=== PATIENT | female | born 1985 | race Hispanic/Latino ===

== ENCOUNTER 2017-03-08 14:11 | Emergency (ER) | payer SELFPAY ==
[2017-03-08 14:11] VITALS: BMI 29.0
[2017-03-08 14:17] VITALS: BP 132/63; PULSE 93; RESP 17; TEMP 98.4; O2SAT 96
== END 2017-03-08 14:57 | disposition left against medical advice (07) ==
LOC: ED 14:11
DX: Z02.89 Encounter for other administrative examinations (principal); M25.511 Pain in right shoulder

== ENCOUNTER 2017-03-09 22:45 | Emergency (ER) | payer SELFPAY ==
[2017-03-09 22:45] VITALS: BMI 29.0
[2017-03-09 23:15] VITALS: RESP 16; TEMP 97.6
--- NOTE | 2017-03-09 23:18 | ED PDOC ---
Arrival/HPI - General Chief Complaint: Psychiatric Evaluation Time Seen by Provider: 03/09/17 22:53 Historian: Patient - History of Present Illness Narrative History of Present Illness (Text): 03/09/17 23:16 A 31 year old female was brought in by EMS to the emergency department for alcohol intoxication. Patient was found outside sleeping. Patient denies any fever, chills, headache, dizziness, shortness of breath or any other complaints at this time. Symptom Onset: Sudden Symptom Course: Unchanged Activities at Onset: Rest Associated Symptoms (Text): none Past Medical History - Provider Review Nursing Documentation Reviewed: Yes - Infectious Disease Hx of Infectious Diseases: None - Cardiac Hx Cardiac Disorders: Yes - Pulmonary Hx Respiratory Disorders: No - Neurological Hx Neurological Disorder: No - HEENT Hx HEENT Disorder: No - Renal Hx Renal Disorder: No - Endocrine/Metabolic Hx Endocrine Disorders: No - Hematological/Oncological Hx Blood Disorders: No - Integumentary Hx Dermatological Disorder: No - Musculoskeletal/Rheumatological Hx Falls: Yes - Gastrointestinal Hx Gastrointestinal Disorders: No - Genitourinary/Gynecological Hx Genitourinary Disorders: No - Psychiatric Hx Psychophysiologic Disorder: Yes Hx Bipolar Disorder: Yes Hx Depression: No Hx Post Traumatic Stress Disorder: Yes Hx Substance Use: Yes (HEROIN) - Anesthesia Hx Anesthesia: No - Suicidal Assessment Feels Threatened In Home Enviroment: No Family/Social History - Physician Review Nursing Documentation Reviewed: Yes Family/Social History: No Known Family HX Smoking Status: Current Some Days Smoker Hx Alcohol Use: Yes Hx Substance Use: Yes (HEROIN) Hx Substance Use Treatment: Yes Allergies/Home Meds Allergies/Adverse Reactions: Allergies pentazocine Adverse Reaction (Verified 03/08/17 14:13) FEVER Home Medications: Home Meds Medication Instructions Recorded Confirmed Methadone 210 mg PO DAILY 02/16/12 03/09/17 Review of Systems - Physician Review All systems were reviewed & negative as marked: Yes - Review of Systems Constitutional: absent: Fevers, Other (chills) Respiratory: absent: SOB Neurological: absent: Headache, Dizziness Physical Exam Vital Signs Reviewed: Yes Vital Signs Temp Pulse Resp BP Pulse Ox 03/10/17 02:05 88 16 101/67 100 03/09/17 23:00 97.6 F 78 16 110/76 99 Temperature: Afebrile Blood Pressure: Normal Pulse: Regular Respiratory Rate: Normal Appearance: Positive for: Well-Appearing, Comfortable Pain Distress: None Mental Status: Positive for: Alert and Oriented X 3 - Systems Exam Head: Present: Atraumatic, Normocephalic Pupils: Present: PERRL Extroacular Muscles: Present: EOMI Conjunctiva: Present: Normal Mouth: Present: Moist Mucous Membranes Neck: Present: Normal Range of Motion Respiratory/Chest: Present: Clear to Auscultation, Good Air Exchange. No: Respiratory Distress, Accessory Muscle Use Cardiovascular: Present: Regular Rate and Rhythm, Normal S1, S2. No: Murmurs Abdomen: Present: Normal Bowel Sounds. No: Tenderness, Distention, Peritoneal Signs Back: Present: Normal Inspection Upper Extremity: Present: Normal Inspection. No: Cyanosis, Edema Lower Extremity: Present: Normal Inspection. No: Edema Neurological: Present: GCS=15, CN II-XII Intact, Speech Normal Skin: Present: Warm, Dry, Normal Color. No: Rashes Psychiatric: Present: Alert, Oriented x 3, Intoxicated Medical Decision Making ED Course and Treatment: 03/09/17 23:15 Impression: A 31 year old female with alcohol intoxication. Plan: -- Reassess and disposition Prior Visits: Notes and results from previous visits were reviewed. Patient reported to the emergency department on 02/23/17 for evaluation of alcohol intoxication. Progress Notes: Waiting for rehab. Re-evaluation Time: 05:29 Reassessment Condition: Re-examined, Improved - Scribe Statement The provider has reviewed the documentation as recorded by the Joyibcyndee Morrow Provider Scribe Attestation: All medical record entries made by the Scribe were at my direction and personally dictated by me. I have reviewed the chart and agree that the record accurately reflects my personal performance of the history, physical exam, medical decision making, and the department course for this patient. I have also personally directed, reviewed, and agree with the discharge instructions and disposition. Disposition/Present on Arrival - Present on Arrival Any Indicators Present on Arrival: No History of DVT/PE: No History of Uncontrolled Diabetes: No Urinary Catheter: No History of Decub. Ulcer: No History Surgical Site Infection Following: None - Disposition Have Diagnosis and Disposition been Completed?: Yes Diagnosis: Alcohol abuse Disposition: HOME/ ROUTINE Disposition Time: 05:29 Patient Problems: Current Active Problems Problem Status Onset Alcohol abuse Acute Condition: GOOD Discharge Instructions (ExitCare): Abuse of Alcohol (ED) Forms: [employer] [facility] ([place])
[2017-03-10 05:53] VITALS: BP 126/78; PULSE 78; O2SAT 99
== END 2017-03-10 05:53 | disposition home or self-care (01) ==
LOC: ED 22:45
DX: F10.10 Alcohol abuse, uncomplicated (principal); Y90.9 Presence of alcohol in blood, level not specified

== ENCOUNTER 2017-04-18 04:12 | Emergency (ER) | payer MEDICAID ==
[2017-04-18 04:22] VITALS: BMI 28.9
--- NOTE | 2017-04-18 04:42 | ED PDOC ---
Arrival/HPI - General Chief Complaint: Alcohol Ingestion Time Seen by Provider: 04/18/17 04:24 Historian: EMS - History of Present Illness Narrative History of Present Illness (Text): 04/18/17 04:42 Kristen Erickson is a 32 year old female, whose past medical history includes alcohol abuse, substance abuse, and heart murmur, who presents to the Emergency department brought in by EMS for public intoxication. As per EMS, patient was found lying on the ground outside with a bottle of Vodka near her. Patient admits to drinking alcohol tonight. Limited HPI and ROS due to patient's intoxication. Time/Duration: Other (tonight) Symptom Onset: Gradual Symptom Course: Unchanged Activities at Onset: Light Context: Street Past Medical History - Provider Review Nursing Documentation Reviewed: Yes - Infectious Disease Hx of Infectious Diseases: None - Cardiac Hx Cardiac Disorders: Yes Hx Heart Murmur: Yes - Pulmonary Hx Respiratory Disorders: No - Neurological Hx Neurological Disorder: No - HEENT Hx HEENT Disorder: No - Renal Hx Renal Disorder: No - Endocrine/Metabolic Hx Endocrine Disorders: No - Hematological/Oncological Hx Blood Disorders: No - Integumentary Hx Dermatological Disorder: No - Musculoskeletal/Rheumatological Hx Falls: No - Gastrointestinal Hx Gastrointestinal Disorders: No - Genitourinary/Gynecological Hx Genitourinary Disorders: No - Psychiatric Hx Bipolar Disorder: Yes Hx Depression: No Hx Post Traumatic Stress Disorder: Yes Hx Substance Use: Yes - Anesthesia Hx Anesthesia: No - Suicidal Assessment Feels Threatened In Home Enviroment: No Family/Social History - Physician Review Nursing Documentation Reviewed: Yes Family/Social History: Unknown Family HX Smoking Status: Heavy Smoker > 10 Cigarettes Daily Hx Alcohol Use: Yes Hx Substance Use: Yes Hx Substance Use Treatment: Yes Allergies/Home Meds Allergies/Adverse Reactions: Allergies pentazocine Adverse Reaction (Verified 03/08/17 14:13) FEVER Home Medications: Home Meds Medication Instructions Recorded Confirmed Methadone 200 mg PO DAILY 02/16/12 04/06/17 Review of Systems - Review of Systems Systems not reviewed;Unavailable: Intoxicated Physical Exam Vital Signs Temp Pulse Resp BP Pulse Ox 04/18/17 04:25 94.9 F L 54 L 18 122/81 96 Temperature: Hypothermic Blood Pressure: Normal Pulse: Regular Respiratory Rate: Normal Appearance: Positive for: Non-Toxic, Comfortable Pain Distress: None Mental Status: Positive for: other (grossly inebriated) - Systems Exam Head: Present: Atraumatic, Normocephalic Pupils: Present: PERRL Extroacular Muscles: Present: EOMI Conjunctiva: Present: Normal Mouth: Present: Moist Mucous Membranes Neck: Present: Normal Range of Motion Respiratory/Chest: Present: Clear to Auscultation, Good Air Exchange. No: Respiratory Distress, Accessory Muscle Use Cardiovascular: Present: Regular Rate and Rhythm, Normal S1, S2. No: Murmurs Abdomen: Present: Normal Bowel Sounds. No: Tenderness, Distention, Peritoneal Signs Back: Present: Normal Inspection Upper Extremity: Present: Normal Inspection. No: Cyanosis, Edema Lower Extremity: Present: Normal Inspection. No: Edema Neurological: Present: CN II-XII Intact Skin: Present: Warm, Dry, Normal Color. No: Rashes Psychiatric: Present: Intoxicated (grossly inebriated) Medical Decision Making ED Course and Treatment: 04/18/17 04:42 Impression: 32 year old female brought in after she was founding lying outside inebriated Plan: -- Labs, alcohol level -- Reassess and disposition Progress Notes: - Lab Interpretations Lab Results: 04/18/17 05:16 Lab Results 04/18/17 05:16: Alcohol, Quantitative 309 H* 04/18/17 05:16: Sodium 149 H, Potassium 3.4 L, Chloride 107, Carbon Dioxide 23, Anion Gap 23 H, BUN 7, Creatinine 0.6 L, Est GFR ( Amer) > 60, Est GFR ( Non-Af Amer) > 60, Random Glucose 91, Calcium 9.1, Total Bilirubin 0.2, AST 42 H D, ALT 37, Alkaline Phosphatase 92, Total Protein 7.4, Albumin 4.1, Globulin 3.3, Albumin/Globulin Ratio 1.2 04/18/17 04:40: POC Glucose (mg/dL) 97 - Medication Orders Current Medication Orders: Sodium Chloride (Sodium Chloride 0.9%) 1,000 mls @ 999 mls/hr IV .Q1H1M STA Stop: 04/18/17 07:05 - Transfer of Care Patient signed out to Dr:: Madelyn Other: pending sobriety/reassess/final disposition - Scribe Statement The provider has reviewed the documentation as recorded by the Pacheco Crane Provider Scribe Attestation: All medical record entries made by the Scribe were at my direction and personally dictated by me. I have reviewed the chart and agree that the record accurately reflects my personal performance of the history, physical exam, medical decision making, and the department course for this patient. I have also personally directed, reviewed, and agree with the discharge instructions and disposition. Disposition/Present on Arrival - Present on Arrival Any Indicators Present on Arrival: No History of DVT/PE: No History of Uncontrolled Diabetes: No Urinary Catheter: No History of Decub. Ulcer: No History Surgical Site Infection Following: None - Disposition Have Diagnosis and Disposition been Completed?: No Diagnosis: Alcohol intoxication Disposition Time: 07:00 Condition: STABLE Forms: [employer] (Tajik)
[2017-04-18 05:49] LABS: ALB/GLOB RATIO 1.2 (1.1-1.8); ALBUMIN 4.1 g/dL (3.0-4.8); ALT/SGPT 37 U/L (7-56); AST/SGOT 42 U/L (14-36); BLOOD UREA NITROGEN 7 mg/dL (7-21); CALCIUM 9.1 mg/dL (8.4-10.5); GFR AFRICAN-AMERICAN > 60; GFR NON-AFRICAN AMERICAN > 60
[2017-04-18 06:05] LABS: HEMOGLOBIN 13.7 g/dL (12.0-16.0); MEAN CELL VOLUME 98.8 fl (80.0-105.0); MEAN CORPUSCULAR HEMOGLOBIN 32.3 pg (25.0-35.0); MEAN CORPUSCULAR HGB CONC 32.7 g/dl (31.0-37.0); MEAN PLATELET VOLUME 10.5 fl (7.0-11.0); RBC 4.24 10^6/uL (3.5-6.1); RED CELL DISTRIBUTION WIDTH 14.6 % (11.5-14.5); WHITE BLOOD COUNT 9.8 10^3/ul (4.5-11.0)
[2017-04-18] MEDS ORDERED: Sodium Chloride 0.9% 1,000 ML IV STA (06:05)
--- NOTE | 2017-04-18 07:58 | ED PDOC ---
Physical Exam Vital Signs Reviewed: Yes Vital Signs Temp Pulse Resp BP Pulse Ox 04/18/17 07:16 98.5 F 04/18/17 06:56 60 18 78/56 L 96 04/18/17 04:25 94.9 F L 54 L 18 122/81 96 Appearance: Positive for: Non-Toxic, Comfortable Pain Distress: None Mental Status: Positive for: other (intoxicated) Finger Stick Blood Glucose: 97 Medical Decision Making ED Course and Treatment: 04/18/17 07:57 Case signed out to me by Dr. Smith. Pending patient sobriety and final disposition. - Lab Interpretations Lab Results: 04/18/17 05:16 04/18/17 05:16 Lab Results 04/18/17 05:16: WBC 9.8 D, RBC 4.24, Hgb 13.7 D, Hct 41.9, MCV 98.8, MCH 32.3 , MCHC 32.7, RDW 14.6 H, Plt Count 294, MPV 10.5 04/18/17 05:16: Alcohol, Quantitative 309 H* 04/18/17 05:16: Sodium 149 H, Potassium 3.4 L, Chloride 107, Carbon Dioxide 23, Anion Gap 23 H, BUN 7, Creatinine 0.6 L, Est GFR ( Amer) > 60, Est GFR ( Non-Af Amer) > 60, Random Glucose 91, Calcium 9.1, Total Bilirubin 0.2, AST 42 H D, ALT 37, Alkaline Phosphatase 92, Total Protein 7.4, Albumin 4.1, Globulin 3.3, Albumin/Globulin Ratio 1.2 04/18/17 04:40: POC Glucose (mg/dL) 97 I have reviewed the lab results: Yes - Medication Orders Current Medication Orders: Discontinued Medications Sodium Chloride (Sodium Chloride 0.9%) 1,000 mls @ 999 mls/hr IV .Q1H1M STA Stop: 04/18/17 07:05 Last Admin: 04/18/17 06:29 Dose: 999 mls/hr eMAR Start Stop Document 04/18/17 06:29 IT (Rec: 04/18/17 06:29 IT [id number]) Intravenous Solution Start Date 04/18/17 Start Time 06:29 End Date 04/18/17 End time 07:29 Total Infusion Time 60 - Scribe Statement The provider has reviewed the documentation as recorded by the Pacheco Morrow Provider Scribe Attestation: All medical record entries made by the Pacheco were at my direction and personally dictated by me. I have reviewed the chart and agree that the record accurately reflects my personal performance of the history, physical exam, medical decision making, and the department course for this patient. I have also personally directed, reviewed, and agree with the discharge instructions and disposition. Disposition/Present on Arrival - Present on Arrival Any Indicators Present on Arrival: No History of DVT/PE: No History of Uncontrolled Diabetes: No Urinary Catheter: No History of Decub. Ulcer: No History Surgical Site Infection Following: None - Disposition Diagnosis: Alcohol intoxication Patient Problems: Current Active Problems Problem Status Onset Alcohol intoxication Acute Condition: STABLE Forms: [employer] [facility] ([place]otho)
[2017-04-18 09:44] VITALS: RESP 20
[2017-04-18 11:27] VITALS: BP 119/82; PULSE 78; TEMP 98; O2SAT 100
== END 2017-04-18 11:28 | disposition home or self-care (01) ==
LOC: ED 04:12
DX: F10.129 Alcohol abuse with intoxication, unspecified (principal); Y90.8 Blood alcohol level of 240 mg/100 ml or more
CPT/HCPCS: 80053; 80320; 82948; 85027; 96360; 99284; J7040

== ENCOUNTER 2017-06-02 10:12 | Emergency (ER) | payer MEDICAID ==
[2017-06-02 10:13] VITALS: BMI 28.9
[2017-06-02 10:22] VITALS: RESP 16; TEMP 98.5
[2017-06-02] MEDS ORDERED: Magnesium Sulfate 2 GM in Sodium Chloride 0.9% 100 ML IVPB ONE (12:17)
[2017-06-02] MEDS ORDERED: Thiamine 100 mg/ml Inj IM STA (12:18)
--- NOTE | 2017-06-02 12:24 | ED PDOC ---
Arrival/HPI - General Chief Complaint: Alcohol Ingestion Time Seen by Provider: 06/02/17 12:10 Historian: Patient - History of Present Illness Narrative History of Present Illness (Text): 06/02/17 12:32 A 32 year old female, currently on her menstrual period, whose past medical history includes heart murmur, alcohol abuse and substance abuse, presents to the emergency department for alcohol withdrawal. Patient reports she has been drinking alcohol daily for a year, last drink was last night. Reports to having seizures in the past. Patient denies any other complaints at this time. Medications: Methadone Symptom Onset: Sudden Symptom Course: Unchanged Activities at Onset: Rest Context: Home Past Medical History - Provider Review Nursing Documentation Reviewed: Yes - Infectious Disease Hx of Infectious Diseases: None - Cardiac Hx Cardiac Disorders: Yes Hx Heart Murmur: Yes - Pulmonary Hx Respiratory Disorders: No - Neurological Hx Neurological Disorder: No - HEENT Hx HEENT Disorder: No - Renal Hx Renal Disorder: No - Endocrine/Metabolic Hx Endocrine Disorders: No - Hematological/Oncological Hx Blood Disorders: Yes Hx Hepatitis A: Yes - Integumentary Hx Dermatological Disorder: No - Musculoskeletal/Rheumatological Hx Musculoskeletal Disorders: Yes Hx Back Pain: Yes - Gastrointestinal Hx Gastrointestinal Disorders: No - Genitourinary/Gynecological Hx Genitourinary Disorders: No - Psychiatric Hx Psychophysiologic Disorder: Yes Hx Depression: Yes Hx Post Traumatic Stress Disorder: Yes Hx Substance Use: Yes (OPIATES, COCAINE) - Anesthesia Hx Anesthesia: No - Suicidal Assessment Feels Threatened In Home Enviroment: No Family/Social History - Physician Review Nursing Documentation Reviewed: Yes Family/Social History: No Known Family HX Smoking Status: Heavy Smoker > 10 Cigarettes Daily Hx Alcohol Use: Yes Frequency of alcohol use: Daily Hx Substance Use: Yes (OPIATES, COCAINE) Hx Substance Use Treatment: Yes Allergies/Home Meds Allergies/Adverse Reactions: Allergies pentazocine Adverse Reaction (Verified 06/02/17 10:15) FEVER Home Medications: Home Meds Medication Instructions Recorded Confirmed Methadone HCl [Methadose] 200 mg PO DAILY 06/02/17 06/02/17 Review of Systems - Physician Review All systems were reviewed & negative as marked: Yes - Review of Systems Constitutional: absent: Fevers Neurological: absent: Headache Physical Exam Vital Signs Reviewed: Yes Vital Signs Temp Pulse Resp BP Pulse Ox 06/02/17 14:23 71 16 125/59 L 98 06/02/17 13:48 69 16 113/59 L 97 06/02/17 11:59 89 16 129/82 96 06/02/17 10:15 98.5 F 86 16 139/80 97 Temperature: Afebrile Blood Pressure: Normal Pulse: Regular Respiratory Rate: Normal Appearance: Positive for: Well-Appearing, Comfortable Pain Distress: None Mental Status: Positive for: Alert and Oriented X 3 - Systems Exam Head: Present: Atraumatic, Normocephalic Pupils: Present: PERRL Extroacular Muscles: Present: EOMI Conjunctiva: Present: Normal Mouth: Present: Moist Mucous Membranes Neck: Present: Normal Range of Motion Respiratory/Chest: Present: Clear to Auscultation, Good Air Exchange. No: Respiratory Distress, Accessory Muscle Use Cardiovascular: Present: Tachycardic (slightly) Abdomen: Present: Normal Bowel Sounds. No: Tenderness, Distention, Peritoneal Signs Back: Present: Normal Inspection Upper Extremity: Present: Normal Inspection. No: Cyanosis, Edema Lower Extremity: Present: Normal Inspection. No: Edema Neurological: Present: GCS=15, CN II-XII Intact, Speech Normal, Other (non- focal slightly tremulous) Skin: Present: Warm, Dry, Normal Color. No: Rashes Psychiatric: Present: Alert, Oriented x 3, Normal Concentration, Anxious Medical Decision Making ED Course and Treatment: 06/02/17 12:23 Impression: A 32 year old female with alcohol withdrawal. Plan: -- labs -- Ativan, IV fluids, Vitamin B -- Reassess and disposition Prior Visits: Notes and results from previous visits were reviewed. Patient was last seen in the emergency department on 04/18/17 for evaluation of alcohol intoxication. Progress Notes: Reassessment Condition: Re-examined, Improved - Lab Interpretations Lab Results: 06/02/17 12:20 06/02/17 12:20 Lab Results 06/02/17 12:20: Alcohol, Quantitative < 10 06/02/17 12:20: Sodium 139, Potassium 3.8, Chloride 101, Carbon Dioxide 27, Anion Gap 15, BUN 14, Creatinine 0.5 L, Est GFR ( Amer) > 60, Est GFR ( Non-Af Amer) > 60, Random Glucose 77, Calcium 8.9, Magnesium 1.4 L, Total Bilirubin 0.2, AST 39 H, ALT 34, Alkaline Phosphatase 84, Total Protein 6.9, Albumin 3.8, Globulin 3.0, Albumin/Globulin Ratio 1.3 06/02/17 12:20: WBC 10.7, RBC 3.90, Hgb 12.3, Hct 37.5, MCV 96.2, MCH 31.5, MCHC 32.8, RDW 15.3 H, Plt Count 343, MPV 9.2, Gran % 71.8 H, Lymph % (Auto) 20.2 L, [place] % (Auto) 6.5 H, Eos % (Auto) 0.8 L, Baso % (Auto) 0.7, Gran # 7.67 H, Lymph # (Auto) 2.2, [place] # (Auto) 0.7 H, Eos # (Auto) 0.1, Baso # (Auto) 0.07 I have reviewed the lab results: Yes - Medication Orders Current Medication Orders: Dextrose/Sodium Chloride (Dextrose 5%/0.9% Ns 1000 Ml) 1,000 mls @ 250 mls/hr IV .Q4H GEORGE Last Admin: 06/02/17 12:29 Dose: 250 mls/hr eMAR Start Stop Document 06/02/17 12:29 SE (Rec: 06/02/17 12:30 [id number]) Intravenous Solution Start Date 06/02/17 Start Time 12:29 Discontinued Medications Magnesium Sulfate 2 gm/ Sodium (Chloride) 104 mls @ 102 mls/hr IVPB ONCE ONE Stop: 06/02/17 13:18 Last Admin: 06/02/17 12:36 Dose: 102 mls/hr eMAR Start Stop Document 06/02/17 12:36 SE (Rec: 06/02/17 12:36 [facility] [id number]) Intravenous Solution Start Date 06/02/17 Start Time 12:36 Lorazepam (Ativan) 2 mg IVP ONCE ONE PRN Reason: Protocol Stop: 06/02/17 12:18 Last Admin: 06/02/17 12:20 Dose: 2 mg IVP Administration Document 06/02/17 12:20 SE (Rec: 06/02/17 12:20 [facility] [id number]) Charges for Administration # of IVP Administrations 1 Thiamine HCl (Vitamin B1 Inj) 100 mg IM STAT STA Stop: 06/02/17 12:19 Last Admin: 06/02/17 12:29 Dose: 100 mg IM Administration Charges Document 06/02/17 12:29 SE (Rec: 06/02/17 12:29 [facility] [id number]) Charges for Administration # of IM Administrations 1 - Scribe Statement The provider has reviewed the documentation as recorded by the Scribe Zheng Morrow Provider Scribe Attestation: All medical record entries made by the Scribe were at my direction and personally dictated by me. I have reviewed the chart and agree that the record accurately reflects my personal performance of the history, physical exam, medical decision making, and the department course for this patient. I have also personally directed, reviewed, and agree with the discharge instructions and disposition. Disposition/Present on Arrival - Present on Arrival Any Indicators Present on Arrival: No History of DVT/PE: No History of Uncontrolled Diabetes: No Urinary Catheter: No History of Decub. Ulcer: No History Surgical Site Infection Following: None - Disposition Have Diagnosis and Disposition been Completed?: Yes Diagnosis: Alcohol withdrawal, Alcoholism Disposition: HOME/ ROUTINE Disposition Time: 16:30 Patient Plan: Discharge Condition: IMPROVED Forms: [employer] (Wallisian)
[2017-06-02] MEDS ORDERED: Dextrose 5%/0.9% NS 1,000 ML IV SCH (12:30)
[2017-06-02 12:32] LABS: BASO # 0.07 K/mm3 (0.0-2.0); BASO % 0.7 % (0.0-3.0); EOS # 0.1 (0.0-0.7); EOS % 0.8 % (1.5-5.0); GRAN # 7.67 (1.4-6.5); GRAN % 71.8 % (50.0-68.0); HEMOGLOBIN 12.3 g/dL (12.0-16.0); LYMPH # 2.2 (1.2-3.4); LYMPH % 20.2 % (22.0-35.0); MEAN CELL VOLUME 96.2 fl (80.0-105.0); MEAN CORPUSCULAR HEMOGLOBIN 31.5 pg (25.0-35.0); MEAN CORPUSCULAR HGB CONC 32.8 g/dl (31.0-37.0); MEAN PLATELET VOLUME 9.2 fl (7.0-11.0); MONO # 0.7 (0.1-0.6); MONO % 6.5 % (1.0-6.0); RBC 3.9 10^6/uL (3.5-6.1); RED CELL DISTRIBUTION WIDTH 15.3 % (11.5-14.5); WHITE BLOOD COUNT 10.7 10^3/ul (4.5-11.0)
[2017-06-02 12:41] LABS: ALB/GLOB RATIO 1.3 (1.1-1.8); ALBUMIN 3.8 g/dL (3.0-4.8); ALT/SGPT 34 U/L (7-56); AST/SGOT 39 U/L (14-36); BLOOD UREA NITROGEN 14 mg/dL (7-21); CALCIUM 8.9 mg/dL (8.4-10.5); GFR AFRICAN-AMERICAN > 60; GFR NON-AFRICAN AMERICAN > 60; MAGNESIUM 1.4 mg/dL (1.7-2.2)
[2017-06-02 14:25] VITALS: O2SAT 98
[2017-06-02 16:07] VITALS: BP 135/82; PULSE 98
== END 2017-06-02 16:06 | disposition home or self-care (01) ==
LOC: ED 10:12
DX: F10.239 Alcohol dependence with withdrawal, unspecified (principal); Y90.0 Blood alcohol level of less than 20 mg/100 ml; R01.1 Cardiac murmur, unspecified
CPT/HCPCS: 80053; 80320; 83735; 85025; 96372; 96374; 99284; J2060; J3411; J3475; J7042

== ENCOUNTER 2017-06-19 22:00 | Emergency (ER) | payer MEDICAID ==
[2017-06-19 22:06] VITALS: BMI 30.2
--- NOTE | 2017-06-19 22:15 | ED PDOC ---
Arrival/HPI - General Historian: Patient, EMS <Niall Krishna - Last Filed: 06/20/17 01:09> <Erik Capone - Last Filed: 06/20/17 02:07> - General Chief Complaint: Alcohol Ingestion Time Seen by Provider: 06/19/17 22:05 - History of Present Illness Narrative History of Present Illness (Text): 06/19/17 22:12 32 y/o female, no significant pmh, FS 85, psychiatric history including alcohol and drug abuse, allergic to pentazocine, biba for etoh and found sleeping on the street. Pt. is here with etoh on breath, admits drinking and on the methadone, stated that she didn't have any fall or trauma, no head or neck pain, no back pain, no extremity pain, no abdominal pain, no nausea or vomiting, no rash, no change in vision, no other medical or psychological complaints. (Niall Krishna) Past Medical History - Provider Review Nursing Documentation Reviewed: Yes - Infectious Disease Hx of Infectious Diseases: None - Cardiac Hx Cardiac Disorders: Yes Hx Heart Murmur: Yes - Pulmonary Hx Respiratory Disorders: No - Neurological Hx Neurological Disorder: No - HEENT Hx HEENT Disorder: No - Renal Hx Renal Disorder: No - Endocrine/Metabolic Hx Endocrine Disorders: No - Hematological/Oncological Hx Blood Disorders: Yes Hx Hepatitis A: Yes - Integumentary Hx Dermatological Disorder: No - Musculoskeletal/Rheumatological Hx Musculoskeletal Disorders: Yes Hx Back Pain: Yes - Gastrointestinal Hx Gastrointestinal Disorders: No - Genitourinary/Gynecological Hx Genitourinary Disorders: No - Psychiatric Hx Psychophysiologic Disorder: Yes Hx Depression: Yes Hx Post Traumatic Stress Disorder: Yes Hx Substance Use: Yes (OPIATES, COCAINE) - Anesthesia Hx Anesthesia: No - Suicidal Assessment Feels Threatened In Home Enviroment: No <Niall Krishna - Last Filed: 06/20/17 01:09> Family/Social History - Physician Review Nursing Documentation Reviewed: Yes Family/Social History: Unknown Family HX Smoking Status: Heavy Smoker > 10 Cigarettes Daily Hx Alcohol Use: Yes Hx Substance Use: Yes (OPIATES, COCAINE) Hx Substance Use Treatment: Yes <Niall Krishna - Last Filed: 06/20/17 01:09> Allergies/Home Meds <Niall Krishna - Last Filed: 06/20/17 01:09> <Erik Capone - Last Filed: 06/20/17 02:07> Allergies/Adverse Reactions: Allergies pentazocine Adverse Reaction (Verified 06/02/17 10:15) FEVER Home Medications: Home Meds Medication Instructions Recorded Confirmed Methadone HCl [Methadose] 200 mg PO DAILY 06/02/17 06/02/17 Review of Systems - Review of Systems Systems not reviewed;Unavailable: Intoxicated Constitutional: absent: Fatigue, Fevers Eyes: absent: Vision Changes ENT: absent: Hearing Changes Respiratory: absent: SOB, Cough Cardiovascular: absent: Chest Pain Gastrointestinal: absent: Abdominal Pain, Diarrhea, Nausea, Vomiting Neurological: absent: Headache, Dizziness Psychiatric: absent: Depression, Suicidal Ideation <Niall Krishna - Last Filed: 06/20/17 01:09> Physical Exam - Systems Exam Head: Present: Atraumatic, Normocephalic, Other (no facial bony tenderness). No : Tenderness, Contusion, Swelling, Ecchymosis, Abrasion, Laceration Pupils: Present: PERRL Extroacular Muscles: Present: EOMI Conjunctiva: Present: Normal Ears: Present: NORMAL TM, Normal Canal. No: Erythema Mouth: Present: Moist Mucous Membranes Pharnyx: No: ERYTHEMA, EXUDATE, TONSILS ENLARGED, Uvular Deviation, Muffled/ Hoarse Voice Nose (External): Present: Atraumatic. No: Abrasion, Contusion, Laceration, Lesions Nose (Internal): Present: Normal Inspection, No Active Bleeding. No: Rhinorrhea , Septal Hematoma, Epistaxis Neck: Present: Normal Range of Motion, Trachea Midline. No: Meningeal Signs, MIDLINE TENDERNESS, Paraspinal Tenderness, Lymphadenopathy Respiratory/Chest: Present: Clear to Auscultation, Good Air Exchange. No: Respiratory Distress, Accessory Muscle Use Cardiovascular: Present: Regular Rate and Rhythm, Normal S1, S2. No: Murmurs Abdomen: Present: Normal Bowel Sounds. No: Tenderness, Distention, Peritoneal Signs, Rebound, Guarding Back: Present: Normal Inspection. No: CVA Tenderness, Midline Tenderness, Paraspinal Tenderness, Decubitus Ulcer Upper Extremity: Present: Normal Inspection, Normal ROM. No: Cyanosis, Edema, Tenderness, Swelling, Deformity Lower Extremity: Present: Normal Inspection, Normal ROM, Neurovascularly Intact. No: Edema, Tenderness, Swelling Neurological: Present: GCS=15, CN II-XII Intact, Motor Func Grossly Intact Skin: Present: Warm, Dry, Normal Color. No: Rashes Psychiatric: Present: Alert, Oriented x 3, Normal Insight, Normal Concentration <Niall Krishna - Last Filed: 06/20/17 01:09> Vital Signs Temp Pulse Resp BP Pulse Ox 06/20/17 02:03 98.3 F 06/20/17 00:25 89 18 97 06/19/17 22:24 82 20 104/76 100 Medical Decision Making <Niall Krishna - Last Filed: 06/20/17 01:09> Reassessment Condition: Improved <Erik Capone - Last Filed: 06/20/17 02:07> ED Course and Treatment: 06/19/17 22:14 -FS -no signs of trauma, no pain -will observe until sober 06/20/17 01:55 -Pt. is resting, vital signs are stable, no medical or psychological complaints , sleeping well -Case sign out and endorsed to Dr. Capone, he will re-evaluate the patient after sober and dispo. (Niall Krishna) 06/20/17 01:54 you were treated in the ED today for admitted alcohol use but otherwise without any nausea/vomiting/headache/dizziness/difficulty breathing/chest pain/abdomen pain/numbness/tingling/loss of limb function/pain with urination/thoughts to harm yourelf or others or hallucinations. You were otherwise breathing easily, smiling with good strength/sensation, walking easily, clear lungs, no abdomen tenderness, no fever temp _98.3__, stable heart rate _82__, stable breathing rate _20___, excellent oxygen level 100_% room air, elevated blood pressure __ 104/76___ which we recommend repeat in 2-3 days primary care office to determine further treatment, allowed observation/sobriety done in the ED with improvement/walking around/alert and oriented. you didn't want to do test and cautioned for missed diagnosis/complications. Patient is awake and ambulating. Counselled to stop__drinking alcohol and thus discharged home and you are walking home. 1. Recommend follow-up primary care 2-3 days to review symptoms, referral to detoxification clinic. 4. If any worsening pain, fever, chills, nausea, vomiting, difficulty breathing, numbness, loss of limb function , pain with urination or any medical condition then return to the ED. 06/20/17 02:04 (Erik Capone) - Lab Interpretations Lab Results: Lab Results 06/19/17 22:16: POC Glucose (mg/dL) 85 - PA / COMBINATION OPERATOR / Resident Statement MD/DO has reviewed & agrees with the documentation as recorded. <Niall Krishna - Last Filed: 06/20/17 01:09> Disposition/Present on Arrival - Present on Arrival Any Indicators Present on Arrival: No History of DVT/PE: No History of Uncontrolled Diabetes: No Urinary Catheter: No History of Decub. Ulcer: No History Surgical Site Infection Following: None - Disposition Have Diagnosis and Disposition been Completed?: Yes Disposition Time: 01:11 <Niall Krishna - Last Filed: 06/20/17 01:09> - Present on Arrival Any Indicators Present on Arrival: No - Disposition Patient Plan: Discharge <Erik Capone - Last Filed: 06/20/17 02:07> - Disposition Diagnosis: Alcohol intoxication Disposition: HOME/ ROUTINE Patient Problems: Current Active Problems Problem Status Onset Alcohol intoxication Acute Condition: IMPROVED Discharge Instructions (ExitCare): Alcohol Abuse and Alcoholism (DC) Additional Instructions: you were treated in the ED today for admitted alcohol use but otherwise without any nausea/vomiting/headache/dizziness/difficulty breathing/chest pain/abdomen pain/numbness/tingling/loss of limb function/pain with urination/thoughts to harm yourelf or others or hallucinations. You were otherwise breathing easily, smiling with good strength/sensation, walking easily, clear lungs, no abdomen tenderness, no fever temp _98.3__, stable heart rate _82__, stable breathing rate _20___, excellent oxygen level 100_% room air, elevated blood pressure __ 104/76___ which we recommend repeat in 2-3 days primary care office to determine further treatment, allowed observation/sobriety done in the ED with improvement/walking around/alert and oriented. you didn't want to do test and cautioned for missed diagnosis/complications. Patient is awake and ambulating. Counselled to stop__drinking alcohol and thus discharged home and you are walking home. 1. Recommend follow-up primary care 2-3 days to review symptoms, referral to detoxification clinic. 4. If any worsening pain, fever, chills, nausea, vomiting, difficulty breathing, numbness, loss of limb function , pain with urination or any medical condition then return to the ED. Forms: [employer] (Icelandic)
[2017-06-20 01:23] VITALS: RESP 18
[2017-06-20 02:03] VITALS: TEMP 98.3
[2017-06-20 02:08] VITALS: BP 110/62; PULSE 88; O2SAT 98
== END 2017-06-20 02:17 | disposition home or self-care (01) ==
LOC: ED 22:00
DX: F10.129 Alcohol abuse with intoxication, unspecified (principal); F17.210 Nicotine dependence, cigarettes, uncomplicated

== ENCOUNTER 2017-06-20 09:46 | Emergency (ER) | payer MEDICAID ==
[2017-06-20 09:46] VITALS: BMI 30.2
[2017-06-20 09:54] VITALS: BP 105/72; PULSE 97; RESP 16; TEMP 98.8; O2SAT 98
[2017-06-20] MEDS ORDERED: Sodium Chloride 0.9% 500 ML IV STA (10:15)
--- NOTE | 2017-06-20 10:24 | ED PDOC ---
Arrival/HPI - General Chief Complaint: Back Pain Time Seen by Provider: 06/20/17 09:59 Historian: Patient - History of Present Illness Narrative History of Present Illness (Text): 06/20/17 10:23 A 32 year old female, whose past medical history includes drug and alcohol abuse , presents to the emergency department complaining of right sided lower back pain and difficulty urinating for the past three weeks. Patient states she feels like she has kidney stones. She states she was told by [facility] that she has kidney stones, infection about 2-3 weeks ago, couldn't take antibiotics due to insurance. Patient reports to taking Methadone 200 mg daily, prescribed by [facility]. Denies any history of falls, hitting head, injuries or trauma. Patient reported to the emergency department yesterday for alcohol intoxication, was found on the street and brought in by EMS. Denies drinking alcohol as much, not drinking daily. Patient notes nausea and vomiting but denies any chills, abdominal pain or any other complaints at this time. Time/Duration: Other (2-3 weeks) Symptom Onset: Sudden Symptom Course: Unchanged Activities at Onset: Rest Context: Home Past Medical History - Provider Review Nursing Documentation Reviewed: Yes - Infectious Disease Hx of Infectious Diseases: None - Cardiac Hx Cardiac Disorders: Yes Hx Heart Murmur: Yes - Pulmonary Hx Respiratory Disorders: No - Neurological Hx Neurological Disorder: No - HEENT Hx HEENT Disorder: No - Renal Hx Renal Disorder: Yes Hx Kidney Stones: Yes - Endocrine/Metabolic Hx Endocrine Disorders: No - Hematological/Oncological Hx Blood Disorders: Yes Hx Hepatitis A: Yes - Integumentary Hx Dermatological Disorder: No - Musculoskeletal/Rheumatological Hx Musculoskeletal Disorders: Yes Hx Back Pain: Yes - Gastrointestinal Hx Gastrointestinal Disorders: No - Genitourinary/Gynecological Hx Genitourinary Disorders: No - Psychiatric Hx Psychophysiologic Disorder: Yes Hx Depression: Yes Hx Post Traumatic Stress Disorder: Yes Hx Substance Use: Yes (OPIATES, COCAINE RECENT USE) - Anesthesia Hx Anesthesia: No - Suicidal Assessment Feels Threatened In Home Enviroment: No Family/Social History - Physician Review Nursing Documentation Reviewed: Yes Family/Social History: No Known Family HX Smoking Status: Heavy Smoker > 10 Cigarettes Daily Hx Alcohol Use: Yes Hx Substance Use: Yes (OPIATES, COCAINE RECENT USE) Hx Substance Use Treatment: Yes Allergies/Home Meds Allergies/Adverse Reactions: Allergies pentazocine Adverse Reaction (Verified 06/20/17 09:48) FEVER Home Medications: Home Meds Medication Instructions Recorded Confirmed Methadone HCl [Methadose] 200 mg PO DAILY 06/02/17 06/20/17 Review of Systems - Review of Systems Constitutional: absent: Fevers, Other (chills) Respiratory: absent: SOB Cardiovascular: absent: Chest Pain, Palpitations, Edema, Calf Pain, WATTS Gastrointestinal: Nausea. absent: Abdominal Pain, Vomiting, Hematochezia, Hematemesis Genitourinary Female: Other (difficulty urinating). absent: Hematuria, Vaginal Bleeding, Vaginal Discharge Musculoskeletal: Back Pain (right sided lower back pain). absent: Neck Pain Skin: absent: Rash Neurological: absent: Headache, Dizziness, Focal Weakness Endocrine: absent: Polyuria Hemo/Lymphatic: absent: Easy Bleeding Psychiatric: absent: Depression Physical Exam - Physical Exam Narrative Physical Exam (Text): 06/20/17 10:22 Head: Atraumatic. Normocephalic. Eyes: PERRL. EOMI. Conjunctivae are not pale. ENT: Mucous membranes are moist and intact. Oropharynx is clear and symmetric. Neck: Supple. Full ROM. No JVD. No lymphadenopathy. Cardiovascular: regular rate and rhythm, Distal pulses are 2+ and symmetric. Pulmonary/Chest: No evidence of respiratory distress. Clear to auscultation bilaterally. No wheezing, rales or rhonchi. Abdominal: Soft and non-distended. There is no tenderness. No rebound, guarding, or rigidity. No organomegaly. Good bowel sounds. Back: mild right sided paraspinal tenderness, no cva tenderness, no ecchymosis or edema Pelvic: refused by patient. Extremities: No edema. No cyanosis. No clubbing. Full range of motion in all extremities. No calf tenderness. No acute trauma. Skin: Skin is warm and dry. No petechiae. No purpura. Neurological: Alert, awake, and oriented to person, place, time, and situation. Normal speech. Steady gait. Not tremulous or hyperrefexive. No focal weakness. Psychiatric: Good eye contact. Normal interaction, affect, and behavior. Denies suicidal or homicidal ideation. Vital Signs Reviewed: Yes Vital Signs Temp Pulse Resp BP Pulse Ox 06/20/17 09:53 98.8 F 97 H 16 105/72 98 Temperature: Afebrile Blood Pressure: Normal Pulse: Regular Respiratory Rate: Normal Appearance: Positive for: Well-Appearing, Non-Toxic, Comfortable Pain Distress: None Mental Status: Positive for: Alert and Oriented X 3 Medical Decision Making ED Course and Treatment: 06/20/17 10:20 Impression: A 32 year old female with right sided lower back pain, with urinary symptoms for "weeks" Differential Diagnosis included but are not limited to: kidney stones vs. pyelonephritis vs. UTI vs. lumbar strain Plan: -- labs -- Urinalysis -- IV fluids -- Reassess and disposition Prior Visits: Notes and results from previous visits were reviewed. Patient was last seen in the emergency department on 06/19/17 for evaluation of alcohol intoxication. Progress Notes: Patient reports pain for several weeks. Pain not colicky. Denies trauma. No abdominal pain. No chest pain or sob. Ordered ua and labs, treatment plan reviewed with patient. She states she was diagnosed with kidney infection several weeks ago but didn't fill prescription for antibiotics. Currently afebrile, cv stable. She is clinically not intoxicated. Not tremulous or tachycardic on re- evlauation. 06/20/17 11:00 Patient stated she has to pick up man her child and couldn't wait for results. Patient left before urinalysis results or review of blood work. Patient was not clinically intoxicated, normal speech, steady gait, was alert and oriented. Patient left against medical advice. Leaving Against Medical Advice (AMA): The patient is choosing to leave against medical advice. I have personally explained to the patient that choosing to do so may result in permanent bodily harm or . I have discussed at great length that without further evaluation and monitoring there may be unforeseen circumstances and/or deterioration causing permanent bodily harm or as a result of their choice. The patient is alert, oriented, and shows the mental capacity to make clear decisions regarding the patients health care at this time. The patient continues to wish to leave against medical advice. The patient has been advised that they should return to the emergency room immediately if they change their mind at any time, or if their condition begins to change or worsen in any way. 06/20/17 11:56 - Lab Interpretations Lab Results: 06/20/17 10:33 06/20/17 10:33 Lab Results 06/20/17 10:33: Urine Opiates Screen Negative, Urine Methadone Screen Positive H , Ur Barbiturates Screen Negative, Ur Phencyclidine Scrn Negative, Ur Amphetamines Screen Negative, U Benzodiazepines Scrn Negative, U Oth Cocaine Metabols Positive H, U Cannabinoids Screen Positive H 06/20/17 10:33: Alcohol, Quantitative 52 H 06/20/17 10:33: Sodium 141, Potassium 4.0, Chloride 104, Carbon Dioxide 23, Anion Gap 18, BUN 12, Creatinine 0.6 L, Est GFR ( Amer) > 60, Est GFR ( Non-Af Amer) > 60, Random Glucose 93, Calcium 9.5, Total Bilirubin 0.2, AST 25, ALT 29, Alkaline Phosphatase 85, Total Protein 7.1, Albumin 4.0, Globulin 3.1, Albumin/Globulin Ratio 1.3 06/20/17 10:33: Urine Color Yellow, Urine Appearance Clear, Urine pH 6.5, Ur Specific [place] 1.020, Urine Protein Negative, Urine Glucose (UA) Negative, Urine Ketones Trace H, Urine Blood Trace-intact H, Urine Nitrate Negative, Urine Bilirubin Negative, Urine Urobilinogen 0.2, Ur Leukocyte Esterase Trace H , Urine RBC 0 - 2, Urine WBC 0 - 2, Ur Epithelial Cells 1 - 3, Urine Bacteria Few, Urine HCG, Qual Negative 06/20/17 10:33: WBC 12.1 H, RBC 4.03, Hgb 12.5, Hct 38.1, MCV 94.5, MCH 31.0, MCHC 32.8, RDW 14.8 H, Plt Count 334, MPV 9.3, Gran % 75.4 H, Lymph % (Auto) 18.8 L, [place] % (Auto) 5.0, Eos % (Auto) 0.4 L, Baso % (Auto) 0.4, Gran # 9.10 H , Lymph # (Auto) 2.3, [place] # (Auto) 0.6, Eos # (Auto) 0.1, Baso # (Auto) 0.05 I have reviewed the lab results: Yes - Medication Orders Current Medication Orders: Discontinued Medications Sodium Chloride (Sodium Chloride 0.9%) 500 mls @ 1,000 mls/hr IV .Q30M STA Stop: 06/20/17 10:44 Last Admin: 06/20/17 10:26 Dose: 1,000 mls/hr eMAR Start Stop Document 06/20/17 10:26 ROSAS (Rec: 06/20/17 10:26 ROSAS [id number]) Intravenous Solution Start Date 06/20/17 Start Time 10:26 End Date 06/20/17 End time 10:56 Total Infusion Time 30 - Scribe Statement The provider has reviewed the documentation as recorded by the Joyibcyndee Morrow Provider Scribe Attestation: All medical record entries made by the Scribe were at my direction and personally dictated by me. I have reviewed the chart and agree that the record accurately reflects my personal performance of the history, physical exam, medical decision making, and the department course for this patient. I have also personally directed, reviewed, and agree with the discharge instructions and disposition. Disposition/Present on Arrival - Present on Arrival Any Indicators Present on Arrival: No History of DVT/PE: No History of Uncontrolled Diabetes: No Urinary Catheter: No History of Decub. Ulcer: No History Surgical Site Infection Following: None - Disposition Have Diagnosis and Disposition been Completed?: Yes Diagnosis: Back pain Disposition: AGAINST MEDICAL ADVICE Disposition Time: 11:00 Patient Plan: Discharge Condition: GOOD Referrals: Alexus Taylor, [Primary Care Provider] - Follow up with primary Forms: [employer] (Bengali)
[2017-06-20 10:36] LABS: PH,URINE 6.5 (4.7-8.0); URINE BILIRUBIN NEGATIVE (NEGATIVE); URINE BLOOD TRACE-INTACT (NEGATIVE); URINE GLUCOSE (UA) NEGATIVE (NEGATIVE); URINE LEUKOCYTE ESTERASE TRACE Leu/uL (NEGATIVE); URINE NITRATE NEGATIVE (NEGATIVE); URINE PROTEIN NEGATIVE mg/dL (<30 mg/dL); URINE UROBILINOGEN 0.2 E.U./dL (<1 E.U./dL)
[2017-06-20 10:37] LABS: BASO # 0.05 K/mm3 (0.0-2.0); BASO % 0.4 % (0.0-3.0); EOS # 0.1 (0.0-0.7); EOS % 0.4 % (1.5-5.0); GRAN # 9.1 (1.4-6.5); GRAN % 75.4 % (50.0-68.0); HEMOGLOBIN 12.5 g/dL (12.0-16.0); LYMPH # 2.3 (1.2-3.4); LYMPH % 18.8 % (22.0-35.0); MEAN CELL VOLUME 94.5 fl (80.0-105.0); MEAN CORPUSCULAR HGB CONC 32.8 g/dl (31.0-37.0); MEAN PLATELET VOLUME 9.3 fl (7.0-11.0); MONO # 0.6 (0.1-0.6); RBC 4.03 10^6/uL (3.5-6.1); RED CELL DISTRIBUTION WIDTH 14.8 % (11.5-14.5); WHITE BLOOD COUNT 12.1 10^3/ul (4.5-11.0)
[2017-06-20 10:38] LABS: URINE APPEARANCE CLEAR (CLEAR); URINE COLOR YELLOW (YELLOW)
[2017-06-20 10:40] LABS: HCG,QUALITATIVE URINE NEGATIVE (NEGATIVE)
[2017-06-20 10:47] LABS: URINE BACTERIA FEW (NEG); URINE RBC 0 - 2 /hpf (0-2); URINE WBC 0 - 2 /hpf (0-6)
[2017-06-20 10:57] LABS: PHENCYCLIDINE, UR NEGATIVE (NEGATIVE)
[2017-06-20 11:05] LABS: ALB/GLOB RATIO 1.3 (1.1-1.8); ALT/SGPT 29 U/L (7-56); AST/SGOT 25 U/L (14-36); BARBITURATES, UR NEGATIVE (NEGATIVE); BENZODIAZEPINES, UR NEGATIVE (NEGATIVE); BLOOD UREA NITROGEN 12 mg/dL (7-21); CALCIUM 9.5 mg/dL (8.4-10.5); GFR AFRICAN-AMERICAN > 60; GFR NON-AFRICAN AMERICAN > 60; OPIATES, UR NEGATIVE (NEGATIVE)
== END 2017-06-20 11:05 | disposition left against medical advice (07) ==
LOC: ED 09:46
DX: M54.5 Low back pain (principal); F17.210 Nicotine dependence, cigarettes, uncomplicated
CPT/HCPCS: 80053; 80320; 80324; 80345; 80346; 80349; 80353; 80358; 80361; 81001; 83992; 84703; 85025; 87086; 99283; J7040

== ENCOUNTER 2017-07-04 11:36 | Inpatient (IN) | payer MEDICAID ==
[2017-07-04 11:37] VITALS: BMI 30.2
--- NOTE | 2017-07-04 12:00 | ED PDOC ---
Arrival/HPI - General Chief Complaint: Psychiatric Evaluation Time Seen by Provider: 07/04/17 11:50 Historian: Patient - History of Present Illness Time/Duration: Other (Several weeks) Symptom Onset: Gradual Symptom Course: Worsening Severity Level: Moderate Activities at Onset: Rest Associated Symptoms (Text): 07/04/17 11:58 Patient reports that she has been off of her Celexa and Wellbutrin for approximately one month because of insurance issues. She complains of depression for several weeks. She denies suicidal or homicidal ideation. Denies visual or auditory hallucinations. He is an alcoholic who drinks vodka and last drank yesterday. She last used heroin in 2011. She is on methadone 200 daily. She reports that she was HIV negative in January 2017. Past Medical History - Infectious Disease Hx of Infectious Diseases: None - Cardiac Hx Cardiac Disorders: Yes Hx Heart Murmur: Yes - Pulmonary Hx Respiratory Disorders: No - Neurological Hx Neurological Disorder: No - HEENT Hx HEENT Disorder: No - Renal Hx Renal Disorder: Yes Hx Kidney Stones: Yes - Endocrine/Metabolic Hx Endocrine Disorders: No - Hematological/Oncological Hx Blood Disorders: Yes Hx Hepatitis A: Yes - Integumentary Hx Dermatological Disorder: No - Musculoskeletal/Rheumatological Hx Musculoskeletal Disorders: Yes Hx Back Pain: Yes - Gastrointestinal Hx Gastrointestinal Disorders: No - Genitourinary/Gynecological Hx Genitourinary Disorders: No - Psychiatric Hx Psychophysiologic Disorder: Yes Hx Depression: Yes Hx Post Traumatic Stress Disorder: Yes Hx Substance Use: Yes (OPIATES, COCAINE RECENT USE) - Anesthesia Hx Anesthesia: No - Suicidal Assessment Feels Threatened In Home Enviroment: No Family/Social History - Physician Review Nursing Documentation Reviewed: Yes Family/Social History: Unknown Family HX Smoking Status: Heavy Smoker > 10 Cigarettes Daily Hx Alcohol Use: Yes Frequency of alcohol use: Daily Hx Substance Use: Yes (OPIATES, COCAINE RECENT USE) Hx Substance Use Treatment: Yes Allergies/Home Meds Allergies/Adverse Reactions: Allergies pentazocine Adverse Reaction (Verified 07/04/17 12:05) FEVER Home Medications: Home Meds Medication Instructions Recorded Confirmed Methadone HCl [Methadose] 200 mg PO DAILY 06/02/17 07/04/17 Review of Systems - Physician Review All systems were reviewed & negative as marked: Yes - Review of Systems Constitutional: Normal Respiratory: Normal Cardiovascular: Normal Gastrointestinal: Normal Genitourinary Female: Normal Neurological: Normal Psychiatric: Anxiety, Depression. absent: Suicidal Ideation Physical Exam Vital Signs Temp Pulse Resp BP Pulse Ox 07/04/17 13:37 70 18 106/49 L 98 07/04/17 11:37 98.6 F 61 18 130/74 97 Temperature: Afebrile Blood Pressure: Normal Pulse: Regular Respiratory Rate: Normal Appearance: Positive for: Well-Appearing, Non-Toxic, Comfortable Pain Distress: None Mental Status: Positive for: Alert and Oriented X 3 - Systems Exam Head: Present: Atraumatic, Normocephalic Pupils: Present: PERRL Extroacular Muscles: Present: EOMI Conjunctiva: Present: Normal Mouth: Present: Moist Mucous Membranes Pharnyx: No: ERYTHEMA, EXUDATE, TONSILS ENLARGED Neck: Present: Normal Range of Motion Respiratory/Chest: Present: Clear to Auscultation, Good Air Exchange. No: Respiratory Distress, Accessory Muscle Use Cardiovascular: Present: Regular Rate and Rhythm, Normal S1, S2. No: Murmurs Abdomen: Present: Normal Bowel Sounds. No: Tenderness, Distention, Peritoneal Signs, Rebound, Guarding Upper Extremity: Present: Normal Inspection. No: Cyanosis, Edema Lower Extremity: Present: Normal Inspection. No: Edema Neurological: Present: GCS=15, CN II-XII Intact, Speech Normal, Motor Func Grossly Intact Skin: Present: Warm, Dry, Normal Color. No: Rashes Psychiatric: Present: Alert, Oriented x 3, Normal Insight, Normal Concentration , Anxious, Depressed Mood. No: Agitated, Suicidal Ideation, Homicidal Ideation , Delusional, Hallucinations, Intoxicated, Lethargic Medical Decision Making ED Course and Treatment: 07/04/17 12:52 EKG shows normal sinus rhythm rate approximately 80 with a sinus arrhythmia and no acute ST or T-wave changes 07/04/17 15:50 Stephanie from crisis is here and evaluated the patient and will admit to psychiatric floor. - Lab Interpretations Lab Results: 07/04/17 12:00 07/04/17 12:00 Lab Results 07/04/17 12:00: Alcohol, Quantitative 138 H 07/04/17 12:00: Salicylates < 1 L, Acetaminophen < 10.0 L 07/04/17 12:00: Urine Opiates Screen Negative, Urine Methadone Screen Positive H , Ur Barbiturates Screen Negative, Ur Phencyclidine Scrn Positive H, Ur Amphetamines Screen Negative, U Benzodiazepines Scrn Negative, U Oth Cocaine Metabols Negative, U Cannabinoids Screen Positive H 07/04/17 12:00: Sodium 144, Potassium 3.3 L, Chloride 104, Carbon Dioxide 22, Anion Gap 21 H, BUN 19, Creatinine 0.6 L, Est GFR ( Amer) > 60, Est GFR ( Non-Af Amer) > 60, Random Glucose 59 L, Calcium 9.1, Total Bilirubin 0.3, AST 58 H D, ALT 29, Alkaline Phosphatase 127 H D, Total Protein 8.0, Albumin 4.5, Globulin 3.6, Albumin/Globulin Ratio 1.3 07/04/17 12:00: Urine Color Yellow, Urine Appearance Sl cloudy, Urine pH 6.0, Ur Specific [place] >= 1.030, Urine Protein Trace H, Urine Glucose (UA) Negative , Urine Ketones >=80, Urine Blood Large H, Urine Nitrate Positive H, Urine Bilirubin Negative, Urine Urobilinogen 0.2, Ur Leukocyte Esterase Trace H, Urine RBC 0 - 2, Urine WBC 1 - 3, Ur Epithelial Cells 3 - 4, Urine Bacteria Mod 07/04/17 12:00: WBC 12.4 H, RBC 4.40, Hgb 14.0, Hct 41.8, MCV 95.0, MCH 31.8, MCHC 33.5, RDW 15.1 H, Plt Count 342, MPV 9.2, Gran % 67.3, Lymph % (Auto) 25.4 , [place] % (Auto) 6.9 H, Eos % (Auto) 0.2 L, Baso % (Auto) 0.2, Gran # 8.34 H, Lymph # (Auto) 3.2, [place] # (Auto) 0.9 H, Eos # (Auto) 0.0, Baso # (Auto) 0.03 - Medication Orders Current Medication Orders: Discontinued Medications Potassium Chloride (K-Dur 20 Meq Er Tab) 20 meq PO STAT STA Stop: 07/04/17 12:52 Last Admin: 07/04/17 13:03 Dose: 20 meq Disposition/Present on Arrival - Present on Arrival Any Indicators Present on Arrival: No History of DVT/PE: No History of Uncontrolled Diabetes: No Urinary Catheter: No History of Decub. Ulcer: No History Surgical Site Infection Following: None - Disposition Have Diagnosis and Disposition been Completed?: Yes Diagnosis: Depression Disposition: HOSPITALIZED Disposition Time: 15:50 Patient Plan: Admission Condition: GOOD Forms: plista (Ivorian)
[2017-07-04 12:36] LABS: URINE BILIRUBIN NEGATIVE (NEGATIVE); URINE BLOOD LARGE (NEGATIVE); URINE GLUCOSE (UA) NEGATIVE (NEGATIVE); URINE LEUKOCYTE ESTERASE TRACE Leu/uL (NEGATIVE); URINE PROTEIN TRACE mg/dL (<30 mg/dL); URINE UROBILINOGEN 0.2 E.U./dL (<1 E.U./dL)
[2017-07-04 12:38] LABS: BASO # 0.03 K/mm3 (0.0-2.0); BASO % 0.2 % (0.0-3.0); EOS % 0.2 % (1.5-5.0); GRAN # 8.34 (1.4-6.5); GRAN % 67.3 % (50.0-68.0); LYMPH # 3.2 (1.2-3.4); LYMPH % 25.4 % (22.0-35.0); MEAN CORPUSCULAR HEMOGLOBIN 31.8 pg (25.0-35.0); MEAN CORPUSCULAR HGB CONC 33.5 g/dl (31.0-37.0); MEAN PLATELET VOLUME 9.2 fl (7.0-11.0); MONO # 0.9 (0.1-0.6); MONO % 6.9 % (1.0-6.0); RBC 4.4 10^6/uL (3.5-6.1); RED CELL DISTRIBUTION WIDTH 15.1 % (11.5-14.5); URINE APPEARANCE SL CLOUDY (CLEAR); URINE COLOR YELLOW (YELLOW); WHITE BLOOD COUNT 12.4 10^3/ul (4.5-11.0)
[2017-07-04 12:46] LABS: ACETAMINOPHEN < 10.0 ug/ml (10.0-20.0); SALICYLATE < 1 mg/dL (2.0-20.0)
[2017-07-04 12:50] LABS: ALB/GLOB RATIO 1.3 (1.1-1.8); ALBUMIN 4.5 g/dL (3.0-4.8); ALT/SGPT 29 U/L (7-56); AST/SGOT 58 U/L (14-36); BLOOD UREA NITROGEN 19 mg/dL (7-21); CALCIUM 9.1 mg/dL (8.4-10.5); GFR AFRICAN-AMERICAN > 60; GFR NON-AFRICAN AMERICAN > 60; URINE BACTERIA MOD (NEG); URINE RBC 0 - 2 /hpf (0-2)
[2017-07-04] MEDS ORDERED: Potassium Chloride 20 mEq ER Tab PO STA (12:51)
[2017-07-04 12:55] LABS: BARBITURATES, UR NEGATIVE (NEGATIVE); BENZODIAZEPINES, UR NEGATIVE (NEGATIVE); OPIATES, UR NEGATIVE (NEGATIVE); PHENCYCLIDINE, UR POSITIVE (NEGATIVE)
[2017-07-04 15:13] VITALS: O2SAT 98
[2017-07-04] MEDS ORDERED: Magnesium Hydroxide Susp 30 ml UD PO PRN (20:34)
[2017-07-04] MEDS ORDERED: Alum-Mag Hydrox-Simethicone Susp (30 mL) PO PRN (20:34)
[2017-07-04 22:31] LABS: HDL CHOLESTEROL 92 mg/dL (29-60)
[2017-07-04 22:41] LABS: LDL CHOLESTEROL 82 mg/dL (0-129)
--- NOTE | 2017-07-05 05:10 | PCM.BM ---
<ColinfloydMigel escobar O - Last Filed: 07/05/17 05:08> Treatment Plan Problems - Problems identified on initial assessmt depression Date Initiated: 07/04/17 Time Initiated: 23:00 Assessment reference: NA Status: Active Priority: 1 Non compliance with medications Date Initiated: 07/04/17 Time Initiated: 23:35 Assessment reference: NA Status: Active Substance abuse Date Initiated: 07/04/17 Time Initiated: 23:36 Assessment reference: NA Status: Active Treatment assets and liabiliti Patient Assests: ADL independent, physically healthy, negotiates basic needs Patient Liabilities: poor support system, relationship conflicts, substance abuse - Milieu Protocol Maintain good personal hygiene: daily Encourage regular showers, daily Remind patient to perform daily oral care, daily Assist patient to perform ADL's Maintain personal safety: daily Educate patient to report safety concerns to staff, daily Monitor environment for contraband/sharps Medication safety: Monitor for expected outcome, potential side effects: daily, Assess barriers to learning: daily, Assess readiness for medication education: daily Family Contact Family involvement: Famkassy/SO not involved Discharge/Continuing Care - Education Needs Education Needs: Patient Medication, Patient Coping Skills, Patient Anger Management skills, Patient Activities of Daily Living - Discharge Discharge Criteria: Tolerates medication w/o severe side effects, Free of Suicidal thoughts <Jeff Tuttle - Last Filed: 07/05/17 11:25> Treatment Plan Problems - Problems identified on initial assessmt hopelessness Date Initiated: 07/05/17 Time Initiated: 11:27 Assessment reference: NA Status: Active Priority: 1 worthlessness Date Initiated: 07/05/17 Time Initiated: 11:27 Assessment reference: NA Status: Active Priority: 2 ineffective coping Date Initiated: 07/05/17 Time Initiated: 11:27 Assessment reference: NA Status: Active Priority: 3 <Coleen Mulligan - Last Filed: 07/05/17 16:02> Family Contact - Outside Agency [facility] Care involvment: Information-sharing Agency contact name: [facility] <Keri Valles - Last Filed: 07/07/17 12:16>
[2017-07-05 08:18] LABS: GLUCOSE,FASTING 67 mg/dL (65-110); HDL CHOLESTEROL 69 mg/dL (29-60)
[2017-07-05 08:29] LABS: LDL CHOLESTEROL 53 mg/dL (0-129)
[2017-07-05] MEDS: Multivitamin Therapeutic Tab PO SCH (08:50)
[2017-07-05] MEDS ORDERED: buPROPion SR 150 MG TABLET PO SCH (10:00)
--- NOTE | 2017-07-05 10:51 | CARD ---
APPROVED REPORT EKG Measurement Heart [id number] <Conclusion> Normal sinus rhythm with sinus arrhythmia RVCD NSSTW changes, new
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
[2017-07-06] MEDS: Multivitamin Therapeutic Tab PO SCH (08:02)
--- NOTE | 2017-07-06 14:28 | CP.PCM.CON ---
<Francisco Javier Frankel - Last Filed: 07/06/17 14:25> History of Present Illness - History of Present Illness History of Present Illness: Medicine consult note for Dr. Huber Frankel DO, PGY - 1 Reason For Consult: Medical management for UTI HPI: 32 year old female with past medical history significant for polysubstance abuse as well as heroin abuse on methadone presents with depression. Medicine was consulted for her UTI as well as management of any other chronic medical problems. Patient states that she has had chronic tooth pain for months, and that she has seen a dentist for it who did not help her. She has a filling in her left lower canine. Other than that, patient denies any complaints including chest pain, shortness of breath, nausea, vomiting, and diarrhea. Past Surgical History: Patient denies Past Medical History: Polysubstance abuse, Heroin abuse on methadone, Chronic tooth pain Allergies: Pentazocine Social History: Admits to social alcohol, tobacco use, and PCP, heroin, and marijuana Hospitalizations: February for depression Family History: Patient denies Medications: No home medications ROS: Review of systems negative except as per HPI Past Patient History - Infectious Disease Hx of Infectious Diseases: None - Past Social History Smoking Status: Heavy Smoker > 10 Cigarettes Daily - CARDIAC Hx Cardiac Disorders: Yes Hx Heart Murmur: Yes - PULMONARY Hx Respiratory Disorders: No - NEUROLOGICAL Hx Neurological Disorder: No - HEENT Hx HEENT Problems: No - RENAL Hx Chronic Kidney Disease: Yes Hx Kidney Stones: Yes - ENDOCRINE/METABOLIC Hx Endocrine Disorders: No - HEMATOLOGICAL/ONCOLOGICAL Hx Blood Disorders: Yes Hx Hepatitis A: Yes - INTEGUMENTARY Hx Dermatological Problems: No - MUSCULOSKELETAL/RHEUMATOLOGICAL Hx Musculoskeletal Disorders: Yes Hx Back Pain: Yes - GASTROINTESTINAL Hx Gastrointestinal Disorders: No - GENITOURINARY/GYNECOLOGICAL Hx Genitourinary Disorders: No - PSYCHIATRIC Hx Substance Use: Yes - SURGICAL HISTORY Hx Surgeries: No - ANESTHESIA Hx Anesthesia: No Meds Allergies/Adverse Reactions: Allergies Allergy/AdvReac Type Severity Reaction Status Date / Time pentazocine AdvReac FEVER Verified 07/06/17 05:42 - Medications Medications: Current Medications Acetaminophen (Tylenol 325mg Tab) 650 mg PO Q6 PRN PRN Reason: Pain, Mild (1-3) Last Admin: 07/06/17 08:02 Dose: 650 mg Al Hydrox/Mg Hydrox/Simethicone (Maalox Plus 30 Ml) 30 ml PO DAILY PRN PRN Reason: Dyspepsia Ciprofloxacin (Cipro) 500 mg PO Q12 [facility] PRN Reason: Protocol Stop: 07/12/17 13:20 Fluoxetine HCl (Prozac) 20 mg PO DAILY [facility] Last Admin: 07/06/17 08:00 Dose: 20 mg Folic Acid (Folic Acid) 1 mg PO DAILY [facility] Last Admin: 07/06/17 08:02 Dose: 1 mg Gabapentin (Neurontin) 600 mg PO TID [facility] PRN Reason: Protocol Last Admin: 07/06/17 12:33 Dose: 600 mg Ibuprofen (Motrin Tab) 400 mg PO Q8H PRN PRN Reason: Pain, severe (8-10) Lorazepam (Ativan) 2 mg PO Q6 [facility] PRN Reason: Protocol Last Admin: 07/06/17 12:33 Dose: 2 mg Magnesium Hydroxide (Milk Of Magnesia) 30 ml PO DAILY PRN PRN Reason: Constipation Methadone HCl (Methadone) 200 mg PO DAILY [facility] Last Admin: 07/06/17 08:43 Dose: 200 mg Mirtazapine (Remeron) 15 mg PO HS [facility] Last Admin: 07/05/17 21:11 Dose: 15 mg Multivitamins (Thera Tab) 1 tab PO 0800 [facility] Last Admin: 07/06/17 08:02 Dose: 1 tab Nicotine (Nicoderm Cq) 1 patch TD DAILY [facility] Last Admin: 07/06/17 08:00 Dose: 1 patch Thiamine HCl (Vitamin B1 Tab) 100 mg PO DAILY [facility] Last Admin: 07/06/17 08:02 Dose: 100 mg Physical Exam - Constitutional Appears: Well - Head Exam Head Exam: ATRAUMATIC, NORMAL INSPECTION, NORMOCEPHALIC - Eye Exam Eye Exam: EOMI, Normal appearance, PERRL Pupil Exam: NORMAL ACCOMODATION, PERRL - ENT Exam ENT Exam: Mucous Membranes Moist, Normal Exam - Neck Exam Neck exam: Positive for: Normal Inspection - Respiratory Exam Respiratory Exam: Clear to Auscultation Bilateral, NORMAL BREATHING PATTERN - Cardiovascular Exam Cardiovascular Exam: REGULAR RHYTHM, Systolic Murmur (pulmonary auscultation post) - GI/Abdominal Exam GI & Abdominal Exam: Normal Bowel Sounds, Soft. absent: Tenderness - Extremities Exam Extremities exam: Positive for: normal inspection - Back Exam Back exam: NORMAL INSPECTION - Neurological Exam Neurological exam: Alert, CN II-XII Intact, Normal Gait, Oriented x3, Reflexes Normal - Psychiatric Exam Psychiatric exam: Normal Affect, Normal Mood - Skin Skin Exam: Dry, Intact, Normal Color, Warm Results - Vital Signs Recent Vital Signs: Last Vital Signs Temp 98.0 F 07/06/17 07:38 Pulse 67 07/06/17 07:38 Resp 20 07/06/17 07:38 BP 119/84 07/06/17 07:38 Pulse Ox 98 07/04/17 17:00 - Labs Result Diagrams: 07/04/17 12:00 07/04/17 12:00 Labs: Laboratory Results - last 24 hr 07/05/17 07:45 RPR Nonreactive Assessment & Plan - Assessment and Plan (Free Text) Assessment: Assessment and Plan 32 year old female with past medical history of polysubstance abuse on methadone admitted for depression, we were consulted for UTI and medical management of chronic medical problems Plan: UTI - Urine culture: Gram Negative Rods - Start Cipro 500 bid, pending culture Toothache - Motrin 400mg po q8 prn Heart Murmur - Patient has had one since , asymptomatic - Should follow up as an outpatient Depression - Admitted to psych Polysubstance abuse - Counseled on risks of polysubstance abuse and advised cessation - Methadone 210 mg daily confirmed - restarted by psych History of alcohol withdrawal - Ativan 2mg po q6 prn seizures Heroin abuse hx on Methadone - Methadone 210 mg PO daily GI/DVT Prophylaxis - No necessity <Danish Ngo - Last Filed: 07/06/17 16:08> Meds - Medications Medications: Current Medications Acetaminophen (Tylenol 325mg Tab) 650 mg PO Q6 PRN PRN Reason: Pain, Mild (1-3) Last Admin: 07/06/17 08:02 Dose: 650 mg Al Hydrox/Mg Hydrox/Simethicone (Maalox Plus 30 Ml) 30 ml PO DAILY PRN PRN Reason: Dyspepsia Ciprofloxacin (Cipro) 500 mg PO Q12 [facility] PRN Reason: Protocol Stop: 07/12/17 13:20 Fluoxetine HCl (Prozac) 20 mg PO DAILY [facility] Last Admin: 07/06/17 08:00 Dose: 20 mg Folic Acid (Folic Acid) 1 mg PO DAILY [facility] Last Admin: 07/06/17 08:02 Dose: 1 mg Gabapentin (Neurontin) 600 mg PO TID [facility] PRN Reason: Protocol Last Admin: 07/06/17 12:33 Dose: 600 mg Ibuprofen (Motrin Tab) 400 mg PO Q8H PRN PRN Reason: Pain, severe (8-10) Last Admin: 07/06/17 14:39 Dose: 400 mg Lorazepam (Ativan) 2 mg PO Q6 [facility] PRN Reason: Protocol Last Admin: 07/06/17 12:33 Dose: 2 mg Magnesium Hydroxide (Milk Of Magnesia) 30 ml PO DAILY PRN PRN Reason: Constipation Methadone HCl (Methadone) 200 mg PO DAILY [facility] Last Admin: 07/06/17 08:43 Dose: 200 mg Mirtazapine (Remeron) 15 mg PO HS [facility] Last Admin: 07/05/17 21:11 Dose: 15 mg Multivitamins (Thera Tab) 1 tab PO 0800 [facility] Last Admin: 07/06/17 08:02 Dose: 1 tab Nicotine (Nicoderm Cq) 1 patch TD DAILY [facility] Last Admin: 07/06/17 08:00 Dose: 1 patch Thiamine HCl (Vitamin B1 Tab) 100 mg PO DAILY [facility] Last Admin: 07/06/17 08:02 Dose: 100 mg Results - Vital Signs Recent Vital Signs: Last Vital Signs Temp 98.0 F 07/06/17 07:38 Pulse 67 07/06/17 07:38 Resp 20 07/06/17 07:38 BP 119/84 07/06/17 07:38 Pulse Ox 98 07/04/17 17:00 - Labs Result Diagrams: 07/04/17 12:00 07/04/17 12:00 Attending/Attestation - Attestation I have personally seen and examined this patient.: Yes I have fully participated in the care of the patient.: Yes I have reviewed all pertinent clinical information: Yes Notes (Text): 07/06/17 16:05 attending note; Patient seen and examined with resident. patient is a 32-year-old female with a past medical history of polysubstance abuse, on methadone program, active smoking, alcohol abuse is admitted to the psychiatric floor. Medical consult was requested for Positive UA. patient is afebrile and nontoxic. mildly elevated wbc count. Urine culture is positive for gram-negative rods. Identification pending. Started on by mouth ciprofloxacin. Active smoking; smoking cessation is strongly advised. Patient is on NicoDerm patch. Alcohol abuse; alcohol cessation is strongly advised. Continue multivitamin, thiamine, folic acid. Methadone dependency; continue methadone. chronic dental pain; need outpatient evaluation with the dentist. Currently no swelling or abscess. Tolerating diet. Continue further management by psychiatrist. Patient is medically stable. Please reconsult as needed.
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
[2017-07-07] MEDS: Multivitamin Therapeutic Tab PO SCH (09:15)
--- NOTE | 2017-07-07 11:00 | CP.PCM.PN ---
<Francisco Javier Frankel Mata - Last Filed: 07/07/17 11:41> Subjective - Date & Time of Evaluation Date of Evaluation: 07/07/17 Time of Evaluation: 08:00 - Subjective Subjective: Medicine progress note for Dr. Ngo Patient seen and examined at bedside. Patient denies any new complaints, I made her aware of her urine culture results, and she expressed understanding. Objective - Vital Signs/Intake and Output Vital Signs (last 24 hours): Temp Pulse Resp BP Pulse Ox 98.2 F 88 20 121/79 98 07/07/17 07:40 07/07/17 07:40 07/07/17 07:40 07/07/17 07:40 07/04/17 17:00 - Medications Medications: Current Medications Acetaminophen (Tylenol 325mg Tab) 650 mg PO Q6 PRN PRN Reason: Pain, Mild (1-3) Last Admin: 07/06/17 20:53 Dose: 650 mg Al Hydrox/Mg Hydrox/Simethicone (Maalox Plus 30 Ml) 30 ml PO DAILY PRN PRN Reason: Dyspepsia Ciprofloxacin (Cipro) 500 mg PO Q12 [facility] PRN Reason: Protocol Stop: 07/12/17 13:20 Last Admin: 07/07/17 06:52 Dose: 500 mg Fluoxetine HCl (Prozac) 20 mg PO DAILY [facility] Last Admin: 07/07/17 09:14 Dose: 20 mg Folic Acid (Folic Acid) 1 mg PO DAILY [facility] Last Admin: 07/07/17 09:15 Dose: 1 mg Gabapentin (Neurontin) 600 mg PO TID [facility] PRN Reason: Protocol Last Admin: 07/07/17 09:14 Dose: 600 mg Ibuprofen (Motrin Tab) 400 mg PO Q8H PRN PRN Reason: Pain, severe (8-10) Last Admin: 07/07/17 03:21 Dose: 400 mg Lorazepam (Ativan) 2 mg PO Q6 [facility] PRN Reason: Protocol Last Admin: 07/07/17 06:52 Dose: 2 mg Lorazepam (Ativan) 2 mg PO Q6 PRN; Protocol PRN Reason: Withdrawn symptoms Last Admin: 07/06/17 19:08 Dose: 2 mg Magnesium Hydroxide (Milk Of Magnesia) 30 ml PO DAILY PRN PRN Reason: Constipation Methadone HCl (Methadone) 200 mg PO DAILY [facility] Last Admin: 07/07/17 09:15 Dose: 200 mg Mirtazapine (Remeron) 15 mg PO HS [facility] Last Admin: 07/06/17 21:42 Dose: 15 mg Multivitamins (Thera Tab) 1 tab PO 0800 [facility] Last Admin: 07/07/17 09:15 Dose: 1 tab Nicotine (Nicoderm Cq) 1 patch TD DAILY [facility] Last Admin: 07/07/17 09:16 Dose: 1 patch Thiamine HCl (Vitamin B1 Tab) 100 mg PO DAILY [facility] Last Admin: 07/07/17 09:14 Dose: 100 mg - Constitutional Appears: Well - Head Exam Head Exam: ATRAUMATIC, NORMAL INSPECTION, NORMOCEPHALIC - Eye Exam Eye Exam: EOMI, Normal appearance, PERRL Pupil Exam: NORMAL ACCOMODATION, PERRL - ENT Exam ENT Exam: Mucous Membranes Moist, Normal Exam - Neck Exam Neck Exam: Full ROM, Normal Inspection. absent: Lymphadenopathy - Respiratory Exam Respiratory Exam: Clear to Ausculation Bilateral, NORMAL BREATHING PATTERN - Cardiovascular Exam Cardiovascular Exam: REGULAR RHYTHM, +S1, +S2. absent: Murmur - GI/Abdominal Exam GI & Abdominal Exam: Soft, Normal Bowel Sounds. absent: Tenderness - Extremities Exam Extremities Exam: Full ROM, Normal Capillary Refill, Normal Inspection. absent : Joint Swelling, Pedal Edema - Back Exam Back Exam: NORMAL INSPECTION - Neurological Exam Neurological Exam: Alert, Awake, CN II-XII Intact, Normal Gait, Oriented x3 - Psychiatric Exam Psychiatric exam: Normal Affect, Normal Mood - Skin Skin Exam: Dry, Intact, Normal Color, Warm Assessment and Plan - Assessment and Plan (Free Text) Assessment: Assessment and Plan 32 year old female with past medical history of polysubstance abuse on methadone admitted for depression, we were consulted for UTI and medical management of chronic medical problems Plan: UTI - Urine culture culture returned E. Coli sensitive to Cipro - Continue Cipro 500 bid Day 2 Toothache - Motrin 400mg po q8 prn - Follow up with dentist outpatient Heart Murmur - Patient has had one since , asymptomatic - Should follow up as an outpatient Depression - Admitted to psych Polysubstance abuse - Counseled on risks of polysubstance abuse and advised cessation - Methadone 210 mg daily confirmed - restarted by psych - Advised cessation of tobacco - Nicotine patch History of alcohol withdrawal - Ativan 2mg po q6 prn seizures - Advised moderate drinking habits Heroin abuse on Methadone - Methadone 210 mg PO daily - Advised cessation GI/DVT Prophylaxis - No necessity Dispo: Patient is medically stable, and continue Cipro as above for 8 more days. At this time, no further medical management is needed. Please reconsult as needed <Danish Ngo - Last Filed: 07/07/17 11:51> Objective - Vital Signs/Intake and Output Vital Signs (last 24 hours): Temp Pulse Resp BP Pulse Ox 98.2 F 88 20 121/79 98 07/07/17 07:40 07/07/17 07:40 07/07/17 07:40 07/07/17 07:40 07/04/17 17:00 - Medications Medications: Current Medications Acetaminophen (Tylenol 325mg Tab) 650 mg PO Q6 PRN PRN Reason: Pain, Mild (1-3) Last Admin: 07/06/17 20:53 Dose: 650 mg Al Hydrox/Mg Hydrox/Simethicone (Maalox Plus 30 Ml) 30 ml PO DAILY PRN PRN Reason: Dyspepsia Ciprofloxacin (Cipro) 500 mg PO Q12 [facility] PRN Reason: Protocol Stop: 07/16/17 06:01 Last Admin: 07/07/17 06:52 Dose: 500 mg Fluoxetine HCl (Prozac) 20 mg PO DAILY [facility] Last Admin: 07/07/17 09:14 Dose: 20 mg Folic Acid (Folic Acid) 1 mg PO DAILY [facility] Last Admin: 07/07/17 09:15 Dose: 1 mg Gabapentin (Neurontin) 600 mg PO TID [facility] PRN Reason: Protocol Last Admin: 07/07/17 09:14 Dose: 600 mg Ibuprofen (Motrin Tab) 400 mg PO Q8H PRN PRN Reason: Pain, severe (8-10) Last Admin: 07/07/17 03:21 Dose: 400 mg Lorazepam (Ativan) 2 mg PO Q6 [facility] PRN Reason: Protocol Last Admin: 07/07/17 06:52 Dose: 2 mg Lorazepam (Ativan) 2 mg PO Q6 PRN; Protocol PRN Reason: Withdrawn symptoms Last Admin: 07/06/17 19:08 Dose: 2 mg Magnesium Hydroxide (Milk Of Magnesia) 30 ml PO DAILY PRN PRN Reason: Constipation Methadone HCl (Methadone) 200 mg PO DAILY [facility] Last Admin: 07/07/17 09:15 Dose: 200 mg Mirtazapine (Remeron) 15 mg PO HS [facility] Last Admin: 07/06/17 21:42 Dose: 15 mg Multivitamins (Thera Tab) 1 tab PO 0800 [facility] Last Admin: 07/07/17 09:15 Dose: 1 tab Nicotine (Nicoderm Cq) 1 patch TD DAILY [facility] Last Admin: 07/07/17 09:16 Dose: 1 patch Thiamine HCl (Vitamin B1 Tab) 100 mg PO DAILY [facility] Last Admin: 07/07/17 09:14 Dose: 100 mg Attending/Attestation - Attestation I have personally seen and examined this patient.: Yes I have fully participated in the care of the patient.: Yes I have reviewed all pertinent clinical information, including history, physical exam and plan: Yes Notes (Text): 07/07/17 11:50 attending note; Patient was seen and examined with resident in the psychiatric floor. Urine culture is positive for Escherichia coli. Patient is afebrile and nontoxic. Encourage increased by mouth liquid intake. Continue by mouth ciprofloxacin. Patient is medically stable. Complete alcohol, drug abuse cessation is strongly advised. Please reconsult as needed. 07/07/17 11:51
[2017-07-07] MEDS ORDERED: Benzocaine 20% Cream(7 gm) MT PRN (14:04)
--- NOTE | 2017-07-07 15:21 | PCM.PYCHPN ---
Psychiatric Progress Note - Psychiatric Progress Note Patient seen today, length of contact: 30 minutes Patient Chief Complaint: "I am not so good" Problems Identified/Issues Discussed: Suicide/ homicide prevention, past psychiatric h/o, current psychiatric symptoms , medical problems, risk/benefits and alternatives of medications, medications compliance, coping strategies, substance abuse h/o, relapse prevention, importance of follow up with psychiatrist and therapist, discharge plan. Medical Problems: patient complain of dysuria, urine analysis showed urinary tract infection with Gram - rods patient reported history of kidney infection, medical team will be called Diagnostic Results: 07/04/17 12:00 07/04/17 12:00 Lab Results 07/05/17 07:45: RPR Nonreactive 07/05/17 07:45: TSH 3rd Generation 0.91 07/05/17 07:45: Fasting Glucose 67, Triglycerides 59, Cholesterol 146, LDL Cholesterol Direct 53, HDL Cholesterol 69 H 07/04/17 21:00: Hemoglobin A1c 5.7 07/04/17 12:00: Triglycerides 95, Cholesterol 192, LDL Cholesterol Direct 82, HDL Cholesterol 92 H 07/04/17 12:00: Alcohol, Quantitative 138 H 07/04/17 12:00: Salicylates < 1 L, Acetaminophen < 10.0 L 07/04/17 12:00: Urine Opiates Screen Negative, Urine Methadone Screen Positive H , Ur Barbiturates Screen Negative, Ur Phencyclidine Scrn Positive H, Ur Amphetamines Screen Negative, U Benzodiazepines Scrn Negative, U Oth Cocaine Metabols Negative, U Cannabinoids Screen Positive H 07/04/17 12:00: Sodium 144, Potassium 3.3 L, Chloride 104, Carbon Dioxide 22, Anion Gap 21 H, BUN 19, Creatinine 0.6 L, Est GFR ( Amer) > 60, Est GFR ( Non-Af Amer) > 60, Random Glucose 59 L, Calcium 9.1, Total Bilirubin 0.3, AST 58 H D, ALT 29, Alkaline Phosphatase 127 H D, Total Protein 8.0, Albumin 4.5, Globulin 3.6, Albumin/Globulin Ratio 1.3 07/04/17 12:00: Urine Color Yellow, Urine Appearance Sl cloudy, Urine pH 6.0, Ur Specific [place] >= 1.030, Urine Protein Trace H, Urine Glucose (UA) Negative , Urine Ketones >=80, Urine Blood Large H, Urine Nitrate Positive H, Urine Bilirubin Negative, Urine Urobilinogen 0.2, Ur Leukocyte Esterase Trace H, Urine RBC 0 - 2, Urine WBC 1 - 3, Ur Epithelial Cells 3 - 4, Urine Bacteria Mod 07/04/17 12:00: WBC 12.4 H, RBC 4.40, Hgb 14.0, Hct 41.8, MCV 95.0, MCH 31.8, MCHC 33.5, RDW 15.1 H, Plt Count 342, MPV 9.2, Gran % 67.3, Lymph % (Auto) 25.4 , [place] % (Auto) 6.9 H, Eos % (Auto) 0.2 L, Baso % (Auto) 0.2, Gran # 8.34 H, Lymph # (Auto) 3.2, [place] # (Auto) 0.9 H, Eos # (Auto) 0.0, Baso # (Auto) 0.03 Vital Signs Temp Pulse Resp BP Pulse Ox 07/06/17 07:38 98.0 F 67 20 119/84 07/05/17 07:00 97.8 F 58 L 18 94/64 L 07/04/17 17:00 72 18 104/65 98 07/04/17 15:00 70 18 115/76 98 07/04/17 13:37 70 18 106/49 L 98 07/04/17 11:37 98.6 F 61 18 130/74 97 Microbiology 07/04/17 18:00 Urine,Clean Catch Urine Culture - Preliminary Gram Negative Sy pentazocine Adverse Reaction (Verified 07/06/17 05:42) FEVER DSM 5 Symptoms Update: Shortly pt is a 32 year old female with history of Bipolar Disorder, Post Traumatic Stress Disorder, patient denied previous psychiatric admissions, reported h/o opioid dependence and alcohol dependence, poor social support, Came to the hospital looking for help for her depressive symptoms, passive wish to be , patient also was drinking alcohol on daily basis, patient also is on methadone maintenance program, patient required further evaluation and stabilization, medication resumption and titration, observation. Patient was seen in her room, patient reported that she feels depressed and hopeless, patient reported that she doesn't feel comfortable, complain of tremor in upper extremities, vitals are stable. pt presented to have Improved personal hygiene, overall some improvement, patient also was emotionally labile , was crying. pt reported that she did not have a good night sleep. Patient still presented to be depressed tearful but more hopeful and optimistic about future. Patient tolerated medications well, no side effects observed or reported, aims 0 , no EPS. DSM 5 Diagnosis: as per history bipolar spectrum disorder As per history PTSD Generalized anxiety disorder Rule out substance induced disorder Opioid addiction 1 methadone History of polysubstance abuse with the plan Alcohol withdrawal symptoms Alcohol use disorder As per history borderline personality disorder Medication Change: Yes ( Remeron increased) Medical Record Reviewed: Yes Mental Status Examination - Cognitive Function Orientation: Person, Place, Situation Memory: Intact Attention: Poor Concentration: Poor Association: Loose Fund of Knowledge: Poor - Mood Mood: Depressed, Anxious - Affect Affect: Constricted, Flat - Formal Thought Process Formal Thought Process: Hallucinations (denied today) - Suicidal Ideation Suicidal Ideation: No - Homicidal Ideation Homicidal Ideation: No Goal/Treatment Plan - Goal/Treatment Plan Need for Continued Stay: Remain at risks for inpatient hospitalization, Severe depression anxiety, Discharge may exacerbated symptoms, Severe functional impairment Progress Toward Problem(s) and Goals/Treatment Plan: Milieu/structure/supportive therapy Medical consult appreciated, see medical team note for more detailed info, abx for UTI started SW consultation for discharge plan and social issues Med management multivitamins, folic acid, thiamine, will monitor vital signs, ativan scheduled and PRN Methadone 200 mg daily, confirmed by staff, patient was attending methadone clinic prozac 20mg po dily for depression and anxiey remeron 30mg po hs for insomnia and depression pt does not want to go to rehab Family involvement Follow up on labs Will monitor closely Pt was educated about risk/benefits and alternatives of medications, coping strategies (safety plan, suicide prevention), relapse prevention, importance of follow up with psychiatrist and therapist, stay away from drugs/alcohol/smoking Estimated Date of D/C: 07/09/17
[2017-07-07] MEDS ORDERED: DiphenhydrAMINE 50 mg/ml Inj IM PRN (18:36)
[2017-07-08] MEDS: Multivitamin Therapeutic Tab PO SCH (08:28)
[2017-07-08] MEDS ORDERED: Lidocaine 2% Viscous 100 ml PO PRN (11:11)
--- NOTE | 2017-07-08 12:03 | CP.PCM.PN ---
Addendum entered and electronically signed by Francisco Javier Frankel DO 13:11: CT Maxillofacial official report and ID COnsult ordered as well Lidocaine swish and swallow given as well Original Note: <Francisco Javier Frankel - Last Filed: 07/08/17 11:59> Subjective - Date & Time of Evaluation Date of Evaluation: 07/08/17 Time of Evaluation: 12:00 - Subjective Subjective: Medicine progress note: Dr. Ngo Patient seen and examined at bedside. We were called regarding patient's oral swelling. Patient states she is having significant pain from the swelling. She states that the tooth pain is causing her to have a headache. Patient denies any neurological symptoms at this point. Patient denies any nausea, vomiting, diarrhea, subjective fevers and chills, and shortness of breath or chest pain. Informed patient that she should talk to her dentist about her murmur and get cardiac clearance before any procedure. Objective - Vital Signs/Intake and Output Vital Signs (last 24 hours): Temp Pulse Resp BP Pulse Ox 99.5 F 124 H 20 118/82 98 07/08/17 07:38 07/08/17 07:38 07/08/17 07:38 07/08/17 07:38 07/04/17 17:00 - Medications Medications: Current Medications Acetaminophen (Tylenol 325mg Tab) 650 mg PO Q6 PRN PRN Reason: Pain, Mild (1-3) Last Admin: 07/06/17 20:53 Dose: 650 mg Al Hydrox/Mg Hydrox/Simethicone (Maalox Plus 30 Ml) 30 ml PO DAILY PRN PRN Reason: Dyspepsia Amoxicillin/Clavulanate Potassium (Augmentin 875 Mg-125 Mg Tab) 1 tab PO Q12 GEORGE PRN Reason: Protocol Benzocaine (Orajel Pm Maximum Strength) 0 gm MT QID PRN PRN Reason: toothache Chlorpromazine (Thorazine) 50 mg PO Q6H PRN; Protocol PRN Reason: Agitation Last Admin: 07/07/17 19:11 Dose: 50 mg Diphenhydramine HCl (Benadryl) 50 mg PO Q6H PRN PRN Reason: Anxiety Last Admin: 07/07/17 19:12 Dose: 50 mg Diphenhydramine HCl (Benadryl) 50 mg IM Q6H PRN PRN Reason: Anxiety Fluoxetine HCl (Prozac) 20 mg PO DAILY [facility] Last Admin: 07/08/17 08:28 Dose: 20 mg Folic Acid (Folic Acid) 1 mg PO DAILY [facility] Last Admin: 07/08/17 08:28 Dose: 1 mg Gabapentin (Neurontin) 600 mg PO TID GEORGE PRN Reason: Protocol Last Admin: 07/08/17 08:28 Dose: 600 mg Ibuprofen (Motrin Tab) 400 mg PO Q8H PRN PRN Reason: Pain, severe (8-10) Last Admin: 07/08/17 06:31 Dose: 400 mg Lidocaine HCl (Lidocaine 2% Viscous) 15 ml MM Q3H PRN PRN Reason: SWISH AND SPIT MOUTH PAIN Lorazepam (Ativan) 2 mg PO Q6 GEORGE PRN Reason: Protocol Last Admin: 07/08/17 06:18 Dose: 2 mg Lorazepam (Ativan) 2 mg PO Q6 PRN; Protocol PRN Reason: Withdrawn symptoms Last Admin: 07/06/17 19:08 Dose: 2 mg Magnesium Hydroxide (Milk Of Magnesia) 30 ml PO DAILY PRN PRN Reason: Constipation Methadone HCl (Methadone) 200 mg PO DAILY [facility] Last Admin: 07/08/17 08:29 Dose: 200 mg Mirtazapine (Remeron) 30 mg PO HS [facility] Last Admin: 07/07/17 21:00 Dose: 30 mg Multivitamins (Thera Tab) 1 tab PO 0800 [facility] Last Admin: 07/08/17 08:28 Dose: 1 tab Nicotine (Nicoderm Cq) 1 patch TD DAILY [facility] Last Admin: 07/08/17 08:29 Dose: 1 patch Quetiapine Fumarate (Seroquel) 100 mg PO AMHS [facility] PRN Reason: Protocol Thiamine HCl (Vitamin B1 Tab) 100 mg PO DAILY [facility] Last Admin: 07/08/17 08:28 Dose: 100 mg - Constitutional Appears: Well - Head Exam Head Exam: ATRAUMATIC, NORMAL INSPECTION, NORMOCEPHALIC Additional comments: Patient's Right lower jaw is swollen with tenderness to palpation. Much changed from previous examination yesterday. - Eye Exam Eye Exam: EOMI, Normal appearance, PERRL Pupil Exam: NORMAL ACCOMODATION, PERRL - ENT Exam ENT Exam: Mucous Membranes Moist, Normal Exam - Neck Exam Neck Exam: Full ROM, Normal Inspection. absent: Lymphadenopathy - Respiratory Exam Respiratory Exam: Clear to Ausculation Bilateral, NORMAL BREATHING PATTERN - Cardiovascular Exam Cardiovascular Exam: REGULAR RHYTHM, +S1, +S2. absent: Murmur - GI/Abdominal Exam GI & Abdominal Exam: Soft, Normal Bowel Sounds. absent: Tenderness - Rectal Exam Rectal Exam: NORMAL INSPECTION - Exam Exam: Circumcision, NORMAL INSPECTION External exam: NORMAL EXTERNAL EXAM Speculum exam: NORMAL SPECULUM EXAM Bimanual exam: NORMAL BIMANUAL EXAM - Extremities Exam Extremities Exam: Full ROM, Normal Capillary Refill, Normal Inspection. absent : Joint Swelling, Pedal Edema - Back Exam Back Exam: NORMAL INSPECTION - Neurological Exam Neurological Exam: Alert, Awake, CN II-XII Intact, Normal Gait, Oriented x3 - Psychiatric Exam Psychiatric exam: Normal Affect, Normal Mood - Skin Skin Exam: Dry, Intact, Normal Color, Warm Assessment and Plan - Assessment and Plan (Free Text) Assessment: Assessment and Plan 32 year old female with past medical history of polysubstance abuse on methadone admitted for depression, we were consulted for right sided jaw pain, UTI and medical management of chronic medical problems. Antibiotics Day 3 of 10 total needed Plan: UTI - Urine culture culture returned E. Coli sensitive to Amoxicillin - Changed Cipro to Augmentin for coverage of oral infection Toothache - Motrin 400mg po q8 prn - Follow up with dentist outpatient - Given tachycardia this am and WBC on admission, ordered blood culture, cbc, cmp, and started augmentin Heart Murmur - Patient has had one since , asymptomatic - not worried about endocarditis because it is not a new murmur and patient does not have other signs such as splinter hemorrhage, etc. Patient informed that she should tell her dentist if she goes for a procedure. 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 <Colt Ngoarsalandarius - Last Filed: 07/09/17 07:43> Objective - Vital Signs/Intake and Output Vital Signs (last 24 hours): Temp Pulse Resp BP Pulse Ox 98.1 F 94 H 20 96/61 L 98 07/09/17 07:13 07/09/17 07:13 07/09/17 07:13 07/09/17 07:13 07/04/17 17:00 - Medications Medications: Current Medications Acetaminophen (Tylenol 325mg Tab) 650 mg PO Q6 PRN PRN Reason: Pain, Mild (1-3) Last Admin: 07/08/17 19:32 Dose: 650 mg Al Hydrox/Mg Hydrox/Simethicone (Maalox Plus 30 Ml) 30 ml PO DAILY PRN PRN Reason: Dyspepsia Amoxicillin/Clavulanate Potassium (Augmentin 875 Mg-125 Mg Tab) 1 tab PO Q12 GEORGE PRN Reason: Protocol Last Admin: 07/09/17 06:15 Dose: 1 tab Benzocaine (Orajel Pm Maximum Strength) 0 gm MT QID PRN PRN Reason: toothache Chlorpromazine (Thorazine) 50 mg PO Q6H PRN; Protocol PRN Reason: Agitation Last Admin: 07/07/17 19:11 Dose: 50 mg Diphenhydramine HCl (Benadryl) 50 mg PO Q6H PRN PRN Reason: Anxiety Last Admin: 07/07/17 19:12 Dose: 50 mg Diphenhydramine HCl (Benadryl) 50 mg IM Q6H PRN PRN Reason: Anxiety Fluoxetine HCl (Prozac) 40 mg PO DAILY [facility] Folic Acid (Folic Acid) 1 mg PO DAILY [facility] Last Admin: 07/08/17 08:28 Dose: 1 mg Gabapentin (Neurontin) 600 mg PO TID GEORGE PRN Reason: Protocol Last Admin: 07/08/17 17:24 Dose: 600 mg Ibuprofen (Motrin Tab) 400 mg PO Q8H PRN PRN Reason: Pain, severe (8-10) Last Admin: 07/08/17 17:25 Dose: 400 mg Lidocaine HCl (Lidocaine 2% Viscous) 15 ml MM Q3H PRN PRN Reason: SWISH AND SPIT MOUTH PAIN Lorazepam (Ativan) 2 mg PO Q6 GEORGE PRN Reason: Protocol Last Admin: 07/09/17 06:15 Dose: 2 mg Lorazepam (Ativan) 2 mg PO Q6 PRN; Protocol PRN Reason: Withdrawn symptoms Last Admin: 07/06/17 19:08 Dose: 2 mg Magnesium Hydroxide (Milk Of Magnesia) 30 ml PO DAILY PRN PRN Reason: Constipation Methadone HCl (Methadone) 200 mg PO DAILY [facility] Last Admin: 07/08/17 08:29 Dose: 200 mg Mirtazapine (Remeron) 30 mg PO HS GEORGE Last Admin: 07/08/17 21:00 Dose: 30 mg Multivitamins (Thera Tab) 1 tab PO 0800 [facility] Last Admin: 07/08/17 08:28 Dose: 1 tab Nicotine (Nicoderm Cq) 1 patch TD DAILY [facility] Last Admin: 07/08/17 08:29 Dose: 1 patch Quetiapine Fumarate (Seroquel) 100 mg PO AMHS GEORGE PRN Reason: Protocol Last Admin: 07/08/17 21:00 Dose: 100 mg Thiamine HCl (Vitamin B1 Tab) 100 mg PO DAILY [facility] Last Admin: 07/08/17 08:28 Dose: 100 mg - Labs Labs: 07/08/17 12:30 07/08/17 20:15 Attending/Attestation - Attestation I have personally seen and examined this patient.: Yes I have fully participated in the care of the patient.: Yes I have reviewed all pertinent clinical information, including history, physical exam and plan: Yes Notes (Text): 07/09/17 07:39 attending note; Patient was seen and examined with resident in the psychiatric floor. Patient complaint of right sided facial swelling. Patient has multiple procedures done on the right lower premolar. CT scan showed swelling but no discrete abscess. Patient is afebrile. Mild tachycardia resolved. Escherichia coli UTI; currently asymptomatic. ID evaluation requested. wbc is normal. The patient elevated potassium .EKG normal .Kayexalate 1 dose given .repeat BMP today . Methadone dependency; patient is on very high dose of methadone. Complete alcohol, drug abuse cessation is strongly advised. Will continue to monitor the patient closely with you.
[2017-07-08 12:35] LABS: BASO # 0.02 K/mm3 (0.0-2.0); BASO % 0.2 % (0.0-3.0); EOS # 0.2 (0.0-0.7); EOS % 2.1 % (1.5-5.0); GRAN # 4.76 (1.4-6.5); GRAN % 57.8 % (50.0-68.0); HEMOGLOBIN 13.1 g/dL (12.0-16.0); LYMPH # 2.4 (1.2-3.4); LYMPH % 28.7 % (22.0-35.0); MEAN CELL VOLUME 96.1 fl (80.0-105.0); MEAN CORPUSCULAR HEMOGLOBIN 31.6 pg (25.0-35.0); MEAN CORPUSCULAR HGB CONC 32.9 g/dl (31.0-37.0); MEAN PLATELET VOLUME 9.4 fl (7.0-11.0); MONO # 0.9 (0.1-0.6); MONO % 11.2 % (1.0-6.0); RBC 4.14 10^6/uL (3.5-6.1); RED CELL DISTRIBUTION WIDTH 15.1 % (11.5-14.5); WHITE BLOOD COUNT 8.2 10^3/ul (4.5-11.0)
--- NOTE | 2017-07-08 12:52 | CT ---
PROCEDURE: CT MAXILLOFACIAL BONES WITHOUT CONTRAST HISTORY: r/o abscess COMPARISON: None TECHNIQUE: Contiguous axial CT images of the maxillofacial bones were obtained. Coronal and sagittal reformats were generated. Radiation dose: Total exam DLP = 816 mGy-cm. This CT exam was performed using one or more of the following dose reduction techniques: Automated exposure control, adjustment of the mA and/or kV according to patient size, and/or use of iterative reconstruction technique. FINDINGS: NASAL BONES: Unremarkable. ORBITS: Unremarkable. PARANASAL SINUSES/ MASTOIDS: Clear. MAXILLA: Unremarkable. MANDIBLE/ TEMPOROMANDIBULAR JOINTS: Unremarkable. SKULL BASE: Unremarkable. TEMPORAL BONES: Middle ears and mastoid grossly unremarkable. OTHER FINDINGS: There is soft tissue swelling and subcutaneous edema anterior to the right side of the mandible consistent with cellulitis. There is no evidence of a discrete abscess. There is no bony destruction to suggest a dental abscess. IMPRESSION: There is soft tissue swelling and subcutaneous edema anterior to the right side of the mandible consistent with cellulitis. There is no evidence of a discrete abscess. There is no bony destruction to suggest a dental abscess.
[2017-07-08 13:13] LABS: ALB/GLOB RATIO 1.2 (1.1-1.8); ALT/SGPT 35 U/L (7-56); AST/SGOT 36 U/L (14-36); BLOOD UREA NITROGEN 17 mg/dL (7-21); CALCIUM 10.5 mg/dL (8.4-10.5); GFR AFRICAN-AMERICAN > 60; GFR NON-AFRICAN AMERICAN > 60
[2017-07-08] MEDS ORDERED: Sod Polystyrene Sulf 15 gm/60 ml Susp PO ONE (13:23)
--- NOTE | 2017-07-08 14:20 | PCM.PYCHPN ---
Psychiatric Progress Note - Psychiatric Progress Note Patient seen today, length of contact: 30 minutes Patient Chief Complaint: "I am not so good" Problems Identified/Issues Discussed: Suicide/ homicide prevention, past psychiatric h/o, current psychiatric symptoms , medical problems, risk/benefits and alternatives of medications, medications compliance, coping strategies, substance abuse h/o, relapse prevention, importance of follow up with psychiatrist and therapist, discharge plan. Medical Problems: patient complain of dysuria, urine analysis showed urinary tract infection with Gram - rods patient reported history of kidney infection, medical team will be called Diagnostic Results: 07/04/17 12:00 07/04/17 12:00 Lab Results 07/05/17 07:45: RPR Nonreactive 07/05/17 07:45: TSH 3rd Generation 0.91 07/05/17 07:45: Fasting Glucose 67, Triglycerides 59, Cholesterol 146, LDL Cholesterol Direct 53, HDL Cholesterol 69 H 07/04/17 21:00: Hemoglobin A1c 5.7 07/04/17 12:00: Triglycerides 95, Cholesterol 192, LDL Cholesterol Direct 82, HDL Cholesterol 92 H 07/04/17 12:00: Alcohol, Quantitative 138 H 07/04/17 12:00: Salicylates < 1 L, Acetaminophen < 10.0 L 07/04/17 12:00: Urine Opiates Screen Negative, Urine Methadone Screen Positive H , Ur Barbiturates Screen Negative, Ur Phencyclidine Scrn Positive H, Ur Amphetamines Screen Negative, U Benzodiazepines Scrn Negative, U Oth Cocaine Metabols Negative, U Cannabinoids Screen Positive H 07/04/17 12:00: Sodium 144, Potassium 3.3 L, Chloride 104, Carbon Dioxide 22, Anion Gap 21 H, BUN 19, Creatinine 0.6 L, Est GFR ( Amer) > 60, Est GFR ( Non-Af Amer) > 60, Random Glucose 59 L, Calcium 9.1, Total Bilirubin 0.3, AST 58 H D, ALT 29, Alkaline Phosphatase 127 H D, Total Protein 8.0, Albumin 4.5, Globulin 3.6, Albumin/Globulin Ratio 1.3 07/04/17 12:00: Urine Color Yellow, Urine Appearance Sl cloudy, Urine pH 6.0, Ur Specific [place] >= 1.030, Urine Protein Trace H, Urine Glucose (UA) Negative , Urine Ketones >=80, Urine Blood Large H, Urine Nitrate Positive H, Urine Bilirubin Negative, Urine Urobilinogen 0.2, Ur Leukocyte Esterase Trace H, Urine RBC 0 - 2, Urine WBC 1 - 3, Ur Epithelial Cells 3 - 4, Urine Bacteria Mod 07/04/17 12:00: WBC 12.4 H, RBC 4.40, Hgb 14.0, Hct 41.8, MCV 95.0, MCH 31.8, MCHC 33.5, RDW 15.1 H, Plt Count 342, MPV 9.2, Gran % 67.3, Lymph % (Auto) 25.4 , [place] % (Auto) 6.9 H, Eos % (Auto) 0.2 L, Baso % (Auto) 0.2, Gran # 8.34 H, Lymph # (Auto) 3.2, [place] # (Auto) 0.9 H, Eos # (Auto) 0.0, Baso # (Auto) 0.03 Vital Signs Temp Pulse Resp BP Pulse Ox 07/06/17 07:38 98.0 F 67 20 119/84 07/05/17 07:00 97.8 F 58 L 18 94/64 L 07/04/17 17:00 72 18 104/65 98 07/04/17 15:00 70 18 115/76 98 07/04/17 13:37 70 18 106/49 L 98 07/04/17 11:37 98.6 F 61 18 130/74 97 Microbiology 07/04/17 18:00 Urine,Clean Catch Urine Culture - Preliminary Gram Negative Sy pentazocine Adverse Reaction (Verified 07/06/17 05:42) FEVER DSM 5 Symptoms Update: Shortly pt is a 32 year old female with history of Bipolar Disorder, Post Traumatic Stress Disorder, patient denied previous psychiatric admissions, reported h/o opioid dependence and alcohol dependence, poor social support, Came to the hospital looking for help for her depressive symptoms, passive wish to be , patient also was drinking alcohol on daily basis, patient also is on methadone maintenance program, patient required further evaluation and stabilization, medication resumption and titration, observation. Patient was seen i The nursing station, patient presented with swollen right cheek, patient reported that she has a toothache, medical team was called, antibiotic started, CT scan was ordered. Patient reported the mood swings are "unbearable", patient reported that she feels hopeless and helpless, depressed, guilty. Patient denied thoughts of harming herself or others. No psychotic symptoms observed. pt is emotionally labile. Patient tolerated medications well, no side effects observed or reported, aims 0 , no EPS. DSM 5 Diagnosis: as per history bipolar spectrum disorder As per history PTSD Generalized anxiety disorder Rule out substance induced disorder Opioid addiction 1 methadone History of polysubstance abuse with the plan Alcohol withdrawal symptoms Alcohol use disorder As per history borderline personality disorder Medication Change: Yes (seroquel started) Medical Record Reviewed: Yes Consults ordered or reviewed: Discussed with Dr. Howe, consultation appreciated for urinary tract infection Mental Status Examination - Cognitive Function Orientation: Person, Place, Situation Memory: Intact Attention: Poor Concentration: Poor Association: Loose Fund of Knowledge: Poor - Mood Mood: Depressed, Anxious - Affect Affect: Constricted, Flat - Formal Thought Process Formal Thought Process: Hallucinations (denied today) - Suicidal Ideation Suicidal Ideation: No - Homicidal Ideation Homicidal Ideation: No Goal/Treatment Plan - Goal/Treatment Plan Need for Continued Stay: Remain at risks for inpatient hospitalization, Severe depression anxiety, Discharge may exacerbated symptoms, Severe functional impairment Progress Toward Problem(s) and Goals/Treatment Plan: Milieu/structure/supportive therapy Medical consult appreciated, see medical team note for more detailed info, abx for UTI started SW consultation for discharge plan and social issues Med management multivitamins, folic acid, thiamine, will monitor vital signs, ativan scheduled and PRN Methadone 200 mg daily, confirmed by staff, patient was attending methadone clinic prozac 40mg po dily for depression and anxiey remeron 30mg po hs for insomnia and depression seroquel 100mg po amhs for mood stabilization pt does not want to go to rehab Family involvement Follow up on labs Will monitor closely Pt was educated about risk/benefits and alternatives of medications, coping strategies (safety plan, suicide prevention), relapse prevention, importance of follow up with psychiatrist and therapist, stay away from drugs/alcohol/smoking Estimated Date of D/C: 07/14/17
[2017-07-08] MEDS: Amoxicillin-Clav 875-125 mg Tab PO SCH (17:25)
--- NOTE | 2017-07-08 18:08 | CARD ---
APPROVED REPORT EKG Measurement Heart [id number] <Conclusion> Sinus tachycardia Nonspecific T wave abnormality Abnormal ECG
[2017-07-09] MEDS: Amoxicillin-Clav 875-125 mg Tab PO SCH ×2 (06:15→17:56)
[2017-07-09] MEDS: Multivitamin Therapeutic Tab PO SCH (08:25)
--- NOTE | 2017-07-09 13:35 | PCM.PYCHPN ---
Psychiatric Progress Note - Psychiatric Progress Note Patient seen today, length of contact: 30 minutes Patient Chief Complaint: "I am not so good" Problems Identified/Issues Discussed: Suicide/ homicide prevention, past psychiatric h/o, current psychiatric symptoms , medical problems, risk/benefits and alternatives of medications, medications compliance, coping strategies, substance abuse h/o, relapse prevention, importance of follow up with psychiatrist and therapist, discharge plan. Medical Problems: patient complain of dysuria, urine analysis showed urinary tract infection with Gram - rods patient reported history of kidney infection, medical team will be called cruz stinson, abx Diagnostic Results: 07/04/17 12:00 07/04/17 12:00 Lab Results 07/05/17 07:45: RPR Nonreactive 07/05/17 07:45: TSH 3rd Generation 0.91 07/05/17 07:45: Fasting Glucose 67, Triglycerides 59, Cholesterol 146, LDL Cholesterol Direct 53, HDL Cholesterol 69 H 07/04/17 21:00: Hemoglobin A1c 5.7 07/04/17 12:00: Triglycerides 95, Cholesterol 192, LDL Cholesterol Direct 82, HDL Cholesterol 92 H 07/04/17 12:00: Alcohol, Quantitative 138 H 07/04/17 12:00: Salicylates < 1 L, Acetaminophen < 10.0 L 07/04/17 12:00: Urine Opiates Screen Negative, Urine Methadone Screen Positive H , Ur Barbiturates Screen Negative, Ur Phencyclidine Scrn Positive H, Ur Amphetamines Screen Negative, U Benzodiazepines Scrn Negative, U Oth Cocaine Metabols Negative, U Cannabinoids Screen Positive H 07/04/17 12:00: Sodium 144, Potassium 3.3 L, Chloride 104, Carbon Dioxide 22, Anion Gap 21 H, BUN 19, Creatinine 0.6 L, Est GFR ( Amer) > 60, Est GFR ( Non-Af Amer) > 60, Random Glucose 59 L, Calcium 9.1, Total Bilirubin 0.3, AST 58 H D, ALT 29, Alkaline Phosphatase 127 H D, Total Protein 8.0, Albumin 4.5, Globulin 3.6, Albumin/Globulin Ratio 1.3 07/04/17 12:00: Urine Color Yellow, Urine Appearance Sl cloudy, Urine pH 6.0, Ur Specific [place] >= 1.030, Urine Protein Trace H, Urine Glucose (UA) Negative , Urine Ketones >=80, Urine Blood Large H, Urine Nitrate Positive H, Urine Bilirubin Negative, Urine Urobilinogen 0.2, Ur Leukocyte Esterase Trace H, Urine RBC 0 - 2, Urine WBC 1 - 3, Ur Epithelial Cells 3 - 4, Urine Bacteria Mod 07/04/17 12:00: WBC 12.4 H, RBC 4.40, Hgb 14.0, Hct 41.8, MCV 95.0, MCH 31.8, MCHC 33.5, RDW 15.1 H, Plt Count 342, MPV 9.2, Gran % 67.3, Lymph % (Auto) 25.4 , [place] % (Auto) 6.9 H, Eos % (Auto) 0.2 L, Baso % (Auto) 0.2, Gran # 8.34 H, Lymph # (Auto) 3.2, [place] # (Auto) 0.9 H, Eos # (Auto) 0.0, Baso # (Auto) 0.03 Vital Signs Temp Pulse Resp BP Pulse Ox 07/06/17 07:38 98.0 F 67 20 119/84 07/05/17 07:00 97.8 F 58 L 18 94/64 L 07/04/17 17:00 72 18 104/65 98 07/04/17 15:00 70 18 115/76 98 07/04/17 13:37 70 18 106/49 L 98 07/04/17 11:37 98.6 F 61 18 130/74 97 Microbiology 07/04/17 18:00 Urine,Clean Catch Urine Culture - Preliminary Gram Negative Sy pentazocine Adverse Reaction (Verified 07/06/17 05:42) FEVER DSM 5 Symptoms Update: Shortly pt is a 32 year old female with history of Bipolar Disorder, Post Traumatic Stress Disorder, patient denied previous psychiatric admissions, reported h/o opioid dependence and alcohol dependence, poor social support, Came to the hospital looking for help for her depressive symptoms, passive wish to be , patient also was drinking alcohol on daily basis, patient also is on methadone maintenance program, patient required further evaluation and stabilization, medication resumption and titration, observation. Patient was seen next to the nursing station, patient presented with swollen right cheek but some improvement, patient reported that she has a toothache, medical team was called, antibiotic started, CT scan was ordered no abscess, no osteo. Patient reported the mood swings are "better", patient reported that she feels hopeless and helpless, depressed, but denied thoughts of harming self or others.. pt is emotionally labile. Patient tolerated medications well, no side effects observed or reported, aims 0 , no EPS. DSM 5 Diagnosis: as per history bipolar spectrum disorder As per history PTSD Generalized anxiety disorder Rule out substance induced disorder Opioid addiction 1 methadone History of polysubstance abuse with the plan Alcohol withdrawal symptoms Alcohol use disorder As per history borderline personality disorder Medication Change: Yes (seroquel started) Medical Record Reviewed: Yes Mental Status Examination - Cognitive Function Orientation: Person, Place, Situation Memory: Intact Attention: Poor Concentration: Poor Association: Loose Fund of Knowledge: Poor - Mood Mood: Depressed, Anxious - Affect Affect: Constricted, Flat - Formal Thought Process Formal Thought Process: Hallucinations (denied today) - Suicidal Ideation Suicidal Ideation: No - Homicidal Ideation Homicidal Ideation: No Goal/Treatment Plan - Goal/Treatment Plan Need for Continued Stay: Remain at risks for inpatient hospitalization, Severe depression anxiety, Discharge may exacerbated symptoms, Severe functional impairment Progress Toward Problem(s) and Goals/Treatment Plan: Milieu/structure/supportive therapy SW consultation for discharge plan and social issues Med management multivitamins, folic acid, thiamine, will monitor vital signs, ativan scheduled and PRN Methadone 200 mg daily, confirmed by staff, patient was attending methadone clinic prozac 40mg po dily for depression and anxiey remeron 30mg po hs for insomnia and depression seroquel 200mg po amhs for mood stabilization medical team f/u appreciated pt does not want to go to rehab Family involvement Follow up on labs Will monitor closely Pt was educated about risk/benefits and alternatives of medications, coping strategies (safety plan, suicide prevention), relapse prevention, importance of follow up with psychiatrist and therapist, stay away from drugs/alcohol/smoking Estimated Date of D/C: 07/14/17
--- NOTE | 2017-07-09 13:47 | CP.PCM.CON ---
History of Present Illness - History of Present Illness History of Present Illness: 32 year old female with PMH of polysubstance abuse, depression, obesity with BMI 30 is currently admitted in the [facility] Psych unit because of depression. She is also complaining of burning sensation on urination which started about a month ago, on-and-off and has worsened over the past few days. She also occasionally gets right sided flank pain. She denies fever or chills, no nausea or vomiting, no chest pain, no SOB, no headache or dizziness, no abdominal pain , no cough or colds, no diarrhea, no dysuria. Urine cultures are now showing sánchez -sensitive E. coli. Infectious diseases consult is requested to further evaluate and manage. Review of Systems - Review of Systems All systems: reviewed and no additional remarkable complaints except (as per HPI ) Past Patient History - Infectious Disease Hx of Infectious Diseases: None - Past Social History Smoking Status: Heavy Smoker > 10 Cigarettes Daily - CARDIAC Hx Cardiac Disorders: Yes Hx Heart Murmur: Yes - PULMONARY Hx Respiratory Disorders: No - NEUROLOGICAL Hx Neurological Disorder: No - HEENT Hx HEENT Problems: No - RENAL Hx Chronic Kidney Disease: Yes Hx Kidney Stones: Yes - ENDOCRINE/METABOLIC Hx Endocrine Disorders: No - HEMATOLOGICAL/ONCOLOGICAL Hx Blood Disorders: Yes Hx Hepatitis A: Yes - INTEGUMENTARY Hx Dermatological Problems: No - MUSCULOSKELETAL/RHEUMATOLOGICAL Hx Musculoskeletal Disorders: Yes Hx Back Pain: Yes - GASTROINTESTINAL Hx Gastrointestinal Disorders: No - GENITOURINARY/GYNECOLOGICAL Hx Genitourinary Disorders: No - PSYCHIATRIC Hx Substance Use: Yes - SURGICAL HISTORY Hx Surgeries: No - ANESTHESIA Hx Anesthesia: No Meds Allergies/Adverse Reactions: Allergies Allergy/AdvReac Type Severity Reaction Status Date / Time pentazocine AdvReac FEVER Verified 07/06/17 05:42 - Medications Medications: Current Medications Acetaminophen (Tylenol 325mg Tab) 650 mg PO Q6 PRN PRN Reason: Pain, Mild (1-3) Last Admin: 07/08/17 19:32 Dose: 650 mg Al Hydrox/Mg Hydrox/Simethicone (Maalox Plus 30 Ml) 30 ml PO DAILY PRN PRN Reason: Dyspepsia Amoxicillin/Clavulanate Potassium (Augmentin 875 Mg-125 Mg Tab) 1 tab PO Q12 GEORGE PRN Reason: Protocol Last Admin: 07/09/17 06:15 Dose: 1 tab Benzocaine (Orajel Pm Maximum Strength) 0 gm MT QID PRN PRN Reason: toothache Chlorpromazine (Thorazine) 50 mg PO Q6H PRN; Protocol PRN Reason: Agitation Last Admin: 07/07/17 19:11 Dose: 50 mg Diphenhydramine HCl (Benadryl) 50 mg PO Q6H PRN PRN Reason: Anxiety Last Admin: 07/07/17 19:12 Dose: 50 mg Diphenhydramine HCl (Benadryl) 50 mg IM Q6H PRN PRN Reason: Anxiety Fluoxetine HCl (Prozac) 40 mg PO DAILY [facility] Folic Acid (Folic Acid) 1 mg PO DAILY [facility] Last Admin: 07/08/17 08:28 Dose: 1 mg Gabapentin (Neurontin) 600 mg PO TID GEORGE PRN Reason: Protocol Last Admin: 07/08/17 17:24 Dose: 600 mg Ibuprofen (Motrin Tab) 400 mg PO Q8H PRN PRN Reason: Pain, severe (8-10) Last Admin: 07/08/17 17:25 Dose: 400 mg Lidocaine HCl (Lidocaine 2% Viscous) 15 ml MM Q3H PRN PRN Reason: SWISH AND SPIT MOUTH PAIN Lorazepam (Ativan) 2 mg PO Q6 GEORGE PRN Reason: Protocol Last Admin: 07/09/17 06:15 Dose: 2 mg Lorazepam (Ativan) 2 mg PO Q6 PRN; Protocol PRN Reason: Withdrawn symptoms Last Admin: 07/06/17 19:08 Dose: 2 mg Magnesium Hydroxide (Milk Of Magnesia) 30 ml PO DAILY PRN PRN Reason: Constipation Methadone HCl (Methadone) 200 mg PO DAILY [facility] Last Admin: 07/08/17 08:29 Dose: 200 mg Mirtazapine (Remeron) 30 mg PO HS [facility] Last Admin: 07/08/17 21:00 Dose: 30 mg Multivitamins (Thera Tab) 1 tab PO 0800 [facility] Last Admin: 07/08/17 08:28 Dose: 1 tab Nicotine (Nicoderm Cq) 1 patch TD DAILY [facility] Last Admin: 07/08/17 08:29 Dose: 1 patch Quetiapine Fumarate (Seroquel) 100 mg PO AMHS [facility] PRN Reason: Protocol Last Admin: 07/08/17 21:00 Dose: 100 mg Thiamine HCl (Vitamin B1 Tab) 100 mg PO DAILY [facility] Last Admin: 07/08/17 08:28 Dose: 100 mg Physical Exam - Constitutional Appears: Non-toxic - Head Exam Head Exam: NORMAL INSPECTION - ENT Exam ENT Exam: Mucous Membranes Moist - Neck Exam Neck exam: Negative for: Meningismus - Respiratory Exam Respiratory Exam: Decreased Breath Sounds - Cardiovascular Exam Cardiovascular Exam: +S1, +S2 - GI/Abdominal Exam GI & Abdominal Exam: Soft. absent: Tenderness Results - Vital Signs Recent Vital Signs: Last Vital Signs Temp 99.5 F 07/08/17 07:38 Pulse 102 H 07/08/17 16:36 Resp 20 07/08/17 07:38 BP 111/78 07/08/17 16:36 Pulse Ox 98 07/04/17 17:00 - Labs Result Diagrams: 07/08/17 12:30 07/08/17 20:15 Labs: Laboratory Results - last 24 hr 07/08/17 07/08/17 07/08/17 12:30 12:30 20:15 WBC 8.2 D RBC 4.14 Hgb 13.1 Hct 39.8 MCV 96.1 MCH 31.6 MCHC 32.9 RDW 15.1 H Plt Count 251 MPV 9.4 Gran % 57.8 Lymph % (Auto) 28.7 [place] % (Auto) 11.2 H Eos % (Auto) 2.1 Baso % (Auto) 0.2 Gran # 4.76 Lymph # (Auto) 2.4 [place] # (Auto) 0.9 H Eos # (Auto) 0.2 Baso # (Auto) 0.02 Sodium 141 Potassium 6.0 H* D 4.4 Chloride 103 Carbon Dioxide 28 Anion Gap 16 BUN 17 Creatinine 0.8 Est GFR ( Amer) > 60 Est GFR (Non-Af Amer) > 60 Random Glucose 92 Calcium 10.5 Total Bilirubin 0.2 AST 36 D ALT 35 Alkaline Phosphatase 77 Total Protein 7.2 Albumin 4.0 Globulin 3.3 Albumin/Globulin Ratio 1.2 Assessment & Plan - Assessment and Plan (Free Text) Plan: Assessment UTI with E. coli in a patient with history of nephrolithiasis polysubstance abuse depression obesity with BMI 30 Plan Continue patient on Augmentin; will order renal ultrasound to assess kidney stones will monitor clinically check HIV test
[2017-07-09] MEDS: Benzocaine 20% Cream(7 gm) MT PRN (23:01)
[2017-07-10] MEDS: Amoxicillin-Clav 875-125 mg Tab PO SCH ×2 (05:23→17:45)
[2017-07-10] MEDS: Multivitamin Therapeutic Tab PO SCH (08:19)
--- NOTE | 2017-07-10 10:17 | PCM.PYCHPN ---
Psychiatric Progress Note - Psychiatric Progress Note Patient seen today, length of contact: 25 minutes Patient Chief Complaint: "little better" Problems Identified/Issues Discussed: I reviewed assessment and recent notes. Patient is a 32 year old female with history of Bipolar Disorder, Post Traumatic Stress Disorder, no previous psychiatric admissions, h/o opioid dependence (on Methadone maintenance) and alcohol dependence, poor social support who came to the hospital looking for help for her depressive symptoms and passive wishes. Patient has been depressed and labile on the unit. She tells me that her symptoms are a "little better" but she still feels hopeless with poor energy levels. Anxiety is "so-so". Patient also indicates that she has been hallucinating and "I see things that aren't there, I cant really explain it, I know its not real". She doesn't appear to be overly psychotic or disorganized though affect is constricted. She denies any side effects or any new discomfort or pain. Sleep remains restless. Staff notes indicate that patient has been visible on the unit and interacts well with other patients and staff. She attended group yesterday. She has been a little less labile and more cooperative regarding unit rules recently Diagnostic Results: as per history bipolar spectrum disorder As per history PTSD Generalized anxiety disorder Rule out substance induced disorder Opioid addiction 1 methadone History of polysubstance abuse Alcohol withdrawal symptoms Alcohol use disorder As per history borderline personality disorder Medication Change: Yes (decreased standing ativan) Medical Record Reviewed: Yes Mental Status Examination - Cognitive Function Orientation: Person, Place, Situation Memory: Intact Attention: Poor Concentration: Poor Association: Loose Fund of Knowledge: Poor - Mood Mood: Depressed, Anxious - Affect Affect: Constricted, Flat - Formal Thought Process Formal Thought Process: Hallucinations (I see things that arent there, I can t really explain it, I know its not real) - Suicidal Ideation Suicidal Ideation: No - Homicidal Ideation Homicidal Ideation: No Goal/Treatment Plan - Goal/Treatment Plan Need for Continued Stay: Remain at risks for inpatient hospitalization, Severe depression anxiety, Discharge may exacerbated symptoms, Severe functional impairment Progress Toward Problem(s) and Goals/Treatment Plan: Group, milieu and supportive tx Vitals reviewed and noted below 07/09/17 07:13 Temperature 98.1 F Pulse Rate 94 H Respiratory 20 Rate Blood Pressure 96/61 L No new weekend labs thus far CONTINUE MEDICATIONS Multivitamins, folic acid, thiamine, Ativan scheduled 2 mg q6 decreased to 2 mg po q8. Continue Ativan 2 mg po q6 PRN Methadone 200 mg daily, confirmed by staff, patient was attending methadone clinic prozac 40mg po daily for depression and anxiey Neurontin 600 mg po TID will also help, off label for anxiety and mood control remeron 30mg po hs for insomnia and depression seroquel 200mg po amhs for mood stabilization Estimated Date of D/C: 07/14/17
--- NOTE | 2017-07-10 20:50 | PN ---
DATE: 07/10/2017 SUBJECTIVE: The patient is in bed, in no acute distress. PHYSICAL EXAMINATION: VITAL SIGNS: Temperature is 99, blood pressure is 104/60, respiratory rate of 18. HEENT: Unremarkable. NECK: Supple. LUNGS: Have decreased breath sounds. HEART: Normal S1 and S2. ABDOMEN: Soft, nontender. LABORATORY DATA: Reveals a white count of 8000, hemoglobin of 13, and platelets of 251. Chemistries are noted. BUN of 17, creatinine of 0.8. Urinalysis is noted. Toxicology is reviewed. Serology is noted. Microbiology is reviewed. ASSESSMENT AND PLAN: This is a 32-year-old female who was seen earlier this morning in psychiatric floor with polysubstance abuse, depression, obesity, and with a right molar tooth infection in the right side of her mouth, which is swollen. Dr. Henriquez's note is reviewed. The patient had a CAT scan of the maxillofacial and the right-sided mandible consistent with cellulitis. No evidence of abscess, no bony destruction. Urinalysis shows 1 to 3 white blood cells and there is Escherichia coli in the urine. We will continue the Augmentin per the mouth, advise her to go to a dentist to correct right-sided odontogenic origin. Casey Quezada MD
[2017-07-11 06:52] VITALS: RESP 20
[2017-07-11] MEDS: Amoxicillin-Clav 875-125 mg Tab PO SCH ×2 (07:00→17:35)
[2017-07-11] MEDS: Multivitamin Therapeutic Tab PO SCH (08:09)
--- NOTE | 2017-07-11 10:21 | PCM.PYCHPN ---
Psychiatric Progress Note - Psychiatric Progress Note Patient seen today, length of contact: 25 minutes Patient Chief Complaint: "little better" Problems Identified/Issues Discussed: I reviewed assessment and recent notes. Patient is a 32 year old female with history of Bipolar Disorder, Post Traumatic Stress Disorder, no previous psychiatric admissions, h/o opioid dependence (on Methadone maintenance) and alcohol dependence, poor social support who came to the hospital looking for help for her depressive symptoms and passive wishes. Patient has been depressed and labile on the unit. She considered signing a 48 hrs letter but changed her mind. Patient also refused to go to [facility] scheduled for her on Wednesday. Staff have not observed any psychotic symptoms. Staff notes also indicate that patient has been visible on the unit and interacts well with other patients. She attended group this weekend without incident. I met with patient again this morning and she reports continued depression and hallucinations. Again she states "I see things that aren't there, I can't really explain it, I know its not real". She doesn't appear to be overly psychotic or disorganized. Her affect remains constricted. She denies any side effects or any new discomfort or pain. Patient indicated that sleep was restless though staff observed her to be snoring and sleeping through the night Diagnostic Results: as per history bipolar spectrum disorder As per history PTSD Generalized anxiety disorder Rule out substance induced disorder Opioid addiction 1 methadone History of polysubstance abuse Alcohol withdrawal symptoms Alcohol use disorder As per history borderline personality disorder Medication Change: Yes (decreased standing ativan) Medical Record Reviewed: Yes Mental Status Examination - Cognitive Function Orientation: Person, Place, Situation Memory: Intact Attention: Poor Concentration: Poor Association: Loose Fund of Knowledge: Poor - Mood Mood: Depressed, Anxious - Affect Affect: Constricted, Flat - Formal Thought Process Formal Thought Process: Hallucinations (I see things that arent there, I can t really explain it, I know its not real) - Suicidal Ideation Suicidal Ideation: No - Homicidal Ideation Homicidal Ideation: No Goal/Treatment Plan - Goal/Treatment Plan Need for Continued Stay: Remain at risks for inpatient hospitalization, Severe depression anxiety, Discharge may exacerbated symptoms, Severe functional impairment Progress Toward Problem(s) and Goals/Treatment Plan: Group, milieu and supportive tx Appreciate f/u by Dr. Quezada on 07/10/17~continue Augmentin po and recommended that patient f/u with dentist Vitals reviewed and noted below 07/10/17 07/11/17 06:52 06:00 Temperature 98.1 F 97.3 F L Pulse Rate 86 80 Respiratory 19 20 Rate Blood Pressure 104/62 103/63 No new weekend labs CONTINUE MEDICATIONS Multivitamins, folic acid, thiamine, Ativan scheduled 2 mg q6 decreased to 2 mg po q8. Continue Ativan 2 mg po q6 PRN Methadone 200 mg daily, confirmed by staff, patient was attending methadone clinic prozac 40mg po daily for depression and anxiey Neurontin 600 mg po TID will also help, off label for anxiety and mood control remeron 30mg po hs for insomnia and depression seroquel 200mg po amhs for mood stabilization Estimated Date of D/C: 07/14/17
--- NOTE | 2017-07-11 12:05 | PN ---
DATE: 07/11/2017 SUBJECTIVE: The patient is in bed, was seen in the Psychiatric floor this morning. No fevers and chills. No nausea. She states her tooth pain has improved. PHYSICAL EXAMINATION VITAL SIGNS: Temperature is 98, blood pressure is 103/60, respiratory rate of 20. HEENT: Unremarkable. The oral area is less swollen. NECK: Supple. LUNGS: Have decreased breath sounds. HEART: Normal S1, S2. ABDOMEN: Soft, nontender. LABORATORY DATA: Reveals a white count of 8.2, hemoglobin of 13, platelets of 251. Chemistries are noted. RPR is negative and the patient's review of orders reveals HIV is pending and blood cultures are negative, urine cultures have E. coli and urinalysis has 1-3 wbc's, trace leukocyte esterase and positive nitrites and the patient is on p.o. Augmentin. ASSESSMENT AND PLAN: This is a 32-year-old female seen in the Psychiatric floor this morning, with depression, polysubstance abuse, obesity, right molar tooth infection in the right side of her mouth which is swollen, somewhat improved. CAT scan of the maxillofacial, right-sided mandible consistent with cellulitis, currently on Augmentin, somewhat improving. Will need dental and oral surgical evaluation upon discharge. Casey Quezada MD
--- NOTE | 2017-07-11 16:08 | US ---
PROCEDURE: Ultrasound of the Kidneys HISTORY: rule out nephrolithiasis COMPARISON: Unenhanced abdomen and pelvis CT examination 03/14/2012. TECHNIQUE: Sonogram of the kidneys. FINDINGS: RIGHT KIDNEY: Measures: 11.6 x 4.6 x 4.3 cm. Normal in size, contour and echogenicity. No stone, solid mass lesion or hydronephrosis visualized. LEFT KIDNEY: Measures: 11.5 x 4.8 x 4.6 cm. Normal in size, contour and echogenicity. No stone, solid mass lesion or hydronephrosis visualized. OTHER FINDINGS: None. IMPRESSION: Unremarkable bilateral renal sonogram. Prior punctate nephrolithiasis not appreciable on the current exam. CT without contrast may be useful if clinically warranted.
[2017-07-11] MEDS: Benzocaine 20% Cream(7 gm) MT PRN (21:07)
[2017-07-12] MEDS: Amoxicillin-Clav 875-125 mg Tab PO SCH ×2 (06:54→17:43)
[2017-07-12] MEDS: Multivitamin Therapeutic Tab PO SCH (08:45)
--- NOTE | 2017-07-12 16:46 | PCM.PYCHPN ---
Psychiatric Progress Note - Psychiatric Progress Note Patient seen today, length of contact: 25 minutes Patient Chief Complaint: "my mood is up and down" Problems Identified/Issues Discussed: Suicide/ homicide prevention, past psychiatric h/o, current psychiatric symptoms , medical problems, risk/benefits and alternatives of medications, medications compliance, coping strategies, substance abuse h/o, relapse prevention, importance of follow up with psychiatrist and therapist, discharge plan. Medical Problems: patient complain of dysuria, urine analysis showed urinary tract infection with Gram - rods patient reported history of kidney infection, medical team will be called cruz stinson, abx Diagnostic Results: 07/04/17 12:00 07/04/17 12:00 Lab Results 07/05/17 07:45: RPR Nonreactive 07/05/17 07:45: TSH 3rd Generation 0.91 07/05/17 07:45: Fasting Glucose 67, Triglycerides 59, Cholesterol 146, LDL Cholesterol Direct 53, HDL Cholesterol 69 H 07/04/17 21:00: Hemoglobin A1c 5.7 07/04/17 12:00: Triglycerides 95, Cholesterol 192, LDL Cholesterol Direct 82, HDL Cholesterol 92 H 07/04/17 12:00: Alcohol, Quantitative 138 H 07/04/17 12:00: Salicylates < 1 L, Acetaminophen < 10.0 L 07/04/17 12:00: Urine Opiates Screen Negative, Urine Methadone Screen Positive H , Ur Barbiturates Screen Negative, Ur Phencyclidine Scrn Positive H, Ur Amphetamines Screen Negative, U Benzodiazepines Scrn Negative, U Oth Cocaine Metabols Negative, U Cannabinoids Screen Positive H 07/04/17 12:00: Sodium 144, Potassium 3.3 L, Chloride 104, Carbon Dioxide 22, Anion Gap 21 H, BUN 19, Creatinine 0.6 L, Est GFR ( Amer) > 60, Est GFR ( Non-Af Amer) > 60, Random Glucose 59 L, Calcium 9.1, Total Bilirubin 0.3, AST 58 H D, ALT 29, Alkaline Phosphatase 127 H D, Total Protein 8.0, Albumin 4.5, Globulin 3.6, Albumin/Globulin Ratio 1.3 07/04/17 12:00: Urine Color Yellow, Urine Appearance Sl cloudy, Urine pH 6.0, Ur Specific [place] >= 1.030, Urine Protein Trace H, Urine Glucose (UA) Negative , Urine Ketones >=80, Urine Blood Large H, Urine Nitrate Positive H, Urine Bilirubin Negative, Urine Urobilinogen 0.2, Ur Leukocyte Esterase Trace H, Urine RBC 0 - 2, Urine WBC 1 - 3, Ur Epithelial Cells 3 - 4, Urine Bacteria Mod 07/04/17 12:00: WBC 12.4 H, RBC 4.40, Hgb 14.0, Hct 41.8, MCV 95.0, MCH 31.8, MCHC 33.5, RDW 15.1 H, Plt Count 342, MPV 9.2, Gran % 67.3, Lymph % (Auto) 25.4 , [place] % (Auto) 6.9 H, Eos % (Auto) 0.2 L, Baso % (Auto) 0.2, Gran # 8.34 H, Lymph # (Auto) 3.2, [place] # (Auto) 0.9 H, Eos # (Auto) 0.0, Baso # (Auto) 0.03 Vital Signs Temp Pulse Resp BP Pulse Ox 07/06/17 07:38 98.0 F 67 20 119/84 07/05/17 07:00 97.8 F 58 L 18 94/64 L 07/04/17 17:00 72 18 104/65 98 07/04/17 15:00 70 18 115/76 98 07/04/17 13:37 70 18 106/49 L 98 07/04/17 11:37 98.6 F 61 18 130/74 97 Microbiology 07/04/17 18:00 Urine,Clean Catch Urine Culture - Preliminary Gram Negative Sy pentazocine Adverse Reaction (Verified 07/06/17 05:42) FEVER DSM 5 Symptoms Update: Shortly pt is a 32 year old female with history of Bipolar Disorder, Post Traumatic Stress Disorder, patient denied previous psychiatric admissions, reported h/o opioid dependence and alcohol dependence, poor social support, Came to the hospital looking for help for her depressive symptoms, passive wish to be , patient also was drinking alcohol on daily basis, patient also is on methadone maintenance program, patient required further evaluation and stabilization, medication resumption and titration, observation. Patient was seen at the dinning area, pt was crying hysterically because of "my pain, I have pain in my tooth", as per RN pt refused meds for her pain at am, Toradol was given to the pt stat, pt was advised it was her last dose because pt was on abx and medical team did not recommend any other meds as of now. pt reported "my mood is up and down", when was asked when was the last time pt was feeling okay, pt said "decades back", pt also c/o some insomnia "I woke up tonight and was not able to fall asleep", when was asked when was the last [place] sleep, pt said "very/very long time ago", pt said that she improved significantly to compare to the time of admission. Patient tolerated medications well, no side effects observed or reported, aims 0 , no EPS. DSM 5 Diagnosis: as per history bipolar spectrum disorder As per history PTSD Generalized anxiety disorder Rule out substance induced disorder Opioid addiction 1 methadone History of polysubstance abuse with the plan Alcohol withdrawal symptoms Alcohol use disorder As per history borderline personality disorder Medication Change: Yes (seroquel increased) Medical Record Reviewed: Yes Consults ordered or reviewed: Discussed with Dr. Howe, consultation appreciated for urinary tract infection Mental Status Examination - Cognitive Function Orientation: Person, Place, Situation Memory: Intact Attention: Poor (some improvement) Concentration: Poor (some improvement) Association: Loose Fund of Knowledge: Poor - Mood Mood: Depressed ("I am little better"), Anxious - Affect Affect: Constricted, Flat - Formal Thought Process Formal Thought Process: Hallucinations (denied) - Suicidal Ideation Suicidal Ideation: No - Homicidal Ideation Homicidal Ideation: No Goal/Treatment Plan - Goal/Treatment Plan Need for Continued Stay: Remain at risks for inpatient hospitalization, Severe depression anxiety, Discharge may exacerbated symptoms, Severe functional impairment Progress Toward Problem(s) and Goals/Treatment Plan: Milieu/structure/supportive therapy SW consultation for discharge plan and social issues Med management multivitamins, folic acid, thiamine, will monitor vital signs, ativan scheduled and PRN Methadone 200 mg daily, confirmed by staff, patient was attending methadone clinic prozac 40mg po dily for depression and anxiey remeron 30mg po hs for insomnia and depression seroquel 300mg po amhs for mood stabilization medical team f/u appreciated pt does not want to go to rehab Family involvement Follow up on labs Will monitor closely Pt was educated about risk/benefits and alternatives of medications, coping strategies (safety plan, suicide prevention), relapse prevention, importance of follow up with psychiatrist and therapist, stay away from drugs/alcohol/smoking Estimated Date of D/C: 07/14/17
--- NOTE | 2017-07-12 17:40 | CP.PCM.PN ---
Subjective - Date & Time of Evaluation Date of Evaluation: 07/12/17 Time of Evaluation: 11:25 - Subjective Subjective: Improved pain on the right side of the face, no fevers. No dysuria. Objective - Vital Signs/Intake and Output Vital Signs (last 24 hours): Temp Pulse Resp BP Pulse Ox 98.0 F 81 20 90/62 L 98 07/12/17 07:42 07/12/17 07:42 07/11/17 06:00 07/12/17 07:42 07/11/17 06:00 - Medications Medications: Current Medications Acetaminophen (Tylenol 325mg Tab) 650 mg PO Q6 PRN PRN Reason: Pain, Mild (1-3) Last Admin: 07/08/17 19:32 Dose: 650 mg Al Hydrox/Mg Hydrox/Simethicone (Maalox Plus 30 Ml) 30 ml PO DAILY PRN PRN Reason: Dyspepsia Amoxicillin/Clavulanate Potassium (Augmentin 875 Mg-125 Mg Tab) 1 tab PO Q12 GEORGE PRN Reason: Protocol Last Admin: 07/12/17 06:54 Dose: 1 tab Benzocaine (Orajel Pm Maximum Strength) 0 gm MT QID PRN PRN Reason: pain Last Admin: 07/11/17 21:07 Dose: 1 applic Chlorpromazine (Thorazine) 50 mg PO Q6H PRN; Protocol PRN Reason: Agitation Last Admin: 07/12/17 00:30 Dose: 50 mg Diphenhydramine HCl (Benadryl) 50 mg PO Q6H PRN PRN Reason: Anxiety Last Admin: 07/12/17 00:29 Dose: 50 mg Diphenhydramine HCl (Benadryl) 50 mg IM Q6H PRN PRN Reason: Anxiety Fluoxetine HCl (Prozac) 40 mg PO DAILY [facility] Last Admin: 07/12/17 08:45 Dose: 40 mg Folic Acid (Folic Acid) 1 mg PO DAILY [facility] Last Admin: 07/12/17 08:45 Dose: 1 mg Gabapentin (Neurontin) 600 mg PO TID GEORGE PRN Reason: Protocol Last Admin: 07/12/17 08:45 Dose: 600 mg Ibuprofen (Motrin Tab) 400 mg PO Q8H PRN PRN Reason: Pain, moderate (4-7) Last Admin: 07/12/17 07:39 Dose: 400 mg Lidocaine HCl (Lidocaine 2% Viscous) 15 ml MM Q3H PRN PRN Reason: SWISH AND SPIT MOUTH PAIN Last Admin: 07/09/17 18:00 Dose: 15 ml Lorazepam (Ativan) 2 mg PO Q6 PRN; Protocol PRN Reason: Withdrawn symptoms Last Admin: 07/06/17 19:08 Dose: 2 mg Lorazepam (Ativan) 2 mg PO Q8 GEORGE PRN Reason: Protocol Last Admin: 07/12/17 06:54 Dose: 2 mg Magnesium Hydroxide (Milk Of Magnesia) 30 ml PO DAILY PRN PRN Reason: Constipation Methadone HCl (Methadone) 200 mg PO DAILY [facility] Last Admin: 07/12/17 08:43 Dose: 200 mg Mirtazapine (Remeron) 30 mg PO HS [facility] Last Admin: 07/11/17 21:06 Dose: 30 mg Multivitamins (Thera Tab) 1 tab PO 0800 [facility] Last Admin: 07/12/17 08:45 Dose: 1 tab Mupirocin (Bactroban Ointment) 0 gm TOP BID [facility] Last Admin: 07/12/17 08:00 Dose: Not Given Nicotine (Nicoderm Cq) 1 patch TD DAILY [facility] Last Admin: 07/12/17 08:46 Dose: 1 patch Quetiapine Fumarate (Seroquel) 200 mg PO AMHS [facility] PRN Reason: Protocol Last Admin: 07/11/17 21:06 Dose: 200 mg Thiamine HCl (Vitamin B1 Tab) 100 mg PO DAILY [facility] Last Admin: 07/12/17 08:45 Dose: 100 mg - Labs Labs: 07/08/17 12:30 07/08/17 20:15 - Constitutional Appears: Non-toxic - Head Exam Head Exam: NORMAL INSPECTION - Respiratory Exam Respiratory Exam: absent: Rales - Cardiovascular Exam Cardiovascular Exam: +S1, +S2 - GI/Abdominal Exam GI & Abdominal Exam: Soft. absent: Tenderness Assessment and Plan - Assessment and Plan (Free Text) Plan: Assessment UTI with E. coli in a patient with history of nephrolithiasis right sided odontogenic infection, clinically improving polysubstance abuse depression obesity with BMI 30 Plan Continue patient on Augmentin day 4 to complete 7-10 days; patient will need to see a dentist on discharge
[2017-07-13] MEDS: Amoxicillin-Clav 875-125 mg Tab PO SCH ×2 (06:49→16:59)
[2017-07-13] MEDS: Multivitamin Therapeutic Tab PO SCH (08:04)
[2017-07-13] MEDS: Benzocaine 20% Cream(7 gm) MT PRN (10:58)
--- NOTE | 2017-07-13 15:54 | PCM.PYCHPN ---
Psychiatric Progress Note - Psychiatric Progress Note Patient seen today, length of contact: 25 minutes Patient Chief Complaint: "my mood is up and down" Problems Identified/Issues Discussed: Suicide/ homicide prevention, past psychiatric h/o, current psychiatric symptoms , medical problems, risk/benefits and alternatives of medications, medications compliance, coping strategies, substance abuse h/o, relapse prevention, importance of follow up with psychiatrist and therapist, discharge plan. Medical Problems: patient complain of dysuria, urine analysis showed urinary tract infection with Gram - rods patient reported history of kidney infection, medical team will be called cruz stinson, abx Diagnostic Results: 07/04/17 12:00 07/04/17 12:00 Lab Results 07/05/17 07:45: RPR Nonreactive 07/05/17 07:45: TSH 3rd Generation 0.91 07/05/17 07:45: Fasting Glucose 67, Triglycerides 59, Cholesterol 146, LDL Cholesterol Direct 53, HDL Cholesterol 69 H 07/04/17 21:00: Hemoglobin A1c 5.7 07/04/17 12:00: Triglycerides 95, Cholesterol 192, LDL Cholesterol Direct 82, HDL Cholesterol 92 H 07/04/17 12:00: Alcohol, Quantitative 138 H 07/04/17 12:00: Salicylates < 1 L, Acetaminophen < 10.0 L 07/04/17 12:00: Urine Opiates Screen Negative, Urine Methadone Screen Positive H , Ur Barbiturates Screen Negative, Ur Phencyclidine Scrn Positive H, Ur Amphetamines Screen Negative, U Benzodiazepines Scrn Negative, U Oth Cocaine Metabols Negative, U Cannabinoids Screen Positive H 07/04/17 12:00: Sodium 144, Potassium 3.3 L, Chloride 104, Carbon Dioxide 22, Anion Gap 21 H, BUN 19, Creatinine 0.6 L, Est GFR ( Amer) > 60, Est GFR ( Non-Af Amer) > 60, Random Glucose 59 L, Calcium 9.1, Total Bilirubin 0.3, AST 58 H D, ALT 29, Alkaline Phosphatase 127 H D, Total Protein 8.0, Albumin 4.5, Globulin 3.6, Albumin/Globulin Ratio 1.3 07/04/17 12:00: Urine Color Yellow, Urine Appearance Sl cloudy, Urine pH 6.0, Ur Specific [place] >= 1.030, Urine Protein Trace H, Urine Glucose (UA) Negative , Urine Ketones >=80, Urine Blood Large H, Urine Nitrate Positive H, Urine Bilirubin Negative, Urine Urobilinogen 0.2, Ur Leukocyte Esterase Trace H, Urine RBC 0 - 2, Urine WBC 1 - 3, Ur Epithelial Cells 3 - 4, Urine Bacteria Mod 07/04/17 12:00: WBC 12.4 H, RBC 4.40, Hgb 14.0, Hct 41.8, MCV 95.0, MCH 31.8, MCHC 33.5, RDW 15.1 H, Plt Count 342, MPV 9.2, Gran % 67.3, Lymph % (Auto) 25.4 , [place] % (Auto) 6.9 H, Eos % (Auto) 0.2 L, Baso % (Auto) 0.2, Gran # 8.34 H, Lymph # (Auto) 3.2, [place] # (Auto) 0.9 H, Eos # (Auto) 0.0, Baso # (Auto) 0.03 Vital Signs Temp Pulse Resp BP Pulse Ox 07/06/17 07:38 98.0 F 67 20 119/84 07/05/17 07:00 97.8 F 58 L 18 94/64 L 07/04/17 17:00 72 18 104/65 98 07/04/17 15:00 70 18 115/76 98 07/04/17 13:37 70 18 106/49 L 98 07/04/17 11:37 98.6 F 61 18 130/74 97 Microbiology 07/04/17 18:00 Urine,Clean Catch Urine Culture - Preliminary Gram Negative Sy pentazocine Adverse Reaction (Verified 07/06/17 05:42) FEVER DSM 5 Symptoms Update: Shortly pt is a 32 year old female with history of Bipolar Disorder, Post Traumatic Stress Disorder, patient denied previous psychiatric admissions, reported h/o opioid dependence and alcohol dependence, poor social support, Came to the hospital looking for help for her depressive symptoms, passive wish to be , patient also was drinking alcohol on daily basis, patient also is on methadone maintenance program, patient required further evaluation and stabilization, medication resumption and titration, observation. Patient was seen at the dinning area, pt presented with some improvement, at the same time as per staff pt is emotionally labile, was crying with no reasons , pt c/o insomnia but overall improved, pt said her tooth pain "not that bad". pt said that she improved significantly to compare to the time of admission. Patient tolerated medications well, no side effects observed or reported, aims 0 , no EPS. DSM 5 Diagnosis: as per history bipolar spectrum disorder As per history PTSD Generalized anxiety disorder Rule out substance induced disorder Opioid addiction 1 methadone History of polysubstance abuse with the plan Alcohol withdrawal symptoms Alcohol use disorder As per history borderline personality disorder Medication Change: Yes (remeron 45mg , ativan bid ) Medical Record Reviewed: Yes Mental Status Examination - Cognitive Function Orientation: Person, Place, Situation Memory: Intact Attention: Poor (some improvement) Concentration: Poor (some improvement) Association: Loose Fund of Knowledge: Poor - Mood Mood: Depressed ("I am little better"), Anxious - Affect Affect: Constricted, Flat - Formal Thought Process Formal Thought Process: Hallucinations (denied) - Suicidal Ideation Suicidal Ideation: No - Homicidal Ideation Homicidal Ideation: No Goal/Treatment Plan - Goal/Treatment Plan Need for Continued Stay: Remain at risks for inpatient hospitalization, Severe depression anxiety, Discharge may exacerbated symptoms, Severe functional impairment Progress Toward Problem(s) and Goals/Treatment Plan: Milieu/structure/supportive therapy SW consultation for discharge plan and social issues Med management multivitamins, folic acid, thiamine, will monitor vital signs, ativan scheduled and PRN Methadone 200 mg daily, confirmed by staff, patient was attending methadone clinic prozac 40mg po dily for depression and anxiey remeron 45mg po hs for insomnia and depression seroquel 300mg po amhs for mood stabilization ativan will be decreased to 2mg bid, then will taper it down medical team f/u appreciated pt does not want to go to rehab Family involvement Follow up on labs Will monitor closely Pt was educated about risk/benefits and alternatives of medications, coping strategies (safety plan, suicide prevention), relapse prevention, importance of follow up with psychiatrist and therapist, stay away from drugs/alcohol/smoking Estimated Date of D/C: 07/16/17
--- NOTE | 2017-07-13 23:30 | PN ---
DATE: 07/13/2017 SUBJECTIVE: The patient is in bed, in no acute distress, nontoxic. No fevers. Was seen early this morning in the psychiatric floor. PHYSICAL EXAMINATION: VITAL SIGNS: Temperature is 97, blood pressure is 102/60, respiratory rate of 16. HEENT: Unremarkable. NECK: Supple. LUNGS: Have decreased breath sounds. HEART: Normal S1, S2. ABDOMEN: Soft and nontender. LABORATORY DATA: Reveals a white count of 8.2, hemoglobin of 13, platelets of 251. Chemistries are noted, BUN of 17 and creatinine of 0.8. Urinalysis is noted and serology for HIV is negative. RPR is negative. Microbiology noted. ASSESSMENT AND PLAN: A 32-year-old female seen early this morning on the psychiatric floor with urinary tract infection and Escherichia coli in a patient with nephrolithiasis, right-sided odontogenic infection, polysubstance abuse. Currently on Augmentin, day #5, will complete 7 to 10 days. Will need a dentist followup. We will follow with you. Casey Quezada MD
[2017-07-14] MEDS: Multivitamin Therapeutic Tab PO SCH (08:55)
[2017-07-14] MEDS: Benzocaine 20% Cream(7 gm) MT PRN (13:41)
--- NOTE | 2017-07-14 14:00 | PCM.PYCHPN ---
Psychiatric Progress Note - Psychiatric Progress Note Patient seen today, length of contact: 25 minutes Patient Chief Complaint: "I am okay" Problems Identified/Issues Discussed: Suicide/ homicide prevention, past psychiatric h/o, current psychiatric symptoms , medical problems, risk/benefits and alternatives of medications, medications compliance, coping strategies, substance abuse h/o, relapse prevention, importance of follow up with psychiatrist and therapist, discharge plan. Medical Problems: patient complain of dysuria, urine analysis showed urinary tract infection with Gram - rods patient reported history of kidney infection, medical team will be called cruz stinson, abx Diagnostic Results: 07/04/17 12:00 07/04/17 12:00 Lab Results 07/05/17 07:45: RPR Nonreactive 07/05/17 07:45: TSH 3rd Generation 0.91 07/05/17 07:45: Fasting Glucose 67, Triglycerides 59, Cholesterol 146, LDL Cholesterol Direct 53, HDL Cholesterol 69 H 07/04/17 21:00: Hemoglobin A1c 5.7 07/04/17 12:00: Triglycerides 95, Cholesterol 192, LDL Cholesterol Direct 82, HDL Cholesterol 92 H 07/04/17 12:00: Alcohol, Quantitative 138 H 07/04/17 12:00: Salicylates < 1 L, Acetaminophen < 10.0 L 07/04/17 12:00: Urine Opiates Screen Negative, Urine Methadone Screen Positive H , Ur Barbiturates Screen Negative, Ur Phencyclidine Scrn Positive H, Ur Amphetamines Screen Negative, U Benzodiazepines Scrn Negative, U Oth Cocaine Metabols Negative, U Cannabinoids Screen Positive H 07/04/17 12:00: Sodium 144, Potassium 3.3 L, Chloride 104, Carbon Dioxide 22, Anion Gap 21 H, BUN 19, Creatinine 0.6 L, Est GFR ( Amer) > 60, Est GFR ( Non-Af Amer) > 60, Random Glucose 59 L, Calcium 9.1, Total Bilirubin 0.3, AST 58 H D, ALT 29, Alkaline Phosphatase 127 H D, Total Protein 8.0, Albumin 4.5, Globulin 3.6, Albumin/Globulin Ratio 1.3 07/04/17 12:00: Urine Color Yellow, Urine Appearance Sl cloudy, Urine pH 6.0, Ur Specific [place] >= 1.030, Urine Protein Trace H, Urine Glucose (UA) Negative , Urine Ketones >=80, Urine Blood Large H, Urine Nitrate Positive H, Urine Bilirubin Negative, Urine Urobilinogen 0.2, Ur Leukocyte Esterase Trace H, Urine RBC 0 - 2, Urine WBC 1 - 3, Ur Epithelial Cells 3 - 4, Urine Bacteria Mod 07/04/17 12:00: WBC 12.4 H, RBC 4.40, Hgb 14.0, Hct 41.8, MCV 95.0, MCH 31.8, MCHC 33.5, RDW 15.1 H, Plt Count 342, MPV 9.2, Gran % 67.3, Lymph % (Auto) 25.4 , [place] % (Auto) 6.9 H, Eos % (Auto) 0.2 L, Baso % (Auto) 0.2, Gran # 8.34 H, Lymph # (Auto) 3.2, [place] # (Auto) 0.9 H, Eos # (Auto) 0.0, Baso # (Auto) 0.03 Vital Signs Temp Pulse Resp BP Pulse Ox 07/06/17 07:38 98.0 F 67 20 119/84 07/05/17 07:00 97.8 F 58 L 18 94/64 L 07/04/17 17:00 72 18 104/65 98 07/04/17 15:00 70 18 115/76 98 07/04/17 13:37 70 18 106/49 L 98 07/04/17 11:37 98.6 F 61 18 130/74 97 Microbiology 07/04/17 18:00 Urine,Clean Catch Urine Culture - Preliminary Gram Negative Sy pentazocine Adverse Reaction (Verified 07/06/17 05:42) FEVER DSM 5 Symptoms Update: Shortly pt is a 32 year old female with history of Bipolar Disorder, Post Traumatic Stress Disorder, patient denied previous psychiatric admissions, reported h/o opioid dependence and alcohol dependence, poor social support, Came to the hospital looking for help for her depressive symptoms, passive wish to be , patient also was drinking alcohol on daily basis, patient also is on methadone maintenance program, patient required further evaluation and stabilization, medication resumption and titration, observation. Patient was seen in her room, pt was seepy. as per report pt is very comfortable in the unit, at times entitled, at times demanding things, but overall pleasant. pt does not have withdrawal symptoms. sleep better. Patient tolerated medications well, no side effects observed or reported, aims 0 , no EPS. DSM 5 Diagnosis: as per history bipolar spectrum disorder As per history PTSD Generalized anxiety disorder Rule out substance induced disorder Opioid addiction on methadone History of polysubstance abuse with the plan Alcohol withdrawal symptoms Alcohol use disorder As per history borderline personality disorder Medication Change: Yes (ativan 1mg tid) Medical Record Reviewed: Yes Consults ordered or reviewed: Discussed with Dr. Howe, consultation appreciated for urinary tract infection Mental Status Examination - Cognitive Function Orientation: Person, Place, Situation Memory: Intact Attention: Poor (some improvement) Concentration: Poor (some improvement) Association: Loose (improvemetn) Fund of Knowledge: Poor (improvement) - Mood Mood: Depressed ("I am little better"), Anxious - Affect Affect: Constricted, Flat - Formal Thought Process Formal Thought Process: No Impairment - Suicidal Ideation Suicidal Ideation: No - Homicidal Ideation Homicidal Ideation: No Goal/Treatment Plan - Goal/Treatment Plan Need for Continued Stay: Remain at risks for inpatient hospitalization, Severe depression anxiety, Discharge may exacerbated symptoms, Severe functional impairment Progress Toward Problem(s) and Goals/Treatment Plan: Milieu/structure/supportive therapy SW consultation for discharge plan and social issues Med management multivitamins, folic acid, thiamine, will monitor vital signs, ativan scheduled and PRN Methadone 200 mg daily, confirmed by staff, patient was attending methadone clinic prozac 40mg po dily for depression and anxiey remeron 45mg po hs for insomnia and depression seroquel 300mg po amhs for mood stabilization ativan will be decreased to 1mg tid, then will taper it down medical team f/u appreciated pt does not want to go to rehab Family involvement Follow up on labs Will monitor closely Pt was educated about risk/benefits and alternatives of medications, coping strategies (safety plan, suicide prevention), relapse prevention, importance of follow up with psychiatrist and therapist, stay away from drugs/alcohol/smoking Estimated Date of D/C: 07/15/17
[2017-07-14] MEDS ORDERED: Benzocaine/Menthol (Cepacol) Lozenge MT PRN (15:32)
[2017-07-14 17:27] LABS: BASO # 0.03 K/mm3 (0.0-2.0); BASO % 0.2 % (0.0-3.0); EOS # 0.1 (0.0-0.7); EOS % 0.8 % (1.5-5.0); GRAN # 8.61 (1.4-6.5); GRAN % 66.4 % (50.0-68.0); HEMOGLOBIN 11.3 g/dL (12.0-16.0); LYMPH # 2.6 (1.2-3.4); MEAN CELL VOLUME 95.6 fl (80.0-105.0); MEAN CORPUSCULAR HEMOGLOBIN 30.8 pg (25.0-35.0); MEAN CORPUSCULAR HGB CONC 32.2 g/dl (31.0-37.0); MEAN PLATELET VOLUME 9.2 fl (7.0-11.0); MONO # 1.6 (0.1-0.6); MONO % 12.6 % (1.0-6.0); RBC 3.67 10^6/uL (3.5-6.1); RED CELL DISTRIBUTION WIDTH 14.7 % (11.5-14.5)
[2017-07-14 17:44] LABS: ALB/GLOB RATIO 1.1 (1.1-1.8); ALBUMIN 3.7 g/dL (3.0-4.8); ALT/SGPT 52 U/L (7-56); AST/SGOT 51 U/L (14-36); BLOOD UREA NITROGEN 14 mg/dL (7-21); CALCIUM 9.9 mg/dL (8.4-10.5); GFR AFRICAN-AMERICAN > 60; GFR NON-AFRICAN AMERICAN > 60
[2017-07-14] MEDS ORDERED: Amoxicillin-Clav 875-125 mg Tab PO SCH (18:00)
[2017-07-14 18:47] LABS: URINE BILIRUBIN NEGATIVE (NEGATIVE); URINE BLOOD TRACE-INTACT (NEGATIVE); URINE GLUCOSE (UA) NEGATIVE (NEGATIVE); URINE LEUKOCYTE ESTERASE MODERATE Leu/uL (NEGATIVE); URINE PROTEIN NEGATIVE mg/dL (<30 mg/dL); URINE UROBILINOGEN 0.2 E.U./dL (<1 E.U./dL)
[2017-07-14 18:48] LABS: URINE APPEARANCE SL CLOUDY (CLEAR); URINE COLOR YELLOW (YELLOW)
[2017-07-14 19:01] LABS: URINE BACTERIA MOD (NEG); URINE EPITHELIAL CELLS MANY /hpf (0-5); URINE RBC 0 - 2 /hpf (0-2)
[2017-07-15] MEDS: Multivitamin Therapeutic Tab PO SCH (08:26)
--- NOTE | 2017-07-15 08:38 | PN ---
DATE: 07/14/2017 SUBJECTIVE: Patient is seen in 518, and she appeared to be in no acute distress. She does have a low-grade fever. PHYSICAL EXAMINATION: VITAL SIGNS: Temperature is 100.2, blood pressure is 115/70, respiratory rate 16. HEENT: Unremarkable. NECK: Supple. LUNGS: Have decreased breath sounds. HEART: Normal S1, S2. ABDOMEN: Soft, nontender. LABORATORY DATA: Reveals the patient's white count is up to 13,000, hemoglobin of 11. Chemistry reveals a BUN of 14, creatinine of 0.7. RPR and HIV is negative. Dr. John's note is reviewed. ASSESSMENT AND PLAN: A 32-year-old female, who was seen earlier this morning in the psychiatric floor with urinary tract infection with Escherichia coli, nephrolithiasis, right sided with low-grade fevers and day number 6 of Augmentin. We will discontinue the Augmentin since patient has a fever, concerned about beta-lactam fever since the patient is now looking toxic, we will follow the white count and fever and consider repeating pancultures if fevers persist. Casey Quezada MD
[2017-07-15 11:24] VITALS: BP 120/80; PULSE 117
[2017-07-15 11:30] VITALS: TEMP 99
--- NOTE | 2017-07-15 12:12 | CT ---
PROCEDURE: CT NECK WITHOUT CONTRAST HISTORY: looking for thrombosis jugula COMPARISON: None. TECHNIQUE: CT of the neck without intravenous contrast. Coronal and sagittal reformats generated. Radiation dose: DLP 371 mGy-cm This CT exam was performed using one or more of the following dose reduction techniques: Automated exposure control, adjustment of the mA and/or kV according to patient size, and/or use of iterative reconstruction technique. FINDINGS: NASOPHARYNX: Unremarkable. SUPRAHYOID NECK: There is mild swelling of the palatine tonsils as well as swelling of the soft palate and uvula. There is no evidence of a tonsillar abscess INFRAHYOID NECK: Unremarkable larynx, hypopharynx, and supraglottic space. Vocal cords intact. MASS: None. GLANDS: Parotid and submandibular glands unremarkable. Normal size thyroid gland, without nodule. LYMPH NODES: There is mild to moderate bilateral cervical adenopathy. CERVICAL SPINE: No fracture or focal lesion. OTHER FINDINGS: Thrombosis of the jugular vein cannot be assessed without IV contrast IMPRESSION: There is mild swelling of the palatine tonsils as well as swelling of the soft palate and uvula. There is no evidence of a tonsillar abscess
--- NOTE | 2017-07-15 20:30 | US ---
HISTORY: Arm pain and swelling. Evaluate for deep venous thrombosis. PHYSICIAN(S): Kushal Reynolds MD. FINDINGS: The visualized internal jugular veins are sonographically normal and compressible. No evidence of obstruction or thrombus this is seen. The visualized segments of the subclavian veins are patent with normal waveforms. No sonographic evidence of obstruction or thrombosis is seen. The visualized deep venous systems of both upper extremities proximally are sonographically normal and compressible. IMPRESSION: 1. No sonographic evidence for deep venous thrombosis in the visualized segments of both upper strategies.
--- NOTE | 2017-07-16 01:49 | PN ---
DATE: 07/15/2017 SUBJECTIVE: Patient is in bed in no acute distress; was seen early this morning in the psychiatric floor with fevers and difficulty swallowing. PHYSICAL EXAMINATION: VITAL SIGNS: Temperature is 100.2, blood pressure is 115/70, respiratory rate of 20, heart rate of 108. HEENT: Reveals pharyngitis. NECK: Supple. LUNGS: Have decreased breath sounds. HEART: Normal S1, S2. ABDOMEN: Soft. LABORATORY EXAMINATION: Reveals a white count of 13,000, hemoglobin of 11, and platelets of 376. Chemistries are noted. Patient's group A Strep antigen is negative. HIV is negative. RPR is negative. Microbiology, blood cultures are negative. Patient had a CAT scan of the neck and soft tissue and no evidence of an abscess. ASSESSMENT AND PLAN: Reveals a 32-year-old female seen in psychiatric floor now with fevers and on p.o. Augmentin, not responding. Case discussed with private medical doctor and recommend transfer to acute care for intravenous antibiotics and further imaging to rule out and ultrasound of the internal jugular vein. Casey Quezada MD
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
[2017-07-19 17:48] LABS: C. PNEUMONIAE IGA <1:16 (<1:16); C. PNEUMONIAE IGM <1:10 (<1:10); C. PSITTACI IGA <1:16 (<1:16); C. PSITTACI IGM <1:10 (<1:10)
== END 2017-07-15 14:45 | disposition short-term general hospital (02) | DRG 430 ==
LOC: ED 11:36 → PSYC 15:51
PROVIDERS: ADMIT Psychiatry & Neurology Psychiatry; ATTEND Psychiatry & Neurology Psychiatry
PROC: GZ3ZZZZ Medication Management (ICD-10-PCS; principal; 2017-07-05)
DX: F31.9 Bipolar disorder, unspecified (principal); F11.20 Opioid dependence, uncomplicated; N39.0 Urinary tract infection, site not specified; L03.211 Cellulitis of face; F10.239 Alcohol dependence with withdrawal, unspecified; F41.1 Generalized anxiety disorder; F43.10 Post-traumatic stress disorder, unspecified; Z91.410 Personal history of adult physical and sexual abuse; R01.1 Cardiac murmur, unspecified; B96.20 Unspecified Escherichia coli [E. coli] as the cause of diseases classified elsewhere; F60.3 Borderline personality disorder; G47.00 Insomnia, unspecified; Z91.14 Patient's other noncompliance with medication regimen; E66.9 Obesity, unspecified; Z68.30 Body mass index [BMI] 30.0-30.9, adult; F17.210 Nicotine dependence, cigarettes, uncomplicated; Z87.442 Personal history of urinary calculi

== ENCOUNTER 2017-07-15 14:33 | Inpatient (IN) | payer MEDICAID ==
[2017-07-15 14:36] VITALS: BMI 31.1
--- NOTE | 2017-07-15 14:51 | ED PDOC ---
Arrival/HPI - General Chief Complaint: Medical Clearance Time Seen by Provider: 07/15/17 14:36 Historian: Patient - History of Present Illness Narrative History of Present Illness (Text): 07/15/17 14:43 A 32 year old female, whose past medical history includes alcohol and drug abuse , sent into the emergency department from [facility] for a sore throat and urinary tract infection. Patient had a urine culture done on 07/04/17 which showed positive for e.coli resistant to Bactrim. Patient was placed on Augmentin with no improvement of symptoms. Patient had a second urine culture done today which showed positive Trihomonas and placed on flagyl. Patient denies any fever, chills, nausea, vomiting, abdominal pain, chest pain, shortness of breath or any other complaints. Past Medical History - Provider Review Nursing Documentation Reviewed: Yes - Infectious Disease Hx of Infectious Diseases: None - Cardiac Hx Cardiac Disorders: Yes Hx Heart Murmur: Yes - Pulmonary Hx Respiratory Disorders: No - Neurological Hx Neurological Disorder: No - HEENT Hx HEENT Disorder: No - Renal Hx Renal Disorder: Yes Hx Kidney Stones: Yes - Endocrine/Metabolic Hx Endocrine Disorders: No - Hematological/Oncological Hx Blood Disorders: Yes Hx Hepatitis A: Yes - Integumentary Hx Dermatological Disorder: No - Musculoskeletal/Rheumatological Hx Musculoskeletal Disorders: Yes Hx Back Pain: Yes - Gastrointestinal Hx Gastrointestinal Disorders: No - Genitourinary/Gynecological Hx Genitourinary Disorders: No - Psychiatric Hx Substance Use: Yes - Anesthesia Hx Anesthesia: No - Suicidal Assessment Feels Threatened In Home Enviroment: No Family/Social History - Physician Review Nursing Documentation Reviewed: Yes Family/Social History: No Known Family HX Smoking Status: Heavy Smoker > 10 Cigarettes Daily Hx Alcohol Use: Yes Hx Substance Use: Yes Hx Substance Use Treatment: Yes Allergies/Home Meds Allergies/Adverse Reactions: Allergies pentazocine Adverse Reaction (Verified 07/15/17 14:53) FEVER Home Medications: Home Meds Medication Instructions Recorded Confirmed Methadone HCl [Methadose] 200 mg PO DAILY 06/02/17 07/15/17 Acetaminophen [Tylenol 325mg tab] 325 mg PO DAILY 07/15/17 07/15/17 Aluminum Hydroxide/Magnesium H 30 ml PO DAILY 07/15/17 07/15/17 [Maalox 30 ml] Amoxicillin/Clavulanate [Augmentin 1 tab PO Q12 07/15/17 07/15/17 875 MG-125 MG] Benzocaine [Anbesol] 0 ml MM DAILY 07/15/17 07/15/17 DiphenhydrAMINE [Benadryl] 50 mg PO PRN PRN 07/15/17 07/15/17 Fluoxetine HCl [Prozac] 40 mg PO DAILY 07/15/17 07/15/17 Folic Acid 1 mg PO DAILY 07/15/17 07/15/17 Gabapentin [Neurontin] 600 mg PO TID 07/15/17 07/15/17 Ibuprofen [Motrin] 400 mg PO DAILY 07/15/17 07/15/17 LORazepam [Ativan] 2 mg PO Q8 07/15/17 07/15/17 Lidocaine 2% Viscous [Lidocaine 0 ml MM DAILY 07/15/17 07/15/17 HCl Viscous 20 Ml] Magnesium Hydroxide [Milk Of 30 ml PO DAILY 07/15/17 07/15/17 Magnesia] Mirtazapine [Remeron] 30 mg PO HS 07/15/17 07/15/17 Multivitamin Therapeutic Tab 1 tab PO 0800 07/15/17 07/15/17 [Thera Tab] Mupirocin [Centany] 2 gm TP DAILY 07/15/17 07/15/17 Nicotine 14 mg/24 hr [Nicoderm CQ] 1 each TD DAILY 07/15/17 07/15/17 Quetiapine Fumarate [Seroquel] 300 mg PO AMHS 07/15/17 07/15/17 Thiamine HCl [Thiamine HCl] 100 mg PO DAILY 07/15/17 07/15/17 chlorproMAZINE [chlorPROMAZINE HCL] 50 mg PO Q6 07/15/17 07/15/17 Review of Systems - Physician Review All systems were reviewed & negative as marked: Yes - Review of Systems Constitutional: absent: Fevers, Night Sweats ENT: Sore Throat Respiratory: absent: SOB Cardiovascular: absent: Chest Pain Gastrointestinal: absent: Abdominal Pain, Nausea, Vomiting Physical Exam Vital Signs Temp Pulse Resp BP Pulse Ox 07/15/17 16:56 19 99 07/15/17 16:00 97.8 F 109 H 20 110/73 97 07/15/17 14:51 98.0 F 87 17 119/72 97 Appearance: Positive for: Well-Appearing, Non-Toxic, Comfortable Pain Distress: None Mental Status: Positive for: Alert and Oriented X 3 - Systems Exam Head: Present: Atraumatic, Normocephalic Pupils: Present: PERRL Extroacular Muscles: Present: EOMI Conjunctiva: Present: Normal Mouth: Present: Moist Mucous Membranes Neck: Present: Normal Range of Motion Respiratory/Chest: Present: Clear to Auscultation, Good Air Exchange. No: Respiratory Distress, Accessory Muscle Use Cardiovascular: Present: Regular Rate and Rhythm, Normal S1, S2. No: Murmurs Abdomen: Present: Normal Bowel Sounds. No: Tenderness, Distention, Peritoneal Signs Back: Present: Normal Inspection Upper Extremity: Present: Normal Inspection. No: Cyanosis, Edema Lower Extremity: Present: Normal Inspection. No: Edema Neurological: Present: GCS=15, CN II-XII Intact, Speech Normal Skin: Present: Warm, Dry, Normal Color. No: Rashes Psychiatric: Present: Alert, Oriented x 3, Normal Insight, Normal Concentration Medical Decision Making ED Course and Treatment: 07/15/17 14:43 Impression: A 32 year old female sent in for a sore throat and urinary tract infection Progress Notes: Case discussed with Dr. Susan Woodard, who requests to start IV line and admit under her service for Pharyngitis, UTI and Trihomonas. - Medication Orders Current Medication Orders: Acetaminophen (Tylenol 325mg Tab) 325 mg PO DAILY GEORGE Al Hydrox/Mg Hydrox/Simethicone (Maalox Plus 30 Ml) 30 ml PO DAILY GEORGE Benzocaine/Menthol (Cepacol Sore Throat) 1 ricky MT Q2H PRN PRN Reason: Sore Throat Chlorpromazine (Thorazine) 50 mg PO Q6 PRN; Protocol PRN Reason: Agitation Diphenhydramine HCl (Benadryl) 50 mg PO Q6H PRN PRN Reason: Itching / Pruritus Fluoxetine HCl (Prozac) 40 mg PO DAILY [facility] Folic Acid (Folic Acid) 1 mg PO DAILY GEORGE Gabapentin (Neurontin) 600 mg PO TID GEORGE PRN Reason: Protocol Sodium Chloride (Sodium Chloride 0.9%) 1,000 mls @ 100 mls/hr IV .Q10H GEORGE Last Admin: 07/15/17 17:44 Dose: 100 mls/hr eMAR Start Stop Document 07/15/17 17:44 SML (Rec: 07/15/17 17:44 SML [id number]) Intravenous Solution Start Date 07/15/17 Start Time 17:44 Meropenem (Merrem Iv 1 Gm Premix) 50 mls @ 100 mls/hr IVPB Q8 GEORGE PRN Reason: Protocol Stop: 07/24/17 22:01 Last Admin: 07/15/17 21:33 Dose: 100 mls/hr eMAR Start Stop Document 07/15/17 21:33 RM (Rec: 07/15/17 21:33 RM [id number]) Intravenous Solution Start Date 07/15/17 Start Time 21:33 End Date 07/15/17 End time 22:03 Total Infusion Time 30 Ibuprofen (Motrin Tab) 400 mg PO Q6H PRN PRN Reason: Pain, moderate (4-7) Lorazepam (Ativan) 2 mg PO Q8 GEORGE PRN Reason: Protocol Last Admin: 07/15/17 21:33 Dose: 2 mg Behavioural Document 07/15/17 21:33 RM (Rec: 07/15/17 21:33 RM [id number]) Maintenance Maintenance Dose Yes Magnesium Hydroxide (Milk Of Magnesia) 30 ml PO DAILY GEORGE Methadone HCl (Methadone) 200 mg PO DAILY GEORGE Mirtazapine (Remeron) 30 mg PO HS GEORGE Last Admin: 07/15/17 21:34 Dose: 30 mg Multivitamins (Thera Tab) 1 tab PO 0800 GEORGE Mupirocin (Bactroban Ointment) 2 gm EXT DAILY GEORGE Nicotine (Nicoderm Cq) 1 patch TD DAILY GEORGE Non-Formulary Medication (Benzocaine [Anbesol]) 2 ml MM DAILY GEORGE Pantoprazole Sodium (Protonix Ec Tab) 40 mg PO 0600 GEORGE Quetiapine Fumarate (Seroquel) 300 mg PO AMHS GEORGE Last Admin: 07/15/17 21:33 Dose: 300 mg Behavioural Document 07/15/17 21:33 RM (Rec: 07/15/17 21:34 RM [id number]) Maintenance Maintenance Dose Yes Thiamine HCl (Vitamin B1 Tab) 100 mg PO DAILY GEORGE Discontinued Medications Meropenem 250 mg/ Sodium (Chloride) 100 mls @ 100 mls/hr IVPB Q24H GEORGE PRN Reason: Protocol Stop: 07/15/17 17:44 Last Admin: 07/15/17 18:05 Dose: 100 mls/hr eMAR Start Stop Document 07/15/17 18:05 SML (Rec: 07/15/17 18:05 SML [id number]) Intravenous Solution Start Date 07/15/17 Start Time 18:05 End Date 07/15/17 End time 19:05 Total Infusion Time 60 Sodium Chloride (Sodium Chloride 0.9%) 1,000 mls @ 999 mls/hr IV .Q1H1M STA Stop: 07/15/17 17:43 Last Admin: 07/15/17 16:55 Dose: 999 mls/hr eMAR Start Stop Document 07/15/17 16:55 [email or web address] (Rec: 07/15/17 16:55 [email or web address] [id number]) Intravenous Solution Start Date 07/15/17 Start Time 16:55 End Date 07/15/17 Ibuprofen (Motrin Tab) 400 mg PO STAT STA Stop: 07/15/17 16:25 Last Admin: 07/15/17 16:53 Dose: 400 mg MAR Pain/Vitals Document 07/15/17 16:53 [email or web address] (Rec: 07/15/17 16:54 [email or web address] [id number]) Pain Reassessment Is This A Pain ReAssessment? No Sleep Is patient sleeping during reassessment? No Presence of Pain Presence of Pain Yes Pain Scale Used Pain Scale Used Numeric Location Pain Location Body Site Generalized Description Constant Intensity 6 Scale Used Numeric Pain Behavior Facial Grimacing Aggravating Factors Changing Position Alleviating Factors Medication Ibuprofen (Motrin Tab) 400 mg PO Q6H GEORGE Last Admin: 07/15/17 21:34 Dose: 400 mg MAR Pain/Vitals Document 07/15/17 21:34 RM (Rec: 07/15/17 21:34 RM [id number]) Pain Reassessment Is This A Pain ReAssessment? No Sleep Is patient sleeping during reassessment? No Metronidazole (Flagyl) 250 mg PO Q8H GEORGE PRN Reason: Protocol Stop: 07/18/17 05:16 Metronidazole (Flagyl) 2,000 mg PO STAT STA PRN Reason: Protocol Stop: 07/15/17 21:37 - PA / INSTRUMENT AND ELECTRICAL TECHNICIAN / Resident Statement MD/DO has reviewed & agrees with the documentation as recorded. - Scribe Statement The provider has reviewed the documentation as recorded by the Pacheco Lloyd Provider Scribe Attestation: All medical record entries made by the Joyibcyndee were at my direction and personally dictated by me. I have reviewed the chart and agree that the record accurately reflects my personal performance of the history, physical exam, medical decision making, and the department course for this patient. I have also personally directed, reviewed, and agree with the discharge instructions and disposition. Disposition/Present on Arrival - Present on Arrival Any Indicators Present on Arrival: No History of DVT/PE: No History of Uncontrolled Diabetes: No Urinary Catheter: No History Surgical Site Infection Following: None - Disposition Have Diagnosis and Disposition been Completed?: Yes Diagnosis: Opiate dependence, Urinary tract infection, Trichomonas infection, Pharyngitis , Cervical adenitis Disposition: HOSPITALIZED Disposition Time: 17:00 Patient Plan: Discharge Condition: GOOD
[2017-07-15] MEDS ORDERED: Sodium Chloride 0.9% 1,000 ML IV STA (16:43)
[2017-07-15] MEDS: Sodium Chloride 0.9% 1,000 ML IV SCH (17:44)
[2017-07-15] MEDS ORDERED: Benzocaine/Menthol (Cepacol) Lozenge MT PRN (18:45)
--- NOTE | 2017-07-15 21:10 | CP.PCM.HP ---
Addendum entered and electronically signed by Francisco Javier Frankel DO 21:28: Assessment and Plan: Trichomonas - Flagyl total dose of 2g Original Note: <Francisco Javier Frankel - Last Filed: 07/15/17 21:02> History of Present Illness - History of Present Illness History of Present Illness: Medicine H and P for Dr. Lou Woodard Chief Complaint: Sore throat and UTI HPI: 32 year old female with past medical history significant for polysubstance abuse as well as heroin abuse on methadone presents withUTI as well as painful lymphadenopathy on the left and sore throat Patient states that she has had chronic tooth pain for months, and that she has seen a dentist for it who did not help her. She has a filling in her left lower canine. Patient was admitted in the psychiatry unit until this morning, when patient was found to be septic. Throughout her course in the psychiatry unit, we were consulted and were made aware of onset of fevers, severe sore throat, and chills. We were also made aware of acute onset of severe left sided oral swelling, for which we ordered a CT Maxillofacial which was negative for abscess. Blood cultures also remained negative. Patient also had a UTI, for which augmentin was initially started, but her symptoms did not subside. When she became septic this morning, patient was discharged from psych unit to be admitted to med/surg. Of note, urine also showed positive for trichomonas, for which patient was put on flagyl. Patient's HIV status was negative, but she admitted to sexual promiscuity in the past few months due to depression, so chlamydia and gonorrhea were also ordered. Other than that, patient denies any complaints including chest pain, shortness of breath, nausea, vomiting, and diarrhea. Past Surgical History: Patient denies Past Medical History: Polysubstance abuse, Heroin abuse on methadone, Chronic tooth pain Allergies: Pentazocine Social History: Admits to social alcohol, tobacco use, and PCP, heroin, and marijuana Hospitalizations: Transferred from Psych today; February for depression Family History: Patient denies Medications: No home medications ROS: Review of systems negative except as per HPI Present on Admission - Present on Admission Any Indicators Present on Admission: No Past Patient History - Infectious Disease Hx of Infectious Diseases: None - Past Social History Smoking Status: Heavy Smoker > 10 Cigarettes Daily - CARDIAC Hx Cardiac Disorders: Yes Hx Heart Murmur: Yes - PULMONARY Hx Respiratory Disorders: No - NEUROLOGICAL Hx Neurological Disorder: No - HEENT Hx HEENT Problems: No - RENAL Hx Chronic Kidney Disease: Yes Hx Kidney Stones: Yes - ENDOCRINE/METABOLIC Hx Endocrine Disorders: No - HEMATOLOGICAL/ONCOLOGICAL Hx Blood Disorders: Yes Hx Hepatitis A: Yes - INTEGUMENTARY Hx Dermatological Problems: No - MUSCULOSKELETAL/RHEUMATOLOGICAL Hx Musculoskeletal Disorders: Yes Hx Back Pain: Yes - GASTROINTESTINAL Hx Gastrointestinal Disorders: No - GENITOURINARY/GYNECOLOGICAL Hx Genitourinary Disorders: No - PSYCHIATRIC Hx Substance Use: Yes - SURGICAL HISTORY Hx Surgeries: No - ANESTHESIA Hx Anesthesia: No Meds Home Medications: Home Medication List Medication Instructions Recorded Confirmed Type Fluoxetine HCl [Prozac] 40 mg PO DAILY #14 capsule 07/18/17 Rx Gabapentin [Neurontin] 600 mg PO TID #45 tab 07/18/17 Rx Lorazepam [Ativan] 1 mg PO TID #6 tablet 07/18/17 Rx Methadone 200 mg PO DAILY tab 07/18/17 Rx Methylprednisolone [Medrol Dose 4 mg PO DAILY #21 mg 07/18/17 Rx Pack (21 tabs)] Mirtazapine [Remeron Soltab] 45 mg PO HS #14 odt 07/18/17 Rx Moxifloxacin [Avelox] 400 mg PO DAILY #14 tab 07/18/17 Rx Nicotine 14 mg/24 hr [Nicoderm CQ] 1 each TD DAILY #14 patch 07/18/17 Rx Quetiapine Fumarate [Seroquel] 300 mg PO AMHS #30 tablet 07/18/17 Rx Allergies/Adverse Reactions: Allergies Allergy/AdvReac Type Severity Reaction Status Date / Time pentazocine AdvReac FEVER Verified 07/15/17 14:53 Physical Exam - Constitutional Appears: Well - Head Exam Head Exam: ATRAUMATIC, NORMAL INSPECTION, NORMOCEPHALIC - Eye Exam Eye Exam: EOMI, Normal appearance, PERRL Pupil Exam: NORMAL ACCOMODATION, PERRL - ENT Exam ENT Exam: Mucous Membranes Moist, Normal Exam Additional comments: Patient has tonsillar exudate; Tender lymphadenopathy on left - Neck Exam Neck exam: Positive for: Lymphadenopathy - Respiratory Exam Respiratory Exam: Clear to Auscultation Bilateral, NORMAL BREATHING PATTERN - Cardiovascular Exam Cardiovascular Exam: REGULAR RHYTHM - GI/Abdominal Exam GI & Abdominal Exam: Normal Bowel Sounds, Soft. absent: Tenderness - Extremities Exam Extremities exam: Positive for: normal inspection - Back Exam Back exam: NORMAL INSPECTION - Neurological Exam Neurological exam: Alert, CN II-XII Intact, Normal Gait, Oriented x3, Reflexes Normal - Psychiatric Exam Psychiatric exam: Normal Affect, Normal Mood - Skin Skin Exam: Dry, Intact, Normal Color, Warm Results - Vital Signs Recent Vital Signs: Last Vital Signs Temp 97.8 F 07/15/17 16:00 Pulse 109 H 07/15/17 16:00 Resp 19 07/15/17 16:56 BP 110/73 07/15/17 16:00 Pulse Ox 99 07/15/17 16:56 Assessment & Plan - Assessment and Plan (Free Text) Assessment: Assessment and Plan: 32 year old female with past medical history of polysubstance abuse on methadone admitted for oropharyngitis and UTI, recently d/c'd from psych unit for acute onset of fevers/chills. Septic. Sepsis Most likely 2/2 UTI VS Oropharyngitis - Blood cultures, urine cultures, throat culture - ID Consult: Dr. Yip - Merrem q8 UTI - Urine Cx on last admission showed E. Coli - Merrem Oropharyngitis - Motrin 400mg po q8 prn - Throat culture - Cepacol lozenges - Because of tender lymphadenopathy, CT Head and Neck and Ultrasound of b/l Internal Jugulars were ordered CT was negative for abscess Ultrasound was negative for any jugular thrombosis - Follow up with dentist outpatient Heart Murmur - Patient has had one since , asymptomatic - not worried about endocarditis because it is not a new murmur and patient does not have other signs such as splinter hemorrhage, etc. Patient informed that she should tell her dentist if she goes for a procedure. Will await blood cultures to see if there is any growth and will reassess - Should follow up as an outpatient Depression - Psych consult: Dr. John - Reconciled home medications Polysubstance abuse - Counseled on risks of polysubstance abuse and advised cessation - Methadone 210 mg daily confirmed - restarted - Advised cessation of tobacco - Nicotine patch History of alcohol withdrawal - Patient was recently in psych le for prolonged period of time, will most likely not need CIWA protocol Heroin abuse on Methadone - Methadone 210 mg PO daily - Advised cessation GI/DVT Prophylaxis - SCD - Protonix <Woodard,Irfana B - Last Filed: 07/18/17 14:11> Results - Vital Signs Recent Vital Signs: Last Vital Signs Temp 100.2 F H 07/16/17 16:00 Pulse 107 H 07/16/17 16:00 Resp 20 07/16/17 16:00 BP 103/71 07/16/17 16:00 Pulse Ox 95 07/16/17 16:00 - Labs Result Diagrams: 07/17/17 07:00 07/17/17 12:30 Attending/Attestation - Attestation I have personally seen and examined this patient.: Yes I have fully participated in the care of the patient.: Yes I have reviewed all pertinent clinical information: Yes Notes (Text): I have seen and examined the patient at bedside. Agree with the above note with the following additions/ exceptions: Briefly this is 32 year old female with history of polysubstance abuse, methadone dependent, tobacco use, alcohol abuse , poor dentition who was admitted to psych unit for depression. Patient initially had right facial swelling and found to have EColi UTI. She was on augmentin. This morning we were called to evaluate the patient in psych. She was found to have fever, diaphoresis, sorethroat, hot potato voice and odynophagia. She was found to have acute tonsillitis. Patient was also found to have leukocytosis while getting augmentin. She was tranferred to [facility] for further evaluation. She also complained of urinary symptoms. Will repeat urine culture. Will give flagyl 2 gm for trichomonas. Patient is sexually active with 1 partner who is HIV positive. Counselling provided. Advised patient to use protection with all sexual encounters. She will be started on meropenem. Will order CT scan of the neck to r/o abscess. Will start IVF and liquid diet. Upon discharge patient will follow up with PMD of choice. Dr Susan Woodard
[2017-07-15] MEDS: Meropenem IV 1 gm in NS 50 ML IVPB SCH (21:33)
[2017-07-15] MEDS ORDERED: Influenza Vaccine 60 mcg/0.5 mL SYR (4YR UP) IM ONE (22:49)
[2017-07-15] MEDS ORDERED: Pneumococcal 23-Valent Vaccine IM ONE (22:49)
[2017-07-16 06:29] LABS: HEMOGLOBIN 11.5 g/dL (12.0-16.0); MEAN CELL VOLUME 95.4 fl (80.0-105.0); MEAN CORPUSCULAR HEMOGLOBIN 30.9 pg (25.0-35.0); MEAN CORPUSCULAR HGB CONC 32.4 g/dl (31.0-37.0); MEAN PLATELET VOLUME 9.2 fl (7.0-11.0); RBC 3.72 10^6/uL (3.5-6.1); RED CELL DISTRIBUTION WIDTH 14.7 % (11.5-14.5); WHITE BLOOD COUNT 9.8 10^3/ul (4.5-11.0)
[2017-07-16] MEDS: Pantoprazole 40 mg EC Tab PO SCH (06:41)
[2017-07-16] MEDS: Meropenem IV 1 gm in NS 50 ML IVPB SCH ×3 (06:41→21:52)
[2017-07-16 07:21] LABS: ALBUMIN 3.5 g/dL (3.0-4.8); ALT/SGPT 70 U/L (7-56); AST/SGOT 66 U/L (14-36); BLOOD UREA NITROGEN 13 mg/dL (7-21); CALCIUM 9.9 mg/dL (8.4-10.5); GFR AFRICAN-AMERICAN > 60; GFR NON-AFRICAN AMERICAN > 60
[2017-07-16] MEDS: Multivitamin Therapeutic Tab PO SCH (08:37)
[2017-07-16] MEDS: Enoxaparin 40 mg Syringe SC SCH (09:18)
[2017-07-16] MEDS: Alum-Mag Hydrox-Simethicone Susp (30 mL) PO SCH (09:19)
[2017-07-16] MEDS ORDERED: Magnesium Hydroxide Susp 30 ml UD PO SCH (10:00)
[2017-07-16] MEDS: BENZOCAINE MM SCH (10:17)
[2017-07-16] MEDS: MethylPREDNISolone 40 mg Vial IVP SCH ×2 (14:57→21:54)
[2017-07-16] MEDS: Sodium Chloride 0.9% 1,000 ML IV SCH ×2 (15:40→18:37)
--- NOTE | 2017-07-16 16:55 | CP.PCM.PN ---
<Francisco Javier Frankel Mata - Last Filed: 07/16/17 16:49> Subjective - Date & Time of Evaluation Date of Evaluation: 07/16/17 Time of Evaluation: 16:55 - Subjective Subjective: Medicine progress note: Dr. Lou Woodard Patient seen and examined at bedside. Patient states that she feels much better today, and states that she was able to sleep overnight. THe motrin is helping, but the cepacol lozenges are not. Other than that, patient is doing okay, no new complaints. Objective - Vital Signs/Intake and Output Vital Signs (last 24 hours): Temp Pulse Resp BP Pulse Ox 97.9 F 77 19 99/63 L 97 07/16/17 07:27 07/16/17 07:27 07/16/17 07:27 07/16/17 07:27 07/16/17 07:27 Intake and Output: 07/16/17 07/16/17 06:59 18:59 Intake Total 1020 Balance 1020 - Medications Medications: Current Medications Acetaminophen (Tylenol 325mg Tab) 325 mg PO DAILY [facility] Al Hydrox/Mg Hydrox/Simethicone (Maalox Plus 30 Ml) 30 ml PO DAILY [facility] Last Admin: 07/16/17 09:19 Dose: Not Given Benzocaine/Menthol (Cepacol Sore Throat) 1 ricky MT Q2H PRN PRN Reason: Sore Throat Chlorpromazine (Thorazine) 50 mg PO Q6 PRN; Protocol PRN Reason: Agitation Diphenhydramine HCl (Benadryl) 50 mg PO Q6H PRN PRN Reason: Itching / Pruritus Enoxaparin Sodium (Lovenox) 40 mg SC DAILY [facility] PRN Reason: Protocol Last Admin: 07/16/17 09:18 Dose: 40 mg Fluoxetine HCl (Prozac) 40 mg PO DAILY [facility] Last Admin: 07/16/17 09:20 Dose: 40 mg Folic Acid (Folic Acid) 1 mg PO DAILY [facility] Last Admin: 07/16/17 09:18 Dose: 1 mg Gabapentin (Neurontin) 600 mg PO TID [facility] PRN Reason: Protocol Last Admin: 07/16/17 14:56 Dose: 600 mg Sodium Chloride (Sodium Chloride 0.9%) 1,000 mls @ 100 mls/hr IV .Q10H [facility] Last Admin: 07/16/17 15:40 Dose: Not Given Meropenem (Merrem Iv 1 Gm Premix) 50 mls @ 100 mls/hr IVPB Q8 [facility] PRN Reason: Protocol Stop: 07/24/17 22:01 Last Admin: 07/16/17 14:56 Dose: Not Given Ibuprofen (Motrin Tab) 400 mg PO Q6H PRN PRN Reason: Pain, moderate (4-7) Lorazepam (Ativan) 2 mg PO Q8 [facility] PRN Reason: Protocol Last Admin: 07/16/17 14:56 Dose: 2 mg Magnesium Hydroxide (Milk Of Magnesia) 30 ml PO DAILY [facility] Methadone HCl (Methadone) 200 mg PO DAILY [facility] Last Admin: 07/16/17 09:33 Dose: 200 mg Methylprednisolone (Solu-Medrol) 40 mg IVP Q12 [facility] Last Admin: 07/16/17 14:57 Dose: Not Given Mirtazapine (Remeron) 45 mg PO HS [facility] Multivitamins (Thera Tab) 1 tab PO 0800 [facility] Last Admin: 07/16/17 08:37 Dose: 1 tab Mupirocin (Bactroban Ointment) 2 gm EXT DAILY [facility] Last Admin: 07/16/17 09:17 Dose: Not Given Nicotine (Nicoderm Cq) 1 patch TD DAILY [facility] Last Admin: 07/16/17 09:33 Dose: 1 patch Non-Formulary Medication (Benzocaine [Anbesol]) 2 ml MM DAILY [facility] Last Admin: 07/16/17 10:17 Dose: Not Given Pantoprazole Sodium (Protonix Ec Tab) 40 mg PO 0600 [facility] Last Admin: 07/16/17 06:41 Dose: 40 mg Quetiapine Fumarate (Seroquel) 300 mg PO AMHS [facility] Last Admin: 07/16/17 09:20 Dose: 300 mg Thiamine HCl (Vitamin B1 Tab) 100 mg PO DAILY [facility] Last Admin: 07/16/17 09:21 Dose: 100 mg - Labs Labs: 07/16/17 05:30 07/16/17 05:30 - Constitutional Appears: Well - Head Exam Head Exam: ATRAUMATIC, NORMAL INSPECTION, NORMOCEPHALIC - Eye Exam Eye Exam: EOMI, Normal appearance, PERRL Pupil Exam: NORMAL ACCOMODATION, PERRL - ENT Exam ENT Exam: Mucous Membranes Moist, Normal Exam Additional comments: Still has tonsillar exudates and swollen tonsils - Neck Exam Neck Exam: Full ROM, Normal Inspection. absent: Lymphadenopathy - Respiratory Exam Respiratory Exam: Clear to Ausculation Bilateral, NORMAL BREATHING PATTERN - Cardiovascular Exam Cardiovascular Exam: REGULAR RHYTHM, +S1, +S2. absent: Murmur - GI/Abdominal Exam GI & Abdominal Exam: Soft, Normal Bowel Sounds. absent: Tenderness - Extremities Exam Extremities Exam: Full ROM, Normal Capillary Refill, Normal Inspection. absent : Joint Swelling, Pedal Edema - Back Exam Back Exam: NORMAL INSPECTION - Neurological Exam Neurological Exam: Alert, Awake, CN II-XII Intact, Normal Gait, Oriented x3 - Psychiatric Exam Psychiatric exam: Normal Affect, Normal Mood - Skin Skin Exam: Dry, Intact, Normal Color, Warm Assessment and Plan - Assessment and Plan (Free Text) Assessment: Assessment and Plan: 32 year old female with past medical history of polysubstance abuse on methadone admitted for oropharyngitis and UTI, recently d/c'd from psych unit for acute onset of fevers/chills. Septic. Sepsis Most likely 2/2 UTI VS Oropharyngitis - Resolving - Blood cultures, urine cultures: Negative - ID Consult: Dr. Yip - Merrem q8 UTI - Urine Cx on last admission showed E. Coli - Merrem Oropharyngitis - Motrin 400mg po q8 prn - Throat culture: Negative - Cepacol lozenges - Because of tender lymphadenopathy, CT Head and Neck and Ultrasound of b/l Internal Jugulars were ordered CT was negative for abscess Ultrasound was negative for any jugular thrombosis - Follow up with dentist outpatient - Started on solu-medrol Heart Murmur - Patient has had one since , asymptomatic - not worried about endocarditis because it is not a new murmur and patient does not have other signs such as splinter hemorrhage, etc. Patient informed that she should tell her dentist if she goes for a procedure. Will await blood cultures to see if there is any growth and will reassess - Should follow up as an outpatient Depression - Psych consult: Dr. John - Reconciled home medications Polysubstance abuse - Counseled on risks of polysubstance abuse and advised cessation - Methadone 210 mg daily confirmed - restarted - Advised cessation of tobacco - Nicotine patch History of alcohol withdrawal - Patient was recently in psych le for prolonged period of time, will most likely not need CIWA protocol Heroin abuse on Methadone - Methadone 210 mg PO daily - Advised cessation GI/DVT Prophylaxis - SCD - Protonix <Susan Woodard - Last Filed: 07/18/17 14:14> Objective - Vital Signs/Intake and Output Vital Signs (last 24 hours): Temp Pulse Resp BP Pulse Ox 100.2 F H 107 H 20 103/71 95 07/16/17 16:00 07/16/17 16:00 07/16/17 16:00 07/16/17 16:00 07/16/17 16:00 Intake and Output: 07/18/17 07/18/17 06:59 18:59 Intake Total 660 Balance 660 - Labs Labs: 07/17/17 07:00 07/17/17 12:30 Attending/Attestation - Attestation I have personally seen and examined this patient.: Yes I have fully participated in the care of the patient.: Yes I have reviewed all pertinent clinical information, including history, physical exam and plan: Yes Notes (Text): I have seen and examined the patient at bedside. Agree with the above note with the following additions/ exceptions: Briefly this is 32 year old female with history of polysubstance abuse, methadone dependent, tobacco use, alcohol abuse , poor dentition who was transferred from [facility] floor for acute tonsillopharyngitis. She does not have fever however continue to have sorethroat , hot potato voice and odynophagia. Continue meropenem. Start solumedrol. Reviewed US and CT scan wich did not show any abscess. Will follow up on blood and urine culture. Will continue IVF and liquid diet. Upon discharge patient will follow up with PMD of choice. Dr Susan Woodard
[2017-07-16 17:48] VITALS: BP 103/71; PULSE 107; RESP 20; TEMP 100.2; O2SAT 95
--- NOTE | 2017-07-16 19:59 | CON ---
DATE: HISTORY OF PRESENT ILLNESS: Shortly, the patient is a 32-year-old female, history of bipolar disorder, polysubstance abuse and dependence. The patient initially was admitted on the psychiatric inpatient unit for mood symptoms, withdrawal symptoms and possible suicidal ideation. The patient was doing better from the psychiatric standpoint, but unfortunately she had urinary tract infection, dental infection and she started to have pharyngitis and p.o. antibiotics were not effective for the patient. The patient was transferred to the medical floor for evaluation of possible sepsis and for IV antibiotics. The patient was seen and examined today. The patient presented to be alert and oriented, pleasant, cooperative. The patient looks bright. The said that right now she feels better and she feels her psychotropic medications started to work. The patient also reported that she does not have any thoughts of harming herself or others. The patient was very concerned about her medical issues. The patient said that she is concerned that she might have HIV. The patient said that most recent HIV testing was done on June and last sexual contact was in March. Infectious Disease on board and this race and sports book writer advised the patient to talk at least to her primary care team as well as Infectious Disease doctor. Going back to the patient's presentation, vital signs seems to be stable. Temperature 97.9, pulse 77, blood pressure is 99/63, respirations 19, and oxygen saturation is 97. MEDICATIONS: Reviewed. The patient is on Lovenox, Prozac 40 mg daily, folic acid, Neurontin 300 mg three times a day, ibuprofen, Ativan, milk of magnesia and Merrem 50 mg every 8 hours scheduled and she is on maintenance dose of methadone 200 mg which was confirmed by [facility]. The patient is on Remeron 45 mg at the nighttime, multivitamins, thiamine, folic acid, and Bactroban ointment. The patient also is on mupirocin, NicoDerm, benzocaine, Protonix, and Seroquel 300 mg twice a day. LABORATORY DATA: Labs does not show any leukocytosis. WBC cells 9.8 today. No signs of granulocytosis. Chemistry also reviewed. AST and ALT 66 and 70, procalcitonin is 0.6. Urinalysis, leukocyte esterase moderate. Serology was negative for RPR as well as HIV. MENTAL STATUS EXAMINATION: The patient is pleasant, cooperative, socially appropriate, acceptable personal hygiene, fair eye contact. Mood described, I feel medications started to work. Thought process coherent and goal directed. Thought content, the patient denied visual, auditory, or tactile hallucinations. Denied paranoid ideation. The patient denied thoughts of harming herself or others, denied intents or plan. Insight and judgment seems to be fair. Impulses are well controlled. IMPRESSION: Of note, psychiatric social worker supervisor offered the patient referral to inpatient rehab, but the patient declined that offer because she does not want to be weaned off from the methadone. PLAN: Continue current management. Continue current medications. Psychiatric team will be seeing patient every other day. Meanwhile, the patient from the psychiatric standpoint doing much better. The patient is not suicidal, not homicidal and should be continued on Seroquel plus multivitamins, thiamine and folic acid. Methadone should be continued 200 mg. The patient needs to be followed up with [facility] at [place]. Should you have any questions, give me a call back. The patient should not be on 121. Thank you very much for letting me participate in care of your patient. Dora Kenney MD
--- NOTE | 2017-07-16 23:17 | CP.PCM.CON ---
History of Present Illness - History of Present Illness History of Present Illness: 32 year old female with PMH of UTI with E. coli, history of nephrolithiasis, polysubstance abuse, depression, obesity with BMI 31 was initially in the Psych unit for depression and was also being treated for UTI. She developed sore throat and fevers and is no transferred to the acute care portion of the hospital for further evaluation and management. CT neck showed tonsillitis, with jugular veins showing no thrombosis. She still has a lot of pain on swallowing, denies headache , no earache, no nausea or vomiting, no chest pain, no SOB, no abdominal pain, no diarrhea, no dysuria. Infectious Diseases consult is requested to further evaluate and manage. Review of Systems - Review of Systems All systems: reviewed and no additional remarkable complaints except (as per HPI ) Past Patient History - Infectious Disease Hx of Infectious Diseases: None - Past Social History Smoking Status: Heavy Smoker > 10 Cigarettes Daily - CARDIAC Hx Cardiac Disorders: Yes Hx Heart Murmur: Yes - PULMONARY Hx Respiratory Disorders: No - NEUROLOGICAL Hx Neurological Disorder: No - HEENT Hx HEENT Problems: No - RENAL Hx Chronic Kidney Disease: Yes Hx Kidney Stones: Yes - ENDOCRINE/METABOLIC Hx Endocrine Disorders: No - HEMATOLOGICAL/ONCOLOGICAL Hx Blood Disorders: Yes Hx Hepatitis A: Yes - INTEGUMENTARY Hx Dermatological Problems: Yes (tatoos) - MUSCULOSKELETAL/RHEUMATOLOGICAL Hx Falls: No - GASTROINTESTINAL Hx Gastrointestinal Disorders: No - GENITOURINARY/GYNECOLOGICAL Hx Genitourinary Disorders: No - PSYCHIATRIC Hx Substance Use: (admits to pot only, but on methadone) - SURGICAL HISTORY Hx Surgeries: No - ANESTHESIA Hx Anesthesia: No Meds Allergies/Adverse Reactions: Allergies Allergy/AdvReac Type Severity Reaction Status Date / Time pentazocine AdvReac FEVER Verified 07/15/17 14:53 - Medications Medications: Current Medications Acetaminophen (Tylenol 325mg Tab) 325 mg PO DAILY [facility] Al Hydrox/Mg Hydrox/Simethicone (Maalox Plus 30 Ml) 30 ml PO DAILY [facility] Benzocaine/Menthol (Cepacol Sore Throat) 1 ricky MT Q2H PRN PRN Reason: Sore Throat Chlorpromazine (Thorazine) 50 mg PO Q6 PRN; Protocol PRN Reason: Agitation Diphenhydramine HCl (Benadryl) 50 mg PO Q6H PRN PRN Reason: Itching / Pruritus Fluoxetine HCl (Prozac) 40 mg PO DAILY [facility] Folic Acid (Folic Acid) 1 mg PO DAILY [facility] Gabapentin (Neurontin) 600 mg PO TID [facility] PRN Reason: Protocol Sodium Chloride (Sodium Chloride 0.9%) 1,000 mls @ 100 mls/hr IV .Q10H [facility] Last Admin: 07/15/17 17:44 Dose: 100 mls/hr Meropenem (Merrem Iv 1 Gm Premix) 50 mls @ 100 mls/hr IVPB Q8 [facility] PRN Reason: Protocol Stop: 07/24/17 22:01 Last Admin: 07/15/17 21:33 Dose: 100 mls/hr Ibuprofen (Motrin Tab) 400 mg PO Q6H PRN PRN Reason: Pain, moderate (4-7) Lorazepam (Ativan) 2 mg PO Q8 [facility] PRN Reason: Protocol Last Admin: 07/15/17 21:33 Dose: 2 mg Magnesium Hydroxide (Milk Of Magnesia) 30 ml PO DAILY [facility] Methadone HCl (Methadone) 200 mg PO DAILY [facility] Mirtazapine (Remeron) 30 mg PO HS [facility] Last Admin: 07/15/17 21:34 Dose: 30 mg Multivitamins (Thera Tab) 1 tab PO 0800 [facility] Mupirocin (Bactroban Ointment) 2 gm EXT DAILY [facility] Nicotine (Nicoderm Cq) 1 patch TD DAILY [facility] Non-Formulary Medication (Benzocaine [Anbesol]) 2 ml MM DAILY [facility] Pantoprazole Sodium (Protonix Ec Tab) 40 mg PO 0600 [facility] Quetiapine Fumarate (Seroquel) 300 mg PO AMHS [facility] Last Admin: 07/15/17 21:33 Dose: 300 mg Thiamine HCl (Vitamin B1 Tab) 100 mg PO DAILY [facility] Physical Exam - Constitutional Appears: Chronically Ill - Head Exam Head Exam: NORMAL INSPECTION - ENT Exam Additional comments: swollen tonsils - Neck Exam Neck exam: Negative for: Meningismus - Respiratory Exam Respiratory Exam: Decreased Breath Sounds - Cardiovascular Exam Cardiovascular Exam: +S1, +S2 - GI/Abdominal Exam GI & Abdominal Exam: Soft. absent: Tenderness Results - Vital Signs Recent Vital Signs: Last Vital Signs Temp 97.8 F 07/15/17 22:35 Pulse 109 H 07/15/17 22:35 Resp 20 07/15/17 22:35 BP 110/73 07/15/17 22:35 Pulse Ox 99 07/15/17 16:56 - Labs Result Diagrams: 07/16/17 05:30 07/16/17 05:30 Labs: Laboratory Results - last 24 hr 07/16/17 05:30 WBC 9.8 D RBC 3.72 Hgb 11.5 L Hct 35.5 L MCV 95.4 MCH 30.9 MCHC 32.4 RDW 14.7 H Plt Count 434 MPV 9.2 Assessment & Plan - Assessment and Plan (Free Text) Plan: Assessment Acute tonsillopharyngitis with no evidence of jugular venous thrombosis UTI with E. coli in a patient with history of nephrolithiasis right sided odontogenic infection, clinically improving polysubstance abuse depression obesity with BMI 30 Plan started patient on Merrem; reviewed CT neck and doppler U/S - swollen tonsils, no thrombus in jugular veins will monitor clinical response
[2017-07-17] MEDS: Meropenem IV 1 gm in NS 50 ML IVPB SCH ×3 (05:08→22:20)
[2017-07-17] MEDS: Pantoprazole 40 mg EC Tab PO SCH (05:09)
[2017-07-17 07:37] LABS: HEMOGLOBIN 12.3 g/dL (12.0-16.0); MEAN CELL VOLUME 94.4 fl (80.0-105.0); MEAN CORPUSCULAR HEMOGLOBIN 31.5 pg (25.0-35.0); MEAN CORPUSCULAR HGB CONC 33.4 g/dl (31.0-37.0); MEAN PLATELET VOLUME 9.3 fl (7.0-11.0); RBC 3.9 10^6/uL (3.5-6.1); RED CELL DISTRIBUTION WIDTH 14.2 % (11.5-14.5); WHITE BLOOD COUNT 10.2 10^3/ul (4.5-11.0)
[2017-07-17 07:54] LABS: ALBUMIN 3.7 g/dL (3.0-4.8); ALT/SGPT 64 U/L (7-56); AST/SGOT 51 U/L (14-36); BLOOD UREA NITROGEN 15 mg/dL (7-21); CALCIUM 9.8 mg/dL (8.4-10.5); GFR AFRICAN-AMERICAN > 60; GFR NON-AFRICAN AMERICAN > 60
[2017-07-17] MEDS ORDERED: Sod Polystyrene Sulf 15 gm/60 ml Susp PO ONE (08:19)
[2017-07-17] MEDS: Multivitamin Therapeutic Tab PO SCH (08:39)
[2017-07-17] MEDS: Enoxaparin 40 mg Syringe SC SCH ×2 (09:16→09:26)
[2017-07-17] MEDS: Alum-Mag Hydrox-Simethicone Susp (30 mL) PO SCH ×2 (09:16→09:26)
[2017-07-17] MEDS: BENZOCAINE MM SCH (09:17)
[2017-07-17] MEDS: MethylPREDNISolone 40 mg Vial IVP SCH (09:18)
--- NOTE | 2017-07-17 10:55 | CP.PCM.PCO ---
Physician Communication Note - Physician Communication Note Physician Communication Note: attempted to speak to the pt, deeply sleeping, had fever, f/u tomorrow
--- NOTE | 2017-07-17 15:51 | CP.PCM.PN ---
Addendum entered and electronically signed by Francisco Javier Frankel DO 16:13: Transaminitis - downtrending - was likely 2/2 tylenol, which was held Hyperkalemia - resolved - kayexalate given, will monitor Original Note: <Francisco Javier Frankel - Last Filed: 07/17/17 15:42> Subjective - Date & Time of Evaluation Date of Evaluation: 07/17/17 Time of Evaluation: 15:51 - Subjective Subjective: Medicine progress note: Dr. Lou Woodard Patient seen and examined at bedside. Patient states she feels much better today. Patient states that her sore throat is much better and that her voice is better. She feels less fatigued Got report that patient keeps pulling out her IV. She was advised that she cannot continue to do so, we might have to put restraints. Patient verbalized understanding Objective - Vital Signs/Intake and Output Vital Signs (last 24 hours): Temp Pulse Resp BP Pulse Ox 100.2 F H 107 H 20 103/71 95 07/16/17 16:00 07/16/17 16:00 07/16/17 16:00 07/16/17 16:00 07/16/17 16:00 Intake and Output: 07/17/17 07/17/17 06:59 18:59 Intake Total 480 Balance 480 - Medications Medications: Current Medications Acetaminophen (Tylenol 325mg Tab) 325 mg PO DAILY [facility] Al Hydrox/Mg Hydrox/Simethicone (Maalox Plus 30 Ml) 30 ml PO DAILY [facility] Last Admin: 07/17/17 09:26 Dose: Not Given Benzocaine/Menthol (Cepacol Sore Throat) 1 ricky MT Q2H PRN PRN Reason: Sore Throat Chlorpromazine (Thorazine) 50 mg PO Q6 PRN; Protocol PRN Reason: Agitation Diphenhydramine HCl (Benadryl) 50 mg PO Q6H PRN PRN Reason: Itching / Pruritus Enoxaparin Sodium (Lovenox) 40 mg SC DAILY [facility] PRN Reason: Protocol Last Admin: 07/17/17 09:26 Dose: Not Given Fluoxetine HCl (Prozac) 40 mg PO DAILY [facility] Last Admin: 07/17/17 09:17 Dose: 40 mg Folic Acid (Folic Acid) 1 mg PO DAILY [facility] Last Admin: 07/17/17 09:17 Dose: 1 mg Gabapentin (Neurontin) 600 mg PO TID [facility] PRN Reason: Protocol Last Admin: 07/17/17 13:58 Dose: 600 mg Sodium Chloride (Sodium Chloride 0.9%) 1,000 mls @ 100 mls/hr IV .Q10H [facility] Last Admin: 07/16/17 18:37 Dose: 100 mls/hr Meropenem (Merrem Iv 1 Gm Premix) 50 mls @ 100 mls/hr IVPB Q8 [facility] PRN Reason: Protocol Stop: 07/24/17 22:01 Last Admin: 07/17/17 13:58 Dose: 100 mls/hr Ibuprofen (Motrin Tab) 400 mg PO Q6H PRN PRN Reason: Pain, moderate (4-7) Last Admin: 07/16/17 17:12 Dose: 400 mg Lorazepam (Ativan) 2 mg PO Q8 [facility] PRN Reason: Protocol Last Admin: 07/17/17 13:58 Dose: 2 mg Magnesium Hydroxide (Milk Of Magnesia) 30 ml PO DAILY [facility] Methadone HCl (Methadone) 200 mg PO DAILY [facility] Last Admin: 07/17/17 09:15 Dose: 200 mg Methylprednisolone (Solu-Medrol) 40 mg IVP DAILY [facility] Mirtazapine (Remeron) 45 mg PO HS [facility] Last Admin: 07/16/17 21:57 Dose: 45 mg Multivitamins (Thera Tab) 1 tab PO 0800 [facility] Last Admin: 07/17/17 08:39 Dose: 1 tab Mupirocin (Bactroban Ointment) 2 gm EXT DAILY [facility] Last Admin: 07/17/17 09:15 Dose: 1 applic Nicotine (Nicoderm Cq) 1 patch TD DAILY [facility] Last Admin: 07/17/17 09:16 Dose: 1 patch Nicotine (Nicoderm Cq) 1 patch TD DAILY [facility] Last Admin: 07/17/17 11:07 Dose: Not Given Non-Formulary Medication (Benzocaine [Anbesol]) 2 ml MM DAILY [facility] Last Admin: 07/17/17 09:17 Dose: Not Given Pantoprazole Sodium (Protonix Ec Tab) 40 mg PO 0600 [facility] Last Admin: 07/17/17 05:09 Dose: 40 mg Quetiapine Fumarate (Seroquel) 300 mg PO AMHS [facility] Last Admin: 07/17/17 09:16 Dose: 300 mg Thiamine HCl (Vitamin B1 Tab) 100 mg PO DAILY [facility] Last Admin: 07/17/17 09:17 Dose: 100 mg - Labs Labs: 07/17/17 07:00 07/17/17 12:30 - Constitutional Appears: Well - Head Exam Head Exam: ATRAUMATIC, NORMAL INSPECTION, NORMOCEPHALIC - Eye Exam Eye Exam: EOMI, Normal appearance, PERRL Pupil Exam: NORMAL ACCOMODATION, PERRL - ENT Exam ENT Exam: Mucous Membranes Moist, Normal Exam Additional comments: Oropharyngeal exudates have resolved - Neck Exam Neck Exam: Full ROM, Normal Inspection. absent: Lymphadenopathy - Respiratory Exam Respiratory Exam: Clear to Ausculation Bilateral, NORMAL BREATHING PATTERN - Cardiovascular Exam Cardiovascular Exam: REGULAR RHYTHM, +S1, +S2. absent: Murmur - GI/Abdominal Exam GI & Abdominal Exam: Soft, Normal Bowel Sounds. absent: Tenderness - Extremities Exam Extremities Exam: Full ROM, Normal Capillary Refill, Normal Inspection. absent : Joint Swelling, Pedal Edema - Back Exam Back Exam: NORMAL INSPECTION - Neurological Exam Neurological Exam: Alert, Awake, CN II-XII Intact, Normal Gait, Oriented x3 - Psychiatric Exam Psychiatric exam: Normal Affect, Normal Mood - Skin Skin Exam: Dry, Intact, Normal Color, Warm Assessment and Plan - Assessment and Plan (Free Text) Assessment: Assessment and Plan: 32 year old female with past medical history of polysubstance abuse on methadone admitted for oropharyngitis and UTI, recently d/c'd from psych unit for acute onset of fevers/chills. Septic. Sepsis Most likely 2/2 UTI VS Oropharyngitis - Resolved - Blood cultures, urine cultures: Negative - Patient fevers have resolved, but was 100.2 yestereday afternoon. No other SIRS criteria - ID Consult: Dr. Yip - Merrem q8 - HIV, RPR negative Trichomonas - One time dose of flagyl - Gonorrhea Chlamydia pending UTI - Urine Cx on last admission showed E. Coli - Merrem Oropharyngitis - Motrin 400mg po q8 prn - Throat culture: Negative - Cepacol lozenges - Because of tender lymphadenopathy, CT Head and Neck and Ultrasound of b/l Internal Jugulars were ordered CT was negative for abscess Ultrasound was negative for any jugular thrombosis - Follow up with dentist outpatient - Started on solu-medrol Heart Murmur - Patient has had one since , asymptomatic - not worried about endocarditis because it is not a new murmur and patient does not have other signs such as splinter hemorrhage, etc. Patient informed that she should tell her dentist if she goes for a procedure. - No growth on blood culture, not worried about endocarditis - Should follow up as an outpatient Depression - Psych consult: Dr. John Last note from Dr. John states that patient looks much better from a psychiatry stand point - Reconciled home medications Polysubstance abuse - Counseled on risks of polysubstance abuse and advised cessation - Methadone 210 mg daily confirmed - restarted - Advised cessation of tobacco - Nicotine patch History of alcohol withdrawal - Patient was recently in psych le for prolonged period of time, will most likely not need CIWA protocol Heroin abuse on Methadone - Methadone 200 mg PO daily - Advised cessation GI/DVT Prophylaxis - SCD - Protonix Dispo: will observe patient today. If no fevers for 24 hours, may consider discharge tomorrow. However, patient's methadone clinic is closed on Wednesday <Susan Woodard - Last Filed: 07/18/17 14:22> Objective - Vital Signs/Intake and Output Vital Signs (last 24 hours): Temp Pulse Resp BP Pulse Ox 100.2 F H 107 H 20 103/71 95 07/16/17 16:00 07/16/17 16:00 07/16/17 16:00 07/16/17 16:00 07/16/17 16:00 Intake and Output: 07/18/17 07/18/17 06:59 18:59 Intake Total 660 Balance 660 - Labs Labs: 07/17/17 07:00 07/17/17 12:30 Attending/Attestation - Attestation I have personally seen and examined this patient.: Yes I have fully participated in the care of the patient.: Yes I have reviewed all pertinent clinical information, including history, physical exam and plan: Yes Notes (Text): I have seen and examined the patient at bedside. Agree with the above note with the following additions/ exceptions: Briefly this is 32 year old female with history of polysubstance abuse, methadone dependent, tobacco use, alcohol abuse , poor dentition who was transferred from psych floor for acute tonsillopharyngitis. She continues to have low grade fever. Sorethroat and odynophagia has improved. She is requesting for the diet to be advanced. Continue meropenem. Continue to taper solumedrol. Reviewed US and CT scan wich did not show any abscess. Blood and urine culture are negative. Will advance the diet. Upon discharge patient will follow up with PMD of choice. Dr Susan Woodard
--- NOTE | 2017-07-18 00:27 | PN ---
DATE: 07/17/2017 SUBJECTIVE: The patient is in bed, in no acute distress, nontoxic. PHYSICAL EXAMINATION: VITAL SIGNS: Temperature is 100.2, blood pressure is 103/70, respiratory rate of 16. HEENT: Unremarkable. NECK: Supple. LUNGS: Have decreased breath sounds. HEART: Normal S1, S2. ABDOMEN: Soft, nontender. LABORATORY EXAMINATION: Reveals a white count of 10,000, hemoglobin of 12, platelets of 535. BUN of 15, creatinine of 0.7. Microbiology is noted. Blood cultures are negative. ASSESSMENT AND PLAN: This is a 32-year-old female, transferred from psychiatric floor with history of urinary tract infection, history of nephrolithiasis, polysubstance abuse, depression, obesity and body mass index of 31, admitted to the acute care because of fevers and difficulty swallowing, acute tonsillopharyngitis, no evidence of jugular venous thrombosis and currently on meropenem, still with difficulty swallowing, normal white count, cultures negative with a low-grade temperature of 100.2. We will continue the present course. Review of orders confirms the meropenem to be active. The patient is also on Solu-Medrol. Casey Quezada MD
[2017-07-18] MEDS: Pantoprazole 40 mg EC Tab PO SCH (06:42)
[2017-07-18] MEDS: Meropenem IV 1 gm in NS 50 ML IVPB SCH (06:50)
[2017-07-18] MEDS: Alum-Mag Hydrox-Simethicone Susp (30 mL) PO SCH (09:06)
[2017-07-18] MEDS: Enoxaparin 40 mg Syringe SC SCH (09:06)
[2017-07-18] MEDS: BENZOCAINE MM SCH (09:12)
[2017-07-18] MEDS: Multivitamin Therapeutic Tab PO SCH (09:12)
[2017-07-18] MEDS ORDERED: MethylPREDNISolone 40 mg Vial IVP SCH (10:00)
--- NOTE | 2017-07-18 14:10 | CP.PCM.DIS ---
Provider - Provider Date of Admission: 07/15/17 15:56 Attending physician: Susan Woodard MD Primary care physician: NO PRIMARY CARE PROVIDER Hospital Course - Lab Results Lab Results: Micro Results 07/16/17 09:00 Blood-Venous Blood Culture - Preliminary NO GROWTH AFTER 48 HOURS 07/16/17 08:40 Blood-Venous Blood Culture - Preliminary NO GROWTH AFTER 48 HOURS 07/15/17 16:15 Throat Group A Strep Throat Culture - Final NO BETA STREP GROUP A ISOLATED. Most Recent Lab Values WBC 10.2 10^3/ul (4.5-11.0) 07/17/17 07:00 RBC 3.90 10^6/uL (3.5-6.1) 07/17/17 07:00 Hgb 12.3 g/dL (12.0-16.0) 07/17/17 07:00 Hct 36.8 % (36.0-48.0) 07/17/17 07:00 MCV 94.4 fl (80.0-105.0) 07/17/17 07:00 MCH 31.5 pg (25.0-35.0) 07/17/17 07:00 MCHC 33.4 g/dl (31.0-37.0) 07/17/17 07:00 RDW 14.2 % (11.5-14.5) 07/17/17 07:00 Plt Count 535 10^3/uL (120.0-450.0) H 07/17/17 07:00 MPV 9.3 fl (7.0-11.0) 07/17/17 07:00 Sodium 141 mmol/L (132-148) 07/17/17 07:00 Potassium 4.6 mmol/L (3.6-5.0) 07/17/17 12:30 Chloride 103 mmol/L (98-107) 07/17/17 07:00 Carbon Dioxide 30 mmol/L (21-33) 07/17/17 07:00 Anion Gap 13 (10-20) 07/17/17 07:00 BUN 15 mg/dL (7-21) 07/17/17 07:00 Creatinine 0.7 mg/dl (0.7-1.2) 07/17/17 07:00 Est GFR ( Amer) > 60 07/17/17 07:00 Est GFR (Non-Af Amer) > 60 07/17/17 07:00 Random Glucose 207 mg/dL (70-110) H 07/17/17 07:00 Lactic Acid 1.1 mmol/L (0.7-2.1) 07/16/17 09:00 Calcium 9.8 mg/dL (8.4-10.5) 07/17/17 07:00 Total Bilirubin < 0.1 mg/dL (0.2-1.3) L 07/17/17 07:00 AST 51 U/L (14-36) H D 07/17/17 07:00 ALT 64 U/L (7-56) H 07/17/17 07:00 Alkaline Phosphatase 128 U/L (38-126) H 07/17/17 07:00 Total Protein 7.4 g/dL (5.8-8.3) 07/17/17 07:00 Albumin 3.7 g/dL (3.0-4.8) 07/17/17 07:00 Globulin 3.7 gm/dL 07/17/17 07:00 Albumin/Globulin Ratio 1.0 (1.1-1.8) L 07/17/17 07:00 Discharge Exam - Head Exam Head Exam: ATRAUMATIC, NORMAL INSPECTION, NORMOCEPHALIC Discharge Plan - Discharge Medications Prescriptions: Fluoxetine HCl [Prozac] 40 mg PO DAILY #14 capsule Gabapentin [Neurontin] 600 mg PO TID #45 tab Lorazepam [Ativan] 1 mg PO TID #6 tablet Methylprednisolone [Medrol Dose Pack (21 tabs)] 4 mg PO DAILY #21 mg Mirtazapine [Remeron Soltab] 45 mg PO HS #14 odt Moxifloxacin [Avelox] 400 mg PO DAILY #14 tab Nicotine 14 mg/24 hr [Nicoderm CQ] 1 each TD DAILY #14 patch Quetiapine Fumarate [Seroquel] 300 mg PO AMHS #30 tablet - Follow Up Plan Condition: GOOD Disposition: HOME/ ROUTINE Instructions: Smoking: Not Just Harmful to Your Lungs and Heart, Drug Abuse and Drug Addiction (DC), Strep Throat (DC), Quitting Smoking, Alcohol Abuse and Alcoholism (DC), Methadone, Drug Abuse Treatment, Depression (DC) Additional Instructions: PLEASE TAKE ALL MEDICATIONS PRESCRIBED. If you begin to get feelings of hopelessness or the you want to cause harm to self please call your primary care Physician and and to go the nearest Emergency Room. Referrals: PCP,NO [Primary Care Provider] -
--- NOTE | 2017-07-18 14:23 | CP.PCM.PCO ---
Addendum Addendum: 07/18/17 14:22 pt was provided prescriptions for all psychotropic meds 2weeks and one refill methadone was provided today, pt has f/u at methadone clinic in [place] pt wanted to be d/c pt was cleared by ID and medical pt denied thoughts of harming self or others pt was stabilized on psychotropic meds in psychiatric inpatient unit for 2weeks pt is not in imminent danger to self or others discussed with medical attending
--- NOTE | 2017-07-18 17:50 | PN ---
DATE: 07/18/2017 SUBJECTIVE: The patient seen earlier this morning in no acute distress, doing well. PHYSICAL EXAMINATION: VITAL SIGNS: Temperature is 98, blood pressure is 103/70, respiratory rate 16. HEENT: Unremarkable. NECK: Supple. LUNGS: Have decreased breath sounds. HEART: Normal S1, S2. ABDOMEN: Soft. LABORATORY DATA: Reviewed. ASSESSMENT AND PLAN: A 32-year-old female was seen this morning, doing well, anxious about the discharge with a history of urinary tract infection, nephrolithiasis, polysubstance abuse, depression, obesity with a body mass index of 31 with tonsillopharyngitis and no evidence of jugular venous thrombosis and switch to p.o. antibiotics. Casey Quezada MD
== END 2017-07-18 10:34 | disposition home or self-care (01) | DRG 68 ==
LOC: ED 14:33 → ERH 15:56 → 3RNO 16:59
PROVIDERS: ADMIT Hospitalist; ATTEND Hospitalist
DX: J03.90 Acute tonsillitis, unspecified (principal); N39.0 Urinary tract infection, site not specified; F11.20 Opioid dependence, uncomplicated; A59.9 Trichomoniasis, unspecified; F31.9 Bipolar disorder, unspecified; F10.10 Alcohol abuse, uncomplicated; E66.9 Obesity, unspecified; Z68.31 Body mass index [BMI] 31.0-31.9, adult; Z87.442 Personal history of urinary calculi

== ENCOUNTER 2017-07-19 19:29 | Emergency (ER) | payer MEDICAID ==
[2017-07-19 19:29] VITALS: BMI 31.1
--- NOTE | 2017-07-19 19:43 | ED PDOC ---
Arrival/HPI - General Historian: Patient - History of Present Illness Symptom Onset: Gradual Symptom Course: Unchanged Activities at Onset: Light Context: Other ([employer]) <Thierno Maki - Last Filed: 07/20/17 06:27> <Chuck Carrizales - Last Filed: 07/20/17 09:19> - General Time Seen by Provider: 07/19/17 19:33 - History of Present Illness Narrative History of Present Illness (Text): 07/19/17 19:40 Kristen Erickson is a 32 year old male brought in by EMS and [facility], whose past medical history includes alcohol and drug abuse, who presents emergency department for alcohol intoxication. Patient was found being disruptive while intoxicated in [employer] and attempting to shop lift. [facility] brought patient to the emergency department for evaluation. History taken from EMS and [facility], patient is too intoxicated to provide further history. No other complaints made aware of at this time. (Thierno Maki) Past Medical History - Provider Review Nursing Documentation Reviewed: Yes - Infectious Disease Hx of Infectious Diseases: None - Cardiac Hx Cardiac Disorders: Yes Hx Heart Murmur: Yes - Pulmonary Hx Respiratory Disorders: No - Neurological Hx Neurological Disorder: No - HEENT Hx HEENT Disorder: No - Renal Hx Renal Disorder: Yes Hx Kidney Stones: Yes - Endocrine/Metabolic Hx Endocrine Disorders: No - Hematological/Oncological Hx Blood Disorders: Yes Hx Hepatitis A: Yes - Integumentary Hx Dermatological Disorder: Yes (tatoos) - Musculoskeletal/Rheumatological Hx Falls: No - Gastrointestinal Hx Gastrointestinal Disorders: No - Genitourinary/Gynecological Hx Genitourinary Disorders: No - Psychiatric Hx Substance Use: (admits to pot only, but on methadone) - Anesthesia Hx Anesthesia: No - Suicidal Assessment Feels Threatened In Home Enviroment: No <Thierno Maki - Last Filed: 07/20/17 06:27> Family/Social History - Physician Review Nursing Documentation Reviewed: Yes Family/Social History: No Known Family HX Smoking Status: Heavy Smoker > 10 Cigarettes Daily Hx Alcohol Use: Yes (vodka daily last drink 07/03/17) Hx Substance Use: (admits to pot only, but on methadone) Hx Substance Use Treatment: Yes <Thierno Maki - Last Filed: 07/20/17 06:27> Allergies/Home Meds <Thierno Maki - Last Filed: 07/20/17 06:27> <Chuck Carrizales - Last Filed: 07/20/17 09:19> Allergies/Adverse Reactions: Allergies pentazocine Adverse Reaction (Verified 07/15/17 14:53) FEVER Home Medications: Home Meds Medication Instructions Recorded Confirmed Acetaminophen [Tylenol 325mg tab] 325 mg PO DAILY 07/15/17 07/15/17 Aluminum Hydroxide/Magnesium H 30 ml PO DAILY 07/15/17 07/15/17 [Maalox 30 ml] Amoxicillin/Clavulanate [Augmentin 1 tab PO Q12 07/15/17 07/15/17 875 MG-125 MG Tab] Benzocaine [Anbesol] 0 ml MM DAILY 07/15/17 07/15/17 Folic Acid 1 mg PO DAILY 07/15/17 07/15/17 Ibuprofen [Motrin Tab] 400 mg PO DAILY 07/15/17 07/15/17 Lidocaine 2% Viscous 0 ml MM DAILY 07/15/17 07/15/17 Magnesium Hydroxide [Milk Of 30 ml PO DAILY 07/15/17 07/15/17 Magnesia] Multivitamin Therapeutic Tab 1 tab PO 0800 07/15/17 07/15/17 [Thera Tab] Mupirocin [Centany] 2 gm TP DAILY 07/15/17 07/15/17 Thiamine HCl 100 mg PO DAILY 07/15/17 07/15/17 Review of Systems - Review of Systems Systems not reviewed;Unavailable: Intoxicated <Thierno Maki - Last Filed: 07/20/17 06:27> Vital Signs Temp Pulse Resp BP Pulse Ox 07/20/17 08:55 98.8 F 74 16 99/69 L 97 07/20/17 06:30 66 18 112/80 100 07/20/17 05:30 84 18 108/84 100 07/20/17 03:30 98.2 F 68 18 121/74 99 07/20/17 01:48 82 H 117/85 07/19/17 23:48 75 16 132/88 99 07/19/17 21:48 88 127/88 07/19/17 19:48 98.4 F 93 H 18 113/73 96 Medical Decision Making <Thierno Maki - Last Filed: 07/20/17 06:27> <Chuck Carrizales - Last Filed: 07/20/17 09:19> ED Course and Treatment: 07/19/17 19:41 Impression: 32 year old female brought in by EMS and [facility] for alcohol intoxication today. Plan: -- Labs -- EKG -- Chest X-ray -- IV Fluids -- Urinalysis -- Reassess and disposition Prior Visits: Notes and results from previous visits were reviewed. Patient was last seen in the emergency department on 07/15/17 for sent into the emergency department from [facility] for a sore throat and urinary tract infection. Patient was admitted to hospitalist care for further evaluation. Progress Notes: EKG: Ordered, reviewed, and independently interpreted the EKG. Rate : 93 BPM Rhythm : NSR Interpretation : Prolonged QT. CXR Impression: As read by me, no pneumothorax, no pneumonia, no cardiomegaly, no infiltrates 07/20/17 07:02 Case signed out to Dr. Carrizales pending visit from Dr. Kenney because PES was not able to evaluated due to emergency onsite. (Thierno Maki) 07/20/17 09:17 Case signed out to me by Dr. Maki. Patient was evaluated by Dr. John, patient is medically cleared for discharge. 07/20/17 09:17 Seen and evaluated by , who will discharge home to follow up as an outpatient mental health clinic. (Chuck Carrizales) - Lab Interpretations Lab Results: 07/19/17 20:52 07/19/17 20:52 Lab Results 07/19/17 20:52: Acetaminophen < 10.0 L 07/19/17 20:52: Alcohol, Quantitative 236 H 07/19/17 20:52: Sodium 147, Potassium 3.4 L, Chloride 104, Carbon Dioxide 26, Anion Gap 20, BUN 21, Creatinine 0.9, Est GFR ( Amer) > 60, Est GFR (Non- Af Amer) > 60, Random Glucose 86, Calcium 9.1, Total Bilirubin < 0.1 L, AST 46 H , ALT 51, Alkaline Phosphatase 103, Total Protein 7.5, Albumin 3.9, Globulin 3.6 , Albumin/Globulin Ratio 1.1 07/19/17 20:52: Urine Color Yellow, Urine Appearance Clear, Urine pH 6.0, Ur Specific [place] >= 1.030, Urine Protein Negative, Urine Glucose (UA) Negative, Urine Ketones Negative, Urine Blood Negative, Urine Nitrate Negative, Urine Bilirubin Negative, Urine Urobilinogen 0.2, Ur Leukocyte Esterase Negative 07/19/17 20:52: WBC 13.9 H D, RBC 3.89, Hgb 12.3, Hct 36.3, MCV 93.3, MCH 31.6, MCHC 33.9, RDW 14.6 H, Plt Count 601 H, MPV 8.6, Gran % 60.6, Lymph % (Auto) 32.8, Hunt % (Auto) 5.0, Eos % (Auto) 1.2 L, Baso % (Auto) 0.4, Gran # 8.42 H, Lymph # (Auto) 4.6 H, Hunt # (Auto) 0.7 H, Eos # (Auto) 0.2, Baso # (Auto) 0.06 07/19/17 20:40: Urine Opiates Screen Negative, Urine Methadone Screen Positive H , Ur Barbiturates Screen Negative, Ur Phencyclidine Scrn Negative, Ur Amphetamines Screen Negative, U Benzodiazepines Scrn Negative, U Oth Cocaine Metabols Negative, U Cannabinoids Screen Positive H - RAD Interpretation Radiology Orders: 07/19/17 19:50 CHEST PORTABLE [RAD] Stat - Medication Orders Current Medication Orders: Discontinued Medications Multivitamins/Vitamin C 10 ml/Thiamine HCl 100 mg/ Folic Acid 1 mg/ Sodium Chloride 1,011.2 mls @ 1,000 mls/hr IV .[id number] ONE Stop: 07/19/17 20:50 Last Admin: 07/19/17 20:58 Dose: 1,000 mls/hr eMAR Start Stop Document 07/19/17 20:58 MS (Rec: 07/19/17 23:59 MS [id number]) Intravenous Solution Start Date 07/19/17 Start Time 20:58 End Date 07/19/17 End time 21:58 Total Infusion Time 60 - Scribe Statement The provider has reviewed the documentation as recorded by the Scribe <Thierno Maki - Last Filed: 07/20/17 06:27> <Chuck Carrizales - Last Filed: 07/20/17 09:19> - Scribe Statement Savannah Wong Provider Scribe Attestation: All medical record entries made by the Scribe were at my direction and personally dictated by me. I have reviewed the chart and agree that the record accurately reflects my personal performance of the history, physical exam, medical decision making, and the department course for this patient. I have also personally directed, reviewed, and agree with the discharge instructions and disposition. (Thierno Maki) Disposition/Present on Arrival - Present on Arrival History of DVT/PE: No History of Uncontrolled Diabetes: No Urinary Catheter: No History Surgical Site Infection Following: None <Thierno Maki - Last Filed: 07/20/17 06:27> - Present on Arrival Any Indicators Present on Arrival: No History of DVT/PE: No History of Uncontrolled Diabetes: No Urinary Catheter: No History of Decub. Ulcer: No - Disposition Have Diagnosis and Disposition been Completed?: Yes Disposition Time: 09:18 Patient Plan: Discharge <Chuck Carrizales - Last Filed: 07/20/17 09:19> - Disposition Diagnosis: Depression, Polysubstance abuse Disposition: HOME/ ROUTINE Patient Problems: Current Active Problems Problem Status Onset Depression Acute Condition: GOOD Discharge Instructions (ExitCare): Depression Referrals: [facility], [Non-Staff] - Follow up with primary
[2017-07-19] MEDS ORDERED: Multivitamin (MVI) 10 ML, Thiamine 100 MG, Folic Acid 1 MG in Sodium Chloride 0.9% 1,00... IV ONE (19:50)
[2017-07-19 20:58] LABS: BASO # 0.06 K/mm3 (0.0-2.0); BASO % 0.4 % (0.0-3.0); EOS # 0.2 (0.0-0.7); EOS % 1.2 % (1.5-5.0); GRAN # 8.42 (1.4-6.5); GRAN % 60.6 % (50.0-68.0); HEMOGLOBIN 12.3 g/dL (12.0-16.0); LYMPH # 4.6 (1.2-3.4); LYMPH % 32.8 % (22.0-35.0); MEAN CELL VOLUME 93.3 fl (80.0-105.0); MEAN CORPUSCULAR HEMOGLOBIN 31.6 pg (25.0-35.0); MEAN CORPUSCULAR HGB CONC 33.9 g/dl (31.0-37.0); MEAN PLATELET VOLUME 8.6 fl (7.0-11.0); MONO # 0.7 (0.1-0.6); RBC 3.89 10^6/uL (3.5-6.1); RED CELL DISTRIBUTION WIDTH 14.6 % (11.5-14.5); URINE APPEARANCE CLEAR (CLEAR); URINE BILIRUBIN NEGATIVE (NEGATIVE); URINE BLOOD NEGATIVE (NEGATIVE); URINE COLOR YELLOW (YELLOW); URINE GLUCOSE (UA) NEGATIVE (NEGATIVE); URINE LEUKOCYTE ESTERASE NEGATIVE Leu/uL (NEGATIVE); URINE PROTEIN NEGATIVE mg/dL (<30 mg/dL); URINE UROBILINOGEN 0.2 E.U./dL (<1 E.U./dL); WHITE BLOOD COUNT 13.9 10^3/ul (4.5-11.0)
[2017-07-19 21:39] LABS: ALB/GLOB RATIO 1.1 (1.1-1.8); ALBUMIN 3.9 g/dL (3.0-4.8); ALT/SGPT 51 U/L (7-56); AST/SGOT 46 U/L (14-36); BLOOD UREA NITROGEN 21 mg/dL (7-21); CALCIUM 9.1 mg/dL (8.4-10.5); GFR AFRICAN-AMERICAN > 60; GFR NON-AFRICAN AMERICAN > 60
[2017-07-20 03:18] LABS: PHENCYCLIDINE, UR NEGATIVE (NEGATIVE)
[2017-07-20 03:44] LABS: BARBITURATES, UR NEGATIVE (NEGATIVE); BENZODIAZEPINES, UR NEGATIVE (NEGATIVE); OPIATES, UR NEGATIVE (NEGATIVE)
--- NOTE | 2017-07-20 08:07 | RAD ---
HISTORY: MEDICAL CLEARANCE COMPARISON: No prior. FINDINGS: LUNGS: No active pulmonary disease. PLEURA: No significant pleural effusion identified, no pneumothorax apparent. CARDIOVASCULAR: Normal. OSSEOUS STRUCTURES: No significant abnormalities. VISUALIZED UPPER ABDOMEN: Normal. OTHER FINDINGS: None. IMPRESSION: No acute cardiopulmonary disease appreciated.
[2017-07-20 08:56] VITALS: BP 99/69; PULSE 74; RESP 16; TEMP 98.8; O2SAT 97
--- NOTE | 2017-07-20 19:26 | CARD ---
APPROVED REPORT EKG Measurement Heart [id number] <Conclusion> Normal sinus rhythm Possible Left atrial enlargement Prolonged QT Abnormal ECG
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
== END 2017-07-20 09:30 | disposition home or self-care (01) ==
LOC: ED 19:29
DX: F32.9 Major depressive disorder, single episode, unspecified (principal); F19.10 Other psychoactive substance abuse, uncomplicated; F17.210 Nicotine dependence, cigarettes, uncomplicated
CPT/HCPCS: 71045; 80053; 80320; 80324; 80329; 80345; 80346; 80349; 80353; 80358; 80361; 81003; 83992; 85025; 90791; 93005; 96360; 99284; J3411; J7040

== ENCOUNTER 2017-08-03 04:11 | Inpatient (IN) | payer MEDICAID ==
[2017-08-03] MEDS ORDERED: Multivitamin (MVI) 10 ML, Thiamine 100 MG, Folic Acid 1 MG in Sodium Chloride 0.9% 1,00... IV ONE (04:39)
--- NOTE | 2017-08-03 05:08 | ED PDOC ---
Arrival/HPI - General Chief Complaint: Alcohol Ingestion Time Seen by Provider: 08/03/17 04:32 Historian: Patient - History of Present Illness Narrative History of Present Illness (Text): 08/03/17 05:04 32 year old female, whose past medical history includes alcohol abuse and drug abuse, presents to the emergency department complaining of "alcohol withdrawal" symptoms. She states she drinks 1/5 of vodka everyday for many years and decided to stop drinking 7 hours ago. Patient reports she has an appointment with the rehab center. Patient admits to drinking. Patient reports tremors, but denies any fever, chills, chest pain, shortness of breath, abdominal pain, nausea, vomiting, diarrhea, urinary symptoms, back pain, neck pain, headache, dizziness, SI/HI, or any other complaints. Symptom Onset: Gradual Symptom Course: Unchanged Activities at Onset: Light Context: Home Past Medical History - Provider Review Nursing Documentation Reviewed: Yes - Infectious Disease Hx of Infectious Diseases: None - Cardiac Hx Hypertension: No - Pulmonary Hx Respiratory Disorders: No - Neurological Hx Seizures: No - HEENT Hx HEENT Disorder: No - Renal Hx Renal Disorder: Yes Hx Kidney Stones: Yes - Endocrine/Metabolic Hx Endocrine Disorders: No - Hematological/Oncological Hx Blood Disorders: Yes Hx Hepatitis A: Yes - Integumentary Hx Dermatological Disorder: Yes (tatoos) - Musculoskeletal/Rheumatological Hx Falls: No - Gastrointestinal Hx Gastrointestinal Disorders: No - Genitourinary/Gynecological Hx Sexually Transmitted Diseases: No - Psychiatric Hx Bipolar Disorder: Yes Hx Depression: Yes Hx Post Traumatic Stress Disorder: Yes Hx Substance Use: (admits to pot only, but on methadone) - Anesthesia Hx Anesthesia: No - Suicidal Assessment Feels Threatened In Home Enviroment: No Family/Social History - Physician Review Nursing Documentation Reviewed: Yes Family/Social History: No Known Family HX Smoking Status: Heavy Smoker > 10 Cigarettes Daily Hx Alcohol Use: Yes (vodka daily last drink 07/03/17) Hx Substance Use: (admits to pot only, but on methadone) Hx Substance Use Treatment: Yes Allergies/Home Meds Allergies/Adverse Reactions: Allergies pentazocine Adverse Reaction (Verified 07/26/17 09:00) FEVER Home Medications: Home Meds Medication Instructions Recorded Confirmed Aluminum Hydroxide/Magnesium H 30 ml PO DAILY PRN 07/15/17 08/03/17 [Maalox 30 ml] Magnesium Hydroxide [Milk Of 30 ml PO DAILY PRN 07/15/17 08/03/17 Magnesia] Benzocaine [Anbesol] 12 ml TOP PRN PRN 08/03/17 08/03/17 Chlordiazepoxide HCl 25 mg PO Q8 08/03/17 08/03/17 Gabapentin [Neurontin] 600 mg PO TID 08/03/17 08/03/17 Mirtazapine [Remeron] 45 mg PO HS 08/03/17 08/03/17 Review of Systems - Physician Review All systems were reviewed & negative as marked: Yes - Review of Systems Constitutional: absent: Fevers, Other (Chills) Respiratory: absent: SOB Cardiovascular: absent: Chest Pain Gastrointestinal: absent: Abdominal Pain, Diarrhea, Nausea, Vomiting Genitourinary Female: absent: Dysuria, Frequency, Hematuria Musculoskeletal: absent: Back Pain, Neck Pain Neurological: Other (Tremors). absent: Headache, Dizziness Physical Exam Vital Signs Reviewed: Yes Vital Signs Temp Pulse Resp BP Pulse Ox 08/03/17 17:13 94 H 18 148/96 H 98 08/03/17 14:00 92 H 18 150/78 98 08/03/17 12:00 98 F 94 H 20 129/58 L 97 08/03/17 10:12 92 H 18 137/65 98 08/03/17 07:30 78 18 132/77 98 08/03/17 04:32 98.3 F 97 H 18 125/85 98 Temperature: Afebrile Blood Pressure: Normal Pulse: Regular Respiratory Rate: Normal Appearance: Positive for: Well-Appearing, Non-Toxic, Comfortable Pain Distress: None Mental Status: Positive for: Alert and Oriented X 3 - Systems Exam Head: Present: Atraumatic, Normocephalic Pupils: Present: PERRL Extroacular Muscles: Present: EOMI Conjunctiva: Present: Normal Mouth: Present: Moist Mucous Membranes, Other (Alcohol on breath) Neck: Present: Normal Range of Motion Respiratory/Chest: Present: Clear to Auscultation, Good Air Exchange. No: Respiratory Distress, Accessory Muscle Use Cardiovascular: Present: Regular Rate and Rhythm, Normal S1, S2. No: Murmurs, Tachycardic Abdomen: No: Tenderness, Distention, Peritoneal Signs Back: Present: Normal Inspection Upper Extremity: Present: Normal Inspection. No: Cyanosis, Edema Lower Extremity: Present: Normal Inspection. No: Edema Neurological: Present: GCS=15, CN II-XII Intact, Speech Normal, Other (Tremulous ) Skin: Present: Warm, Dry, Normal Color. No: Rashes Psychiatric: Present: Alert, Oriented x 3, Normal Insight, Normal Concentration Medical Decision Making ED Course and Treatment: 08/03/17 05:08 Impression: 32 year old female presents complaining of "alcohol withdrawal" symptoms. Patient admits to drinking 7 hours ago. Plan: -- Labs -- IV Fluids, Ativan -- Urine Preganacy, Urinalysis -- Reassess and disposition Prior Visits: Notes and results from previous visits were reviewed. On 07/19/17 patient came in for alcohol intoxication. Patient was discharged. Progress Notes: 08/03/17 06:16 Case discussed with Test Rider and Dr. Scales who is aware and agrees with the plan. Accepts patient into his service. EKG: Ordered, reviewed, and independently interpreted the EKG. Rate : 82 BPM Rhythm : NSR Interpretation : No ST-segment elevations or depressions, no T-wave inversions, normal intervals. Comparison : No previous EKG for comparison. - Lab Interpretations Lab Results: 08/03/17 05:02 08/03/17 05:02 Lab Results 08/03/17 05:02: Alcohol, Quantitative 12 H 08/03/17 05:02: Sodium 141, Potassium 4.0, Chloride 102, Carbon Dioxide 27, Anion Gap 17, BUN 10, Creatinine 0.5 L, Est GFR ( Amer) > 60, Est GFR ( Non-Af Amer) > 60, Random Glucose 84, Calcium 9.4, Total Bilirubin 0.4, AST 41 H D, ALT 26, Alkaline Phosphatase 83, Lactate Dehydrogenase 525, Total Creatine Kinase 77, Troponin I < 0.01, Total Protein 6.9, Albumin 4.0, Globulin 2.9, Albumin/Globulin Ratio 1.4 08/03/17 05:02: PT 11.1, INR 0.97 08/03/17 05:02: WBC 8.8 D, RBC 3.75, Hgb 11.7 L, Hct 34.8 L, MCV 92.8, MCH 31.2 , MCHC 33.6, RDW 15.2 H, Plt Count 256, MPV 8.9, Gran % 62.4, Lymph % (Auto) 28.3, [place] % (Auto) 6.3 H, Eos % (Auto) 2.8, Baso % (Auto) 0.2, Gran # 5.51, Lymph # (Auto) 2.5, [place] # (Auto) 0.6, Eos # (Auto) 0.3, Baso # (Auto) 0.02 I have reviewed the lab results: Yes - Medication Orders Current Medication Orders: Discontinued Medications Acetaminophen (Tylenol 325mg Tab) 650 mg PO STAT STA Stop: 08/05/17 10:26 Last Admin: 08/05/17 10:36 Dose: 650 mg [facility] Pain/Vitals Document 08/05/17 10:36 ML (Rec: 08/05/17 10:36 ML [id number]) Pain Reassessment Is This A Pain ReAssessment? No Presence of Pain Presence of Pain Yes Re-Assess: [facility] Pain/Vitals Document 08/05/17 11:36 ML (Rec: 08/05/17 12:39 ML [id number]) Pain Reassessment Is This A Pain ReAssessment? Yes Presence of Pain Presence of Pain No Acetaminophen (Tylenol 325mg Tab) 650 mg PO Q6H PRN PRN Reason: Headache Folic Acid (Folic Acid) 1 mg PO DAILY [facility] Last Admin: 08/06/17 09:06 Dose: 1 mg Multivitamins/Vitamin C 10 ml/Thiamine HCl 100 mg/ Folic Acid 1 mg/ Sodium Chloride 1,011.2 mls @ 1,000 mls/hr IV .Q1H1M ONE Stop: 08/03/17 05:39 Last Admin: 08/03/17 05:16 Dose: 1,000 mls/hr eMAR Start Stop Document 08/03/17 05:16 MAGDA (Rec: 08/03/17 05:17 MAGDA [id number]) Intravenous Solution Start Date 08/03/17 Start Time 05:17 End Date 08/03/17 End time 06:17 Total Infusion Time 60 Multivitamins/Vitamin C 10 ml/Thiamine HCl 100 mg/ Folic Acid 1 mg/ Sodium Chloride 1,011.2 mls @ 100 mls/hr IV .Q10H7M [facility] Stop: 08/03/17 17:06 Last Admin: 04/17/18 12:56 Dose: 100 mls/hr eMAR Start Stop Document 08/03/17 12:56 HONEYCOMB DECAPPER (Rec: 08/03/17 12:56 HONEYCOMB DECAPPER [id number]) Intravenous Solution Start Date 08/03/17 Start Time 12:56 Lorazepam (Ativan) 1 mg IVP ONCE ONE PRN Reason: Protocol Stop: 08/03/17 04:40 Last Admin: 08/03/17 05:08 Dose: 1 mg IVP Administration Document 08/03/17 05:08 MAGDA (Rec: 08/03/17 05:08 MAGDA [id number]) Charges for Administration # of IVP Administrations 2 Lorazepam (Ativan) 1 mg IVP Q4H PRN PRN Reason: Symptoms of alcohol withdrawl Last Admin: 08/06/17 15:20 Dose: 1 mg IVP Administration Document 08/06/17 15:20 LO (Rec: 08/06/17 15:21 LO [id number]) Charges for Administration # of IVP Administrations 1 Lorazepam (Ativan) 2 mg PO Q6H GEORGE PRN Reason: Protocol Last Admin: 08/04/17 05:46 Dose: 2 mg Behavioural Document 08/04/17 05:46 SG (Rec: 08/04/17 05:46 SG [id number]) Maintenance Maintenance Dose Yes Nonmedicinal Nonmedicinal Interventions Redirect Behavior Behavior for Medication: Anxiety Insomnia Lorazepam (Ativan) 2 mg PO Q8H GEORGE PRN Reason: Protocol Last Admin: 08/04/17 15:45 Dose: 2 mg Behavioural Document 08/04/17 15:45 (Rec: 08/04/17 15:52 [id number]) Maintenance Maintenance Dose Yes Behavior Behavior for Medication: Anxiety Re-Assess: Reassess Psych Meds Document 08/04/17 16:45 (Rec: 08/04/17 18:06 [id number]) Reassess Psych Med Effective Lorazepam (Ativan) 2 mg PO Q8H GEORGE PRN Reason: Protocol Last Admin: 08/05/17 09:11 Dose: 2 mg Behavioural Document 08/05/17 09:11 ML (Rec: 08/05/17 09:11 ML [id number]) Maintenance Maintenance Dose Yes Re-Assess: Reassess Psych Meds Document 08/05/17 10:11 ML (Rec: 08/05/17 10:46 ML [id number]) Reassess Psych Med Effective Lorazepam (Ativan) 1 mg PO Q8H GEORGE PRN Reason: Protocol Last Admin: 08/05/17 17:48 Dose: 1 mg Behavioural Document 08/05/17 17:48 ML (Rec: 08/05/17 17:48 ML [id number]) Maintenance Maintenance Dose Yes Re-Assess: Reassess Psych Meds Document 08/05/17 18:47 ML (Rec: 08/05/17 18:47 ML [id number]) Reassess Psych Med Effective Lorazepam (Ativan) 1 mg PO 0000,0800,1600 GEORGE PRN Reason: Protocol Last Admin: 08/06/17 08:05 Dose: 1 mg Behavioural Document 08/06/17 08:05 LO (Rec: 08/06/17 09:05 LO [facility]) Maintenance Maintenance Dose Yes Nonmedicinal Nonmedicinal Interventions Redirect Therapeutic Communication Behavior Behavior for Medication: Anxiety Continuous pacing/restlessness Methadone HCl (Methadone) 200 mg PO DAILY [facility] Last Admin: 08/06/17 09:06 Dose: 200 mg MAR Pain Assessment Document 08/06/17 09:06 LO (Rec: 08/06/17 09:06 LO [facility]) Pain Reassessment Is this a pain reassessment? No Sleep Is patient sleeping during reassessment? No Presence of Pain Presence of Pain No Multivitamins/Minerals (Therapeutic-M Tab) 1 tab PO DAILY [facility] Last Admin: 08/06/17 09:08 Dose: 1 tab Nicotine (Nicoderm Cq) 1 patch TD DAILY [facility] Last Admin: 08/06/17 09:07 Dose: 1 patch MAR Transdermal Patch Site Document 08/06/17 09:07 LO (Rec: 08/06/17 09:07 [facility] Transdermal Patch Site Transdermal Patch Site Right Shoulder Pantoprazole Sodium (Protonix Ec Tab) 40 mg PO ACB [facility] Last Admin: 08/06/17 08:08 Dose: 40 mg Pneumococcal Polyvalent Vaccine (Pneumovax 23 Vaccine) 0.5 ml IM .ONCE ONE Stop: 08/03/17 18:50 Thiamine HCl (Vitamin B1 Tab) 100 mg PO DAILY [facility] Last Admin: 08/06/17 09:09 Dose: 100 mg - Scribe Statement The provider has reviewed the documentation as recorded by the Pacheco Oseguera Provider Joyibe Attestation: All medical record entries made by the Pacheco were at my direction and personally dictated by me. I have reviewed the chart and agree that the record accurately reflects my personal performance of the history, physical exam, medical decision making, and the department course for this patient. I have also personally directed, reviewed, and agree with the discharge instructions and disposition. Disposition/Present on Arrival - Present on Arrival Any Indicators Present on Arrival: No History of DVT/PE: No History of Uncontrolled Diabetes: No Urinary Catheter: No History of Decub. Ulcer: No History Surgical Site Infection Following: None - Disposition Have Diagnosis and Disposition been Completed?: Yes Diagnosis: Alcohol withdrawal, Bipolar 1 disorder, Alcohol use disorder Disposition: HOSPITALIZED Disposition Time: 23:00 Patient Plan: Admission Condition: GOOD
[2017-08-03 05:14] LABS: BASO # 0.02 K/mm3 (0.0-2.0); BASO % 0.2 % (0.0-3.0); EOS # 0.3 (0.0-0.7); EOS % 2.8 % (1.5-5.0); GRAN # 5.51 (1.4-6.5); GRAN % 62.4 % (50.0-68.0); HEMOGLOBIN 11.7 g/dL (12.0-16.0); LYMPH # 2.5 (1.2-3.4); LYMPH % 28.3 % (22.0-35.0); MEAN CELL VOLUME 92.8 fl (80.0-105.0); MEAN CORPUSCULAR HEMOGLOBIN 31.2 pg (25.0-35.0); MEAN CORPUSCULAR HGB CONC 33.6 g/dl (31.0-37.0); MEAN PLATELET VOLUME 8.9 fl (7.0-11.0); MONO # 0.6 (0.1-0.6); MONO % 6.3 % (1.0-6.0); RBC 3.75 10^6/uL (3.5-6.1); RED CELL DISTRIBUTION WIDTH 15.2 % (11.5-14.5); WHITE BLOOD COUNT 8.8 10^3/ul (4.5-11.0)
[2017-08-03 05:35] LABS: TROPONIN I < 0.01 ng/mL
[2017-08-03 05:54] LABS: INR 0.97 (0.93-1.08); PROTHROMBIN TIME 11.1 SECONDS (9.4-12.5)
[2017-08-03 06:51] LABS: ALB/GLOB RATIO 1.4 (1.1-1.8); ALT/SGPT 26 U/L (7-56); AST/SGOT 41 U/L (14-36); BLOOD UREA NITROGEN 10 mg/dL (7-21); CALCIUM 9.4 mg/dL (8.4-10.5); GFR AFRICAN-AMERICAN > 60; GFR NON-AFRICAN AMERICAN > 60
[2017-08-03] MEDS ORDERED: Multivitamin (MVI) 10 ML, Thiamine 100 MG, Folic Acid 1 MG in Sodium Chloride 0.9% 1,00... IV SCH (07:00)
--- NOTE | 2017-08-03 07:37 | CP.PCM.HP ---
<Ba Gómezystal - Last Filed: 08/03/17 13:15> History of Present Illness - History of Present Illness History of Present Illness: H&P for HospitalistMargarita PGY2 This is a 32yo female with past medical history of Bipolar disorder, polysubstance abuse (alcohol, former heroin user on methadone) who came to ED for complaint of "alcohol withdrawal". Patient reports her last drink was 10pm last night. She usually drinks 1/5th of vodka per day. She denies doing any recent illicit drugs. Patient says she is feeling shaky, but denies chest pain, shortness of breath, nausea/vomiting/diarrhea, palpitations, dysuria, hematuria , fever/chills. Patient states she is on Methadone 200mg and last dose was on Wednesday. She goes to Methadone clinic in [facility]. Their number is [phone]. She reports she was at [facility] [place] [place] last week for alcohol withdrawal and left AMA. She is supposed to be on medications for her Bipolar disorder but has not been taking any. She states she is looking for a new PMD and psychiatrist. She denies depression, suicidal ideation or homicidal ideation. Past medical history: bipolar, polysubstance abuse, heroin abuse on methadone Past surgical history: Denies Home meds: Methadone, is supposed to take other medication but is not taking Allergies: Pentazocine Family history: Denies Social history: smokes 1ppd x >10yrs, alcohol abuse, history of marijuana, PCP and heroin use Present on Admission - Present on Admission Any Indicators Present on Admission: No Review of Systems - Review of Systems All systems: reviewed and no additional remarkable complaints except Review of Systems: 12 point ROS reviewed As per HPI Past Patient History - Infectious Disease Hx of Infectious Diseases: None - Past Social History Smoking Status: Heavy Smoker > 10 Cigarettes Daily Alcohol: > 2 Drinks/Day Drugs: Cannabis (in past ), Opiates (methadone ) Home Situation {Lives}: With Family - CARDIAC Hx Hypertension: No - PULMONARY Hx Respiratory Disorders: No - NEUROLOGICAL Hx Seizures: No - HEENT Hx HEENT Problems: No - RENAL Hx Chronic Kidney Disease: Yes Hx Kidney Stones: Yes - ENDOCRINE/METABOLIC Hx Endocrine Disorders: No - HEMATOLOGICAL/ONCOLOGICAL Hx Blood Disorders: Yes Hx Hepatitis A: Yes - INTEGUMENTARY Hx Dermatological Problems: Yes (tatoos) - MUSCULOSKELETAL/RHEUMATOLOGICAL Hx Falls: No - GASTROINTESTINAL Hx Gastrointestinal Disorders: No - GENITOURINARY/GYNECOLOGICAL Hx Sexually Transmitted Disorders: No - PSYCHIATRIC Hx Bipolar Disorder: Yes Hx Depression: Yes Hx Post Traumatic Stress Disorder: Yes Hx Substance Use: (admits to pot only, but on methadone) - SURGICAL HISTORY Hx Surgeries: No - ANESTHESIA Hx Anesthesia: No Meds Allergies/Adverse Reactions: Allergies Allergy/AdvReac Type Severity Reaction Status Date / Time pentazocine AdvReac FEVER Verified 07/26/17 09:00 Physical Exam - Constitutional Appears: No Acute Distress - Head Exam Head Exam: ATRAUMATIC, NORMAL INSPECTION, NORMOCEPHALIC - Eye Exam Eye Exam: Normal appearance, PERRL Pupil Exam: NORMAL ACCOMODATION, PERRL - ENT Exam ENT Exam: Mucous Membranes Moist - Respiratory Exam Respiratory Exam: Clear to Auscultation Bilateral, NORMAL BREATHING PATTERN. absent: Rales, Rhonchi, Wheezes - Cardiovascular Exam Cardiovascular Exam: REGULAR RHYTHM, +S1, +S2. absent: Tachycardia, Gallop, Rubs, Systolic Murmur - GI/Abdominal Exam GI & Abdominal Exam: Normal Bowel Sounds, Soft. absent: Mass, Rebound, Tenderness - Extremities Exam Extremities exam: Positive for: normal inspection. Negative for: calf tenderness, pedal edema Additional comments: hand tremors on exam - Neurological Exam Neurological exam: Alert, CN II-XII Intact, Oriented x3 - Psychiatric Exam Psychiatric exam: Normal Affect, Normal Mood - Skin Skin Exam: Dry, Intact, Warm Results - Vital Signs Recent Vital Signs: Last Vital Signs Temp 98.3 F 08/03/17 04:32 Pulse 97 H 08/03/17 04:32 Resp 18 08/03/17 04:32 BP 125/85 08/03/17 04:32 Pulse Ox 98 08/03/17 04:32 - Labs Result Diagrams: 08/03/17 05:02 08/03/17 05:02 Labs: Laboratory Results - last 24 hr 08/03/17 08/03/17 08/03/17 05:02 05:02 05:02 WBC 8.8 D RBC 3.75 Hgb 11.7 L Hct 34.8 L MCV 92.8 MCH 31.2 MCHC 33.6 RDW 15.2 H Plt Count 256 MPV 8.9 Gran % 62.4 Lymph % (Auto) 28.3 [place] % (Auto) 6.3 H Eos % (Auto) 2.8 Baso % (Auto) 0.2 Gran # 5.51 Lymph # (Auto) 2.5 [place] # (Auto) 0.6 Eos # (Auto) 0.3 Baso # (Auto) 0.02 PT 11.1 INR 0.97 Sodium 141 Potassium 4.0 Chloride 102 Carbon Dioxide 27 Anion Gap 17 BUN 10 Creatinine 0.5 L Est GFR ( Amer) > 60 Est GFR (Non-Af Amer) > 60 Random Glucose 84 Calcium 9.4 Total Bilirubin 0.4 AST 41 H D ALT 26 Alkaline Phosphatase 83 Lactate Dehydrogenase 525 Total Creatine Kinase 77 Troponin I < 0.01 Total Protein 6.9 Albumin 4.0 Globulin 2.9 Albumin/Globulin Ratio 1.4 Alcohol, Quantitative 08/03/17 05:02 WBC RBC Hgb Hct MCV MCH MCHC RDW Plt Count MPV Gran % Lymph % (Auto) [place] % (Auto) Eos % (Auto) Baso % (Auto) Gran # Lymph # (Auto) [place] # (Auto) Eos # (Auto) Baso # (Auto) PT INR Sodium Potassium Chloride Carbon Dioxide Anion Gap BUN Creatinine Est GFR ( Amer) Est GFR (Non-Af Amer) Random Glucose Calcium Total Bilirubin AST ALT Alkaline Phosphatase Lactate Dehydrogenase Total Creatine Kinase Troponin I Total Protein Albumin Globulin Albumin/Globulin Ratio Alcohol, Quantitative 12 H Assessment & Plan - Assessment and Plan (Free Text) Assessment: This is a 32yo female with past medical history of Bipolar disorder, polysubstance abuse (alcohol, former heroin user on methadone) admitted for alcohol withdrawal. Plan: 1. Alcohol withdrawal - Alcohol level 11 - EKG showed NSR at 85 - Will check UDS - CIWA protocol - Ativan prn - Aspiration precaution, seizure precaution, fall precaution - Banana bag then mulitvitamin, thiamine 2. Hx of heroin abuse on methadone - Will confirm methadone dose with clinic and restart med 3. Hx of bipolar disorder - Not on medication - denies suicidal ideation/homicidal ideation - Recommend outpatient psych follow up GI ppx: Protonix DVT ppx: SCDs Case seen, discussed and reviewed with attending. Margarita Gómez PGY2 - Date & Time Date: 08/03/17 Time: 08:49 <Felton Torres - Last Filed: 08/03/17 17:13> Results - Vital Signs Recent Vital Signs: Last Vital Signs Temp 98 F 08/03/17 12:00 Pulse 94 H 08/03/17 12:00 Resp 20 08/03/17 12:00 BP 129/58 L 08/03/17 12:00 Pulse Ox 97 08/03/17 12:00 - Labs Result Diagrams: 08/03/17 05:02 08/03/17 05:02 Labs: Laboratory Results - last 24 hr 08/03/17 16:45 Urine Color Yellow Urine Appearance Sl cloudy Urine pH 6.5 Ur Specific [place] 1.025 Urine Protein Negative Urine Glucose (UA) Negative Urine Ketones Trace H Urine Blood Moderate H Urine Nitrate Negative Urine Bilirubin Negative Urine Urobilinogen 1.0 H Ur Leukocyte Esterase Small H Urine RBC 0 - 2 Urine WBC 5 - 10 Ur Epithelial Cells Many Urine Bacteria Many Attending/Attestation - Attestation I have personally seen and examined this patient.: Yes I have fully participated in the care of the patient.: Yes I have reviewed all pertinent clinical information: Yes Notes (Text): 08/03/17 17:11 Medical record note made by the resident after discussion with my direction and input after the patient was personally seen and examined by me. I have reviewed the chart and agree that the record accurately reflects by personal performance of the history, physical exam, data review, and medical decision-making, in the course for the patient. I have also personally directed the plan of care. 32yrs female with past medical history of Bipolar disorder, alcohol and drug abuse admitted for alcohol withdrawal. We will monitor patient with EASTON adamson.The issue of ongoing alcohol and drug abuse was discussed in detail with her. Management plan was discussed in detail with patient. Education was provided.
[2017-08-03] MEDS: Pantoprazole 40 mg EC Tab PO SCH (09:27)
[2017-08-03] MEDS: Multivitamin With Minerals Tab PO SCH (12:56)
[2017-08-03 16:55] LABS: PH,URINE 6.5 (4.7-8.0); URINE BILIRUBIN NEGATIVE (NEGATIVE); URINE BLOOD MODERATE (NEGATIVE); URINE GLUCOSE (UA) NEGATIVE (NEGATIVE); URINE LEUKOCYTE ESTERASE SMALL Leu/uL (NEGATIVE); URINE PROTEIN NEGATIVE mg/dL (<30 mg/dL)
[2017-08-03 16:57] LABS: URINE APPEARANCE SL CLOUDY (CLEAR); URINE COLOR YELLOW (YELLOW)
[2017-08-03 17:03] LABS: URINE BACTERIA MANY (NEG); URINE EPITHELIAL CELLS MANY /hpf (0-5); URINE RBC 0 - 2 /hpf (0-2)
[2017-08-03 17:33] LABS: BARBITURATES, UR NEGATIVE (NEGATIVE); BENZODIAZEPINES, UR POSITIVE (NEGATIVE); OPIATES, UR NEGATIVE (NEGATIVE); PHENCYCLIDINE, UR POSITIVE (NEGATIVE)
[2017-08-03 18:48] VITALS: BMI 32.1
[2017-08-03] MEDS ORDERED: Pneumococcal 23-Valent Vaccine IM ONE (18:49)
--- NOTE | 2017-08-03 21:32 | CARD ---
APPROVED REPORT EKG Measurement Heart [id number] <Conclusion> Normal sinus rhythm Normal ECG
[2017-08-04 07:03] LABS: BASO # 0.02 K/mm3 (0.0-2.0); BASO % 0.2 % (0.0-3.0); EOS # 0.2 (0.0-0.7); EOS % 2.2 % (1.5-5.0); GRAN % 62.2 % (50.0-68.0); LYMPH # 2.1 (1.2-3.4); LYMPH % 26.5 % (22.0-35.0); MEAN CELL VOLUME 93.9 fl (80.0-105.0); MEAN CORPUSCULAR HEMOGLOBIN 30.7 pg (25.0-35.0); MEAN CORPUSCULAR HGB CONC 32.7 g/dl (31.0-37.0); MEAN PLATELET VOLUME 9.1 fl (7.0-11.0); MONO # 0.7 (0.1-0.6); MONO % 8.9 % (1.0-6.0); RBC 3.58 10^6/uL (3.5-6.1); RED CELL DISTRIBUTION WIDTH 15.4 % (11.5-14.5); WHITE BLOOD COUNT 8.1 10^3/ul (4.5-11.0)
[2017-08-04 07:19] LABS: ALB/GLOB RATIO 1.3 (1.1-1.8); ALBUMIN 3.5 g/dL (3.0-4.8); ALT/SGPT 25 U/L (7-56); AST/SGOT 20 U/L (14-36); BLOOD UREA NITROGEN 11 mg/dL (7-21); CALCIUM 9.1 mg/dL (8.4-10.5); GFR AFRICAN-AMERICAN > 60; GFR NON-AFRICAN AMERICAN > 60
[2017-08-04] MEDS: Multivitamin With Minerals Tab PO SCH (09:40)
[2017-08-04] MEDS: Pantoprazole 40 mg EC Tab PO SCH (09:40)
--- NOTE | 2017-08-04 11:18 | CP.PCM.PN ---
<Cathy Helton - Last Filed: 08/04/17 14:18> Subjective - Date & Time of Evaluation Date of Evaluation: 08/04/17 Time of Evaluation: 11:16 - Subjective Subjective: Internal Medicine Progress Note: Patient seen and examined at bedside. Per nursing, no acute events overnight. Patient still having tremors this morning, did not require Ativan prn. CIWA score 6 this morning. States that she did not sleep well last night, legs were restless. Currently denies headaches, dizziness, cp, palpitations, sob, abdominal pain, urinary symptoms. Objective - Vital Signs/Intake and Output Vital Signs (last 24 hours): Temp Pulse Resp BP Pulse Ox 98.7 F 66 18 136/70 97 08/04/17 08:32 08/04/17 08:32 08/04/17 08:32 08/04/17 08:32 08/04/17 08:32 Intake and Output: 08/04/17 08/04/17 06:59 18:59 Intake Total 1140 Balance 1140 - Medications Medications: Current Medications Folic Acid (Folic Acid) 1 mg PO DAILY [facility] Last Admin: 08/04/17 09:41 Dose: 1 mg Lorazepam (Ativan) 1 mg IVP Q4H PRN PRN Reason: Symptoms of alcohol withdrawl Last Admin: 08/04/17 08:07 Dose: 1 mg Lorazepam (Ativan) 2 mg PO Q8H GEORGE PRN Reason: Protocol Methadone HCl (Methadone) 200 mg PO DAILY [facility] Last Admin: 08/04/17 09:39 Dose: 200 mg Multivitamins/Minerals (Therapeutic-M Tab) 1 tab PO DAILY [facility] Last Admin: 08/04/17 09:40 Dose: 1 tab Nicotine (Nicoderm Cq) 1 patch TD DAILY [facility] Last Admin: 08/04/17 09:38 Dose: 1 patch Pantoprazole Sodium (Protonix Ec Tab) 40 mg PO ACB [facility] Last Admin: 08/04/17 09:40 Dose: 40 mg Thiamine HCl (Vitamin B1 Tab) 100 mg PO DAILY [facility] Last Admin: 08/04/17 09:40 Dose: 100 mg - Labs Labs: 08/04/17 06:40 08/04/17 06:40 PT 11.1 SECONDS (9.4-12.5) 08/03/17 05:02 INR 0.97 (0.93-1.08) 08/03/17 05:02 - Constitutional Appears: Non-toxic, No Acute Distress - Head Exam Head Exam: ATRAUMATIC, NORMAL INSPECTION, NORMOCEPHALIC - Eye Exam Eye Exam: EOMI, Normal appearance - ENT Exam ENT Exam: Mucous Membranes Moist - Respiratory Exam Respiratory Exam: Clear to Ausculation Bilateral, NORMAL BREATHING PATTERN. absent: Rales, Rhonchi, Wheezes - Cardiovascular Exam Cardiovascular Exam: REGULAR RHYTHM, +S1, +S2 - GI/Abdominal Exam GI & Abdominal Exam: Soft, Normal Bowel Sounds. absent: Guarding, Rigid, Tenderness - Extremities Exam Extremities Exam: Normal Inspection - Back Exam Back Exam: NORMAL INSPECTION - Neurological Exam Neurological Exam: Alert, Awake, Oriented x3 - Psychiatric Exam Psychiatric exam: Normal Affect, Normal Mood - Skin Skin Exam: Dry, Normal Color, Warm Assessment and Plan - Assessment and Plan (Free Text) Assessment: This is a 32yo female with past medical history of Bipolar disorder, polysubstance abuse (alcohol, former heroin user on methadone) admitted for alcohol withdrawal. Plan: 1. Alcohol withdrawal/Alcohol abuse - Alcohol level 11 on admission - EKG showed NSR at 85 - UDS positive for PCP, methadone, cannabinoids - Continue CIWA protocol - Ativan 2mg Q8H GEORGE; Ativan 1mg Q4H prn - Aspiration precaution, seizure precaution, fall precaution - PO thiamine, multivitamins, folic acid - Patient states that she will be going to rehab on wednesday - F/U urine test 2. Hx of heroin abuse on methadone - Methadone 200mg PO daily 3. Hx of bipolar disorder - Not on medication - denies suicidal ideation/homicidal ideation - Recommend outpatient psych follow up GI ppx: Protonix DVT ppx: SCDs <Felton Torres - Last Filed: 08/07/17 11:00> Objective - Vital Signs/Intake and Output Vital Signs (last 24 hours): Temp Pulse Resp BP Pulse Ox 98.1 F 62 20 131/83 95 08/06/17 06:00 08/06/17 14:00 08/06/17 06:00 08/06/17 06:00 08/06/17 06:00 - Labs Labs: 08/06/17 07:00 08/06/17 06:00 PT 11.1 SECONDS (9.4-12.5) 08/03/17 05:02 INR 0.97 (0.93-1.08) 08/03/17 05:02 Attending/Attestation - Attestation I have personally seen and examined this patient.: Yes I have fully participated in the care of the patient.: Yes I have reviewed all pertinent clinical information, including history, physical exam and plan: Yes Notes (Text): 08/07/17 11:00 Medical record note made by the resident after discussion with my direction and input after the patient was personally seen and examined by me. I have reviewed the chart and agree that the record accurately reflects by personal performance of the history, physical exam, data review, and medical decision-making, in the course for the patient. I have also personally directed the plan of care. Management plan was discussed in detail with patient. Education was provided.
[2017-08-04 12:48] LABS: PH,URINE 5.5 (4.7-8.0); URINE BILIRUBIN NEGATIVE (NEGATIVE); URINE BLOOD SMALL (NEGATIVE); URINE GLUCOSE (UA) NEGATIVE (NEGATIVE); URINE LEUKOCYTE ESTERASE TRACE Leu/uL (NEGATIVE); URINE PROTEIN NEGATIVE mg/dL (<30 mg/dL); URINE UROBILINOGEN 0.2 E.U./dL (<1 E.U./dL)
[2017-08-04 12:54] LABS: URINE APPEARANCE CLEAR (CLEAR); URINE COLOR YELLOW (YELLOW)
[2017-08-04 13:10] LABS: URINE BACTERIA FEW (NEG); URINE EPITHELIAL CELLS MANY /hpf (0-5); URINE RBC 0 - 2 /hpf (0-2); URINE WBC 0 - 2 /hpf (0-6)
[2017-08-05 06:34] LABS: BASO # 0.01 K/mm3 (0.0-2.0); BASO % 0.1 % (0.0-3.0); EOS # 0.2 (0.0-0.7); EOS % 2.5 % (1.5-5.0); GRAN # 4.85 (1.4-6.5); GRAN % 60.5 % (50.0-68.0); HEMOGLOBIN 11.3 g/dL (12.0-16.0); LYMPH # 2.1 (1.2-3.4); LYMPH % 25.6 % (22.0-35.0); MEAN CELL VOLUME 94.3 fl (80.0-105.0); MEAN CORPUSCULAR HEMOGLOBIN 30.8 pg (25.0-35.0); MEAN CORPUSCULAR HGB CONC 32.7 g/dl (31.0-37.0); MEAN PLATELET VOLUME 9.7 fl (7.0-11.0); MONO # 0.9 (0.1-0.6); MONO % 11.3 % (1.0-6.0); RBC 3.67 10^6/uL (3.5-6.1); RED CELL DISTRIBUTION WIDTH 15.6 % (11.5-14.5)
[2017-08-05 07:35] LABS: ALB/GLOB RATIO 1.3 (1.1-1.8); ALBUMIN 3.6 g/dL (3.0-4.8); ALT/SGPT 18 U/L (7-56); AST/SGOT 18 U/L (14-36); BLOOD UREA NITROGEN 9 mg/dL (7-21); CALCIUM 9.5 mg/dL (8.4-10.5); GFR AFRICAN-AMERICAN > 60; GFR NON-AFRICAN AMERICAN > 60
[2017-08-05] MEDS: Multivitamin With Minerals Tab PO SCH (09:11)
[2017-08-05] MEDS: Pantoprazole 40 mg EC Tab PO SCH (09:11)
--- NOTE | 2017-08-05 10:24 | CP.PCM.PN ---
<Cathy Helton - Last Filed: 08/05/17 10:24> Subjective - Date & Time of Evaluation Date of Evaluation: 08/05/17 Time of Evaluation: 10:21 - Subjective Subjective: Internal Medicine Progress Note: Patient seen and examined at bedside. CIWA is 8 this morning. Patient states that she is still having shakes and a headache. She had 8 beats of vtach this morning, asymptomatic. Denies auditory/visual hallucinations, dizziness, cp, palpitations, sob, abdominal pain, urinary symptoms. Objective - Vital Signs/Intake and Output Vital Signs (last 24 hours): Temp Pulse Resp BP Pulse Ox 98.1 F 105 H 18 128/57 L 98 08/05/17 08:40 08/05/17 10:00 08/05/17 08:40 08/05/17 08:40 08/05/17 08:40 Intake and Output: 08/05/17 08/05/17 06:59 18:59 Intake Total 480 Balance 480 - Medications Medications: Current Medications Folic Acid (Folic Acid) 1 mg PO DAILY [facility] Last Admin: 08/05/17 09:11 Dose: 1 mg Lorazepam (Ativan) 1 mg IVP Q4H PRN PRN Reason: Symptoms of alcohol withdrawl Last Admin: 08/05/17 06:24 Dose: 1 mg Lorazepam (Ativan) 2 mg PO Q8H GEORGE PRN Reason: Protocol Last Admin: 08/05/17 09:11 Dose: 2 mg Methadone HCl (Methadone) 200 mg PO DAILY [facility] Last Admin: 08/05/17 09:25 Dose: 200 mg Multivitamins/Minerals (Therapeutic-M Tab) 1 tab PO DAILY [facility] Last Admin: 08/05/17 09:11 Dose: 1 tab Nicotine (Nicoderm Cq) 1 patch TD DAILY [facility] Last Admin: 08/05/17 09:11 Dose: 1 patch Pantoprazole Sodium (Protonix Ec Tab) 40 mg PO ACB [facility] Last Admin: 08/05/17 09:11 Dose: 40 mg Thiamine HCl (Vitamin B1 Tab) 100 mg PO DAILY [facility] Last Admin: 08/05/17 09:11 Dose: 100 mg - Labs Labs: 08/05/17 05:30 08/05/17 05:30 PT 11.1 SECONDS (9.4-12.5) 08/03/17 05:02 INR 0.97 (0.93-1.08) 08/03/17 05:02 - Constitutional Appears: Non-toxic, No Acute Distress, Older Than Stated Age - Head Exam Head Exam: ATRAUMATIC, NORMAL INSPECTION, NORMOCEPHALIC - Eye Exam Eye Exam: EOMI, Normal appearance Pupil Exam: NORMAL ACCOMODATION - ENT Exam ENT Exam: Mucous Membranes Moist - Respiratory Exam Respiratory Exam: Clear to Ausculation Bilateral, NORMAL BREATHING PATTERN. absent: Rales, Rhonchi, Wheezes - Cardiovascular Exam Cardiovascular Exam: REGULAR RHYTHM, +S1, +S2 - GI/Abdominal Exam GI & Abdominal Exam: Soft, Normal Bowel Sounds. absent: Guarding, Rigid, Tenderness - Extremities Exam Extremities Exam: Normal Inspection - Back Exam Back Exam: NORMAL INSPECTION - Neurological Exam Neurological Exam: Alert, Awake, Oriented x3 - Psychiatric Exam Psychiatric exam: Anxious, Normal Affect, Normal Mood - Skin Skin Exam: Dry, Normal Color, Warm Assessment and Plan - Assessment and Plan (Free Text) Assessment: This is a 32yo female with past medical history of Bipolar disorder, polysubstance abuse (alcohol, former heroin user on methadone) admitted for alcohol withdrawal. Plan: 1. Alcohol withdrawal/Alcohol abuse - Alcohol level 11 on admission - EKG showed NSR at 85 - UDS positive for PCP, methadone, cannabinoids - Continue [facility] protocol - Ativan 1mg Q8H GEORGE; Ativan 1mg Q4H prn - Aspiration precaution, seizure precaution, fall precaution - PO thiamine, multivitamins, folic acid - Patient states that she will be going to rehab on Wednesday afternoon - Urine - negative - Tylenol prn headache 2. Hx of heroin abuse on methadone - Methadone 200mg PO daily 3. Hx of bipolar disorder - Not on medication - denies suicidal ideation/homicidal ideation - Recommend outpatient psych follow up 4. Nonsustained Vtach, asymptomatic -Electrolytes within normal limits -Due to history of alcohol abuse will order echo GI ppx: Protonix DVT ppx: SCDs <Felton Torres - Last Filed: 08/07/17 11:04> Objective - Vital Signs/Intake and Output Vital Signs (last 24 hours): Temp Pulse Resp BP Pulse Ox 98.1 F 62 20 131/83 95 08/06/17 06:00 08/06/17 14:00 08/06/17 06:00 08/06/17 06:00 08/06/17 06:00 - Labs Labs: 08/06/17 07:00 08/06/17 06:00 PT 11.1 SECONDS (9.4-12.5) 08/03/17 05:02 INR 0.97 (0.93-1.08) 08/03/17 05:02 Attending/Attestation - Attestation I have personally seen and examined this patient.: Yes I have fully participated in the care of the patient.: Yes I have reviewed all pertinent clinical information, including history, physical exam and plan: Yes Notes (Text): 08/07/17 11:01 Medical record note made by the resident after discussion with my direction and input after the patient was personally seen and examined by me. I have reviewed the chart and agree that the record accurately reflects by personal performance of the history, physical exam, data review, and medical decision-making, in the course for the patient. I have also personally directed the plan of care. 32 years old female with PMH of Bipolar disorder, alcohol and drug abuse on methadone was admitted for alcohol withdrawal. Alcohol withdrawal are better today.Patient had episode of NSVT , she was asymptomatic.We will follow up Echo results..Electrolyte are normal. Issue of ongoing alcohol and drug abuse was discussed in detail with her. Management plan was discussed in detail with patient. Education was provided.
--- NOTE | 2017-08-05 13:58 | CARD ---
APPROVED REPORT EXAM: Two-dimensional and M-mode echocardiogram with Doppler and color Doppler. INDICATION ALCOHOL ABUSE/V-TACH 2D DIMENSIONS Left Atrium (2D)3.5 (1.6-4.0cm)IVSd1.0 (0.7-1.1cm) LVDd4.5 (3.9-5.9cm)PWd1.0 (0.7-1.1cm) LVDs3.3 (2.5-4.0cm)FS (%) 25.6 % LVEF (%)50.7 (>50%) M-Mode DIMENSIONS Aortic Root2.40 (2.2-3.7cm)Aortic Cusp Exc.1.50 (1.5-2.0cm) Aortic Valve AoV Peak Kmsvarho608.0cm/Pancho Peak GR.10mmHg Mitral Valve MV E Dvzztdko608.0cm/sMV A Vzlfqxen98.3cm/sE/A ratio1.7 TDI E/Lateral E'0.0E/Medial E'0.0 Tricuspid Valve TR Peak Sqbxxlvx631pr/sRAP [id number] Peak Gr.18mmHg [id number] LEFT VENTRICLE The left ventricle is normal size. There is normal left ventricular wall thickness. Left ventricle systolic function is borderline. There is normal LV segmental wall motion. The left ventricular diastolic function is normal. RIGHT VENTRICLE The right ventricle is normal size. There is normal right ventricular wall thickness. The right ventricular systolic function is normal. ATRIA The left atrium size is normal. The right atrium size is normal. AORTIC VALVE The aortic valve is mildly thickened. There is no aortic valvular stenosis. MITRAL VALVE The mitral valve is moderately thickened. There is no mitral valve regurgitation noted. TRICUSPID VALVE The tricuspid valve is normal in structure. There is trace tricuspid regurgitation. GREAT VESSELS The aortic root is normal in size. The IVC is dilated. PERICARDIAL EFFUSION There is no pericardial effusion. <Conclusion> The left ventricle is normal size. There is normal left ventricular wall thickness. Left ventricle systolic function is borderline. There is normal LV segmental wall motion. The left ventricular diastolic function is normal.
[2017-08-06 07:00] LABS: BASO # 0.02 K/mm3 (0.0-2.0); BASO % 0.2 % (0.0-3.0); EOS # 0.2 (0.0-0.7); EOS % 2.9 % (1.5-5.0); GRAN # 5.24 (1.4-6.5); GRAN % 63.3 % (50.0-68.0); HEMOGLOBIN 12.2 g/dL (12.0-16.0); LYMPH # 2.1 (1.2-3.4); LYMPH % 25.1 % (22.0-35.0); MEAN CELL VOLUME 94.4 fl (80.0-105.0); MEAN CORPUSCULAR HEMOGLOBIN 30.8 pg (25.0-35.0); MEAN CORPUSCULAR HGB CONC 32.6 g/dl (31.0-37.0); MONO # 0.7 (0.1-0.6); MONO % 8.5 % (1.0-6.0); RBC 3.96 10^6/uL (3.5-6.1); RED CELL DISTRIBUTION WIDTH 15.4 % (11.5-14.5); WHITE BLOOD COUNT 8.3 10^3/ul (4.5-11.0)
[2017-08-06 07:16] LABS: ALB/GLOB RATIO 1.4 (1.1-1.8); ALBUMIN 4.2 g/dL (3.0-4.8); ALT/SGPT 18 U/L (7-56); AST/SGOT 28 U/L (14-36); BLOOD UREA NITROGEN 11 mg/dL (7-21); CALCIUM 9.9 mg/dL (8.4-10.5); GFR AFRICAN-AMERICAN > 60; GFR NON-AFRICAN AMERICAN > 60
--- NOTE | 2017-08-06 07:23 | CP.PCM.DIS ---
<Cathy Helton - Last Filed: 08/06/17 14:11> Provider - Provider Date of Admission: 08/03/17 07:08 Attending physician: Danish Ngo MD Time Spent in preparation of Discharge (in minutes): 32 Hospital Course - Lab Results Lab Results: Micro Results 08/03/17 18:37 Urine,Clean Catch Urine Culture - Final No Growth (<1,000 CFU/ML) Most Recent Lab Values WBC 8.3 10^3/ul (4.5-11.0) 08/06/17 07:00 RBC 3.96 10^6/uL (3.5-6.1) 08/06/17 07:00 Hgb 12.2 g/dL (12.0-16.0) 08/06/17 07:00 Hct 37.4 % (36.0-48.0) 08/06/17 07:00 MCV 94.4 fl (80.0-105.0) 08/06/17 07:00 MCH 30.8 pg (25.0-35.0) 08/06/17 07:00 MCHC 32.6 g/dl (31.0-37.0) 08/06/17 07:00 RDW 15.4 % (11.5-14.5) H 08/06/17 07:00 Plt Count 259 10^3/uL (120.0-450.0) 08/06/17 07:00 MPV 9.0 fl (7.0-11.0) 08/06/17 07:00 Gran % 63.3 % (50.0-68.0) 08/06/17 07:00 Lymph % (Auto) 25.1 % (22.0-35.0) 08/06/17 07:00 Blair % (Auto) 8.5 % (1.0-6.0) H 08/06/17 07:00 Eos % (Auto) 2.9 % (1.5-5.0) 08/06/17 07:00 Baso % (Auto) 0.2 % (0.0-3.0) 08/06/17 07:00 Gran # 5.24 (1.4-6.5) 08/06/17 07:00 Lymph # (Auto) 2.1 (1.2-3.4) 08/06/17 07:00 Blair # (Auto) 0.7 (0.1-0.6) H 08/06/17 07:00 Eos # (Auto) 0.2 (0.0-0.7) 08/06/17 07:00 Baso # (Auto) 0.02 K/mm3 (0.0-2.0) 08/06/17 07:00 PT 11.1 SECONDS (9.4-12.5) 08/03/17 05:02 INR 0.97 (0.93-1.08) 08/03/17 05:02 Sodium 141 mmol/L (132-148) 08/06/17 06:00 Potassium 4.1 mmol/L (3.6-5.0) 08/06/17 06:00 Chloride 100 mmol/L (98-107) 08/06/17 06:00 Carbon Dioxide 29 mmol/L (21-33) 08/06/17 06:00 Anion Gap 16 (10-20) 08/06/17 06:00 BUN 11 mg/dL (7-21) 08/06/17 06:00 Creatinine 0.7 mg/dl (0.7-1.2) 08/06/17 06:00 Est GFR ( Amer) > 60 08/06/17 06:00 Est GFR (Non-Af Amer) > 60 08/06/17 06:00 Random Glucose 100 mg/dL (70-110) 08/06/17 06:00 Calcium 9.9 mg/dL (8.4-10.5) 08/06/17 06:00 Phosphorus 5.4 mg/dL (2.5-4.5) H 08/06/17 06:00 Magnesium 2.1 mg/dL (1.7-2.2) 08/06/17 06:00 Total Bilirubin 0.2 mg/dL (0.2-1.3) 08/06/17 06:00 AST 28 U/L (14-36) 08/06/17 06:00 ALT 18 U/L (7-56) 08/06/17 06:00 Alkaline Phosphatase 77 U/L (38-126) 08/06/17 06:00 Lactate Dehydrogenase 525 U/L (333-699) 08/03/17 05:02 Total Creatine Kinase 77 U/L (35-230) 08/03/17 05:02 Troponin I < 0.01 ng/mL 08/03/17 05:02 Total Protein 7.2 g/dL (5.8-8.3) 08/06/17 06:00 Albumin 4.2 g/dL (3.0-4.8) 08/06/17 06:00 Globulin 3.0 gm/dL 08/06/17 06:00 Albumin/Globulin Ratio 1.4 (1.1-1.8) 08/06/17 06:00 Urine Color Yellow (YELLOW) 08/04/17 12:30 Urine Appearance Clear (CLEAR) 08/04/17 12:30 Urine pH 5.5 (4.7-8.0) 08/04/17 12:30 Ur Specific Beaumont <= 1.005 (1.005-1.035) 08/04/17 12:30 Urine Protein Negative mg/dL (<30 mg/dL) 08/04/17 12:30 Urine Glucose (UA) Negative mg/dL (NEGATIVE) 08/04/17 12:30 Urine Ketones Negative mg/dL (NEGATIVE) 08/04/17 12:30 Urine Blood Small (NEGATIVE) H 08/04/17 12:30 Urine Nitrate Negative (NEGATIVE) 08/04/17 12:30 Urine Bilirubin Negative (NEGATIVE) 08/04/17 12:30 Urine Urobilinogen 0.2 E.U./dL (<1 E.U./dL) 08/04/17 12:30 Ur Leukocyte Esterase Trace Qi/uL (NEGATIVE) H 08/04/17 12:30 Urine RBC 0 - 2 /hpf (0-2) 08/04/17 12:30 Urine WBC 0 - 2 /hpf (0-6) 08/04/17 12:30 Ur Epithelial Cells Many /hpf (0-5) 08/04/17 12:30 Urine Bacteria Few (NEG) 08/04/17 12:30 Urine HCG, Qual Negative (NEGATIVE) 08/04/17 12:30 Urine Opiates Screen Negative (NEGATIVE) 08/03/17 16:45 Urine Methadone Screen Positive (NEGATIVE) H 08/03/17 16:45 Ur Barbiturates Screen Negative (NEGATIVE) 08/03/17 16:45 Ur Phencyclidine Scrn Positive (NEGATIVE) H 08/03/17 16:45 Ur Amphetamines Screen Negative (NEGATIVE) 08/03/17 16:45 U Benzodiazepines Scrn Positive (NEGATIVE) 08/03/17 16:45 U Oth Cocaine Metabols Negative (NEGATIVE) 08/03/17 16:45 U Cannabinoids Screen Positive (NEGATIVE) H 08/03/17 16:45 Alcohol, Quantitative 12 mg/dL (0-10) H 08/03/17 05:02 - Hospital Course Hospital Course: History of Present Illness: Patient is a 32yo female with past medical history of Bipolar disorder, polysubstance abuse (alcohol, former heroin user on methadone) who came to ED for complaint of "alcohol withdrawal". Patient reports her last drink was 10pm last night. She usually drinks 1/5th of vodka per day. She denies doing any recent illicit drugs. Patient says she is feeling shaky, but denies chest pain, shortness of breath, nausea/vomiting/diarrhea, palpitations, dysuria, hematuria , fever/chills. Patient states she is on Methadone 200mg and last dose was on Wednesday. She goes to Methadone clinic in [facility]. Their number is . She reports she was at [facility] last week for alcohol withdrawal and left AMA. She is supposed to be on medications for her Bipolar disorder but has not been taking any. She states she is looking for a new PMD and psychiatrist. She denies depression, suicidal ideation or homicidal ideation. Hospital Course: Patient was admitted for alcohol withdrawal. Patient was started on banana bag and ativan taper. Alcohol level on admission was 12. UTOX was positive for PCP, methadone, cannabinoids. Urine test was negative. Patient was monitored for withdrawal symptoms. She was started on PO multivitamins, thiamine and folic acid. EKG on admission was NSR. During hospital stay, patient had 8 beats of VTACH. She was asymptomatic. Went for echo which showed normal EF and normal left ventricular systolic/diastolic function. On day of discharge patient was medically stable. She was tolerating diet and ambulating without difficulty. Patient to follow up with outpatient psychiatrist for medication management. Advised strongly to abstain from alcohol and drug use. Patient states that she plans to start a rehab program next Wednesday08/19/17. Please follow up with PMD outpatient. Discharge Medications: Mutivitamins 1 tab PO daily Folic acid 1 tab PO daily Thiamine 100mg PO daily Discharge Exam - Head Exam Head Exam: ATRAUMATIC, NORMAL INSPECTION, NORMOCEPHALIC - Eye Exam Eye Exam: EOMI, Normal appearance Pupil Exam: NORMAL ACCOMODATION - ENT Exam ENT Exam: Mucous Membranes Moist - Respiratory Exam Respiratory Exam: Clear to PA & Lateral, NORMAL BREATHING PATTERN, UNREMARKABLE. absent: Decreased Breath Sounds, Rales, Rhonchi, Wheezes, Respiratory Distress - Cardiovascular Exam Cardiovascular Exam: REGULAR RHYTHM, +S1, +S2 - GI/Abdominal Exam GI & Abdominal Exam: Normal Bowel Sounds, Soft. absent: Guarding, Rebound, Rigid, Tenderness, Unremarkable - Extremities Exam Extremities exam: normal inspection - Neurological Exam Neurological exam: Alert, CN II-XII Intact, Normal Gait, Oriented x3 - Psychiatric Exam Psychiatric exam: Anxious, Normal Affect, Normal Mood - Skin Skin Exam: Normal Color, Warm Discharge Plan - Discharge Medications Prescriptions: Folic Acid 1 mg PO DAILY #30 tab Multimineral/Multivitamin [Therapeutic-M Tab] 1 tab PO DAILY #30 tab Thiamine [Vitamin B1 Tab] 100 mg PO DAILY #30 tab - Follow Up Plan Condition: GOOD Disposition: HOME/ ROUTINE Instructions: Alcohol Withdrawal (DC), Bipolar Disorder (DC) Additional Instructions: 1. Patient is clear for discharge home 2. Please follow up with Psychiatrist outpatient for medication management 3. Patient to go to rehab next wednesday 4. Please continue to abstain from alcohol and drug use 5. F/U with PMD <Felton Torres - Last Filed: 08/07/17 11:07> Provider - Provider Date of Admission: 08/03/17 07:08 Attending physician: Danish Ngo MD Diagnosis - Discharge Diagnosis (1) Alcohol withdrawal Status: Acute Hospital Course - Lab Results Lab Results: Micro Results 08/03/17 18:37 Urine,Clean Catch Urine Culture - Final No Growth (<1,000 CFU/ML) Most Recent Lab Values WBC 8.3 10^3/ul (4.5-11.0) 08/06/17 07:00 RBC 3.96 10^6/uL (3.5-6.1) 08/06/17 07:00 Hgb 12.2 g/dL (12.0-16.0) 08/06/17 07:00 Hct 37.4 % (36.0-48.0) 08/06/17 07:00 MCV 94.4 fl (80.0-105.0) 08/06/17 07:00 MCH 30.8 pg (25.0-35.0) 08/06/17 07:00 MCHC 32.6 g/dl (31.0-37.0) 08/06/17 07:00 RDW 15.4 % (11.5-14.5) H 08/06/17 07:00 Plt Count 259 10^3/uL (120.0-450.0) 08/06/17 07:00 MPV 9.0 fl (7.0-11.0) 08/06/17 07:00 Gran % 63.3 % (50.0-68.0) 08/06/17 07:00 Lymph % (Auto) 25.1 % (22.0-35.0) 08/06/17 07:00 Blair % (Auto) 8.5 % (1.0-6.0) H 08/06/17 07:00 Eos % (Auto) 2.9 % (1.5-5.0) 08/06/17 07:00 Baso % (Auto) 0.2 % (0.0-3.0) 08/06/17 07:00 Gran # 5.24 (1.4-6.5) 08/06/17 07:00 Lymph # (Auto) 2.1 (1.2-3.4) 08/06/17 07:00 Blair # (Auto) 0.7 (0.1-0.6) H 08/06/17 07:00 Eos # (Auto) 0.2 (0.0-0.7) 08/06/17 07:00 Baso # (Auto) 0.02 K/mm3 (0.0-2.0) 08/06/17 07:00 PT 11.1 SECONDS (9.4-12.5) 08/03/17 05:02 INR 0.97 (0.93-1.08) 08/03/17 05:02 Sodium 141 mmol/L (132-148) 08/06/17 06:00 Potassium 4.1 mmol/L (3.6-5.0) 08/06/17 06:00 Chloride 100 mmol/L (98-107) 08/06/17 06:00 Carbon Dioxide 29 mmol/L (21-33) 08/06/17 06:00 Anion Gap 16 (10-20) 08/06/17 06:00 BUN 11 mg/dL (7-21) 08/06/17 06:00 Creatinine 0.7 mg/dl (0.7-1.2) 08/06/17 06:00 Est GFR ( Amer) > 60 08/06/17 06:00 Est GFR (Non-Af Amer) > 60 08/06/17 06:00 Random Glucose 100 mg/dL (70-110) 08/06/17 06:00 Calcium 9.9 mg/dL (8.4-10.5) 08/06/17 06:00 Phosphorus 5.4 mg/dL (2.5-4.5) H 08/06/17 06:00 Magnesium 2.1 mg/dL (1.7-2.2) 08/06/17 06:00 Total Bilirubin 0.2 mg/dL (0.2-1.3) 08/06/17 06:00 AST 28 U/L (14-36) 08/06/17 06:00 ALT 18 U/L (7-56) 08/06/17 06:00 Alkaline Phosphatase 77 U/L (38-126) 08/06/17 06:00 Lactate Dehydrogenase 525 U/L (333-699) 08/03/17 05:02 Total Creatine Kinase 77 U/L (35-230) 08/03/17 05:02 Troponin I < 0.01 ng/mL 08/03/17 05:02 Total Protein 7.2 g/dL (5.8-8.3) 08/06/17 06:00 Albumin 4.2 g/dL (3.0-4.8) 08/06/17 06:00 Globulin 3.0 gm/dL 08/06/17 06:00 Albumin/Globulin Ratio 1.4 (1.1-1.8) 08/06/17 06:00 Urine Color Yellow (YELLOW) 08/04/17 12:30 Urine Appearance Clear (CLEAR) 08/04/17 12:30 Urine pH 5.5 (4.7-8.0) 08/04/17 12:30 Ur Specific Beaumont <= 1.005 (1.005-1.035) 08/04/17 12:30 Urine Protein Negative mg/dL (<30 mg/dL) 08/04/17 12:30 Urine Glucose (UA) Negative mg/dL (NEGATIVE) 08/04/17 12:30 Urine Ketones Negative mg/dL (NEGATIVE) 08/04/17 12:30 Urine Blood Small (NEGATIVE) H 08/04/17 12:30 Urine Nitrate Negative (NEGATIVE) 08/04/17 12:30 Urine Bilirubin Negative (NEGATIVE) 08/04/17 12:30 Urine Urobilinogen 0.2 E.U./dL (<1 E.U./dL) 08/04/17 12:30 Ur Leukocyte Esterase Trace Qi/uL (NEGATIVE) H 08/04/17 12:30 Urine RBC 0 - 2 /hpf (0-2) 08/04/17 12:30 Urine WBC 0 - 2 /hpf (0-6) 08/04/17 12:30 Ur Epithelial Cells Many /hpf (0-5) 08/04/17 12:30 Urine Bacteria Few (NEG) 08/04/17 12:30 Urine HCG, Qual Negative (NEGATIVE) 08/04/17 12:30 Urine Opiates Screen Negative (NEGATIVE) 08/03/17 16:45 Urine Methadone Screen Positive (NEGATIVE) H 08/03/17 16:45 Ur Barbiturates Screen Negative (NEGATIVE) 08/03/17 16:45 Ur Phencyclidine Scrn Positive (NEGATIVE) H 08/03/17 16:45 Ur Amphetamines Screen Negative (NEGATIVE) 08/03/17 16:45 U Benzodiazepines Scrn Positive (NEGATIVE) 08/03/17 16:45 U Oth Cocaine Metabols Negative (NEGATIVE) 08/03/17 16:45 U Cannabinoids Screen Positive (NEGATIVE) H 08/03/17 16:45 Alcohol, Quantitative 12 mg/dL (0-10) H 08/03/17 05:02 Attending/Attestation - Attestation I have personally seen and examined this patient.: Yes I have fully participated in the care of the patient.: Yes I have reviewed all pertinent clinical information, including history, physical exam and plan: Yes Notes (Text): 08/07/17 11:06 Medical record note made by the resident after discussion with my direction and input after the patient was personally seen and examined by me. I have reviewed the chart and agree that the record accurately reflects by personal performance of the history, physical exam, data review, and medical decision-making, in the course for the patient. I have also personally directed the plan of care. 32 years old female with PMH of Bipolar disorder, alcohol and drug abuse on methadone was admitted for alcohol withdrawal. Alcohol withdrawal are improved.Patient is ambulatory and is tolerating diet. Patient had episode of NSVT , she was asymptomatic.Echo showed normal systolic function.Patient remain stable on telemetry floor. Issue of ongoing alcohol and drug abuse was discussed in detail with her. Management plan was discussed in detail with patient. Education was provided.
[2017-08-06] MEDS: Pantoprazole 40 mg EC Tab PO SCH (08:08)
[2017-08-06 09:07] VITALS: BP 131/83; RESP 20; TEMP 98.1; O2SAT 95
[2017-08-06] MEDS: Multivitamin With Minerals Tab PO SCH (09:08)
[2017-08-06 16:10] VITALS: PULSE 62
== END 2017-08-06 16:50 | disposition home or self-care (01) | DRG 750 ==
LOC: ED 04:11 → ERH 07:08 → 3RNO 17:28
PROVIDERS: ADMIT Internal Medicine; ATTEND Internal Medicine
DX: F10.239 Alcohol dependence with withdrawal, unspecified (principal); I47.2 Ventricular tachycardia; F31.9 Bipolar disorder, unspecified; F17.210 Nicotine dependence, cigarettes, uncomplicated; Y90.0 Blood alcohol level of less than 20 mg/100 ml

== ENCOUNTER 2017-08-26 00:57 | Inpatient (IN) | payer MEDICAID ==
[2017-08-26] MEDS ORDERED: Sodium Chloride 0.9% 1,000 ML IV SCH (01:15)
--- NOTE | 2017-08-26 01:15 | ED PDOC ---
Arrival/HPI - General Chief Complaint: Chest Pain Time Seen by Provider: 08/26/17 00:58 Historian: Patient - History of Present Illness Narrative History of Present Illness (Text): 08/26/17 01:13 Kristen Erickson is a 32 year old female, whose past medical history includes alcohol abuse, polysubstance abuse currently on Methadone, and bipolar disorder , who presents to the Emergency department complaining of left-sided chest pain , worse with movement, tonight. Patient also reports she feel shaky and notes symptoms feel similar to previous episodes of alcohol withdrawal. Patient states her last alcoholic drink was 3 days ago. Patient also notes she took 2 Seroquel and 1 Remeron tonight. Patient denies any fever, chills, shortness of breath, nausea, vomiting, diarrhea, urinary symptoms, back pain, neck pain, headache, dizziness, or any other complaints. Symptom Onset: Gradual Symptom Course: Unchanged Activities at Onset: Light Context: Home Past Medical History - Provider Review Nursing Documentation Reviewed: Yes - Infectious Disease Hx of Infectious Diseases: None - Cardiac Hx Hypertension: No - Pulmonary Hx Respiratory Disorders: No - Neurological Hx Seizures: No - HEENT Hx HEENT Disorder: No - Renal Hx Renal Disorder: Yes Hx Kidney Stones: Yes - Endocrine/Metabolic Hx Endocrine Disorders: No - Hematological/Oncological Hx Blood Disorders: Yes Hx Hepatitis A: Yes - Integumentary Hx Dermatological Disorder: Yes (tatoos) - Musculoskeletal/Rheumatological Hx Falls: No - Gastrointestinal Hx Gastrointestinal Disorders: No - Genitourinary/Gynecological Hx Sexually Transmitted Diseases: No - Psychiatric Hx Bipolar Disorder: Yes Hx Depression: Yes Hx Post Traumatic Stress Disorder: Yes Hx Substance Use: (admits to pot only, but on methadone) - Anesthesia Hx Anesthesia: No - Suicidal Assessment Feels Threatened In Home Enviroment: No Family/Social History - Physician Review Nursing Documentation Reviewed: Yes Family/Social History: Unknown Family HX Smoking Status: Heavy Smoker > 10 Cigarettes Daily Hx Alcohol Use: Yes (vodka daily last drink 07/03/17) Hx Substance Use: (admits to pot only, but on methadone) Hx Substance Use Treatment: Yes Allergies/Home Meds Allergies/Adverse Reactions: Allergies pentazocine Adverse Reaction (Verified 07/26/17 09:00) FEVER Home Medications: Home Meds Medication Instructions Recorded Confirmed Aluminum Hydroxide/Magnesium H 30 ml PO DAILY PRN 07/15/17 08/26/17 [Maalox 30 ml] Magnesium Hydroxide [Milk Of 30 ml PO DAILY PRN 07/15/17 08/26/17 Magnesia] Benzocaine [Anbesol] 12 ml TOP PRN PRN 08/03/17 08/26/17 Chlordiazepoxide HCl 25 mg PO Q8 08/03/17 08/26/17 Gabapentin [Neurontin] 600 mg PO TID 08/03/17 08/26/17 Mirtazapine [Remeron] 45 mg PO HS 08/03/17 08/26/17 Review of Systems - Physician Review All systems were reviewed & negative as marked: Yes - Review of Systems Constitutional: Normal. absent: Fevers Eyes: Normal ENT: Normal Respiratory: Normal. absent: SOB, Cough Cardiovascular: Chest Pain Gastrointestinal: Normal. absent: Abdominal Pain, Diarrhea, Nausea, Vomiting Genitourinary Female: Normal. absent: Dysuria, Frequency, Hematuria, Urine Output Changes Musculoskeletal: Normal. absent: Back Pain, Neck Pain Skin: Normal. absent: Rash Neurological: Normal. absent: Headache, Dizziness Endocrine: Normal Hemo/Lymphatic: Normal Psychiatric: Normal Physical Exam Vital Signs Reviewed: Yes Vital Signs Temp Pulse Resp BP Pulse Ox 08/26/17 04:41 91 H 12 123/79 97 08/26/17 03:26 100 H 18 145/82 98 08/26/17 01:19 97.6 F 100 H 18 118/83 97 Temperature: Afebrile Blood Pressure: Normal Pulse: Regular Respiratory Rate: Normal Appearance: Positive for: Well-Appearing, Non-Toxic, Comfortable Pain Distress: None Mental Status: Positive for: Alert and Oriented X 3 - Systems Exam Head: Present: Atraumatic, Normocephalic Pupils: Present: PERRL Extroacular Muscles: Present: EOMI Conjunctiva: Present: Normal Mouth: Present: Moist Mucous Membranes Neck: Present: Normal Range of Motion Respiratory/Chest: Present: Clear to Auscultation, Good Air Exchange. No: Respiratory Distress, Accessory Muscle Use Cardiovascular: Present: Regular Rate and Rhythm, Normal S1, S2. No: Murmurs Abdomen: No: Tenderness, Distention, Peritoneal Signs Back: Present: Normal Inspection Upper Extremity: Present: Normal Inspection. No: Cyanosis, Edema Lower Extremity: Present: Normal Inspection. No: Edema Neurological: Present: GCS=15, CN II-XII Intact, Speech Normal Skin: Present: Warm, Dry, Normal Color. No: Rashes Psychiatric: Present: Alert, Oriented x 3, Normal Insight, Normal Concentration Medical Decision Making ED Course and Treatment: 08/26/17 01:13 Impression: 32 year old female complaining of left-sided chest pain and shakiness tonight. Plan: -- EKG -- Labs, lipase, troponin -- Urinalysis, urine drug screen -- IV fluids -- Librium -- Reassess and disposition Prior Visits: Notes and results from previous visits were reviewed. Progress Notes: Reviewed EKG, NSR at [address]-segment elevations or depressions, no T-wave inversions, normal intervals. 08/26/17 04:37 Case discussed with medical record consultant condemnation engineer, who is aware and agrees with plan. 08/26/17 04:[address] Scales, who is aware and agrees with plan. Accepts pt in to hospitalist service. Pt will go to Telemetry observation for alcohol withdrawal syndrome. - Lab Interpretations Lab Results: 08/27/17 05:30 08/27/17 05:30 Lab Results 08/27/17 05:30: Sodium 144, Potassium 3.9, Chloride 106, Carbon Dioxide 28, Anion Gap 14, BUN 13, Creatinine 0.5 L, Est GFR ( Amer) > 60, Est GFR ( Non-Af Amer) > 60, Random Glucose 95, Calcium 9.4, Total Bilirubin 0.1 L, AST 27 , ALT 16, Alkaline Phosphatase 79, Total Protein 6.5, Albumin 3.6, Globulin 2.9 , Albumin/Globulin Ratio 1.2 08/27/17 05:30: WBC 7.2, RBC 3.82, Hgb 11.7 L, Hct 36.1, MCV 94.5, MCH 30.6, MCHC 32.4, RDW 15.2 H, Plt Count 316, MPV 8.7, Gran % 53.7, Lymph % (Auto) 35.7 H, [place] % (Auto) 6.6 H, Eos % (Auto) 3.9, Baso % (Auto) 0.1, Gran # 3.84, Lymph # (Auto) 2.6, [place] # (Auto) 0.5, Eos # (Auto) 0.3, Baso # (Auto) 0.01 08/26/17 01:50: Urine Color Yellow, Urine Appearance Clear, Urine pH 6.0, Ur Specific [place] 1.020, Urine Protein Negative, Urine Glucose (UA) Negative, Urine Ketones Negative, Urine Blood Negative, Urine Nitrate Negative, Urine Bilirubin Negative, Urine Urobilinogen 0.2, Ur Leukocyte Esterase Negative, Urine HCG, Qual Negative 08/26/17 01:50: Urine Opiates Screen Negative, Urine Methadone Screen Positive H , Ur Barbiturates Screen Negative, Ur Phencyclidine Scrn Negative, Ur Amphetamines Screen Negative, U Benzodiazepines Scrn Positive, U Oth Cocaine Metabols Positive H, U Cannabinoids Screen Positive H 08/26/17 01:36: Alcohol, Quantitative 62 H 08/26/17 01:36: Sodium 145, Potassium 3.4 L, Chloride 106, Carbon Dioxide 24, Anion Gap 19, BUN 8, Creatinine 0.5 L, Est GFR ( Amer) > 60, Est GFR (Non -Af Amer) > 60, Random Glucose 99, Calcium 9.2, Total Bilirubin 0.1 L, AST 28, ALT 28, Alkaline Phosphatase 72, Troponin I < 0.01, Total Protein 6.9, Albumin 4.1, Globulin 2.9, Albumin/Globulin Ratio 1.4, Lipase 163 08/26/17 01:36: PT 10.8, INR 0.95, APTT 29.6 08/26/17 01:36: WBC 6.2 D, RBC 3.84, Hgb 11.9 L, Hct 35.7 L, MCV 93.0, MCH 31.0 , MCHC 33.3, RDW 15.2 H, Plt Count 349, MPV 8.5, Gran % 52.7, Lymph % (Auto) 38.3 H, [place] % (Auto) 5.8, Eos % (Auto) 2.9, Baso % (Auto) 0.3, Gran # 3.28, Lymph # (Auto) 2.4, [place] # (Auto) 0.4, Eos # (Auto) 0.2, Baso # (Auto) 0.02 - EKG Interpretation Interpreted by ED Physician: Yes Type: 12 lead EKG - Medication Orders Current Medication Orders: Chlordiazepoxide (Librium) 25 mg PO Q6 GEORGE Last Admin: 08/29/17 17:40 Dose: 25 mg Behavioural Document 08/29/17 17:40 GM (Rec: 08/29/17 17:41 GM [place] [id number]) Maintenance Maintenance Dose No Nonmedicinal Nonmedicinal Interventions Redirect Therapeutic Communication Behavior Behavior for Medication: Anxiety Enoxaparin Sodium (Lovenox) 40 mg SC DAILY [facility] PRN Reason: Protocol Last Admin: 08/29/17 09:13 Dose: 40 mg Subcutaneous Administrations Document 08/29/17 09:13 GM (Rec: 08/29/17 09:13 GM [place] [id number]) Charges for Administration # of Subcutaneous Administrations 1 Fluoxetine HCl (Prozac) 20 mg PO DAILY [facility] Last Admin: 08/29/17 09:12 Dose: 20 mg Folic Acid (Folic Acid) 1 mg PO DAILY [facility] Last Admin: 08/29/17 09:13 Dose: 1 mg Lorazepam (Ativan) 1 mg IVP Q4H PRN PRN Reason: Symptoms of alcohol withdrawl Last Admin: 08/29/17 17:40 Dose: 1 mg IVP Administration Document 08/29/17 17:40 GM (Rec: 08/29/17 17:41 GM [place] [id number]) Charges for Administration # of IVP Administrations 1 Behavioural Document 08/29/17 17:40 GM (Rec: 08/29/17 17:41 GM [place] [id number]) Maintenance Maintenance Dose No Nonmedicinal Nonmedicinal Interventions Redirect Therapeutic Communication Behavior Behavior for Medication: Anxiety Methadone HCl (Methadone) 200 mg PO DAILY [facility] Last Admin: 08/29/17 09:14 Dose: 200 mg [facility] Pain Assessment Document 08/29/17 09:14 GM (Rec: 08/29/17 09:16 GM [place] [id number]) Pain Reassessment Is this a pain reassessment? No Presence of Pain Presence of Pain No Re-Assess: [facility] Pain Assessment Document 08/29/17 10:14 GM (Rec: 08/29/17 15:03 GM [id number]) Pain Reassessment Is this a pain reassessment? No Presence of Pain Presence of Pain No Multivitamins (Thera Tab) 1 tab PO DAILY [facility] Last Admin: 08/29/17 09:13 Dose: 1 tab Nicotine (Nicoderm Cq) 1 patch TD DAILY [facility] Last Admin: 08/29/17 09:13 Dose: 1 patch Thiamine HCl (Vitamin B1 Tab) 100 mg PO DAILY [facility] Last Admin: 08/29/17 09:12 Dose: 100 mg Discontinued Medications Chlordiazepoxide (Librium) 25 mg PO STAT STA PRN Reason: Protocol Stop: 08/26/17 01:15 Last Admin: 08/26/17 01:22 Dose: 25 mg Re-Assess: Reassess Psych Meds Document 08/26/17 02:22 ML (Rec: 08/26/17 13:05 ML [id number]) Reassess Psych Med Effective Chlordiazepoxide (Librium) 25 mg PO BID PRN PRN Reason: Withdrawl Chlordiazepoxide (Librium) 25 mg PO Q6H [facility] Last Admin: 08/26/17 08:32 Dose: Chlordiazepoxide (Librium) 25 mg PO Q6H [facility] Last Admin: 08/27/17 02:47 Dose: 25 mg Behavioural Document 08/27/17 02:47 MV (Rec: 08/27/17 02:47 MV [facility]) Maintenance Maintenance Dose Yes Re-Assess: Reassess Psych Meds Document 08/27/17 03:47 MV (Rec: 08/27/17 04:24 MV [place] [id number]) Reassess Psych Med Effective Chlordiazepoxide (Librium) 10 mg PO Q6H [facility] Last Admin: 08/29/17 05:58 Dose: 10 mg Behavioural Document 08/29/17 05:58 SANDRA (Rec: 08/29/17 05:59 SANDRA [id number]) Maintenance Maintenance Dose Yes Nonmedicinal Nonmedicinal Interventions Redirect Behavior Behavior for Medication: Continuous pacing/restlessness Chlordiazepoxide (Librium) 10 mg PO Q6 [facility] Stop: 09/10/17 07:00 Chlordiazepoxide (Librium) 25 mg PO Q6 [facility] Stop: 09/10/17 07:00 Fluoxetine HCl (Prozac) 40 mg PO DAILY [facility] Last Admin: 08/26/17 09:39 Dose: 40 mg Gabapentin (Neurontin) 600 mg PO TID GEORGE PRN Reason: Protocol Last Admin: 08/26/17 09:39 Dose: 600 mg Behavioural Document 08/26/17 09:39 ML (Rec: 08/26/17 09:39 ML [id number]) Maintenance Maintenance Dose Yes Re-Assess: Reassess Psych Meds Document 08/26/17 10:39 ML (Rec: 08/26/17 12:13 ML [id number]) Reassess Psych Med Effective Sodium Chloride (Sodium Chloride 0.9%) 1,000 mls @ 80 mls/hr IV .[id number] [facility] Last Admin: 08/26/17 01:35 Dose: 80 mls/hr eMAR Start Stop Document 08/26/17 01:35 RG (Rec: 08/26/17 01:35 RG [id number]) Intravenous Solution Start Date 08/26/17 Start Time 01:35 Folic Acid 1 mg/ Thiamine HCl 100 mg/ Multivitamins/Vitamin C 10 ml/ Dextrose 1 ,011.2 mls @ 100 mls/hr IV .[id number] [facility] Stop: 08/26/17 15:06 Last Admin: 08/26/17 05:49 Dose: 100 mls/hr eMAR Start Stop Document 08/26/17 05:49 RS (Rec: 08/26/17 05:49 RS [id number]) Intravenous Solution Start Date 08/26/17 Start Time 05:49 Ibuprofen (Motrin Tab) 400 mg PO ONCE ONE Stop: 08/28/17 19:45 Last Admin: 08/28/17 20:17 Dose: 400 mg [facility] Pain/Vitals Document 08/28/17 20:17 SANDRA (Rec: 08/28/17 20:18 SANDRA [id number]) Pain Reassessment Is This A Pain ReAssessment? Yes Sleep Is patient sleeping during reassessment? No Presence of Pain Presence of Pain Yes Pain Scale Used Pain Scale Used Numeric Location Pain Location Body Site tooth Description Intermittent Intensity 10 Scale Used Numeric Pain Behavior Facial Grimacing Aggravating Factors None Alleviating Factors Medication Re-Assess: [facility] Pain/Vitals Document 08/28/17 21:17 SANDRA (Rec: 08/28/17 21:57 SANDRA [id number]) Pain Reassessment Is This A Pain ReAssessment? Yes Sleep Is patient sleeping during reassessment? No Presence of Pain Presence of Pain No Pain Scale Used Pain Scale Used Numeric Lorazepam (Ativan) 1 mg IVP ONCE ONE PRN Reason: Protocol Stop: 08/28/17 22:51 Last Admin: 08/28/17 22:56 Dose: 1 mg IVP Administration Document 08/28/17 22:56 SANDRA (Rec: 08/28/17 22:56 SANDRA [id number]) Charges for Administration # of IVP Administrations 1 Behavioural Document 08/28/17 22:56 SANDRA (Rec: 08/28/17 22:56 SANDRA [id number]) Maintenance Maintenance Dose Yes Nonmedicinal Nonmedicinal Interventions Redirect Behavior Behavior for Medication: Continuous pacing/restlessness Re-Assess: Reassess Psych Meds Document 08/28/17 23:26 SANDRA (Rec: 08/29/17 00:50 SANDRA [id number]) Reassess Psych Med Effective Methadone HCl (Methadone) 200 mg PO DAILY GEORGE Mirtazapine (Remeron) 45 mg PO HS [facility] Last Admin: 08/27/17 21:59 Dose: 45 mg Pantoprazole Sodium (Protonix Inj) 40 mg IVP DAILY GEORGE Pantoprazole Sodium (Protonix Ec Tab) 40 mg PO DAILY [facility] Last Admin: 08/27/17 09:03 Dose: 40 mg Potassium Chloride (K-Dur 20 Meq Er Tab) 20 meq PO ONCE ONE Stop: 08/26/17 06:52 Last Admin: 08/26/17 09:40 Dose: Not Given Non-Admin Reason: Patient Refused Quetiapine Fumarate (Seroquel Xr) 300 mg PO [facility] Last Admin: 08/26/17 09:38 Dose: 300 mg Behavioural Document 08/26/17 09:38 ML (Rec: 08/26/17 09:39 ML [id number]) Maintenance Maintenance Dose Yes Re-Assess: Reassess Psych Meds Document 08/26/17 10:38 ML (Rec: 08/26/17 13:04 ML [id number]) Reassess Psych Med Effective Quetiapine Fumarate (Seroquel) 300 mg PO HS [facility] PRN Reason: Protocol Last Admin: 08/27/17 22:00 Dose: 300 mg Behavioural Document 08/27/17 22:00 SD (Rec: 08/27/17 22:01 SD [id number]) Maintenance Maintenance Dose Yes Re-Assess: Reassess Psych Meds Document 08/27/17 23:00 DCP (Rec: 08/27/17 23:49 DCP [id number]) Reassess Psych Med Effective Quetiapine Fumarate (Seroquel) 25 mg PO ONCE ONE PRN Reason: Protocol Stop: 08/28/17 22:01 Last Admin: 08/28/17 22:05 Dose: Not Given Non-Admin Reason: Patient Refused - Scribe Statement The provider has reviewed the documentation as recorded by the Pacheco Crane Provider Scribe Attestation: All medical record entries made by the Joyibe were at my direction and personally dictated by me. I have reviewed the chart and agree that the record accurately reflects my personal performance of the history, physical exam, medical decision making, and the department course for this patient. I have also personally directed, reviewed, and agree with the discharge instructions and disposition. Disposition/Present on Arrival - Present on Arrival Any Indicators Present on Arrival: No History of DVT/PE: No History of Uncontrolled Diabetes: No Urinary Catheter: No History of Decub. Ulcer: No History Surgical Site Infection Following: None - Disposition Have Diagnosis and Disposition been Completed?: Yes Diagnosis: Alcohol withdrawal Disposition: HOSPITALIZED Disposition Time: 04:39 Patient Problems: Current Active Problems Problem Status Onset Prophylactic measure Acute Condition: FAIR
[2017-08-26 01:58] LABS: BASO # 0.02 K/mm3 (0.0-2.0); BASO % 0.3 % (0.0-3.0); EOS # 0.2 (0.0-0.7); EOS % 2.9 % (1.5-5.0); GRAN # 3.28 (1.4-6.5); GRAN % 52.7 % (50.0-68.0); HEMOGLOBIN 11.9 g/dL (12.0-16.0); LYMPH # 2.4 (1.2-3.4); LYMPH % 38.3 % (22.0-35.0); MEAN CORPUSCULAR HGB CONC 33.3 g/dl (31.0-37.0); MEAN PLATELET VOLUME 8.5 fl (7.0-11.0); MONO # 0.4 (0.1-0.6); MONO % 5.8 % (1.0-6.0); RBC 3.84 10^6/uL (3.5-6.1); RED CELL DISTRIBUTION WIDTH 15.2 % (11.5-14.5); WHITE BLOOD COUNT 6.2 10^3/ul (4.5-11.0)
[2017-08-26 02:10] LABS: INR 0.95 (0.93-1.08); PARTIAL THROMBOPLASTIN TIME 29.6 Seconds (25.1-36.5); PROTHROMBIN TIME 10.8 SECONDS (9.4-12.5)
[2017-08-26 02:20] LABS: ALB/GLOB RATIO 1.4 (1.1-1.8); ALBUMIN 4.1 g/dL (3.0-4.8); ALT/SGPT 28 U/L (7-56); AST/SGOT 28 U/L (14-36); BLOOD UREA NITROGEN 8 mg/dL (7-21); CALCIUM 9.2 mg/dL (8.4-10.5); GFR AFRICAN-AMERICAN > 60; GFR NON-AFRICAN AMERICAN > 60; LIPASE 163 U/L (23-300)
[2017-08-26 02:20] LABS: URINE BILIRUBIN NEGATIVE (NEGATIVE); URINE BLOOD NEGATIVE (NEGATIVE); URINE GLUCOSE (UA) NEGATIVE (NEGATIVE); URINE LEUKOCYTE ESTERASE NEGATIVE Leu/uL (NEGATIVE); URINE PROTEIN NEGATIVE mg/dL (<30 mg/dL); URINE UROBILINOGEN 0.2 E.U./dL (<1 E.U./dL)
[2017-08-26 02:22] LABS: URINE APPEARANCE CLEAR (CLEAR); URINE COLOR YELLOW (YELLOW)
[2017-08-26 02:24] LABS: HCG,QUALITATIVE URINE NEGATIVE (NEGATIVE)
[2017-08-26 02:28] LABS: TROPONIN I < 0.01 ng/mL
[2017-08-26 02:39] LABS: PHENCYCLIDINE, UR NEGATIVE (NEGATIVE)
[2017-08-26 02:42] LABS: BARBITURATES, UR NEGATIVE (NEGATIVE); BENZODIAZEPINES, UR POSITIVE (NEGATIVE); OPIATES, UR NEGATIVE (NEGATIVE)
[2017-08-26] MEDS ORDERED: Folic Acid 1 MG, Thiamine 100 MG, Multivitamin (MVI) 10 ML in Dextrose 5% In Water 1,00... IV SCH (05:00)
--- NOTE | 2017-08-26 06:02 | CP.PCM.HP ---
<Emery Cai - Last Filed: 08/26/17 07:16> History of Present Illness - History of Present Illness History of Present Illness: CC: Withdrawal HPI: 32 year old female with past medical history of bipolar disorder, polysubstance abuse currently on methadone 200mg who presents with withdrawal symptoms and chest discomfort. Patient reports last evening patient took her prescribed medications of seroquel 2 tab 300mg and remeron 45mg. She began to experience chest discomfort and left sided weakness/numbness that lasted for unknown period of time likely less than 5 minutes. Patient reports last drink of alcohol was 3 days prior to presentation. Over the past 12-24 hours she has been experiencing shakiness and agitation similar to previous episodes of alcohol withdrawal. She states she usually drinks 2-3 pints of vodka a day. Patient denies fever, chills, nausea, vomiting, weakness, focal deficits, hallucinations either visual or auditory. PMH: bipolar, polysubstance abuse, heroin abuse on methadone PSH: Denies SOCHX: Tobacco: 1ppd x >10yrs, ETOH: alcohol abuse, ID: history of marijuana, PCP and heroin use FMH: Denies ALL: Pentazocine MEDS: - Seroquel 300mg - Remeron 45 mg - Paxil - Methadone 200mg - check with [facility] Present on Admission - Present on Admission Any Indicators Present on Admission: No Review of Systems - Review of Systems All systems: reviewed and no additional remarkable complaints except (as mentioned in HPI) Past Patient History - Infectious Disease Hx of Infectious Diseases: None - Past Social History Smoking Status: Heavy Smoker > 10 Cigarettes Daily Alcohol: > 2 Drinks/Day Drugs: Cannabis, Cocaine, Opiates - CARDIAC Hx Hypertension: No - PULMONARY Hx Respiratory Disorders: No - NEUROLOGICAL Hx Seizures: No - HEENT Hx HEENT Problems: No - RENAL Hx Chronic Kidney Disease: Yes Hx Kidney Stones: Yes - ENDOCRINE/METABOLIC Hx Endocrine Disorders: No - HEMATOLOGICAL/ONCOLOGICAL Hx Blood Disorders: Yes Hx Hepatitis A: Yes - INTEGUMENTARY Hx Dermatological Problems: Yes (tatoos) - MUSCULOSKELETAL/RHEUMATOLOGICAL Hx Falls: No - GASTROINTESTINAL Hx Gastrointestinal Disorders: No - GENITOURINARY/GYNECOLOGICAL Hx Sexually Transmitted Disorders: No - PSYCHIATRIC Hx Bipolar Disorder: Yes Hx Depression: Yes Hx Post Traumatic Stress Disorder: Yes Hx Substance Use: (admits to pot only, but on methadone) - SURGICAL HISTORY Hx Surgeries: No - ANESTHESIA Hx Anesthesia: No Meds Allergies/Adverse Reactions: Allergies Allergy/AdvReac Type Severity Reaction Status Date / Time pentazocine AdvReac FEVER Verified 07/26/17 09:00 Physical Exam - Constitutional Appears: Non-toxic - Head Exam Head Exam: ATRAUMATIC, NORMAL INSPECTION, NORMOCEPHALIC - Eye Exam Eye Exam: EOMI - ENT Exam ENT Exam: Mucous Membranes Dry - Neck Exam Neck exam: Positive for: Full Rom. Negative for: Lymphadenopathy - Respiratory Exam Respiratory Exam: Clear to Auscultation Bilateral, NORMAL BREATHING PATTERN. absent: Rhonchi, Wheezes - Cardiovascular Exam Cardiovascular Exam: Tachycardia, +S1, +S2 - GI/Abdominal Exam GI & Abdominal Exam: Normal Bowel Sounds, Soft, Tenderness (mildly diffuse on palpation). absent: Firm, Guarding - Extremities Exam Extremities exam: Positive for: normal capillary refill. Negative for: calf tenderness, pedal edema, pedal pulses present - Neurological Exam Neurological exam: Alert, Oriented x3 Additional comments: motor and sensory grossly intact - Psychiatric Exam Psychiatric exam: Agitated Additional comments: lethargic - Skin Skin Exam: Diaphoretic (mildly), Warm Results - Vital Signs Recent Vital Signs: Last Vital Signs Temp 97.6 F 08/26/17 01:19 Pulse 91 H 08/26/17 04:41 Resp 12 08/26/17 04:41 BP 123/79 08/26/17 04:41 Pulse Ox 97 08/26/17 04:41 - Labs Result Diagrams: 08/26/17 01:36 08/26/17 01:36 Labs: Laboratory Results - last 24 hr 08/26/17 08/26/17 08/26/17 01:36 01:36 01:36 WBC 6.2 D RBC 3.84 Hgb 11.9 L Hct 35.7 L MCV 93.0 MCH 31.0 MCHC 33.3 RDW 15.2 H Plt Count 349 MPV 8.5 Gran % 52.7 Lymph % (Auto) 38.3 H [place] % (Auto) 5.8 Eos % (Auto) 2.9 Baso % (Auto) 0.3 Gran # 3.28 Lymph # (Auto) 2.4 [place] # (Auto) 0.4 Eos # (Auto) 0.2 Baso # (Auto) 0.02 PT 10.8 INR 0.95 APTT 29.6 Sodium 145 Potassium 3.4 L Chloride 106 Carbon Dioxide 24 Anion Gap 19 BUN 8 Creatinine 0.5 L Est GFR ( Amer) > 60 Est GFR (Non-Af Amer) > 60 Random Glucose 99 Calcium 9.2 Total Bilirubin 0.1 L AST 28 ALT 28 Alkaline Phosphatase 72 Troponin I < 0.01 Total Protein 6.9 Albumin 4.1 Globulin 2.9 Albumin/Globulin Ratio 1.4 Lipase 163 Urine Color Urine Appearance Urine pH Ur Specific [place] Urine Protein Urine Glucose (UA) Urine Ketones Urine Blood Urine Nitrate Urine Bilirubin Urine Urobilinogen Ur Leukocyte Esterase Urine HCG, Qual Urine Opiates Screen Urine Methadone Screen Ur Barbiturates Screen Ur Phencyclidine Scrn Ur Amphetamines Screen U Benzodiazepines Scrn U Oth Cocaine Metabols U Cannabinoids Screen Alcohol, Quantitative 08/26/17 08/26/17 08/26/17 01:36 01:50 01:50 WBC RBC Hgb Hct MCV MCH MCHC RDW Plt Count MPV Gran % Lymph % (Auto) [place] % (Auto) Eos % (Auto) Baso % (Auto) Gran # Lymph # (Auto) [place] # (Auto) Eos # (Auto) Baso # (Auto) PT INR APTT Sodium Potassium Chloride Carbon Dioxide Anion Gap BUN Creatinine Est GFR ( Amer) Est GFR (Non-Af Amer) Random Glucose Calcium Total Bilirubin AST ALT Alkaline Phosphatase Troponin I Total Protein Albumin Globulin Albumin/Globulin Ratio Lipase Urine Color Yellow Urine Appearance Clear Urine pH 6.0 Ur Specific [place] 1.020 Urine Protein Negative Urine Glucose (UA) Negative Urine Ketones Negative Urine Blood Negative Urine Nitrate Negative Urine Bilirubin Negative Urine Urobilinogen 0.2 Ur Leukocyte Esterase Negative Urine HCG, Qual Negative Urine Opiates Screen Negative Urine Methadone Screen Positive H Ur Barbiturates Screen Negative Ur Phencyclidine Scrn Negative Ur Amphetamines Screen Negative U Benzodiazepines Scrn Positive U Oth Cocaine Metabols Positive H U Cannabinoids Screen Positive H Alcohol, Quantitative 62 H Assessment & Plan - Assessment and Plan (Free Text) Assessment: 32 year old patient with bipolar disorder, polysubstance abuse who presents with alcohol withdrawal Plan: Alcohol withdrawal - Alcohol level 62 - EKG showed NSR at 99 bpm, NO ST segment elevations/depressions - CIWA protocol - Ativan 1mg Q4h prn - Librium 25 BID - Aspiration precaution, seizure precaution, fall precaution - Banana bag then multivitamin, thiamine Polysubstance abuse - UDS positive for methadone, patient enrolled in clinic - UDS positive for cocaine and THC Hx of Bipolar disorder - Not currently taking medication - Outpatient psych follow up GI PPX: Protonix DVT ppx: SCDs Case and plan discussed with attending - Date & Time Date: 08/26/17 Time: 06:26 <Miller Scales - Last Filed: 08/26/17 19:10> Results - Vital Signs Recent Vital Signs: Last Vital Signs Temp 98.8 F 08/26/17 17:17 Pulse 71 08/26/17 18:00 Resp 19 08/26/17 17:17 BP 105/67 08/26/17 17:17 Pulse Ox 97 08/26/17 17:17 - Labs Result Diagrams: 08/26/17 01:36 08/26/17 01:36 Attending/Attestation - Attestation I have personally seen and examined this patient.: Yes I have fully participated in the care of the patient.: Yes I have reviewed all pertinent clinical information: Yes Notes (Text): 08/26/17 19:09 Patient was seen when she was in the ER. Agree with history, physical examination, assessment and plan.
[2017-08-26] MEDS ORDERED: Potassium Chloride 20 mEq ER Tab PO ONE (06:51)
[2017-08-26 07:36] VITALS: BMI 29.2
[2017-08-26] MEDS: Pantoprazole 40 mg EC Tab PO SCH (09:42)
[2017-08-26] MEDS ORDERED: QUEtiapine 300 mg XR Tab PO SCH (10:00)
--- NOTE | 2017-08-26 10:30 | CARD ---
APPROVED REPORT EKG Measurement Heart [id number] <Conclusion> Normal sinus rhythm Normal ECG No change
--- NOTE | 2017-08-26 15:09 | CON ---
DATE: HISTORY OF PRESENT ILLNESS: In short, the patient is 32-year-old female with a reported history of alcohol use disorder, polysubstance abuse and dependence, currently on methadone. The patient also has mood disorder, previous psychiatric admissions. The patient was admitted to the medical side for left-sided chest pain. The patient also was admitted for evaluation of alcohol withdrawal symptoms. Psych consult was called because the patient has history of mental illness. The patient was seen and examined. This teletypewriter operator is very familiar with this patient from the previous admission to the psychiatric inpatient unit which took place here in [facility] on 07/15/2017. The patient presented today very well, looked healthier than before. The patient reported that she is doing well. The patient is not homeless. The patient lives with her brother. The patient reported that she is not taking any psychotropic medications and feeling good. The patient reported that she still goes to methadone clinic and the patient reported that she started seeing a psychiatrist at [facility]. The patient reported that she is not depressed. The patient denied thoughts of harming herself or others. The patient is not psychotic. The patient said that her drinking problems are out of control and she wants to get help for that. At the same time, the patient is not a good candidate for naltrexone program because she is on methadone. Vital signs reviewed, seems to be stable. Temperature 98.5, pulse 71, blood pressure 105/67, respirations 18, oxygen saturation is 98. Medications reviewed. The patient is on Librium 25 mg every 6 hours; Prozac 40 mg daily, which was resumed by medical team; folic acid; Ativan 1 mg IV push every 4 hours as needed; methadone; multivitamin; Nicoderm; Protonix and vitamin B1. The patient is not on any Seroquel. MENTAL STATUS EXAMINATION: The patient presented to be alert and oriented, pleasant, cooperative, looks healthier. The patient seems to gain some weight. The patient remembered this teletypewriter operator by her name. Good eye contact. Speech was normal rate, tone, quality and quantity. Thought process seems to be coherent and goal directed. Thought content, the patient denied visual, auditory or tactile hallucinations. Denied paranoid ideation. Denied thoughts of harming herself or others. Denied intent or plan. Insight and judgment into her addiction problem are fair. Impulses are well controlled. IMPRESSION: As per history, polysubstance abuse and dependence. The patient is on methadone program. Rule out substance-induced mood disorder. PLAN: The patient was off any psychotropic medication, but medical team started the patient on Prozac 40 mg. 40 mg will be high dose for her. This teletypewriter operator decreased it to 20 mg. The patient has followup appointment with [facility]. The patient needs to continue with methadone as of now. The patient is not psychotic. The patient is not depressed. The patient is not in any imminent danger to self or others. This teletypewriter operator will sign off. Should you have any questions, give me a call back. Please reconsult as needed. Dora Kenney MD
[2017-08-27 06:26] LABS: BASO # 0.01 K/mm3 (0.0-2.0); BASO % 0.1 % (0.0-3.0); EOS # 0.3 (0.0-0.7); EOS % 3.9 % (1.5-5.0); GRAN # 3.84 (1.4-6.5); GRAN % 53.7 % (50.0-68.0); HEMOGLOBIN 11.7 g/dL (12.0-16.0); LYMPH # 2.6 (1.2-3.4); LYMPH % 35.7 % (22.0-35.0); MEAN CELL VOLUME 94.5 fl (80.0-105.0); MEAN CORPUSCULAR HEMOGLOBIN 30.6 pg (25.0-35.0); MEAN CORPUSCULAR HGB CONC 32.4 g/dl (31.0-37.0); MEAN PLATELET VOLUME 8.7 fl (7.0-11.0); MONO # 0.5 (0.1-0.6); MONO % 6.6 % (1.0-6.0); RBC 3.82 10^6/uL (3.5-6.1); RED CELL DISTRIBUTION WIDTH 15.2 % (11.5-14.5); WHITE BLOOD COUNT 7.2 10^3/ul (4.5-11.0)
[2017-08-27 07:25] LABS: ALB/GLOB RATIO 1.2 (1.1-1.8); ALBUMIN 3.6 g/dL (3.0-4.8); ALT/SGPT 16 U/L (7-56); AST/SGOT 27 U/L (14-36); BLOOD UREA NITROGEN 13 mg/dL (7-21); CALCIUM 9.4 mg/dL (8.4-10.5); GFR AFRICAN-AMERICAN > 60; GFR NON-AFRICAN AMERICAN > 60
[2017-08-27] MEDS: Pantoprazole 40 mg EC Tab PO SCH (09:03)
[2017-08-27] MEDS: Multivitamin Therapeutic Tab PO SCH (09:04)
--- NOTE | 2017-08-27 11:42 | CP.PCM.PN ---
<Yany Childs - Last Filed: 08/27/17 16:02> Subjective - Date & Time of Evaluation Date of Evaluation: 08/27/17 Time of Evaluation: 08:00 - Subjective Subjective: Hospitalist Service Patient seen and examined at bedside. CIWA was one. Patient alert and oriented, denied any complaints. Patient demonstrates insight into her addiction and affective disorder. Objective - Vital Signs/Intake and Output Vital Signs (last 24 hours): Temp Pulse Resp BP Pulse Ox 98.5 F 67 20 106/74 97 08/27/17 08:28 08/27/17 08:28 08/27/17 08:28 08/27/17 08:28 08/27/17 08:28 Intake and Output: 08/27/17 08/27/17 06:59 18:59 Intake Total 1100 Output Total 0 Balance 1100 - Medications Medications: Current Medications Chlordiazepoxide (Librium) 10 mg PO Q6H [facility] Fluoxetine HCl (Prozac) 20 mg PO DAILY [facility] Last Admin: 08/27/17 09:04 Dose: 20 mg Folic Acid (Folic Acid) 1 mg PO DAILY [facility] Last Admin: 08/27/17 09:01 Dose: 1 mg Lorazepam (Ativan) 1 mg IVP Q4H PRN PRN Reason: Symptoms of alcohol withdrawl Last Admin: 08/27/17 09:00 Dose: 1 mg Methadone HCl (Methadone) 200 mg PO DAILY [facility] Last Admin: 08/27/17 09:01 Dose: 200 mg Mirtazapine (Remeron) 45 mg PO HS [facility] Last Admin: 08/26/17 21:51 Dose: 45 mg Multivitamins (Thera Tab) 1 tab PO DAILY [facility] Last Admin: 08/27/17 09:04 Dose: 1 tab Nicotine (Nicoderm Cq) 1 patch TD DAILY [facility] Last Admin: 08/27/17 09:02 Dose: 1 patch Pantoprazole Sodium (Protonix Ec Tab) 40 mg PO DAILY [facility] Last Admin: 08/27/17 09:03 Dose: 40 mg Quetiapine Fumarate (Seroquel) 300 mg PO HS [facility] PRN Reason: Protocol Last Admin: 08/26/17 21:51 Dose: 300 mg Thiamine HCl (Vitamin B1 Tab) 100 mg PO DAILY [facility] Last Admin: 08/27/17 09:04 Dose: 100 mg - Labs Labs: 08/27/17 05:30 05/11/18 05:30 PT 10.8 SECONDS (9.4-12.5) 08/26/17 01:36 INR 0.95 (0.93-1.08) 08/26/17 01:36 APTT 29.6 Seconds (25.1-36.5) 08/26/17 01:36 - Constitutional Appears: Well, Non-toxic - Head Exam Head Exam: ATRAUMATIC, NORMOCEPHALIC - Eye Exam Eye Exam: EOMI, Normal appearance - ENT Exam ENT Exam: Mucous Membranes Moist - Neck Exam Neck Exam: Normal Inspection - Respiratory Exam Respiratory Exam: Clear to Ausculation Bilateral, NORMAL BREATHING PATTERN. absent: Accessory Muscle Use - Cardiovascular Exam Cardiovascular Exam: RRR, +S1, +S2 - GI/Abdominal Exam GI & Abdominal Exam: Soft, Normal Bowel Sounds - Extremities Exam Extremities Exam: Normal Inspection. absent: Calf Tenderness - Neurological Exam Neurological Exam: Alert, Awake, Oriented x3 - Psychiatric Exam Psychiatric exam: Normal Affect, Normal Mood - Skin Skin Exam: Dry, Intact, Normal Color, Warm Assessment and Plan - Assessment and Plan (Free Text) Assessment: 32 year old patient with bipolar disorder, polysubstance abuse who presents with alcohol withdrawal. Plan: Alcohol withdrawal - Alcohol level 62 - EKG showed NSR at 99 bpm, NO ST segment elevations/depressions - [facility] protocol - Ativan 1mg Q4h prn - Librium 10 mg q6h - Aspiration precaution, seizure precaution, fall precaution - Banana bag then multivitamin, thiamine Polysubstance abuse - UDS positive for methadone, patient enrolled in clinic - UDS positive for cocaine and THC Hx of Bipolar disorder - Psychiatric medications resumed - Psych recommendations appreciated - Continue with current psychotropics GI PPX: Protonix DVT ppx: SCDs Case and plan discussed with attending <Susan Woodard - Last Filed: 08/28/17 14:28> Objective - Vital Signs/Intake and Output Vital Signs (last 24 hours): Temp Pulse Resp BP Pulse Ox 97.9 F 82 18 118/70 94 L 08/28/17 08:26 08/28/17 08:26 08/28/17 08:26 08/28/17 08:26 08/28/17 08:26 Intake and Output: 08/28/17 08/28/17 06:59 18:59 Intake Total 1500 Balance 1500 - Medications Medications: Current Medications Chlordiazepoxide (Librium) 10 mg PO Q6H [facility] Last Admin: 08/28/17 06:00 Dose: 10 mg Enoxaparin Sodium (Lovenox) 40 mg SC DAILY [facility] PRN Reason: Protocol Fluoxetine HCl (Prozac) 20 mg PO DAILY [facility] Last Admin: 08/28/17 09:33 Dose: 20 mg Folic Acid (Folic Acid) 1 mg PO DAILY [facility] Last Admin: 08/28/17 09:32 Dose: 1 mg Lorazepam (Ativan) 1 mg IVP Q4H PRN PRN Reason: Symptoms of alcohol withdrawl Last Admin: 08/28/17 10:28 Dose: 1 mg Methadone HCl (Methadone) 200 mg PO DAILY [facility] Last Admin: 08/28/17 09:33 Dose: 200 mg Multivitamins (Thera Tab) 1 tab PO DAILY [facility] Last Admin: 08/28/17 09:33 Dose: 1 tab Nicotine (Nicoderm Cq) 1 patch TD DAILY [facility] Last Admin: 08/28/17 09:33 Dose: 1 patch Thiamine HCl (Vitamin B1 Tab) 100 mg PO DAILY [facility] Last Admin: 08/28/17 09:33 Dose: 100 mg - Labs Labs: 08/28/17 08:20 08/28/17 08:20 PT 10.8 SECONDS (9.4-12.5) 08/26/17 01:36 INR 0.95 (0.93-1.08) 08/26/17 01:36 APTT 29.6 Seconds (25.1-36.5) 08/26/17 01:36 Attending/Attestation - Attestation I have personally seen and examined this patient.: Yes I have fully participated in the care of the patient.: Yes I have reviewed all pertinent clinical information, including history, physical exam and plan: Yes Notes (Text): I have seen and examined the patient at bedside. Agree with the above note dictated by the resident. Counselling provided regarding alcohol, cocaine and marijuana. Continue medications for alcohol withdrawal. Upon discharge patient will follow up with PMD of choice or [facility] clinic.
[2017-08-28 08:53] LABS: BASO # 0.01 K/mm3 (0.0-2.0); BASO % 0.1 % (0.0-3.0); EOS # 0.3 (0.0-0.7); EOS % 3.6 % (1.5-5.0); GRAN # 4.83 (1.4-6.5); GRAN % 61.9 % (50.0-68.0); HEMOGLOBIN 12.2 g/dL (12.0-16.0); LYMPH # 2.2 (1.2-3.4); LYMPH % 28.4 % (22.0-35.0); MEAN CELL VOLUME 95.2 fl (80.0-105.0); MEAN CORPUSCULAR HEMOGLOBIN 30.8 pg (25.0-35.0); MEAN CORPUSCULAR HGB CONC 32.4 g/dl (31.0-37.0); MEAN PLATELET VOLUME 8.9 fl (7.0-11.0); MONO # 0.5 (0.1-0.6); RBC 3.96 10^6/uL (3.5-6.1); RED CELL DISTRIBUTION WIDTH 15.2 % (11.5-14.5); WHITE BLOOD COUNT 7.8 10^3/ul (4.5-11.0)
[2017-08-28 09:02] LABS: ALB/GLOB RATIO 1.3 (1.1-1.8); ALBUMIN 3.8 g/dL (3.0-4.8); ALT/SGPT 17 U/L (7-56); AST/SGOT 32 U/L (14-36); BLOOD UREA NITROGEN 14 mg/dL (7-21); CALCIUM 9.4 mg/dL (8.4-10.5); GFR AFRICAN-AMERICAN > 60; GFR NON-AFRICAN AMERICAN > 60
[2017-08-28] MEDS: Multivitamin Therapeutic Tab PO SCH (09:33)
--- NOTE | 2017-08-28 12:44 | CP.PCM.PN ---
<Amando Downs - Last Filed: 08/28/17 12:40> Subjective - Date & Time of Evaluation Date of Evaluation: 08/28/17 Time of Evaluation: 12:40 - Subjective Subjective: Patient seen and examined at bedside, Complaining of Visual hallucinations described as a shadow. Continues to have tremors. Will continue current management. No other complaints at this time. Objective - Vital Signs/Intake and Output Vital Signs (last 24 hours): Temp Pulse Resp BP Pulse Ox 97.9 F 82 18 118/70 94 L 08/28/17 08:26 08/28/17 08:26 08/28/17 08:26 08/28/17 08:26 08/28/17 08:26 Intake and Output: 08/28/17 08/28/17 06:59 18:59 Intake Total 1500 Balance 1500 - Medications Medications: Current Medications Chlordiazepoxide (Librium) 10 mg PO Q6H [facility] Last Admin: 08/28/17 06:00 Dose: 10 mg Fluoxetine HCl (Prozac) 20 mg PO DAILY [facility] Last Admin: 08/28/17 09:33 Dose: 20 mg Folic Acid (Folic Acid) 1 mg PO DAILY [facility] Last Admin: 08/28/17 09:32 Dose: 1 mg Lorazepam (Ativan) 1 mg IVP Q4H PRN PRN Reason: Symptoms of alcohol withdrawl Last Admin: 08/28/17 10:28 Dose: 1 mg Methadone HCl (Methadone) 200 mg PO DAILY [facility] Last Admin: 08/28/17 09:33 Dose: 200 mg Multivitamins (Thera Tab) 1 tab PO DAILY [facility] Last Admin: 08/28/17 09:33 Dose: 1 tab Nicotine (Nicoderm Cq) 1 patch TD DAILY [facility] Last Admin: 08/28/17 09:33 Dose: 1 patch Thiamine HCl (Vitamin B1 Tab) 100 mg PO DAILY [facility] Last Admin: 08/28/17 09:33 Dose: 100 mg - Labs Labs: 08/28/17 08:20 08/28/17 08:20 PT 10.8 SECONDS (9.4-12.5) 08/26/17 01:36 INR 0.95 (0.93-1.08) 08/26/17 01:36 APTT 29.6 Seconds (25.1-36.5) 08/26/17 01:36 - Constitutional Appears: Well - Head Exam Head Exam: ATRAUMATIC, NORMAL INSPECTION, NORMOCEPHALIC - Eye Exam Eye Exam: EOMI, Normal appearance, PERRL Pupil Exam: NORMAL ACCOMODATION, PERRL - ENT Exam ENT Exam: Mucous Membranes Moist, Normal Exam - Neck Exam Neck Exam: Full ROM, Normal Inspection. absent: Lymphadenopathy - Respiratory Exam Respiratory Exam: Clear to Ausculation Bilateral, NORMAL BREATHING PATTERN - Cardiovascular Exam Cardiovascular Exam: REGULAR RHYTHM, +S1, +S2. absent: Murmur - GI/Abdominal Exam GI & Abdominal Exam: absent: Distended, Tenderness - Exam Bimanual exam: NORMAL BIMANUAL EXAM - Extremities Exam Extremities Exam: Full ROM, Normal Capillary Refill, Normal Inspection. absent : Joint Swelling, Pedal Edema - Back Exam Back Exam: NORMAL INSPECTION - Neurological Exam Neurological Exam: Alert, Awake, CN II-XII Intact, Normal Gait, Oriented x3 - Psychiatric Exam Psychiatric exam: Normal Affect, Normal Mood - Skin Skin Exam: Dry, Intact, Normal Color, Warm Assessment and Plan (1) Alcohol withdrawal Assessment & Plan: Psych (Abddianav) Librium 10mg PO Q6 Folic acid, MV, Thiamine Ativan 1mg Q4H PRN Status: Acute (2) Polysubstance abuse Assessment & Plan: methadone 200 PO QD Status: Acute (3) Prophylactic measure Assessment & Plan: Lovenox 40 SC QD SCD No GI PPX indicated at this time Status: Acute <Susan Woodard - Last Filed: 08/29/17 13:46> Objective - Vital Signs/Intake and Output Vital Signs (last 24 hours): Temp Pulse Resp BP Pulse Ox 97.8 F 72 20 102/61 99 08/29/17 06:00 08/29/17 06:00 08/29/17 06:00 08/29/17 06:00 08/29/17 06:00 Intake and Output: 08/29/17 08/29/17 06:59 18:59 Intake Total 1500 Balance 1500 - Medications Medications: Current Medications Chlordiazepoxide (Librium) 25 mg PO Q6 [facility] Last Admin: 08/29/17 13:36 Dose: 25 mg Enoxaparin Sodium (Lovenox) 40 mg SC DAILY [facility] PRN Reason: Protocol Last Admin: 08/29/17 09:13 Dose: 40 mg Fluoxetine HCl (Prozac) 20 mg PO DAILY [facility] Last Admin: 08/29/17 09:12 Dose: 20 mg Folic Acid (Folic Acid) 1 mg PO DAILY [facility] Last Admin: 08/29/17 09:13 Dose: 1 mg Lorazepam (Ativan) 1 mg IVP Q4H PRN PRN Reason: Symptoms of alcohol withdrawl Last Admin: 08/29/17 09:13 Dose: 1 mg Methadone HCl (Methadone) 200 mg PO DAILY [facility] Last Admin: 08/29/17 09:14 Dose: 200 mg Multivitamins (Thera Tab) 1 tab PO DAILY [facility] Last Admin: 08/29/17 09:13 Dose: 1 tab Nicotine (Nicoderm Cq) 1 patch TD DAILY [facility] Last Admin: 08/29/17 09:13 Dose: 1 patch Thiamine HCl (Vitamin B1 Tab) 100 mg PO DAILY [facility] Last Admin: 08/29/17 09:12 Dose: 100 mg - Labs Labs: 08/29/17 07:39 08/29/17 07:39 PT 10.8 SECONDS (9.4-12.5) 08/26/17 01:36 INR 0.95 (0.93-1.08) 08/26/17 01:36 APTT 29.6 Seconds (25.1-36.5) 08/26/17 01:36 Attending/Attestation - Attestation I have personally seen and examined this patient.: Yes I have fully participated in the care of the patient.: Yes I have reviewed all pertinent clinical information, including history, physical exam and plan: Yes Notes (Text): I have seen and examined the patient at bedside. Agree with the above note dictated by the resident. Counselling provided regarding alcohol, cocaine and marijuana. Patient is going thru alcohol withdrawal and admits to visual hallucinations, agitation, headache, nausea, diaphoresis and tremors.Continue medications for alcohol withdrawal. Upon discharge patient will follow up with PMD of choice or [facility] clinic.
[2017-08-28] MEDS: Enoxaparin 40 mg Syringe SC SCH (14:31)
[2017-08-29 07:47] LABS: BASO # 0.02 K/mm3 (0.0-2.0); BASO % 0.3 % (0.0-3.0); EOS # 0.3 (0.0-0.7); GRAN # 3.75 (1.4-6.5); GRAN % 53.1 % (50.0-68.0); HEMOGLOBIN 11.9 g/dL (12.0-16.0); LYMPH # 2.6 (1.2-3.4); LYMPH % 36.6 % (22.0-35.0); MEAN CELL VOLUME 94.8 fl (80.0-105.0); MEAN CORPUSCULAR HGB CONC 32.7 g/dl (31.0-37.0); MEAN PLATELET VOLUME 9.3 fl (7.0-11.0); MONO # 0.4 (0.1-0.6); RBC 3.84 10^6/uL (3.5-6.1); WHITE BLOOD COUNT 7.1 10^3/ul (4.5-11.0)
[2017-08-29 08:03] LABS: ALB/GLOB RATIO 1.3 (1.1-1.8); ALBUMIN 3.8 g/dL (3.0-4.8); ALT/SGPT 22 U/L (7-56); AST/SGOT 39 U/L (14-36); BLOOD UREA NITROGEN 19 mg/dL (7-21); CALCIUM 9.7 mg/dL (8.4-10.5); GFR AFRICAN-AMERICAN > 60; GFR NON-AFRICAN AMERICAN > 60
[2017-08-29] MEDS: Multivitamin Therapeutic Tab PO SCH (09:13)
[2017-08-29] MEDS: Enoxaparin 40 mg Syringe SC SCH (09:13)
--- NOTE | 2017-08-29 12:25 | CP.PCM.PN ---
<Amando Downs - Last Filed: 08/29/17 12:23> Subjective - Date & Time of Evaluation Date of Evaluation: 08/29/17 Time of Evaluation: 12:23 - Subjective Subjective: Patient seen and examined at bedside. Complaining of tremors and black shadow like visions from the periphery. Complaining of L. hand swelling s/p IV infiltration. No other complaints at this time. States this is the worst alcohol w/d she has experienced to date. Objective - Vital Signs/Intake and Output Vital Signs (last 24 hours): Temp Pulse Resp BP Pulse Ox 97.8 F 72 20 102/61 99 08/29/17 06:00 08/29/17 06:00 08/29/17 06:00 08/29/17 06:00 08/29/17 06:00 Intake and Output: 08/29/17 08/29/17 06:59 18:59 Intake Total 1500 Balance 1500 - Medications Medications: Current Medications Chlordiazepoxide (Librium) 25 mg PO Q6 [facility] Enoxaparin Sodium (Lovenox) 40 mg SC DAILY [facility] PRN Reason: Protocol Last Admin: 08/29/17 09:13 Dose: 40 mg Fluoxetine HCl (Prozac) 20 mg PO DAILY [facility] Last Admin: 08/29/17 09:12 Dose: 20 mg Folic Acid (Folic Acid) 1 mg PO DAILY [facility] Last Admin: 08/29/17 09:13 Dose: 1 mg Lorazepam (Ativan) 1 mg IVP Q4H PRN PRN Reason: Symptoms of alcohol withdrawl Last Admin: 08/29/17 09:13 Dose: 1 mg Methadone HCl (Methadone) 200 mg PO DAILY [facility] Last Admin: 08/29/17 09:14 Dose: 200 mg Multivitamins (Thera Tab) 1 tab PO DAILY [facility] Last Admin: 08/29/17 09:13 Dose: 1 tab Nicotine (Nicoderm Cq) 1 patch TD DAILY [facility] Last Admin: 08/29/17 09:13 Dose: 1 patch Thiamine HCl (Vitamin B1 Tab) 100 mg PO DAILY [facility] Last Admin: 08/29/17 09:12 Dose: 100 mg - Labs Labs: 08/29/17 07:39 08/29/17 07:39 PT 10.8 SECONDS (9.4-12.5) 08/26/17 01:36 INR 0.95 (0.93-1.08) 08/26/17 01:36 APTT 29.6 Seconds (25.1-36.5) 08/26/17 01:36 - Constitutional Appears: Well - Head Exam Head Exam: ATRAUMATIC, NORMAL INSPECTION, NORMOCEPHALIC - Eye Exam Eye Exam: EOMI, Normal appearance, PERRL Pupil Exam: NORMAL ACCOMODATION, PERRL - ENT Exam ENT Exam: Mucous Membranes Moist, Normal Exam - Neck Exam Neck Exam: Full ROM, Normal Inspection. absent: Lymphadenopathy - Respiratory Exam Respiratory Exam: Clear to Ausculation Bilateral, NORMAL BREATHING PATTERN - Cardiovascular Exam Cardiovascular Exam: REGULAR RHYTHM, +S1, +S2. absent: Murmur - GI/Abdominal Exam GI & Abdominal Exam: Soft, Normal Bowel Sounds. absent: Distended, Tenderness - Extremities Exam Extremities Exam: Full ROM, Normal Capillary Refill, Normal Inspection. absent : Joint Swelling, Pedal Edema Additional comments: bilateral hand tremors - Back Exam Back Exam: NORMAL INSPECTION - Neurological Exam Neurological Exam: Alert, Awake, CN II-XII Intact, Normal Gait, Oriented x3 - Psychiatric Exam Psychiatric exam: Normal Affect, Normal Mood - Skin Skin Exam: Dry, Intact, Normal Color, Warm Assessment and Plan - Assessment and Plan (Free Text) Assessment: (1) Alcohol withdrawal Assessment & Plan: Psych (Abduabenjyv) Librium 25 mg PO Q6 Folic acid, MV, Thiamine Ativan 1mg Q4H PRN Status: Acute (2) Polysubstance abuse Assessment & Plan: methadone 200 PO QD Status: Acute (3) Prophylactic measure Assessment & Plan: Lovenox 40 SC QD SCD No GI PPX indicated at this time Status: Acute <Susan Woodard - Last Filed: 08/29/17 13:49> Objective - Vital Signs/Intake and Output Vital Signs (last 24 hours): Temp Pulse Resp BP Pulse Ox 97.8 F 72 20 102/61 99 08/29/17 06:00 08/29/17 06:00 08/29/17 06:00 08/29/17 06:00 08/29/17 06:00 Intake and Output: 08/29/17 08/29/17 06:59 18:59 Intake Total 1500 Balance 1500 - Medications Medications: Current Medications Chlordiazepoxide (Librium) 25 mg PO Q6 [facility] Last Admin: 08/29/17 13:36 Dose: 25 mg Enoxaparin Sodium (Lovenox) 40 mg SC DAILY [facility] PRN Reason: Protocol Last Admin: 08/29/17 09:13 Dose: 40 mg Fluoxetine HCl (Prozac) 20 mg PO DAILY [facility] Last Admin: 08/29/17 09:12 Dose: 20 mg Folic Acid (Folic Acid) 1 mg PO DAILY [facility] Last Admin: 08/29/17 09:13 Dose: 1 mg Lorazepam (Ativan) 1 mg IVP Q4H PRN PRN Reason: Symptoms of alcohol withdrawl Last Admin: 08/29/17 09:13 Dose: 1 mg Methadone HCl (Methadone) 200 mg PO DAILY [facility] Last Admin: 08/29/17 09:14 Dose: 200 mg Multivitamins (Thera Tab) 1 tab PO DAILY [facility] Last Admin: 08/29/17 09:13 Dose: 1 tab Nicotine (Nicoderm Cq) 1 patch TD DAILY [facility] Last Admin: 08/29/17 09:13 Dose: 1 patch Thiamine HCl (Vitamin B1 Tab) 100 mg PO DAILY [facility] Last Admin: 08/29/17 09:12 Dose: 100 mg - Labs Labs: 08/29/17 07:39 08/29/17 07:39 PT 10.8 SECONDS (9.4-12.5) 08/26/17 01:36 INR 0.95 (0.93-1.08) 08/26/17 01:36 APTT 29.6 Seconds (25.1-36.5) 08/26/17 01:36 Attending/Attestation - Attestation I have personally seen and examined this patient.: Yes I have fully participated in the care of the patient.: Yes I have reviewed all pertinent clinical information, including history, physical exam and plan: Yes Notes (Text): I have seen and examined the patient at bedside. Agree with the above note dictated by the resident. Counselling provided regarding alcohol, cocaine and marijuana. Patient is going thru alcohol withdrawal and admits to visual hallucinations, agitation, restlessness, headache, nausea, diaphoresis and tremors. Will increase librium and will closely monitor. Upon discharge patient will follow up with PMD of choice or [facility] clinic.
[2017-08-30 07:24] LABS: BASO # 0.02 K/mm3 (0.0-2.0); BASO % 0.3 % (0.0-3.0); EOS # 0.3 (0.0-0.7); EOS % 4.1 % (1.5-5.0); GRAN # 3.69 (1.4-6.5); GRAN % 57.6 % (50.0-68.0); HEMOGLOBIN 11.3 g/dL (12.0-16.0); LYMPH # 1.9 (1.2-3.4); MEAN CELL VOLUME 94.9 fl (80.0-105.0); MEAN CORPUSCULAR HEMOGLOBIN 30.3 pg (25.0-35.0); MEAN CORPUSCULAR HGB CONC 31.9 g/dl (31.0-37.0); MEAN PLATELET VOLUME 9.2 fl (7.0-11.0); MONO # 0.5 (0.1-0.6); RBC 3.73 10^6/uL (3.5-6.1); RED CELL DISTRIBUTION WIDTH 14.8 % (11.5-14.5); WHITE BLOOD COUNT 6.4 10^3/ul (4.5-11.0)
[2017-08-30 07:37] LABS: ALB/GLOB RATIO 1.2 (1.1-1.8); ALBUMIN 3.5 g/dL (3.0-4.8); ALT/SGPT 30 U/L (7-56); AST/SGOT 37 U/L (14-36); BLOOD UREA NITROGEN 14 mg/dL (7-21); CALCIUM 9.3 mg/dL (8.4-10.5); GFR AFRICAN-AMERICAN > 60; GFR NON-AFRICAN AMERICAN > 60
[2017-08-30 08:50] VITALS: BP 97/60; RESP 19; TEMP 98.6; O2SAT 96
[2017-08-30] MEDS: Multivitamin Therapeutic Tab PO SCH (09:40)
[2017-08-30] MEDS: Enoxaparin 40 mg Syringe SC SCH (09:41)
[2017-08-30 12:07] VITALS: PULSE 105
--- NOTE | 2017-08-30 12:57 | CP.PCM.DIS ---
<Yany Childs - Last Filed: 08/30/17 18:11> Provider - Provider Date of Admission: 08/27/17 11:13 Attending physician: Felton Torres MD Consults: Dr. Quiroz Time Spent in preparation of Discharge (in minutes): 35 Diagnosis - Discharge Diagnosis (1) Alcohol withdrawal Status: Acute (2) Narcotic dependence Status: Acute (3) Polysubstance abuse Status: Acute Hospital Course - Lab Results Lab Results: Most Recent Lab Values WBC 6.4 10^3/ul (4.5-11.0) 08/30/17 07:00 RBC 3.73 10^6/uL (3.5-6.1) 08/30/17 07:00 Hgb 11.3 g/dL (12.0-16.0) L 08/30/17 07:00 Hct 35.4 % (36.0-48.0) L 08/30/17 07:00 MCV 94.9 fl (80.0-105.0) 08/30/17 07:00 MCH 30.3 pg (25.0-35.0) 08/30/17 07:00 MCHC 31.9 g/dl (31.0-37.0) 08/30/17 07:00 RDW 14.8 % (11.5-14.5) H 08/30/17 07:00 Plt Count 245 10^3/uL (120.0-450.0) 08/30/17 07:00 MPV 9.2 fl (7.0-11.0) 08/30/17 07:00 Gran % 57.6 % (50.0-68.0) 08/30/17 07:00 Lymph % (Auto) 30.0 % (22.0-35.0) 08/30/17 07:00 [place] % (Auto) 8.0 % (1.0-6.0) H 08/30/17 07:00 Eos % (Auto) 4.1 % (1.5-5.0) 08/30/17 07:00 Baso % (Auto) 0.3 % (0.0-3.0) 08/30/17 07:00 Gran # 3.69 (1.4-6.5) 08/30/17 07:00 Lymph # (Auto) 1.9 (1.2-3.4) 08/30/17 07:00 [place] # (Auto) 0.5 (0.1-0.6) 08/30/17 07:00 Eos # (Auto) 0.3 (0.0-0.7) 08/30/17 07:00 Baso # (Auto) 0.02 K/mm3 (0.0-2.0) 08/30/17 07:00 PT 10.8 SECONDS (9.4-12.5) 08/26/17 01:36 INR 0.95 (0.93-1.08) 08/26/17 01:36 APTT 29.6 Seconds (25.1-36.5) 08/26/17 01:36 Sodium 142 mmol/L (132-148) 08/30/17 07:00 Potassium 4.2 mmol/L (3.6-5.0) 08/30/17 07:00 Chloride 103 mmol/L (98-107) 08/30/17 07:00 Carbon Dioxide 31 mmol/L (21-33) 08/30/17 07:00 Anion Gap 12 (10-20) 08/30/17 07:00 BUN 14 mg/dL (7-21) 08/30/17 07:00 Creatinine 0.6 mg/dl (0.7-1.2) L 08/30/17 07:00 Est GFR ( Amer) > 60 08/30/17 07:00 Est GFR (Non-Af Amer) > 60 08/30/17 07:00 Random Glucose 105 mg/dL (70-110) 08/30/17 07:00 Calcium 9.3 mg/dL (8.4-10.5) 08/30/17 07:00 Total Bilirubin 0.2 mg/dL (0.2-1.3) 08/30/17 07:00 AST 37 U/L (14-36) H 08/30/17 07:00 ALT 30 U/L (7-56) 08/30/17 07:00 Alkaline Phosphatase 67 U/L (38-126) 08/30/17 07:00 Troponin I < 0.01 ng/mL 08/26/17 01:36 Total Protein 6.3 g/dL (5.8-8.3) 08/30/17 07:00 Albumin 3.5 g/dL (3.0-4.8) 08/30/17 07:00 Globulin 2.9 gm/dL 08/30/17 07:00 Albumin/Globulin Ratio 1.2 (1.1-1.8) 08/30/17 07:00 Lipase 163 U/L (23-300) 08/26/17 01:36 Urine Color Yellow (YELLOW) 08/26/17 01:50 Urine Appearance Clear (CLEAR) 08/26/17 01:50 Urine pH 6.0 (4.7-8.0) 08/26/17 01:50 Ur Specific [place] 1.020 (1.005-1.035) 08/26/17 01:50 Urine Protein Negative mg/dL (<30 mg/dL) 08/26/17 01:50 Urine Glucose (UA) Negative mg/dL (NEGATIVE) 08/26/17 01:50 Urine Ketones Negative mg/dL (NEGATIVE) 08/26/17 01:50 Urine Blood Negative (NEGATIVE) 08/26/17 01:50 Urine Nitrate Negative (NEGATIVE) 08/26/17 01:50 Urine Bilirubin Negative (NEGATIVE) 08/26/17 01:50 Urine Urobilinogen 0.2 E.U./dL (<1 E.U./dL) 08/26/17 01:50 Ur Leukocyte Esterase Negative Qi/uL (NEGATIVE) 08/26/17 01:50 Urine HCG, Qual Negative (NEGATIVE) 08/26/17 01:50 Urine Opiates Screen Negative (NEGATIVE) 08/26/17 01:50 Urine Methadone Screen Positive (NEGATIVE) 08/26/17 01:50 Ur Barbiturates Screen Negative (NEGATIVE) 08/26/17 01:50 Ur Phencyclidine Scrn Negative (NEGATIVE) 08/26/17 01:50 Ur Amphetamines Screen Negative (NEGATIVE) 08/26/17 01:50 U Benzodiazepines Scrn Positive (NEGATIVE) 08/26/17 01:50 U Oth Cocaine Metabols Positive (NEGATIVE) H 08/26/17 01:50 U Cannabinoids Screen Positive (NEGATIVE) H 08/26/17 01:50 Alcohol, Quantitative 62 mg/dL (0-10) H 08/26/17 01:36 - Hospital Course Hospital Course: 32 year old bipolar female with a history of polysubstance abuse, opiod dependence on methadone, and recent cocaine use who presented for concerns of alcohol withdrawal. Urine drug screen was positive for cocaine, cannabinoids, and mathdone while blood serum alcohol level was 64. Patient was kept of scheduled Librium and PRN Ativan Psychiatry was consulted and resumed her psychotropics, but reduced the dosage of her Prozac. The patient was also restarted on her methadone. She had reported severe alcohol withdrawal symptoms , including but not limited to, diarrhea, visual disturbances, tremors, and sweating that required an increase in her Librium. She was subsequently tapered off her Ativan and Librium. Furthermore, by using the opiod withdrawal scale, the patient was considered to have no opiod withdrawal symptoms upon discharge especially since she was being given her Methadone. She was discharged with multivitamin, folic acid, thiamine, and Prozac. During the course of her hospital stay she was counselled on abstaining from alcohol, drugs, and tobacco. She was also advised to follow up with PMD within seven days of discharge. The patient also complained that she lost her shoes while at the hospital, and case management was referred to manage this crisis. - Date & Time of H&P Date of H&P: 08/30/17 Time of H&P: 18:24 Discharge Exam - Head Exam Head Exam: ATRAUMATIC, NORMAL INSPECTION, NORMOCEPHALIC - Eye Exam Eye Exam: EOMI, Normal appearance - ENT Exam ENT Exam: Mucous Membranes Moist - Neck Exam Neck exam: Normal Inspection - Respiratory Exam Respiratory Exam: Clear to PA & Lateral, NORMAL BREATHING PATTERN - Cardiovascular Exam Cardiovascular Exam: RRR, +S1, +S2 - GI/Abdominal Exam GI & Abdominal Exam: absent: Guarding, Rebound - Extremities Exam Extremities exam: normal inspection - Back Exam Back exam: absent: CVA tenderness (L), CVA tenderness (R) - Neurological Exam Neurological exam: Alert, CN II-XII Intact, Oriented x3 - Psychiatric Exam Psychiatric exam: Normal Affect, Normal Mood - Skin Skin Exam: Dry, Intact, Normal Color, Warm Discharge Plan - Discharge Medications Prescriptions: FLUoxetine [Prozac] 20 mg PO DAILY #30 cap Folic Acid 1 mg PO DAILY #30 tab Multivitamin Therapeutic Tab [Thera Tab] 1 tab PO DAILY #30 tab Thiamine [Vitamin B1 Tab] 100 mg PO DAILY #30 tab - Follow Up Plan Condition: FAIR Disposition: HOME/ ROUTINE Instructions: Alcohol Withdrawal (DC), Alcohol Abuse and Alcoholism (DC), Bipolar Disorder (DC) Additional Instructions: 1) Patient to abstain from alcohol, tobacco, and drug use. 2) Patient to take any medications as prescribed, unless otherwise directed. 3) Patient to follow up with primary medical doctor within one week from the date of discharge. Referrals: [facility], [Non-Staff] - <Felton Torres - Last Filed: 08/31/17 15:32> Provider - Provider Date of Admission: 08/27/17 11:13 Attending physician: Felton Torres MD Hospital Course - Lab Results Lab Results: Most Recent Lab Values WBC 6.4 10^3/ul (4.5-11.0) 08/30/17 07:00 RBC 3.73 10^6/uL (3.5-6.1) 08/30/17 07:00 Hgb 11.3 g/dL (12.0-16.0) L 08/30/17 07:00 Hct 35.4 % (36.0-48.0) L 08/30/17 07:00 MCV 94.9 fl (80.0-105.0) 08/30/17 07:00 MCH 30.3 pg (25.0-35.0) 08/30/17 07:00 MCHC 31.9 g/dl (31.0-37.0) 08/30/17 07:00 RDW 14.8 % (11.5-14.5) H 08/30/17 07:00 Plt Count 245 10^3/uL (120.0-450.0) 08/30/17 07:00 MPV 9.2 fl (7.0-11.0) 08/30/17 07:00 Gran % 57.6 % (50.0-68.0) 08/30/17 07:00 Lymph % (Auto) 30.0 % (22.0-35.0) 08/30/17 07:00 [place] % (Auto) 8.0 % (1.0-6.0) H 08/30/17 07:00 Eos % (Auto) 4.1 % (1.5-5.0) 08/30/17 07:00 Baso % (Auto) 0.3 % (0.0-3.0) 08/30/17 07:00 Gran # 3.69 (1.4-6.5) 08/30/17 07:00 Lymph # (Auto) 1.9 (1.2-3.4) 08/30/17 07:00 [place] # (Auto) 0.5 (0.1-0.6) 08/30/17 07:00 Eos # (Auto) 0.3 (0.0-0.7) 08/30/17 07:00 Baso # (Auto) 0.02 K/mm3 (0.0-2.0) 08/30/17 07:00 PT 10.8 SECONDS (9.4-12.5) 08/26/17 01:36 INR 0.95 (0.93-1.08) 08/26/17 01:36 APTT 29.6 Seconds (25.1-36.5) 08/26/17 01:36 Sodium 142 mmol/L (132-148) 08/30/17 07:00 Potassium 4.2 mmol/L (3.6-5.0) 08/30/17 07:00 Chloride 103 mmol/L (98-107) 08/30/17 07:00 Carbon Dioxide 31 mmol/L (21-33) 08/30/17 07:00 Anion Gap 12 (10-20) 08/30/17 07:00 BUN 14 mg/dL (7-21) 08/30/17 07:00 Creatinine 0.6 mg/dl (0.7-1.2) L 08/30/17 07:00 Est GFR ( Amer) > 60 08/30/17 07:00 Est GFR (Non-Af Amer) > 60 08/30/17 07:00 Random Glucose 105 mg/dL (70-110) 08/30/17 07:00 Calcium 9.3 mg/dL (8.4-10.5) 08/30/17 07:00 Total Bilirubin 0.2 mg/dL (0.2-1.3) 08/30/17 07:00 AST 37 U/L (14-36) H 08/30/17 07:00 ALT 30 U/L (7-56) 08/30/17 07:00 Alkaline Phosphatase 67 U/L (38-126) 08/30/17 07:00 Troponin I < 0.01 ng/mL 08/26/17 01:36 Total Protein 6.3 g/dL (5.8-8.3) 08/30/17 07:00 Albumin 3.5 g/dL (3.0-4.8) 08/30/17 07:00 Globulin 2.9 gm/dL 08/30/17 07:00 Albumin/Globulin Ratio 1.2 (1.1-1.8) 08/30/17 07:00 Lipase 163 U/L (23-300) 08/26/17 01:36 Urine Color Yellow (YELLOW) 08/26/17 01:50 Urine Appearance Clear (CLEAR) 08/26/17 01:50 Urine pH 6.0 (4.7-8.0) 08/26/17 01:50 Ur Specific [place] 1.020 (1.005-1.035) 08/26/17 01:50 Urine Protein Negative mg/dL (<30 mg/dL) 08/26/17 01:50 Urine Glucose (UA) Negative mg/dL (NEGATIVE) 08/26/17 01:50 Urine Ketones Negative mg/dL (NEGATIVE) 08/26/17 01:50 Urine Blood Negative (NEGATIVE) 08/26/17 01:50 Urine Nitrate Negative (NEGATIVE) 08/26/17 01:50 Urine Bilirubin Negative (NEGATIVE) 08/26/17 01:50 Urine Urobilinogen 0.2 E.U./dL (<1 E.U./dL) 08/26/17 01:50 Ur Leukocyte Esterase Negative Qi/uL (NEGATIVE) 08/26/17 01:50 Urine HCG, Qual Negative (NEGATIVE) 08/26/17 01:50 Urine Opiates Screen Negative (NEGATIVE) 08/26/17 01:50 Urine Methadone Screen Positive (NEGATIVE) H 08/26/17 01:50 Ur Barbiturates Screen Negative (NEGATIVE) 08/26/17 01:50 Ur Phencyclidine Scrn Negative (NEGATIVE) 08/26/17 01:50 Ur Amphetamines Screen Negative (NEGATIVE) 08/26/17 01:50 U Benzodiazepines Scrn Positive (NEGATIVE) 08/26/17 01:50 U Oth Cocaine Metabols Positive (NEGATIVE) H 08/26/17 01:50 U Cannabinoids Screen Positive (NEGATIVE) H 08/26/17 01:50 Alcohol, Quantitative 62 mg/dL (0-10) H 08/26/17 01:36 Attending/Attestation - Attestation I have personally seen and examined this patient.: Yes I have fully participated in the care of the patient.: Yes I have reviewed all pertinent clinical information, including history, physical exam and plan: Yes Notes (Text): 08/31/17 15:30 Medical record note made by the resident after discussion with my direction and input after the patient was personally seen and examined by me. I have reviewed the chart and agree that the record accurately reflects by personal performance of the history, physical exam, data review, and medical decision-making, in the course for the patient. I have also personally directed the plan of care. 32 years old female with PMH of Bipolar disorder, alcohol and drug abuse on methadone was admitted for alcohol withdrawal. Alcohol withdrawal are improved.Patient is ambulatory and is tolerating diet. There is no sign of opioid withdrawal at the time of discharge. Issue of ongoing alcohol and drug abuse was discussed in detail with her. Prognosis is guarded. Management plan was discussed in detail with patient. Education was provided.
== END 2017-08-30 12:54 | disposition home or self-care (01) | DRG 745 ==
LOC: ED 00:57 → ERH 04:38 → 3RSO 06:01 → OBSVTOIN 08-27 11:13 → 3RNO 08-28 21:41
PROVIDERS: ADMIT Internal Medicine; ATTEND Internal Medicine
DX: F10.239 Alcohol dependence with withdrawal, unspecified (principal); F11.20 Opioid dependence, uncomplicated; F31.9 Bipolar disorder, unspecified; F17.210 Nicotine dependence, cigarettes, uncomplicated; R07.89 Other chest pain; F14.90 Cocaine use, unspecified, uncomplicated; R44.1 Visual hallucinations; Y90.3 Blood alcohol level of 60-79 mg/100 ml

== ENCOUNTER 2017-09-03 06:09 | Emergency (ER) | payer MEDICAID ==
[2017-09-03 06:09] VITALS: BMI 29.2
== END 2017-09-03 07:35 | disposition left against medical advice (07) ==
LOC: ED 06:09
DX: Z02.89 Encounter for other administrative examinations (principal); R07.0 Pain in throat

== ENCOUNTER 2017-09-13 20:15 | Emergency (ER) | payer MEDICAID ==
[2017-09-13 20:16] VITALS: BMI 29.2
[2017-09-13 20:23] VITALS: TEMP 98.7; O2SAT 100
--- NOTE | 2017-09-13 20:48 | ED PDOC ---
Arrival/HPI - General Chief Complaint: Substance Abuse Time Seen by Provider: 09/13/17 20:35 Historian: Patient - History of Present Illness Narrative History of Present Illness (Text): 09/13/17 20:47 32 year old female, whose past medical history includes crack cocaine and alcohol use, who presents to the emergency department with police for medical clearance. Patient is under arrest. Patient denies any fever, chills, chest pain , shortness of breath, nausea, vomiting, diarrhea, back pain, neck pain, headache, dizziness, or any other complaints. Past Medical History - Provider Review Nursing Documentation Reviewed: Yes - Infectious Disease Hx of Infectious Diseases: None - Cardiac Hx Cardiac Disorders: No - Pulmonary Hx Respiratory Disorders: No - Neurological Hx Neurological Disorder: No - HEENT Hx HEENT Disorder: No - Renal Hx Renal Disorder: Yes Hx Kidney Stones: Yes - Endocrine/Metabolic Hx Endocrine Disorders: No - Hematological/Oncological Hx Blood Disorders: Yes Hx Hepatitis A: Yes - Integumentary Hx Dermatological Disorder: Yes (tatoos) - Musculoskeletal/Rheumatological Hx Musculoskeletal Disorders: No - Gastrointestinal Hx Gastrointestinal Disorders: No - Genitourinary/Gynecological Hx Genitourinary Disorders: No - Psychiatric Hx Psychophysiologic Disorder: Yes Hx Bipolar Disorder: Yes Hx Depression: Yes Hx Post Traumatic Stress Disorder: Yes Hx Substance Use: Yes - Anesthesia Hx Anesthesia: No - Suicidal Assessment Feels Threatened In Home Enviroment: No Family/Social History - Physician Review Nursing Documentation Reviewed: Yes Family/Social History: Unknown Family HX Smoking Status: Heavy Smoker > 10 Cigarettes Daily Hx Alcohol Use: Yes (vodka daily last drink 07/03/17) Hx Substance Use: Yes Hx Substance Use Treatment: Yes Allergies/Home Meds Allergies/Adverse Reactions: Allergies pentazocine Adverse Reaction (Verified 09/14/17 19:21) FEVER Home Medications: Home Meds Medication Instructions Recorded Confirmed Gabapentin [Neurontin] 600 mg PO TID 08/03/17 09/14/17 Mirtazapine [Remeron] 45 mg PO HS 08/03/17 09/14/17 Review of Systems - Review of Systems Constitutional: Normal Eyes: Normal ENT: Sore Throat Respiratory: Normal. absent: SOB, Cough Cardiovascular: Normal Gastrointestinal: Normal Genitourinary Female: Normal Musculoskeletal: Normal Skin: Other (Old abrasion rt knee) Neurological: Normal. absent: Headache, Dizziness Endocrine: Normal Hemo/Lymphatic: Normal Psychiatric: Normal Physical Exam Vital Signs Reviewed: Yes Vital Signs Temp Pulse Resp BP Pulse Ox 09/13/17 21:00 88 18 125/71 100 09/13/17 20:18 98.7 F 105 H 20 127/72 100 Temperature: Afebrile Blood Pressure: Normal Pulse: Tachycardic Respiratory Rate: Normal Appearance: Positive for: Well-Appearing, Non-Toxic, Comfortable Pain Distress: None Mental Status: Positive for: Alert and Oriented X 3 - Systems Exam Head: Present: Atraumatic, Normocephalic Pupils: Present: PERRL Extroacular Muscles: Present: EOMI Conjunctiva: Present: Normal Mouth: Present: Moist Mucous Membranes Pharnyx: Present: Normal. No: ERYTHEMA Neck: Present: Normal Range of Motion. No: Meningeal Signs, MIDLINE TENDERNESS , JVD Respiratory/Chest: Present: Clear to Auscultation, Good Air Exchange. No: Respiratory Distress, Accessory Muscle Use Cardiovascular: Present: Regular Rate and Rhythm, Normal S1, S2. No: Murmurs Abdomen: No: Tenderness, Distention, Peritoneal Signs Back: Present: Normal Inspection Upper Extremity: Present: Normal Inspection. No: Cyanosis, Edema Lower Extremity: Present: Normal Inspection. No: Edema Neurological: Present: GCS=15, CN II-XII Intact, Speech Normal Skin: Present: Warm, Dry, Abrasion (Old abrasion rt knee ). No: Rashes Psychiatric: Present: Alert, Oriented x 3, Normal Insight, Normal Concentration Medical Decision Making ED Course and Treatment: 09/13/17 21:04 Impression: 32 year old female presents to the emergency department brought in by police for medical clearance. Differential Diagnosis: Skin Abrasion. Pharyngitis Plan: -- Wound care -- Reassess and disposition Progress Notes: Pt is medically cleared for d/c for incarceration. - Scribe Statement The provider has reviewed the documentation as recorded by the Scribcyndee Dwyer All medical record entries made by the Scribe were at my direction and personally dictated by me. I have reviewed the chart and agree that the record accurately reflects my personal performance of the history, physical exam, medical decision making, and the department course for this patient. I have also personally directed, reviewed, and agree with the discharge instructions and disposition. Disposition/Present on Arrival - Present on Arrival Any Indicators Present on Arrival: No History of DVT/PE: No History of Uncontrolled Diabetes: No Urinary Catheter: No History of Decub. Ulcer: No History Surgical Site Infection Following: None - Disposition Have Diagnosis and Disposition been Completed?: Yes Diagnosis: Skin abrasion, Pharyngitis Disposition: RELEASED IN POLICE CUSTODY Disposition Time: 20:49 Patient Plan: Discharge Condition: GOOD Discharge Instructions (ExitCare): Sore Throat, Adult (DC), Skin Abrasions (DC) Additional Instructions: Drink cool liquids/keep affected skin area clean and dry/may apply Bacitracin/ bandaid as directed PATIENT MEDICALLY CLEARED FOR INCARCERATION [facility] [[facility] - Follow up with primary Forms: [employer] ([place])
[2017-09-13 21:04] VITALS: BP 125/71; PULSE 88; RESP 18
== END 2017-09-13 21:00 ==
LOC: ED 20:15
DX: J02.9 Acute pharyngitis, unspecified (principal); T14.8XXA Other injury of unspecified body region, initial encounter; X58.XXXA Exposure to other specified factors, initial encounter; F17.210 Nicotine dependence, cigarettes, uncomplicated

== ENCOUNTER 2017-09-14 19:11 | Emergency (ER) | payer MEDICAID ==
[2017-09-14 19:11] VITALS: BMI 29.2
[2017-09-14 19:27] VITALS: O2SAT 99
--- NOTE | 2017-09-14 19:41 | ED PDOC ---
Arrival/HPI - General Chief Complaint: Lower Extremity Problem/Injury Time Seen by Provider: 09/14/17 19:29 Historian: Patient - History of Present Illness Narrative History of Present Illness (Text): 09/14/17 19:36 32yo female bib EMS for right knee pain. Patient states she injured her right knee yesterday, while getting arrested. Notes that she was seen at [facility] and was told that the knee xray was negative. She was discharged home iwth Artur wrap and knee immobilizer. States she took Ibuprofen this morning and still having pain. She denies any other complaint. Past Medical History - Provider Review Nursing Documentation Reviewed: Yes - Infectious Disease Hx of Infectious Diseases: None - Cardiac Hx Cardiac Disorders: No - Pulmonary Hx Respiratory Disorders: No - Neurological Hx Neurological Disorder: No - HEENT Hx HEENT Disorder: No - Renal Hx Renal Disorder: Yes Hx Kidney Stones: Yes - Endocrine/Metabolic Hx Endocrine Disorders: No - Hematological/Oncological Hx Blood Disorders: Yes Hx Hepatitis A: Yes - Integumentary Hx Dermatological Disorder: Yes (tatoos) - Musculoskeletal/Rheumatological Hx Musculoskeletal Disorders: No - Gastrointestinal Hx Gastrointestinal Disorders: No - Genitourinary/Gynecological Hx Genitourinary Disorders: No - Psychiatric Hx Psychophysiologic Disorder: Yes Hx Bipolar Disorder: Yes Hx Depression: Yes Hx Post Traumatic Stress Disorder: Yes Hx Substance Use: Yes (recent crack cocaine use) - Anesthesia Hx Anesthesia: No - Suicidal Assessment Feels Threatened In Home Enviroment: No Family/Social History - Physician Review Nursing Documentation Reviewed: Yes Family/Social History: Unknown Family HX Smoking Status: Heavy Smoker > 10 Cigarettes Daily Hx Alcohol Use: Yes (vodka daily last drink 07/03/17) Hx Substance Use: Yes (recent crack cocaine use) Hx Substance Use Treatment: Yes Allergies/Home Meds Allergies/Adverse Reactions: Allergies pentazocine Adverse Reaction (Verified 09/14/17 19:21) FEVER Home Medications: Home Meds Medication Instructions Recorded Confirmed Gabapentin [Neurontin] 600 mg PO TID 08/03/17 09/14/17 Mirtazapine [Remeron] 45 mg PO HS 08/03/17 09/14/17 Review of Systems - Physician Review All systems were reviewed & negative as marked: Yes - Review of Systems Constitutional: Normal Eyes: Normal ENT: Normal Respiratory: Normal Cardiovascular: Normal Gastrointestinal: Normal Genitourinary Female: Normal Musculoskeletal: Arthralgias (Right knee pain) Skin: Normal Neurological: Normal Endocrine: Normal Hemo/Lymphatic: Normal Psychiatric: Normal Physical Exam Vital Signs Reviewed: Yes Vital Signs Temp Pulse Resp BP Pulse Ox 09/14/17 19:23 98.4 F 88 17 132/70 99 Temperature: Afebrile Blood Pressure: Normal Pulse: Regular Respiratory Rate: Normal Appearance: Positive for: Well-Appearing, Non-Toxic, Comfortable Pain Distress: None Mental Status: Positive for: Alert and Oriented X 3 - Systems Exam Head: Present: Atraumatic, Normocephalic Pupils: Present: PERRL Extroacular Muscles: Present: EOMI Conjunctiva: Present: Normal Mouth: Present: Moist Mucous Membranes Neck: Present: Normal Range of Motion Respiratory/Chest: Present: Clear to Auscultation, Good Air Exchange. No: Respiratory Distress, Accessory Muscle Use Cardiovascular: Present: Regular Rate and Rhythm, Normal S1, S2. No: Murmurs Abdomen: No: Tenderness, Distention, Peritoneal Signs Back: Present: Normal Inspection Upper Extremity: Present: Normal Inspection. No: Cyanosis, Edema Lower Extremity: Present: NORMAL PULSES, Normal ROM (With pain on flexion), Tenderness (Right diffuse anterior knee). No: Edema, Swelling Neurological: Present: GCS=15, CN II-XII Intact, Speech Normal Skin: Present: Warm, Dry, Normal Color. No: Rashes Psychiatric: Present: Alert, Oriented x 3, Normal Insight, Normal Concentration Medical Decision Making ED Course and Treatment: 09/14/17 20:46 right knee xray - No acute fracture noted PT came to ED with Artur wrap, knee immobilizer and crutches. Advised to continue wearing and RICE knee. Referred to Ortho. Naprosyn given for pain. - RAD Interpretation Radiology Orders: 09/14/17 19:29 KNEE W PATELLA RIGHT 3 VIEW [RAD] Stat - Medication Orders Current Medication Orders: Discontinued Medications Ketorolac Tromethamine (Toradol) 60 mg IM STAT STA Stop: 09/14/17 19:31 Disposition/Present on Arrival - Present on Arrival Any Indicators Present on Arrival: No History of DVT/PE: No History of Uncontrolled Diabetes: No Urinary Catheter: No History of Decub. Ulcer: No History Surgical Site Infection Following: None - Disposition Have Diagnosis and Disposition been Completed?: Yes Diagnosis: Knee pain Disposition: HOME/ ROUTINE Disposition Time: 20:50 Patient Plan: Discharge Patient Problems: Current Active Problems Problem Status Onset Knee pain Acute Condition: STABLE Discharge Instructions (ExitCare): Knee Pain (DC) Additional Instructions: Rest, Ice and compress right knee Follow up with orthopedist Return to ED for any new symptoms Prescriptions: Naproxen [Naprosyn] 500 mg PO BID #20 tablet Referrals: PCP,NO [Primary Care Provider] - Follow up with primary Fiona Guthrie MD [Staff Provider] - Follow up with primary Forms: [employer] ([place])
[2017-09-14 22:32] VITALS: BP 122/78; PULSE 84; RESP 16; TEMP 98.1
--- NOTE | 2017-09-15 11:46 | RAD ---
PROCEDURE: Right Knee Radiographs. HISTORY: knee pain s/p trauma COMPARISON: None. FINDINGS: BONES: Normal. No fracture. JOINTS: Normal. No osteoarthritis. JOINT EFFUSION: None. OTHER FINDINGS: None. IMPRESSION: Normal radiographs of the right knee.
== END 2017-09-14 22:20 | disposition home or self-care (01) ==
LOC: ED 19:11
DX: M25.561 Pain in right knee (principal); F17.210 Nicotine dependence, cigarettes, uncomplicated
CPT/HCPCS: 73562; 96372; 99283; J1885

== ENCOUNTER 2017-09-21 04:14 | Emergency (ER) | payer SELFPAY ==
[2017-09-21 04:26] VITALS: BMI 32.1
[2017-09-21 04:35] VITALS: TEMP 98.4
--- NOTE | 2017-09-21 04:55 | ED PDOC ---
Arrival/HPI - General Chief Complaint: ENT Problem Time Seen by Provider: 09/21/17 04:19 Historian: Patient - History of Present Illness Narrative History of Present Illness (Text): 09/21/17 04:53 32 year old female, whose past medical history includes bipolar disorder and polysubstance abuse, presents to the emergency department complaining of sore throat discomfort and body aches. Patient denies any fever, chills, chest pain, shortness of breath, abdominal pain, nausea, vomiting, diarrhea, urinary symptoms, back pain, neck pain, headache, dizziness, or any other complaints. Symptom Onset: Gradual Symptom Course: Unchanged Activities at Onset: Light Context: Home Past Medical History - Provider Review Nursing Documentation Reviewed: Yes - Infectious Disease Hx of Infectious Diseases: None - Cardiac Hx Cardiac Disorders: No - Pulmonary Hx Respiratory Disorders: No - Neurological Hx Neurological Disorder: No - HEENT Hx HEENT Disorder: No - Renal Hx Renal Disorder: Yes Hx Kidney Stones: Yes - Endocrine/Metabolic Hx Endocrine Disorders: No - Hematological/Oncological Hx Blood Disorders: Yes Hx Hepatitis A: Yes - Integumentary Hx Dermatological Disorder: Yes (tatoos) - Musculoskeletal/Rheumatological Hx Musculoskeletal Disorders: No - Gastrointestinal Hx Gastrointestinal Disorders: No - Genitourinary/Gynecological Hx Genitourinary Disorders: No - Psychiatric Hx Psychophysiologic Disorder: Yes Hx Bipolar Disorder: Yes Hx Depression: Yes Hx Post Traumatic Stress Disorder: Yes Hx Substance Use: Yes (recent crack cocaine use) - Anesthesia Hx Anesthesia: No - Suicidal Assessment Feels Threatened In Home Enviroment: No Family/Social History - Physician Review Nursing Documentation Reviewed: Yes Family/Social History: No Known Family HX Smoking Status: Heavy Smoker > 10 Cigarettes Daily Hx Alcohol Use: Yes (vodka daily last drink 07/03/17) Hx Substance Use: Yes (recent crack cocaine use) Hx Substance Use Treatment: Yes Allergies/Home Meds Allergies/Adverse Reactions: Allergies pentazocine Adverse Reaction (Verified 09/21/17 04:25) FEVER Home Medications: Home Meds Medication Instructions Recorded Confirmed Gabapentin [Neurontin] 600 mg PO TID 08/03/17 09/21/17 Mirtazapine [Remeron] 45 mg PO HS 08/03/17 09/21/17 Review of Systems - Physician Review All systems were reviewed & negative as marked: Yes - Review of Systems Constitutional: absent: Fevers, Other (Chills) ENT: Sore Throat Respiratory: absent: SOB Cardiovascular: absent: Chest Pain Gastrointestinal: absent: Abdominal Pain, Diarrhea, Nausea, Vomiting Genitourinary Female: absent: Dysuria, Frequency, Hematuria Musculoskeletal: Other (body aches). absent: Back Pain, Neck Pain Neurological: absent: Headache, Dizziness Physical Exam Vital Signs Reviewed: Yes Vital Signs Temp Pulse Resp BP Pulse Ox 09/21/17 04:35 98.4 F 60 16 109/78 98 Temperature: Afebrile Blood Pressure: Normal Pulse: Regular Respiratory Rate: Normal Appearance: Positive for: Well-Appearing, Non-Toxic, Comfortable Pain Distress: None Mental Status: Positive for: Alert and Oriented X 3 - Systems Exam Head: Present: Atraumatic, Normocephalic Pupils: Present: PERRL Extroacular Muscles: Present: EOMI Conjunctiva: Present: Normal Ears: Present: NORMAL TM (TM Intact) Mouth: Present: Moist Mucous Membranes Pharnyx: Present: ERYTHEMA (posterior pharnyx and tonsils) Neck: Present: Normal Range of Motion, Other (Supple). No: Meningeal Signs Respiratory/Chest: Present: Clear to Auscultation, Good Air Exchange. No: Respiratory Distress, Accessory Muscle Use Cardiovascular: Present: Regular Rate and Rhythm, Normal S1, S2. No: Murmurs Abdomen: No: Tenderness, Distention, Peritoneal Signs Back: Present: Normal Inspection Upper Extremity: Present: Normal Inspection. No: Cyanosis, Edema Lower Extremity: Present: Normal Inspection. No: Edema Neurological: Present: GCS=15, CN II-XII Intact, Speech Normal Skin: Present: Warm, Dry, Normal Color. No: Rashes Psychiatric: Present: Alert, Oriented x 3, Normal Insight, Normal Concentration Medical Decision Making ED Course and Treatment: 09/21/17 04:54 Impression: 32 year old female presents complaining of sore throat discomfort and body aches. Plan: -- Amoxil 500mg Cap, Motrin Tab -- Influenza A B -- Reassess and disposition Progress Notes: 09/21/17 05:34 On reevaluation the patient feels better and is in no acute distress. I have discussed the results and plan with the patient, who expresses understanding. Patient given the opportunity to ask question, all questions were answered and there is agreement with the plan to discharge the patient home with prescription for Amoxil 500mg Cap. Patient is stable for discharge. Patient was instructed to follow up with physician/clinic in 1-2 days or return if symptoms persist/worsen or new concerning symptoms arise.. - Lab Interpretations Lab Results: Lab Results 09/21/17 04:59: Influenza Typ A,B (EIA) Negative for flu a/b - Medication Orders Current Medication Orders: Discontinued Medications Amoxicillin (Amoxil 500 Mg Cap) 500 mg PO STAT STA PRN Reason: Protocol Stop: 09/21/17 04:54 Last Admin: 09/21/17 05:02 Dose: 500 mg Ibuprofen (Motrin Tab) 600 mg PO STAT STA Stop: 09/21/17 04:54 Last Admin: 09/21/17 05:03 Dose: 600 mg - Scribe Statement The provider has reviewed the documentation as recorded by the Pacheco Oseguera Provider Scribe Attestation: All medical record entries made by the Pacheco were at my direction and personally dictated by me. I have reviewed the chart and agree that the record accurately reflects my personal performance of the history, physical exam, medical decision making, and the department course for this patient. I have also personally directed, reviewed, and agree with the discharge instructions and disposition. Disposition/Present on Arrival - Present on Arrival Any Indicators Present on Arrival: No History of DVT/PE: No History of Uncontrolled Diabetes: No Urinary Catheter: No History of Decub. Ulcer: No History Surgical Site Infection Following: None - Disposition Have Diagnosis and Disposition been Completed?: Yes Diagnosis: Tonsillitis Disposition: HOME/ ROUTINE Disposition Time: 05:32 Patient Plan: Discharge Condition: GOOD Discharge Instructions (ExitCare): Sore Throat, Adult (DC) Additional Instructions: Drink plenty of cool liquids/take meds as prescribed/follow up with your doctor this week Prescriptions: Amoxicillin [Amoxil 500 mg Cap] 500 mg PO TID #21 cap Forms: [employer] (French)
[2017-09-21 05:48] VITALS: BP 116/80; PULSE 88; RESP 18; O2SAT 99
== END 2017-09-21 05:46 | disposition home or self-care (01) ==
LOC: ED 04:14
DX: J03.90 Acute tonsillitis, unspecified (principal); F17.210 Nicotine dependence, cigarettes, uncomplicated

== ENCOUNTER 2017-09-30 11:43 | Inpatient (IN) | payer MEDICAID, OTHER ==
[2017-09-30 12:35] VITALS: BMI 33.0
[2017-09-30] MEDS ORDERED: Multivitamin (MVI) 10 ML, Thiamine 100 MG, Folic Acid 1 MG in Sodium Chloride 0.9% 1,00... IV ONE (13:37)
--- NOTE | 2017-09-30 13:39 | ED PDOC ---
Arrival/HPI - General Historian: Patient <FemiJewel - Last Filed: 09/30/17 13:56> <Thierno Maki - Last Filed: 09/30/17 14:24> - General Chief Complaint: Substance Abuse Time Seen by Provider: 09/30/17 12:52 - History of Present Illness Narrative History of Present Illness (Text): Patient is a 32 year old female with a past medical history of ETOH abuse and IVDA who presents to the ER for evaluation and treatment of seizures, abdominal pain, nausea, and vomiting which began yesterday. States that she experienced a witnessed seizure endorsed as jerking movements of her body. Seizure subsided without any acute intervention. Consumed one shot of ETOH this morning at which point she experienced epigastric pain characterized as being sharp in nature and nonradiating. Abdominal pain was associated with one bout of nonbloody, nonbilious emesis. Admits to tremors and body aches. States her last use to methadone was Wednesday. Denies fever, chills, chest pain, SOB, diarrhea, constipation, and urinary symptoms. (Jewel Kahn) Past Medical History - Provider Review Nursing Documentation Reviewed: Yes - Travel History Have you recently traveled outside [place] w/in the past 3 mons?: No - Infectious Disease Hx of Infectious Diseases: None - Cardiac Hx Cardiac Disorders: No Other/Comment: "heart murmur" - Pulmonary Hx Respiratory Disorders: No - Neurological Hx Neurological Disorder: No - HEENT Hx HEENT Disorder: No - Renal Hx Renal Disorder: Yes Hx Kidney Stones: Yes - Endocrine/Metabolic Hx Endocrine Disorders: No - Hematological/Oncological Hx Blood Disorders: Yes Hx Hepatitis A: Yes - Integumentary Hx Dermatological Disorder: Yes (tatoos) - Musculoskeletal/Rheumatological Hx Musculoskeletal Disorders: No - Gastrointestinal Hx Gastrointestinal Disorders: No - Genitourinary/Gynecological Hx Genitourinary Disorders: No - Psychiatric Hx Psychophysiologic Disorder: Yes Hx Bipolar Disorder: Yes Hx Depression: Yes Hx Post Traumatic Stress Disorder: Yes Hx Substance Use: Yes (recent crack cocaine use) - Anesthesia Hx Anesthesia: No - Suicidal Assessment Feels Threatened In Home Enviroment: No <Jewel Kahn - Last Filed: 09/30/17 13:56> Family/Social History Family/Social History: Unknown Family HX (marijuana) Smoking Status: Heavy Smoker > 10 Cigarettes Daily Hx Alcohol Use: Yes (vodka daily last drink 09/30/17 @ 10am) Frequency of alcohol use: Daily Hx Substance Use: Yes (recent crack cocaine use) Hx Substance Use Treatment: Yes <Jewel Kahn - Last Filed: 09/30/17 13:56> Allergies/Home Meds <Jewel Kahn - Last Filed: 09/30/17 13:56> <Thierno Maki - Last Filed: 09/30/17 14:24> Allergies/Adverse Reactions: Allergies pentazocine Adverse Reaction (Verified 09/21/17 04:25) FEVER Review of Systems - Review of Systems Constitutional: Normal Eyes: Normal ENT: Normal Respiratory: Normal Cardiovascular: Normal Gastrointestinal: Abdominal Pain, Nausea, Vomiting. absent: Diarrhea Musculoskeletal: absent: Normal Skin: absent: Normal Neurological: Seizure Endocrine: Normal Hemo/Lymphatic: Normal Psychiatric: Normal <Jewel Kahn - Last Filed: 09/30/17 13:56> Physical Exam Temperature: Afebrile Blood Pressure: Normal Pulse: Regular Respiratory Rate: Normal Appearance: Positive for: Well-Appearing, Non-Toxic, Comfortable Pain Distress: None Mental Status: Positive for: Alert and Oriented X 3 - Systems Exam Head: Present: Atraumatic, Normocephalic Pupils: Present: PERRL Extroacular Muscles: Present: EOMI Conjunctiva: Present: Normal Mouth: Present: Moist Mucous Membranes Nose (External): Present: Atraumatic Respiratory/Chest: Present: Clear to Auscultation, Good Air Exchange, Decreased Breath Sounds. No: Respiratory Distress, Accessory Muscle Use Cardiovascular: Present: Normal S1, S2 Abdomen: Present: Tenderness. No: Distention, Peritoneal Signs, Rebound, Guarding Upper Extremity: Present: Normal Inspection Lower Extremity: Present: Normal Inspection Neurological: Present: GCS=15, CN II-XII Intact, Speech Normal, Motor Func Grossly Intact, Normal Sensory Function, Other (tremor bilateral upper extremities ) Skin: Present: Warm, Dry, Normal Color Psychiatric: Present: Alert, Oriented x 3, Normal Insight, Normal Concentration , Normal Affect, Normal Mood <Jewel Kahn - Last Filed: 09/30/17 13:56> Vital Signs Temp Pulse Resp BP Pulse Ox 09/30/17 12:40 98.7 F 92 H 18 128/87 98 Medical Decision Making <Jewel Kahn - Last Filed: 09/30/17 13:56> <Thierno Maki - Last Filed: 09/30/17 14:24> ED Course and Treatment: Assessment and Plan: Patient is a 32 year old female with a past medical history of ETOH abuse and IVDA who presents to the ER for evaluation and treatment of seizures, abdominal pain, nausea, and vomiting which began yesterday. ETOH Withdrawl Delirium Tremens Hx of IVDA - CBC, CMP, Mag, Phos, Amylase, Lipase - Banana bag - Ativan 2mg - CIWA - Seizure precautions 09/30/17 14:04 (Jewel Kahn) 09/30/17 14:23 32 year old female presents to the Emergency department complaining of seizure, abdominal pain, nausea and vomiting since yesterday. In agreement with resident note, which includes further HPI details. Patient was seen and evaluated with resident, came up with plan and treatment together. (Thierno Maki) - Medication Orders Current Medication Orders: Multivitamins/Vitamin C 10 ml/Thiamine HCl 100 mg/ Folic Acid 1 mg/ Sodium Chloride 1,011.2 mls @ 500 mls/hr IV .Q2H2M ONE Stop: 09/30/17 15:38 Discontinued Medications Lorazepam (Ativan) 2 mg IVP STAT STA PRN Reason: Protocol Stop: 09/30/17 13:38 <Jewel Kahn - Last Filed: 09/30/17 13:56> - PA / MISSIONARY COORDINATOR / Resident Statement MD/DO has reviewed & agrees with the documentation as recorded. MD/DO has examined the patient and agrees with the treatment plan. - Scribe Statement The provider has reviewed the documentation as recorded by the Scribe <Thierno Maki - Last Filed: 09/30/17 14:24> - Scribe Statement Charlie Contreras. All medical record entries made by the Scribe were at my direction and personally dictated by me. I have reviewed the chart and agree that the record accurately reflects my personal performance of the history, physical exam, medical decision making, and the department course for this patient. I have also personally directed, reviewed, and agree with the discharge instructions and disposition. (Thierno Maki) Disposition/Present on Arrival - Present on Arrival History of DVT/PE: No History of Uncontrolled Diabetes: No Urinary Catheter: No History of Decub. Ulcer: No History Surgical Site Infection Following: None <Jewel Kahn - Last Filed: 09/30/17 13:56> <Thierno Maki - Last Filed: 09/30/17 14:24> - Disposition Forms: [employer] (Slovak)
[2017-09-30 14:55] LABS: BASO # 0.03 K/mm3 (0.0-2.0); BASO % 0.3 % (0.0-3.0); EOS % 0.1 % (1.5-5.0); GRAN # 7.26 (1.4-6.5); HEMOGLOBIN 12.1 g/dL (12.0-16.0); LYMPH # 1.4 (1.2-3.4); LYMPH % 14.9 % (22.0-35.0); MEAN CELL VOLUME 91.6 fl (80.0-105.0); MEAN CORPUSCULAR HEMOGLOBIN 30.8 pg (25.0-35.0); MEAN CORPUSCULAR HGB CONC 33.6 g/dl (31.0-37.0); MEAN PLATELET VOLUME 8.9 fl (7.0-11.0); MONO # 0.6 (0.1-0.6); MONO % 6.7 % (1.0-6.0); RBC 3.93 10^6/uL (3.5-6.1); RED CELL DISTRIBUTION WIDTH 14.9 % (11.5-14.5); WHITE BLOOD COUNT 9.3 10^3/ul (4.5-11.0)
[2017-09-30 15:06] LABS: ALB/GLOB RATIO 1.4 (1.1-1.8); ALBUMIN 4.4 g/dL (3.0-4.8); ALT/SGPT 36 U/L (7-56); AMYLASE 78 U/L (35-125); AST/SGOT 38 U/L (14-36); BLOOD UREA NITROGEN 7 mg/dL (7-21); CALCIUM 9.3 mg/dL (8.4-10.5); GFR AFRICAN-AMERICAN > 60; GFR NON-AFRICAN AMERICAN > 60; LIPASE 138 U/L (23-300)
--- NOTE | 2017-09-30 17:33 | CP.PCM.HP ---
<Jewel Kahn - Last Filed: 09/30/17 18:43> History of Present Illness - History of Present Illness History of Present Illness: Subjective: CC: tremors HPI: Patient is a 32 year old female with a past medical history of bipolar disorder , borderline personality disorder, PTSD, ETOH abuse, cocaine abuse, heroin abuse on methadone who presents to the emergency room for evaluation and treatment of seizure like activity, abdominal pain, nausea, vomiting, and tremors which began yesterday. States that she experienced an event in which her body was involuntarily moving. Described movements as "jerking like motion" . Denies trauma to head and loss of consciousness. States she drank 1 pint of ETOH after the event which helped improve her symptoms. Also admits to nonradiating epigastric discomfort with associated nonbloody nonbilious emesis x 1. Admits to using heroin and cocaine within the past 4 days. Also admits to drinking "one shot" of ETOH this morning. States her last use to methadone was Wednesday. Denies fever, chills, chest pain, SOB, diarrhea, constipation, and urinary symptoms. Further denies visual/auditory hallucinations and homicidal/ suicidal ideation. 12 point ROS negative except as indicated in HPI PMHx: bipolar disorder, borderline personality disorder, PTSD, ETOH abuse, cocaine abuse, heroin abuse on methadone PSHx: Denies Social Hx: Tobacco: 1ppd for 20 years, ETOH: alcohol abuse- 4 pints of liquor no most days, illicit drug use: history of marijuana, cocaine, PCP and heroin use Family Hx: Mother- uterine cancer and father- Htn, Dm Allergies: Pentazocine Methadone Clinic: [facility] Pharmacy: "[facility]" in [place], [place] Primacy care physician: does not recall name Psychiatrist: Dr. John Physical Examination: - Head Exam Head Exam: ATRAUMATIC, NORMAL INSPECTION - Eye Exam Eye Exam: EOMI, Normal appearance - ENT Exam ENT Exam: Mucous Membranes Moist - Neck Exam Neck exam: Positive for: Normal Inspection - Respiratory Exam Respiratory Exam: Clear to Auscultation Bilateral, NORMAL BREATHING PATTERN. absent: Accessory Muscle Use, Rales, Rhonchi, Wheezes - Cardiovascular Exam Cardiovascular Exam: +S1, +S2 - GI/Abdominal Exam GI & Abdominal Exam: Soft. absent: Rebound, Rigid, Tenderness - Extremities Exam Extremities exam: Positive for: normal inspection - Back Exam Back exam: absent: CVA tenderness (L), CVA tenderness (R) - Neurological Exam Neurological exam: Alert, CN II-XII Intact, Oriented x3 Additional comments: bilateral upper extremity tremors present - Psychiatric Exam Psychiatric exam: Anxious - Skin Skin Exam: Dry, Intact, Warm Assessment and Plan: Patient is a 32 year old female with a past medical history of bipolar disorder , borderline personality disorder, PTSD, ETOH abuse, cocaine abuse, heroin abuse on methadone who presents to the emergency room for evaluation and treatment of seizure like activity, abdominal pain, nausea, vomiting, and tremors. Alcohol Withdrawl - Seizure like activity possibly due 2/2 DTs - CIWA protocol - ativan 2mg q6 marisol - ativan 1mg q1 prn ETOH withdrawl - thiamine, folate, multivitmin - seizure precautions Abdominal Pain, N/V - zofran prn Hx of bipolar, PTSD, Borderline Personality Disorder - has not taken home medications in several weeks secondary to insurance difficultis - appreciate psych consult once medically stable Tobacco Abuse - smoking cessation advised, risks of continued tobacco use thoroughly discussed with patient - nicotine patch Polysubstance Abuse - UDS pending at time of admit Prophylaxis - DVT ppx- SCDs - GI ppx- famotidine Patient case reviewed with and plan approved by attending physician, Dr. Worrell. Present on Admission - Present on Admission Any Indicators Present on Admission: No Past Patient History - Infectious Disease Hx of Infectious Diseases: None - Past Social History Smoking Status: Heavy Smoker > 10 Cigarettes Daily - CARDIAC Hx Cardiac Disorders: No Other/Comment: "heart murmur" - PULMONARY Hx Respiratory Disorders: No - NEUROLOGICAL Hx Neurological Disorder: No - HEENT Hx HEENT Problems: No - RENAL Hx Chronic Kidney Disease: Yes Hx Kidney Stones: Yes - ENDOCRINE/METABOLIC Hx Endocrine Disorders: No - HEMATOLOGICAL/ONCOLOGICAL Hx Blood Disorders: Yes Hx Hepatitis A: Yes - INTEGUMENTARY Hx Dermatological Problems: Yes (tatoos) - MUSCULOSKELETAL/RHEUMATOLOGICAL Hx Musculoskeletal Disorders: No - GASTROINTESTINAL Hx Gastrointestinal Disorders: No - GENITOURINARY/GYNECOLOGICAL Hx Genitourinary Disorders: No - PSYCHIATRIC Hx Psychophysiologic Disorder: Yes Hx Bipolar Disorder: Yes Hx Depression: Yes Hx Post Traumatic Stress Disorder: Yes Hx Substance Use: Yes (recent crack cocaine use) - SURGICAL HISTORY Hx Surgeries: No - ANESTHESIA Hx Anesthesia: No Meds Allergies/Adverse Reactions: Allergies Allergy/AdvReac Type Severity Reaction Status Date / Time pentazocine AdvReac FEVER Verified 09/21/17 04:25 Physical Exam - Head Exam Head Exam: ATRAUMATIC, NORMAL INSPECTION - Eye Exam Eye Exam: EOMI, Normal appearance - ENT Exam ENT Exam: Mucous Membranes Moist - Neck Exam Neck exam: Positive for: Normal Inspection - Respiratory Exam Respiratory Exam: Clear to Auscultation Bilateral, NORMAL BREATHING PATTERN. absent: Accessory Muscle Use, Rales, Rhonchi, Wheezes - Cardiovascular Exam Cardiovascular Exam: +S1, +S2 - GI/Abdominal Exam GI & Abdominal Exam: Soft. absent: Rebound, Rigid, Tenderness - Extremities Exam Extremities exam: Positive for: normal inspection - Back Exam Back exam: absent: CVA tenderness (L), CVA tenderness (R) - Neurological Exam Neurological exam: Alert, CN II-XII Intact, Oriented x3 Additional comments: bilateral upper extremity tremor noted - Psychiatric Exam Psychiatric exam: Anxious - Skin Skin Exam: Dry, Intact, Warm Results - Vital Signs Recent Vital Signs: Last Vital Signs Temp 98.7 F 09/30/17 12:40 Pulse 92 H 09/30/17 12:40 Resp 18 09/30/17 12:40 BP 128/87 09/30/17 12:40 Pulse Ox 98 09/30/17 12:40 - Labs Result Diagrams: 09/30/17 14:35 09/30/17 14:35 Labs: Laboratory Results - last 24 hr 09/30/17 09/30/17 09/30/17 14:35 14:35 14:35 WBC 9.3 D RBC 3.93 Hgb 12.1 Hct 36.0 MCV 91.6 D MCH 30.8 MCHC 33.6 RDW 14.9 H Plt Count 320 MPV 8.9 Gran % 78.0 H Lymph % (Auto) 14.9 L [place] % (Auto) 6.7 H Eos % (Auto) 0.1 L Baso % (Auto) 0.3 Gran # 7.26 H Lymph # (Auto) 1.4 [place] # (Auto) 0.6 Eos # (Auto) 0.0 Baso # (Auto) 0.03 Sodium 142 Potassium 4.0 Chloride 103 Carbon Dioxide 26 Anion Gap 17 BUN 7 Creatinine 0.5 L Est GFR ( Amer) > 60 Est GFR (Non-Af Amer) > 60 Random Glucose 131 H Calcium 9.3 Phosphorus 2.9 Magnesium 1.7 Total Bilirubin 0.3 AST 38 H ALT 36 Alkaline Phosphatase 97 Total Protein 7.5 Albumin 4.4 Globulin 3.1 Albumin/Globulin Ratio 1.4 Amylase 78 Lipase 138 Alcohol, Quantitative 48 H <Davis Worrell - Last Filed: 10/01/17 15:08> Results - Vital Signs Recent Vital Signs: Last Vital Signs Temp 98.0 F 10/01/17 11:28 Pulse 96 H 10/01/17 11:28 Resp 18 10/01/17 11:28 BP 130/87 10/01/17 11:28 Pulse Ox 99 10/01/17 06:15 - Labs Result Diagrams: 10/01/17 06:45 10/01/17 06:45 Attending/Attestation - Attestation I have personally seen and examined this patient.: Yes I have fully participated in the care of the patient.: Yes I have reviewed all pertinent clinical information: Yes Notes (Text): 32 year old female with a past medical history of bipolar disorder, borderline personality disorder, PTSD, ETOH abuse, cocaine abuse, heroin abuse on methadone who presents to the emergency room for evaluation and treatment of seizure like activity, abdominal pain, nausea, vomiting, and tremors. Alcohol Withdrawl Abdominal Pain, N/V Hx of bipolar, PTSD, Borderline Personality Disorder
[2017-09-30 21:50] LABS: HEPATITIS B SURFACE AG Negative (NEGATIVE)
[2017-09-30 21:56] LABS: HEPATITIS A IGM NEGATIVE (NEGATIVE); HEPATITIS B CORE AB NEGATIVE (NEGATIVE)
[2017-09-30 22:08] LABS: HEPATITIS C ANTIBODY NEGATIVE (NEGATIVE)
[2017-10-01 07:06] LABS: BASO # 0.03 K/mm3 (0.0-2.0); BASO % 0.5 % (0.0-3.0); EOS # 0.1 (0.0-0.7); EOS % 2.1 % (1.5-5.0); GRAN # 3.52 (1.4-6.5); GRAN % 57.6 % (50.0-68.0); HEMOGLOBIN 12.1 g/dL (12.0-16.0); LYMPH # 1.7 (1.2-3.4); LYMPH % 27.7 % (22.0-35.0); MEAN CELL VOLUME 92.5 fl (80.0-105.0); MEAN CORPUSCULAR HEMOGLOBIN 30.1 pg (25.0-35.0); MEAN CORPUSCULAR HGB CONC 32.5 g/dl (31.0-37.0); MONO # 0.7 (0.1-0.6); MONO % 12.1 % (1.0-6.0); RBC 4.02 10^6/uL (3.5-6.1); RED CELL DISTRIBUTION WIDTH 15.2 % (11.5-14.5); WHITE BLOOD COUNT 6.1 10^3/ul (4.5-11.0)
[2017-10-01 07:30] LABS: ALB/GLOB RATIO 1.3 (1.1-1.8); ALBUMIN 3.6 g/dL (3.0-4.8); ALT/SGPT 26 U/L (7-56); AST/SGOT 31 U/L (14-36); BLOOD UREA NITROGEN 12 mg/dL (7-21); GFR AFRICAN-AMERICAN > 60; GFR NON-AFRICAN AMERICAN > 60
[2017-10-01 07:46] LABS: PHENCYCLIDINE, UR NEGATIVE (NEGATIVE)
[2017-10-01 07:47] LABS: BARBITURATES, UR NEGATIVE (NEGATIVE); BENZODIAZEPINES, UR POSITIVE (NEGATIVE); OPIATES, UR NEGATIVE (NEGATIVE)
[2017-10-01] MEDS: Multivitamin Therapeutic Tab PO SCH ×2 (08:09→10:01)
--- NOTE | 2017-10-01 14:30 | CP.PCM.PN ---
<Gene Summers - Last Filed: 10/01/17 15:26> Subjective - Date & Time of Evaluation Date of Evaluation: 10/01/17 Time of Evaluation: 14:26 - Subjective Subjective: Patient seen and examined at bedside with tremors in both hands. States she needs her methadone supplying clinic to be called so she can resume taking it since her last dose was Wednesday. Patient states she is nauseous. Denies shortness of breath, chest pain, palpitations, vomiting, diarrhea, cough, headache. Objective - Vital Signs/Intake and Output Vital Signs (last 24 hours): Temp Pulse Resp BP Pulse Ox 98.0 F 96 H 18 130/87 99 10/01/17 11:28 10/01/17 11:28 10/01/17 11:28 10/01/17 11:28 10/01/17 06:15 - Medications Medications: Current Medications Folic Acid (Folic Acid) 1 mg PO DAILY [facility] Last Admin: 10/01/17 10:01 Dose: 1 mg Ibuprofen (Motrin Tab) 600 mg PO Q6H PRN PRN Reason: Pain, moderate (4-7) Lorazepam (Ativan) 2 mg IVP Q6H GEORGE PRN Reason: Protocol Last Admin: 10/01/17 11:31 Dose: 2 mg Lorazepam (Ativan) 1 mg IVP Q1 PRN; Protocol PRN Reason: Symptoms of alcohol withdrawl Last Admin: 10/01/17 13:25 Dose: 1 mg Methadone HCl (Methadone) 200 mg PO DAILY [facility] Multivitamins (Thera Tab) 1 tab PO 0800 [facility] Last Admin: 10/01/17 10:01 Dose: 1 tab Nicotine (Nicoderm Cq) 1 patch TD DAILY PRN PRN Reason: URGE TO SMOKE Ondansetron HCl (Zofran Inj) 4 mg IVP Q6H PRN PRN Reason: Nausea/Vomiting Thiamine HCl (Vitamin B1 Tab) 100 mg PO DAILY [facility] Last Admin: 10/01/17 10:01 Dose: 100 mg - Head Exam Head Exam: ATRAUMATIC, NORMAL INSPECTION, NORMOCEPHALIC - Eye Exam Eye Exam: EOMI, Normal appearance - ENT Exam ENT Exam: Mucous Membranes Moist - Respiratory Exam Respiratory Exam: Clear to Ausculation Bilateral, NORMAL BREATHING PATTERN - Cardiovascular Exam Cardiovascular Exam: REGULAR RHYTHM, +S1, +S2 - GI/Abdominal Exam GI & Abdominal Exam: Soft, Normal Bowel Sounds - Extremities Exam Extremities Exam: Normal Inspection - Back Exam Back Exam: NORMAL INSPECTION - Neurological Exam Neurological Exam: Alert, Awake, Oriented x3 Neuro motor strength exam: Left Upper Extremity: 4, Right Upper Extremity: 4, Left Lower Extremity: 4, Right Lower Extremity: 4 Additional comments: bilateral hand tremors - Psychiatric Exam Psychiatric exam: Agitated, Anxious - Skin Skin Exam: Normal Color, Warm Assessment and Plan - Assessment and Plan (Free Text) Assessment: Assessment and Plan: Patient is a 32 year old female with a past medical history of bipolar disorder , borderline personality disorder, PTSD, ETOH abuse, cocaine abuse, heroin abuse on methadone who presents to the emergency room for evaluation and treatment of seizure like activity, abdominal pain, nausea, vomiting, and tremors. Alcohol Withdrawl - Seizure like activity possibly due 2/2 DTs; patient has not had any signs of seizure activity since being admitted - [facility] protocol; current score of 6 - ativan 3mg q6 george - ativan 1mg q1 prn ETOH withdrawl - thiamine, folate, multivitamin - seizure precautions Abdominal Pain, N/V - zofran prn Hx of bipolar, PTSD, Borderline Personality Disorder - has not taken home medications in several weeks secondary to insurance difficulties - appreciate psych consult once medically stable Tobacco Abuse - smoking cessation advised, risks of continued tobacco use thoroughly discussed with patient - nicotine patch Polysubstance Abuse - Methadone dosage 200 mg daily resumed Prophylaxis - DVT ppx- SCDs - GI ppx- famotidine Patient case reviewed with and plan approved by attending physician, Dr. Worrell. <Davis Worrell - Last Filed: 10/01/17 16:59> Objective - Vital Signs/Intake and Output Vital Signs (last 24 hours): Temp Pulse Resp BP Pulse Ox 98.0 F 96 H 18 130/87 99 10/01/17 11:28 10/01/17 11:28 10/01/17 11:28 10/01/17 11:28 10/01/17 06:15 Intake and Output: 10/01/17 10/01/17 06:59 18:59 Intake Total 660 Output Total 2 Balance 658 - Medications Medications: Current Medications Folic Acid (Folic Acid) 1 mg PO DAILY [facility] Last Admin: 10/01/17 10:01 Dose: 1 mg Ibuprofen (Motrin Tab) 600 mg PO Q6H PRN PRN Reason: Pain, moderate (4-7) Lorazepam (Ativan) 2 mg IVP Q6H GEORGE PRN Reason: Protocol Last Admin: 10/01/17 11:31 Dose: 2 mg Lorazepam (Ativan) 1 mg IVP Q1 PRN; Protocol PRN Reason: Symptoms of alcohol withdrawl Last Admin: 10/01/17 16:30 Dose: 1 mg Methadone HCl (Methadone) 200 mg PO DAILY [facility] Multivitamins (Thera Tab) 1 tab PO 0800 [facility] Last Admin: 10/01/17 10:01 Dose: 1 tab Nicotine (Nicoderm Cq) 1 patch TD DAILY PRN PRN Reason: URGE TO SMOKE Ondansetron HCl (Zofran Inj) 4 mg IVP Q6H PRN PRN Reason: Nausea/Vomiting Thiamine HCl (Vitamin B1 Tab) 100 mg PO DAILY [facility] Last Admin: 10/01/17 10:01 Dose: 100 mg Attending/Attestation - Attestation I have personally seen and examined this patient.: Yes I have fully participated in the care of the patient.: Yes I have reviewed all pertinent clinical information, including history, physical exam and plan: Yes Notes (Text): Patient is a 32 year old female with a past medical history of bipolar disorder , borderline personality disorder, PTSD, ETOH abuse, cocaine abuse, heroin abuse on methadone who presents to the emergency room for evaluation and treatment of seizure like activity, abdominal pain, nausea, vomiting, and tremors. Alcohol Withdrawl Heroin Abuse on Methadone 200mg daily high risk for seizures as she has had in past during withdrawal.
--- NOTE | 2017-10-01 21:36 | CARD ---
APPROVED REPORT EKG Measurement Heart [id number] <Conclusion> Normal sinus rhythm with sinus arrhythmia Normal ECG
[2017-10-02 07:07] LABS: BASO # 0.03 K/mm3 (0.0-2.0); BASO % 0.4 % (0.0-3.0); EOS # 0.2 (0.0-0.7); EOS % 2.4 % (1.5-5.0); GRAN # 3.67 (1.4-6.5); GRAN % 50.9 % (50.0-68.0); LYMPH # 2.6 (1.2-3.4); LYMPH % 36.4 % (22.0-35.0); MEAN CELL VOLUME 93.4 fl (80.0-105.0); MEAN CORPUSCULAR HEMOGLOBIN 30.5 pg (25.0-35.0); MEAN CORPUSCULAR HGB CONC 32.7 g/dl (31.0-37.0); MEAN PLATELET VOLUME 9.1 fl (7.0-11.0); MONO # 0.7 (0.1-0.6); MONO % 9.9 % (1.0-6.0); RBC 3.93 10^6/uL (3.5-6.1); RED CELL DISTRIBUTION WIDTH 14.9 % (11.5-14.5); WHITE BLOOD COUNT 7.2 10^3/ul (4.5-11.0)
[2017-10-02 07:23] LABS: ALB/GLOB RATIO 1.3 (1.1-1.8); ALBUMIN 3.8 g/dL (3.0-4.8); ALT/SGPT 20 U/L (7-56); AST/SGOT 31 U/L (14-36); BLOOD UREA NITROGEN 13 mg/dL (7-21); CALCIUM 9.3 mg/dL (8.4-10.5); GFR AFRICAN-AMERICAN > 60; GFR NON-AFRICAN AMERICAN > 60
[2017-10-02] MEDS: Multivitamin Therapeutic Tab PO SCH (09:20)
--- NOTE | 2017-10-02 16:12 | CP.PCM.PN ---
<Gene Summers - Last Filed: 10/02/17 16:14> Subjective - Date & Time of Evaluation Date of Evaluation: 10/02/17 Time of Evaluation: 08:30 - Subjective Subjective: Patient seen and examined at bedside. Initially patient was sleeping, when woken up patient began to have tremors in her hands bilaterally. Patient states she has trouble sleeping. Denies chest pain, shortness of breath, abdominal pain , fevers, chills, cough, headache, nausea, vomiting, seizure activity. Objective - Vital Signs/Intake and Output Vital Signs (last 24 hours): Temp Pulse Resp BP Pulse Ox 97.4 F L 87 21 119/82 99 10/02/17 12:00 10/02/17 12:00 10/02/17 12:00 10/02/17 12:00 10/02/17 06:00 Intake and Output: 10/02/17 10/02/17 06:59 18:59 Intake Total 600 Balance 600 - Medications Medications: Current Medications Chlordiazepoxide (Librium) 25 mg PO Q6 GEORGE PRN Reason: Protocol Enoxaparin Sodium (Lovenox) 30 mg SC DAILY [facility] PRN Reason: Protocol Folic Acid (Folic Acid) 1 mg PO DAILY [facility] Last Admin: 10/02/17 11:54 Dose: Not Given Ibuprofen (Motrin Tab) 600 mg PO Q6H PRN PRN Reason: Pain, moderate (4-7) Last Admin: 10/01/17 22:44 Dose: 600 mg Lorazepam (Ativan) 1 mg IVP Q1 PRN; Protocol PRN Reason: Symptoms of alcohol withdrawl Last Admin: 10/02/17 10:08 Dose: 1 mg Lorazepam (Ativan) 2 mg IVP Q6H GEORGE PRN Reason: Protocol Last Admin: 10/02/17 12:37 Dose: 2 mg Methadone HCl (Methadone) 200 mg PO DAILY [facility] Last Admin: 10/02/17 09:17 Dose: 200 mg Multivitamins/Minerals (Therapeutic-M Tab) 1 tab PO 0800 [facility] Nicotine (Nicoderm Cq) 1 patch TD DAILY PRN PRN Reason: URGE TO SMOKE Last Admin: 10/02/17 09:20 Dose: 1 patch Ondansetron HCl (Zofran Inj) 4 mg IVP Q6H PRN PRN Reason: Nausea/Vomiting Thiamine HCl (Vitamin B1 Tab) 100 mg PO DAILY [facility] Last Admin: 10/02/17 11:55 Dose: Not Given - Labs Labs: 10/02/17 06:00 10/02/17 06:00 - Head Exam Head Exam: ATRAUMATIC, NORMAL INSPECTION, NORMOCEPHALIC - Eye Exam Eye Exam: Normal appearance - ENT Exam ENT Exam: Mucous Membranes Moist, Normal Exam - Neck Exam Neck Exam: Normal Inspection - Respiratory Exam Respiratory Exam: Clear to Ausculation Bilateral, Wheezes (faint wheezing in lower quadrants bilaterally), NORMAL BREATHING PATTERN - Cardiovascular Exam Cardiovascular Exam: REGULAR RHYTHM, +S1, +S2 - GI/Abdominal Exam GI & Abdominal Exam: Soft, Normal Bowel Sounds - Extremities Exam Extremities Exam: Normal Inspection - Back Exam Back Exam: NORMAL INSPECTION - Neurological Exam Neurological Exam: Alert, Awake, Oriented x3 Additional comments: tremors bilaterally in upper extremities - Psychiatric Exam Psychiatric exam: Agitated, Anxious - Skin Skin Exam: Intact, Normal Color, Warm Assessment and Plan - Assessment and Plan (Free Text) Assessment: Assessment and Plan: Patient is a 32 year old female with a past medical history of bipolar disorder , borderline personality disorder, PTSD, ETOH abuse, cocaine abuse, heroin abuse on methadone who presents to the emergency room for evaluation and treatment of seizure like activity, abdominal pain, nausea, vomiting, and tremors. Alcohol Withdrawl - Seizure like activity possibly due 2/2 DTs; patient has not had any signs of seizure activity since being admitted - [facility] protocol; current score of 5 - ativan 2mg q6 george - ativan 1mg q1 prn ETOH withdrawl - librium 25 mg q6 - thiamine, folate, multivitamin PO - seizure/aspiration/fall precautions Abdominal Pain, N/V - zofran prn Hx of bipolar, PTSD, Borderline Personality Disorder - has not taken home medications in several weeks secondary to insurance difficulties Tobacco Abuse - smoking cessation advised, risks of continued tobacco use thoroughly discussed with patient - nicotine patch Polysubstance Abuse - Methadone dosage 200 mg daily resumed as verified with [facility] Mood disorder -Prozac 20 daily resumed as prescribed by psychiatry on last admission Prophylaxis - DVT ppx- SCDs - GI ppx- famotidine <Paul Moore - Last Filed: 10/02/17 20:58> Objective - Vital Signs/Intake and Output Vital Signs (last 24 hours): Temp Pulse Resp BP Pulse Ox 97.1 F L 87 21 126/89 99 10/02/17 18:00 10/02/17 18:00 10/02/17 18:00 10/02/17 18:00 10/02/17 06:00 - Medications Medications: Current Medications Chlordiazepoxide (Librium) 25 mg PO Q6 GEORGE PRN Reason: Protocol Last Admin: 10/02/17 17:30 Dose: 25 mg Enoxaparin Sodium (Lovenox) 30 mg SC DAILY [facility]OR[facility] PRN Reason: Protocol Last Admin: 10/02/17 17:30 Dose: 30 mg Folic Acid (Folic Acid) 1 mg PO DAILY [facility] Last Admin: 10/02/17 11:54 Dose: Not Given Ibuprofen (Motrin Tab) 600 mg PO Q6H PRN PRN Reason: Pain, moderate (4-7) Last Admin: 10/01/17 22:44 Dose: 600 mg Lorazepam (Ativan) 1 mg IVP Q1 PRN; Protocol PRN Reason: Symptoms of alcohol withdrawl Last Admin: 10/02/17 10:08 Dose: 1 mg Lorazepam (Ativan) 2 mg IVP Q4H PRN; Protocol PRN Reason: Agitation Methadone HCl (Methadone) 200 mg PO DAILY [facility] Last Admin: 10/02/17 09:17 Dose: 200 mg Multivitamins/Minerals (Therapeutic-M Tab) 1 tab PO 0800 [facility] Nicotine (Nicoderm Cq) 1 patch TD DAILY PRN PRN Reason: URGE TO SMOKE Last Admin: 10/02/17 09:20 Dose: 1 patch Ondansetron HCl (Zofran Inj) 4 mg IVP Q6H PRN PRN Reason: Nausea/Vomiting Thiamine HCl (Vitamin B1 Tab) 100 mg PO DAILY [facility] Last Admin: 10/02/17 11:55 Dose: Not Given - Labs Labs: 10/02/17 06:00 10/02/17 06:00 Attending/Attestation - Attestation I have personally seen and examined this patient.: Yes I have fully participated in the care of the patient.: Yes I have reviewed all pertinent clinical information, including history, physical exam and plan: Yes Notes (Text): 10/02/17 20:56 Patient seen and examined at bedside. Vitals, labs,orders and notes reviewed. Alert,awake and oriented x3 , U/E tremors noted. Verbalized frustration at inability to find outpatient Detox after multiple failed attempts. No new complaints offered. Agree with the plan of care as outlined by the resident including increasing the dose of librium and changing the ativan regimen to a reduced dose and prn.
[2017-10-02] MEDS: Enoxaparin 30 mg Syringe SC SCH (17:30)
[2017-10-03 06:39] VITALS: O2SAT 97
[2017-10-03 07:39] LABS: BASO # 0.03 K/mm3 (0.0-2.0); BASO % 0.3 % (0.0-3.0); EOS # 0.2 (0.0-0.7); EOS % 2.2 % (1.5-5.0); GRAN # 5.41 (1.4-6.5); GRAN % 62.1 % (50.0-68.0); HEMOGLOBIN 12.2 g/dL (12.0-16.0); LYMPH # 2.3 (1.2-3.4); LYMPH % 26.6 % (22.0-35.0); MEAN CELL VOLUME 93.9 fl (80.0-105.0); MEAN CORPUSCULAR HEMOGLOBIN 29.6 pg (25.0-35.0); MEAN CORPUSCULAR HGB CONC 31.5 g/dl (31.0-37.0); MEAN PLATELET VOLUME 9.3 fl (7.0-11.0); MONO # 0.8 (0.1-0.6); MONO % 8.8 % (1.0-6.0); RBC 4.12 10^6/uL (3.5-6.1); RED CELL DISTRIBUTION WIDTH 14.7 % (11.5-14.5); WHITE BLOOD COUNT 8.7 10^3/ul (4.5-11.0)
[2017-10-03 07:52] LABS: ALB/GLOB RATIO 1.3 (1.1-1.8); ALBUMIN 3.8 g/dL (3.0-4.8); ALT/SGPT 21 U/L (7-56); AST/SGOT 27 U/L (14-36); BLOOD UREA NITROGEN 17 mg/dL (7-21); CALCIUM 9.5 mg/dL (8.4-10.5); GFR AFRICAN-AMERICAN > 60; GFR NON-AFRICAN AMERICAN > 60
[2017-10-03] MEDS ORDERED: Multivitamin With Minerals Tab PO SCH (08:00)
--- NOTE | 2017-10-03 08:01 | CP.PCM.PN ---
<Gene Summers - Last Filed: 10/03/17 18:17> Subjective - Date & Time of Evaluation Date of Evaluation: 10/03/17 Time of Evaluation: 08:30 - Subjective Subjective: Patient seen and examined at bedside in no acute distress. States she still have tremors. Denies abdominal pain, nausea, vomiting, diarrhea, fevers, chills , headache, cough. Objective - Vital Signs/Intake and Output Vital Signs (last 24 hours): Temp Pulse Resp BP Pulse Ox 98.1 F 64 18 101/66 97 10/03/17 06:00 10/03/17 06:00 10/03/17 06:00 10/03/17 06:00 10/03/17 06:00 - Medications Medications: Current Medications Chlordiazepoxide (Librium) 25 mg PO Q6 GEORGE PRN Reason: Protocol Last Admin: 10/03/17 05:24 Dose: 25 mg Enoxaparin Sodium (Lovenox) 30 mg SC DAILY GEORGE PRN Reason: Protocol Last Admin: 10/02/17 17:30 Dose: 30 mg Folic Acid (Folic Acid) 1 mg PO DAILY [facility] Last Admin: 10/02/17 11:54 Dose: Not Given Ibuprofen (Motrin Tab) 600 mg PO Q6H PRN PRN Reason: Pain, moderate (4-7) Last Admin: 10/01/17 22:44 Dose: 600 mg Lorazepam (Ativan) 1 mg IVP Q1 PRN; Protocol PRN Reason: Symptoms of alcohol withdrawl Last Admin: 10/02/17 10:08 Dose: 1 mg Lorazepam (Ativan) 2 mg IVP Q4H PRN; Protocol PRN Reason: Agitation Last Admin: 10/02/17 21:44 Dose: 2 mg Methadone HCl (Methadone) 200 mg PO DAILY [facility] Last Admin: 10/02/17 09:17 Dose: 200 mg Multivitamins/Minerals (Therapeutic-M Tab) 1 tab PO 0800 [facility] Nicotine (Nicoderm Cq) 1 patch TD DAILY PRN PRN Reason: URGE TO SMOKE Last Admin: 10/02/17 09:20 Dose: 1 patch Ondansetron HCl (Zofran Inj) 4 mg IVP Q6H PRN PRN Reason: Nausea/Vomiting Thiamine HCl (Vitamin B1 Tab) 100 mg PO DAILY [facility] Last Admin: 10/02/17 11:55 Dose: Not Given - Labs Labs: 10/03/17 07:00 10/03/17 07:00 - Head Exam Head Exam: ATRAUMATIC, NORMAL INSPECTION, NORMOCEPHALIC - Eye Exam Eye Exam: EOMI, Normal appearance - ENT Exam ENT Exam: Mucous Membranes Moist - Neck Exam Neck Exam: Normal Inspection - Respiratory Exam Respiratory Exam: Clear to Ausculation Bilateral, NORMAL BREATHING PATTERN. absent: Rhonchi, Wheezes - Cardiovascular Exam Cardiovascular Exam: REGULAR RHYTHM, +S1, +S2 - GI/Abdominal Exam GI & Abdominal Exam: Soft, Normal Bowel Sounds - Extremities Exam Extremities Exam: Normal Inspection - Back Exam Back Exam: NORMAL INSPECTION - Neurological Exam Neurological Exam: Alert, Awake, Oriented x3 - Psychiatric Exam Psychiatric exam: Normal Affect, Normal Mood - Skin Skin Exam: Normal Color, Warm Assessment and Plan - Assessment and Plan (Free Text) Assessment: Assessment and Plan: Patient is a 32 year old female with a past medical history of bipolar disorder , borderline personality disorder, PTSD, ETOH abuse, cocaine abuse, heroin abuse on methadone who presents to the emergency room for evaluation and treatment of alcohol withdrawals. Alcohol Withdrawl - Seizure like activity possibly due 2/2 DTs; patient has not had any signs of seizure activity since being admitted - [facility] protocol; current score of 4 - ativan 1mg q4 PRN - ativan 0.5 mg q1 prn ETOH withdrawl - librium discontinued - Continue thiamine, folate, multivitamin PO - Continue with seizure/aspiration/fall precautions Abdominal Pain, N/V - zofran prn Hx of bipolar, PTSD, Borderline Personality Disorder - has not taken home medications in several weeks secondary to insurance difficulties - Prozac 20 daily - Patient states she does not want to be seen by a psychiatrist, social services coordinator, or manager placement during this hospital visit Tobacco Abuse - smoking cessation advised, risks of continued tobacco use thoroughly discussed with patient - nicotine patch Polysubstance Abuse - Methadone dosage 200 mg daily resumed as verified with [facility] clinic Prophylaxis - DVT ppx- SCDs - GI ppx- famotidine <Felton Torres - Last Filed: 10/03/17 18:45> Objective - Vital Signs/Intake and Output Vital Signs (last 24 hours): Temp Pulse Resp BP Pulse Ox 98.2 F 75 21 128/86 97 10/03/17 12:00 10/03/17 12:00 10/03/17 12:00 10/03/17 12:00 10/03/17 06:00 Intake and Output: 10/03/17 10/03/17 06:59 18:59 Intake Total 305 Balance 305 - Medications Medications: Current Medications Enoxaparin Sodium (Lovenox) 30 mg SC DAILY [facility] PRN Reason: Protocol Last Admin: 10/03/17 09:47 Dose: 30 mg Folic Acid (Folic Acid) 1 mg PO DAILY [facility] Last Admin: 10/03/17 09:47 Dose: 1 mg Ibuprofen (Motrin Tab) 600 mg PO Q6H PRN PRN Reason: Pain, moderate (4-7) Last Admin: 10/03/17 14:12 Dose: 600 mg Lorazepam (Ativan) 1 mg IVP Q4H PRN; Protocol PRN Reason: Agitation Last Admin: 10/03/17 16:41 Dose: 1 mg Lorazepam (Ativan) 0.5 mg IVP Q1 PRN; Protocol PRN Reason: Symptoms of alcohol withdrawl Methadone HCl (Methadone) 200 mg PO DAILY [facility] Last Admin: 10/03/17 09:47 Dose: 200 mg Multivitamins/Minerals (Therapeutic-M Tab) 1 tab PO 0800 [facility] Last Admin: 10/03/17 08:28 Dose: 1 tab Nicotine (Nicoderm Cq) 1 patch TD DAILY PRN PRN Reason: URGE TO SMOKE Last Admin: 10/03/17 11:32 Dose: 1 patch Ondansetron HCl (Zofran Inj) 4 mg IVP Q6H PRN PRN Reason: Nausea/Vomiting Thiamine HCl (Vitamin B1 Tab) 100 mg PO DAILY [facility] Last Admin: 10/03/17 09:47 Dose: 100 mg - Labs Labs: 10/03/17 07:00 10/03/17 07:00 Attending/Attestation - Attestation I have personally seen and examined this patient.: Yes I have fully participated in the care of the patient.: Yes I have reviewed all pertinent clinical information, including history, physical exam and plan: Yes Notes (Text): 10/03/17 18:45 Medical record note made by the resident after discussion with my direction and input after the patient was personally seen and examined by me. I have reviewed the chart and agree that the record accurately reflects by personal performance of the history, physical exam, data review, and medical decision-making, in the course for the patient. I have also personally directed the plan of care.
[2017-10-03] MEDS: Enoxaparin 30 mg Syringe SC SCH (09:47)
[2017-10-03 12:38] VITALS: RESP 21
[2017-10-03 19:05] VITALS: BP 104/75; PULSE 79; TEMP 97.8
--- NOTE | 2017-10-04 14:12 | CP.PCM.DIS ---
Provider - Provider Date of Admission: 10/01/17 13:56 Attending physician: Danish Ngo MD Hospital Course - Lab Results Lab Results: Most Recent Lab Values WBC 8.7 10^3/ul (4.5-11.0) D 10/03/17 07:00 RBC 4.12 10^6/uL (3.5-6.1) 10/03/17 07:00 Hgb 12.2 g/dL (12.0-16.0) 10/03/17 07:00 Hct 38.7 % (36.0-48.0) 10/03/17 07:00 MCV 93.9 fl (80.0-105.0) 10/03/17 07:00 MCH 29.6 pg (25.0-35.0) 10/03/17 07:00 MCHC 31.5 g/dl (31.0-37.0) 10/03/17 07:00 RDW 14.7 % (11.5-14.5) H 10/03/17 07:00 Plt Count 270 10^3/uL (120.0-450.0) 10/03/17 07:00 MPV 9.3 fl (7.0-11.0) 10/03/17 07:00 Gran % 62.1 % (50.0-68.0) 10/03/17 07:00 Lymph % (Auto) 26.6 % (22.0-35.0) 10/03/17 07:00 Bradley % (Auto) 8.8 % (1.0-6.0) H 10/03/17 07:00 Eos % (Auto) 2.2 % (1.5-5.0) 10/03/17 07:00 Baso % (Auto) 0.3 % (0.0-3.0) 10/03/17 07:00 Gran # 5.41 (1.4-6.5) 10/03/17 07:00 Lymph # (Auto) 2.3 (1.2-3.4) 10/03/17 07:00 Bradley # (Auto) 0.8 (0.1-0.6) H 10/03/17 07:00 Eos # (Auto) 0.2 (0.0-0.7) 10/03/17 07:00 Baso # (Auto) 0.03 K/mm3 (0.0-2.0) 10/03/17 07:00 Sodium 140 mmol/L (132-148) 10/03/17 07:00 Potassium 4.7 mmol/L (3.6-5.0) 10/03/17 07:00 Chloride 101 mmol/L (98-107) 10/03/17 07:00 Carbon Dioxide 29 mmol/L (21-33) 10/03/17 07:00 Anion Gap 14 (10-20) 10/03/17 07:00 BUN 17 mg/dL (7-21) 10/03/17 07:00 Creatinine 0.6 mg/dl (0.7-1.2) L 10/03/17 07:00 Est GFR ( Amer) > 60 10/03/17 07:00 Est GFR (Non-Af Amer) > 60 10/03/17 07:00 Random Glucose 88 mg/dL (70-110) 10/03/17 07:00 Calcium 9.5 mg/dL (8.4-10.5) 10/03/17 07:00 Phosphorus 5.0 mg/dL (2.5-4.5) H 10/02/17 11:00 Magnesium 1.8 mg/dL (1.7-2.2) 10/02/17 11:00 Total Bilirubin 0.2 mg/dL (0.2-1.3) 10/03/17 07:00 AST 27 U/L (14-36) 10/03/17 07:00 ALT 21 U/L (7-56) 10/03/17 07:00 Alkaline Phosphatase 76 U/L (38-126) 10/03/17 07:00 Total Protein 6.9 g/dL (5.8-8.3) 10/03/17 07:00 Albumin 3.8 g/dL (3.0-4.8) 10/03/17 07:00 Globulin 3.1 gm/dL 10/03/17 07:00 Albumin/Globulin Ratio 1.3 (1.1-1.8) 10/03/17 07:00 Amylase 78 U/L (35-125) 09/30/17 14:35 Lipase 138 U/L (23-300) 09/30/17 14:35 Prolactin 4.6 ng/mL (3.0-18.9) 09/30/17 14:48 Urine Opiates Screen Negative (NEGATIVE) 10/01/17 06:41 Urine Methadone Screen Positive (NEGATIVE) H 10/01/17 06:41 Ur Barbiturates Screen Negative (NEGATIVE) 10/01/17 06:41 Ur Phencyclidine Scrn Negative (NEGATIVE) 10/01/17 06:41 Ur Amphetamines Screen Negative (NEGATIVE) 10/01/17 06:41 U Benzodiazepines Scrn Positive (NEGATIVE) H 10/01/17 06:41 U Oth Cocaine Metabols Negative (NEGATIVE) 10/01/17 06:41 U Cannabinoids Screen Positive (NEGATIVE) H 10/01/17 06:41 Alcohol, Quantitative 48 mg/dL (0-10) H 09/30/17 14:35 Hepatitis A IgM Ab Negative (NEGATIVE) 09/30/17 18:33 Hep Bs Antigen Negative (NEGATIVE) 09/30/17 18:33 Hep B Core IgM Ab Negative (NEGATIVE) 09/30/17 18:33 Hepatitis C Antibody Negative (NEGATIVE) 09/30/17 18:33 HIV 1&2 Antibody Screen Negative (NEGATIVE) 09/30/17 18:33 Discharge Exam - Head Exam Head Exam: ATRAUMATIC, NORMAL INSPECTION, NORMOCEPHALIC Discharge Plan - Follow Up Plan Condition: GOOD Disposition: AGAINST MEDICAL ADVICE Additional Instructions: Pt is AAOx3, gait stable. Understood the risk of AMA and still wants to leave for personal reason. She will follow up with her own primary care doctor in [place]. Printed a copy of last administered methadone for her methadone clinic. Given a copy of AMA paper. Advised her against drinking and substance abuse
== END 2017-10-03 19:47 | disposition left against medical advice (07) | DRG 743 ==
LOC: ED 11:43 → ERH 10-01 04:39 → 2RNO 10-01 06:27 → OBSVTOIN 10-01 13:56 → 2RNO 10-01 14:20
PROVIDERS: ADMIT Internal Medicine; ATTEND Internal Medicine
DX: F10.239 Alcohol dependence with withdrawal, unspecified (principal); F11.20 Opioid dependence, uncomplicated; N18.9 Chronic kidney disease, unspecified; R56.9 Unspecified convulsions; F14.90 Cocaine use, unspecified, uncomplicated; F17.210 Nicotine dependence, cigarettes, uncomplicated; F31.9 Bipolar disorder, unspecified; F43.10 Post-traumatic stress disorder, unspecified; F60.3 Borderline personality disorder; Z80.49 Family history of malignant neoplasm of other genital organs; Z82.49 Family history of ischemic heart disease and other diseases of the circulatory system; Z83.3 Family history of diabetes mellitus; Z87.442 Personal history of urinary calculi; Z87.19 Personal history of other diseases of the digestive system; Z88.6 Allergy status to analgesic agent

== ENCOUNTER 2017-10-06 10:23 | Inpatient (IN) | payer MEDICAID ==
--- NOTE | 2017-10-06 10:57 | ED PDOC ---
Arrival/HPI - General Chief Complaint: Substance Abuse Time Seen by Provider: 10/06/17 10:49 Historian: Patient - History of Present Illness Narrative History of Present Illness (Text): 10/06/17 1100 pt p/w + alcohol and opioid w/d symptoms; pt states she cant stop shaking and felt very jittery; pt also experienced severe nausea with vomiting; pt was told that she had an episode of seizure this morning, witnessed by her friend; pt states + epigastric pain, + sweaty, + constipated; pt states last alcohol use was 1am today and she drinks ~ 1 L of vodka daily; pt states last methadone use was 3 days ago; pt states no fever, no chest pain, + felt palpitations, + mild shortness of breath; mild mid abd tenderness, no numbness/tingling, no urinary changes, no gross bleeding; no fall/trauma/sick contact, no travel; pt denied other medical complaints; pt denied SI/HI, pt denied visual/auditory/tactile pt is here for further eval. pt was just recently admitted for similar complaints (at [facility]) and she left AMA b/c she was placed in the psych le after her medical evaluation/ treatment, and she did not want that. PCP: NONE Time/Duration: Prior to Arrival Symptom Onset: Sudden Symptom Course: Worsening Severity Level: Severe Activities at Onset: Rest Context: Home Past Medical History - Provider Review Nursing Documentation Reviewed: Yes - Travel History Have you recently traveled outside [place] w/in the past 3 mons?: No - Past History Past History: Non-Contributing - Infectious Disease Hx of Infectious Diseases: None - Reproductive Menopause: No Currently : Unknown - Cardiac Hx Cardiac Disorders: No Other/Comment: "heart murmur" - Pulmonary Hx Respiratory Disorders: No - Neurological Hx Neurological Disorder: No - HEENT Hx HEENT Disorder: No - Renal Hx Renal Disorder: Yes Hx Kidney Stones: Yes - Endocrine/Metabolic Hx Endocrine Disorders: No - Hematological/Oncological Hx Blood Disorders: Yes Hx Hepatitis A: Yes - Integumentary Hx Dermatological Disorder: Yes (tatoos) - Musculoskeletal/Rheumatological Hx Musculoskeletal Disorders: No Hx Falls: No - Gastrointestinal Hx Gastrointestinal Disorders: No - Genitourinary/Gynecological Hx Genitourinary Disorders: No - Psychiatric Hx Psychophysiologic Disorder: Yes Hx Bipolar Disorder: Yes Hx Depression: Yes Hx Post Traumatic Stress Disorder: Yes Hx Substance Use: Yes - Anesthesia Hx Anesthesia: No - Suicidal Assessment Feels Threatened In Home Enviroment: No Family/Social History - Physician Review Nursing Documentation Reviewed: Yes Family/Social History: Unknown Family HX Smoking Status: Heavy Smoker > 10 Cigarettes Daily Hx Alcohol Use: Yes Hx Substance Use: Yes Hx Substance Use Treatment: Yes Allergies/Home Meds Allergies/Adverse Reactions: Allergies pentazocine Adverse Reaction (Verified 10/06/17 10:55) FEVER Review of Systems - Review of Systems Constitutional: Fatigue. absent: Weight Change, Fevers Eyes: Normal ENT: Normal Respiratory: Normal. absent: SOB Cardiovascular: Normal. absent: Chest Pain Gastrointestinal: Abdominal Pain, Nausea, Vomiting Genitourinary Female: Normal Musculoskeletal: Normal Skin: Normal Neurological: Dizziness, Seizure Endocrine: Normal Hemo/Lymphatic: Normal Psychiatric: Anxiety, Other (jittery). absent: Depression, Suicidal Ideation Physical Exam - Physical Exam Narrative Physical Exam (Text): 10/06/17 10:56 General: alert/awake, GCS = 15, oriented x 3, resting in bed, uncomfortable, cooperative, interactive; moderate distress due to shaking/withdrawal symptoms Head: NC/AT EYE: PERRLA, EOMI, sclera anicteric, no nystagmus, no photophobia; visual field intact b/l Facial: WNL Oral: uvula/tongue are midline, no exudate/lesions, no drooling/stridor, no dysphonia; fair dentitions; mild dry oral mucosa NECK: intact ROM, no midline tenderness, no nuchal rigidity, no meningeal signs ; no step off Chest: CTA b/l, no w/r/r; no tachypenia, no accessory muscle use noted Chest Wall: no crepitus, no lesions, no gross deformities, no focal tenderness Cardiac: +S1, +S2, no m/r/r, no tachycardia Abdominal: +BS, soft/nd/nt, well nourished patient; no masses/rebound/guarding/ rigidity; no flores's sign, no mcburney's point tenderness Extremities: intact ROM, strength 5/5 grossly intact in all limbs, neurovasc intact b/l; + ambulatory; reflex +2/2 BACK: no step off, no midline tenderness, NO crepitus, no gross deformities noted; Intact ROM SKIN: cap refill ~ 1 sec, no ulcerations, no petechiae, no rashes; no gross pallor NEURO: CNII-XII WNL, no facial asymmetries, no slurr speech, oriented x 3; + resting tremors noted NIH stroke scale ~ 0 Psych: normal insight, normal affect; follows command with ease Vital Signs Reviewed: Yes Vital Signs Temp Pulse Resp BP Pulse Ox 10/06/17 11:07 92 H 20 97 10/06/17 10:50 98 F 95 H 18 108/74 98 Temperature: Afebrile Blood Pressure: Normal Pulse: Tachycardic Respiratory Rate: Normal Appearance: Positive for: Well-Appearing, Non-Toxic, Uncomfortable. No: Ill- Appearing, Unkept Pain Distress: None Mental Status: Positive for: Alert and Oriented X 3 - Systems Exam Head: Present: Atraumatic, Normocephalic Medical Decision Making ED Course and Treatment: 10/06/17 11:15 Impression: alcohol and opioid w/d; weakness, alcohol w/d seizure i have consider all the differential diagnosis regarding pt's chief medical complaints/clinical findings, including but are not limited to: alcohol and opioid w/d; weakness, alcohol w/d seizure A/P: alcohol and opioid w/d; weakness, alcohol w/d seizure - labs - iv - ct - xray - supportive care - observe/reevaluation 10/06/17 12:45p pt is resting in bed, comfortable appearing vital signs improving due to pt's medical complaints and emergency department findings, will recommend patient for admission/obs pt is made aware of her medical results pt agrees with admission 1258pm I spoke to hospitalists workers' compensation claims supervisor, Dr Torres, made aware, agrees with admission; ok with patient to the floor/obs status 1325 vital signs remained steady pt remained comfortable currently Re-evaluation Time: 12:58 Reassessment Condition: Improving,but remains with symptoms - Critical Care Critical Care Minutes: 30 minutes Critical Care Time: Excluding Proc Time Narrative Critical Care (Text): 10/06/17 13:18 critical care time: 30min, excluding procedure time, excluding time teaching residents/students/mid-level providers; including initial eval/diagnosis, diagnostic interpretation, re-eval, consultations, final disposition - Lab Interpretations Lab Results: 10/06/17 12:13 10/06/17 12:13 Lab Results 10/06/17 12:13: Alcohol, Quantitative 146 H 10/06/17 12:13: Salicylates < 1 L, Acetaminophen < 10.0 L 10/06/17 12:13: Sodium 147, Potassium 3.9, Chloride 107, Carbon Dioxide 27, Anion Gap 17, BUN 9, Creatinine 0.5 L, Est GFR ( Amer) > 60, Est GFR (Non -Af Amer) > 60, Random Glucose 97, Calcium 9.3, Magnesium 1.8, Total Bilirubin 0.2, AST 31, ALT 29, Alkaline Phosphatase 86, Total Creatine Kinase 68, Total Protein 7.1, Albumin 3.9, Globulin 3.2, Albumin/Globulin Ratio 1.2 10/06/17 12:13: WBC 10.7 D, RBC 3.84, Hgb 11.7 L, Hct 35.4 L, MCV 92.2, MCH 30.5, MCHC 33.1, RDW 14.8 H, Plt Count 322, MPV 9.2, Gran % 75.0 H, Lymph % ( Auto) 20.3 L, Anderson % (Auto) 3.9, Eos % (Auto) 0.5 L, Baso % (Auto) 0.3, Gran # 8.04 H, Lymph # (Auto) 2.2, Anderson # (Auto) 0.4, Eos # (Auto) 0.1, Baso # (Auto) 0.03 10/06/17 11:07: Urine Opiates Screen Negative, Urine Methadone Screen Positive H , Ur Barbiturates Screen Negative, Ur Phencyclidine Scrn Negative, Ur Amphetamines Screen Negative, U Benzodiazepines Scrn Positive H, U Oth Cocaine Metabols Negative, U Cannabinoids Screen Positive H 10/06/17 11:07: Urine Color Yellow, Urine Appearance Clear, Urine pH 6.0, Ur Specific Negley 1.020, Urine Protein Negative, Urine Glucose (UA) Negative, Urine Ketones Negative, Urine Blood Negative, Urine Nitrate Negative, Urine Bilirubin Negative, Urine Urobilinogen 0.2, Ur Leukocyte Esterase Negative I have reviewed the lab results: Yes Interpretation: Abnormal lab values (+ UTOX, + etoh) - RAD Interpretation Narrative RAD Interpretations (Text): 10/06/17 13:45 Chest X-ray: Creator : Burton Ceron MD COMPARISON: 07/20/2017 FINDINGS: LUNGS: No active pulmonary disease. PLEURA: No significant pleural effusion identified, no pneumothorax apparent. CARDIOVASCULAR: Normal. OSSEOUS STRUCTURES: No significant abnormalities. VISUALIZED UPPER ABDOMEN: Normal. OTHER FINDINGS: None. IMPRESSION: No active disease. 10/06/17 13:58 PROCEDURE: CT HEAD WITHOUT CONTRAST. HISTORY: seizure, likely w/d from alcohol? COMPARISON: None available. TECHNIQUE: Axial computed tomography images were obtained through the head/brain without intravenous contrast. Radiation dose: Total exam DLP = 875 mGy-cm. This CT exam was performed using one or more of the following dose reduction techniques: Automated exposure control, adjustment of the mA and/or kV according to patient size, and/or use of iterative reconstruction technique. FINDINGS: HEMORRHAGE: No intracranial hemorrhage. BRAIN: No mass effect or edema. No atrophy or chronic microvascular ischemic changes. VENTRICLES: Unremarkable. No hydrocephalus. CALVARIUM: Unremarkable. PARANASAL SINUSES: Unremarkable as visualized. No significant inflammatory changes. MASTOID AIR CELLS: Unremarkable as visualized. No inflammatory changes. OTHER FINDINGS: None. IMPRESSION: No acute findings Radiology Orders: 10/06/17 11:15 HEAD W/O CONTRAST [CT] Stat CHEST PORTABLE [RAD] Stat Skip Pitman: Radiologist - EKG Interpretation EKG Interpretation (Text): 10/06/17 13:00 Sinus tach at 115 bpm, normal axis, no ectopy, non-specific st-t changes, ABNL EKG; unchanged compare with old ekg 09/2017 Interpreted by ED Physician: Yes Type: 12 lead EKG Comparison: Similar to previous EKG - Medication Orders Current Medication Orders: Folic Acid 1 mg/ Thiamine HCl 100 mg/ Multivitamins/Vitamin C 10 ml/ Dextrose 1 ,011.2 mls @ 100 mls/hr IV ONCE ONE Stop: 10/06/17 21:21 Last Admin: 10/06/17 12:15 Dose: 100 mls/hr eMAR Start Stop Document 10/06/17 12:15 EQ (Rec: 10/06/17 12:16 EQ [id number]) Intravenous Solution Start Date 10/06/17 Start Time 12:15 Discontinued Medications Clonidine HCl (Catapres) 0.1 mg PO STAT STA Stop: 10/06/17 11:18 Famotidine (Pepcid 20mg/50ml Premix) 20 mg in 50 mls @ 100 mls/hr IVPB STAT STA Stop: 10/06/17 12:32 Last Admin: 10/06/17 12:17 Dose: 100 mls/hr eMAR Start Stop Document 10/06/17 12:17 EQ (Rec: 10/06/17 12:17 EQ [id number]) Intravenous Solution Start Date 10/06/17 Start Time 12:17 Lorazepam (Ativan) 2 mg IVP STAT STA Stop: 10/06/17 11:16 Last Admin: 10/06/17 11:25 Dose: 2 mg IVP Administration Document 10/06/17 11:25 EQ (Rec: 10/06/17 11:25 EQ [id number]) Charges for Administration # of IVP Administrations 1 Ondansetron HCl (Zofran Inj) 4 mg IVP STAT STA Stop: 10/06/17 12:04 Last Admin: 10/06/17 12:18 Dose: 4 mg IVP Administration Document 10/06/17 12:18 EQ (Rec: 10/06/17 12:18 EQ [id number]) Charges for Administration # of IVP Administrations 1 - Scribe Statement The provider has reviewed the documentation as recorded by the Pacheco Pennington Provider Scribe Attestation: All medical record entries made by the Scribe were at my direction and personally dictated by me. I have reviewed the chart and agree that the record accurately reflects my personal performance of the history, physical exam, medical decision making, and the department course for this patient. I have also personally directed, reviewed, and agree with the discharge instructions and disposition. Disposition/Present on Arrival - Present on Arrival Any Indicators Present on Arrival: No History of DVT/PE: No History of Uncontrolled Diabetes: No Urinary Catheter: No History of Decub. Ulcer: No History Surgical Site Infection Following: None - Disposition Have Diagnosis and Disposition been Completed?: Yes Diagnosis: Alcohol withdrawal, Polysubstance abuse, Dehydration Disposition: HOSPITALIZED Disposition Time: 13:09 Patient Plan: Admission, Observation, Telemetry Patient Problems: Current Active Problems Problem Status Onset Polysubstance abuse Acute Alcohol withdrawal Acute Dehydration Acute Condition: STABLE
[2017-10-06] MEDS ORDERED: Folic Acid 1 MG, Thiamine 100 MG, Multivitamin (MVI) 10 ML in Dextrose 5% In Water 1,00... IV ONE (11:15)
[2017-10-06 11:46] LABS: URINE BILIRUBIN NEGATIVE (NEGATIVE); URINE BLOOD NEGATIVE (NEGATIVE); URINE GLUCOSE (UA) NEGATIVE (NEGATIVE); URINE LEUKOCYTE ESTERASE NEGATIVE Leu/uL (NEGATIVE); URINE PROTEIN NEGATIVE mg/dL (<30 mg/dL); URINE UROBILINOGEN 0.2 E.U./dL (<1 E.U./dL)
[2017-10-06 11:48] LABS: URINE APPEARANCE CLEAR (CLEAR); URINE COLOR YELLOW (YELLOW)
[2017-10-06 12:02] LABS: PHENCYCLIDINE, UR NEGATIVE (NEGATIVE)
[2017-10-06] MEDS ORDERED: Famotidine 20mg/50ml 20 MG/50 ML BAG IVPB STA (12:03)
[2017-10-06 12:14] LABS: BARBITURATES, UR NEGATIVE (NEGATIVE); BENZODIAZEPINES, UR POSITIVE (NEGATIVE); OPIATES, UR NEGATIVE (NEGATIVE)
[2017-10-06 12:28] LABS: BASO # 0.03 K/mm3 (0.0-2.0); BASO % 0.3 % (0.0-3.0); EOS # 0.1 (0.0-0.7); EOS % 0.5 % (1.5-5.0); GRAN # 8.04 (1.4-6.5); HEMOGLOBIN 11.7 g/dL (12.0-16.0); LYMPH # 2.2 (1.2-3.4); LYMPH % 20.3 % (22.0-35.0); MEAN CELL VOLUME 92.2 fl (80.0-105.0); MEAN CORPUSCULAR HEMOGLOBIN 30.5 pg (25.0-35.0); MEAN CORPUSCULAR HGB CONC 33.1 g/dl (31.0-37.0); MEAN PLATELET VOLUME 9.2 fl (7.0-11.0); MONO # 0.4 (0.1-0.6); MONO % 3.9 % (1.0-6.0); RBC 3.84 10^6/uL (3.5-6.1); RED CELL DISTRIBUTION WIDTH 14.8 % (11.5-14.5); WHITE BLOOD COUNT 10.7 10^3/ul (4.5-11.0)
--- NOTE | 2017-10-06 12:30 | CARD ---
APPROVED REPORT EKG Measurement Heart [id number] [id number] <Conclusion> Sinus tachycardia Otherwise normal ECG
[2017-10-06 12:49] LABS: BLOOD UREA NITROGEN 9 mg/dL (7-21); GFR AFRICAN-AMERICAN > 60; GFR NON-AFRICAN AMERICAN > 60
[2017-10-06 12:50] LABS: ACETAMINOPHEN < 10.0 ug/ml (10.0-20.0); ALB/GLOB RATIO 1.2 (1.1-1.8); ALBUMIN 3.9 g/dL (3.0-4.8); ALT/SGPT 29 U/L (7-56); AST/SGOT 31 U/L (14-36); CALCIUM 9.3 mg/dL (8.4-10.5); SALICYLATE < 1 mg/dL (2.0-20.0)
--- NOTE | 2017-10-06 13:46 | RAD ---
HISTORY: etoh w/d, seizure earlier? COMPARISON: 07/20/2017 FINDINGS: LUNGS: No active pulmonary disease. PLEURA: No significant pleural effusion identified, no pneumothorax apparent. CARDIOVASCULAR: Normal. OSSEOUS STRUCTURES: No significant abnormalities. VISUALIZED UPPER ABDOMEN: Normal. OTHER FINDINGS: None. IMPRESSION: No active disease.
--- NOTE | 2017-10-06 13:59 | CT ---
PROCEDURE: CT HEAD WITHOUT CONTRAST. HISTORY: seizure, likely w/d from alcohol? COMPARISON: None available. TECHNIQUE: Axial computed tomography images were obtained through the head/brain without intravenous contrast. Radiation dose: Total exam DLP = 875 mGy-cm. This CT exam was performed using one or more of the following dose reduction techniques: Automated exposure control, adjustment of the mA and/or kV according to patient size, and/or use of iterative reconstruction technique. FINDINGS: HEMORRHAGE: No intracranial hemorrhage. BRAIN: No mass effect or edema. No atrophy or chronic microvascular ischemic changes. VENTRICLES: Unremarkable. No hydrocephalus. CALVARIUM: Unremarkable. PARANASAL SINUSES: Unremarkable as visualized. No significant inflammatory changes. MASTOID AIR CELLS: Unremarkable as visualized. No inflammatory changes. OTHER FINDINGS: None. IMPRESSION: No acute findings
--- NOTE | 2017-10-06 14:04 | CP.PCM.HP ---
<Gene Summers - Last Filed: 10/06/17 15:45> History of Present Illness - History of Present Illness History of Present Illness: Patient is a 32 year old female with a past medical history of bipolar disorder , borderline personality disorder, PTSD, ETOH abuse, cocaine abuse, heroin abuse on methadone who presents to the emergency room for evaluation and treatment of seizure like activity, nausea, vomiting, and tremors since 1 a.m. this morning; patient endorses consuming 1 liter of vodka. Denies shortness of breath, chest pain, palpitations, headache, cough, fevers, chills, abdominal pain. 12 point ROS negative except as indicated in HPI PMHx: bipolar disorder, borderline personality disorder, PTSD, ETOH abuse, cocaine abuse, heroin abuse on methadone PSHx: Denies Social Hx: Tobacco: 1ppd for 20 years, ETOH: alcohol abuse- 4 pints of liquor no most days, illicit drug use: history of marijuana, cocaine, PCP and heroin use Family Hx: Mother- uterine cancer and father- Htn, Dm Allergies: Pentazocine Methadone Clinic: [facility] Pharmacy: "[facility]" in [place], [place] [facility] care physician: does not recall name Psychiatrist: Dr. John Present on Admission - Present on Admission Any Indicators Present on Admission: No Past Patient History - Infectious Disease Hx of Infectious Diseases: None - Past Social History Smoking Status: Heavy Smoker > 10 Cigarettes Daily - CARDIAC Hx Cardiac Disorders: No Other/Comment: "heart murmur" - PULMONARY Hx Respiratory Disorders: No - NEUROLOGICAL Hx Neurological Disorder: No - HEENT Hx HEENT Problems: No - RENAL Hx Chronic Kidney Disease: Yes Hx Kidney Stones: Yes - ENDOCRINE/METABOLIC Hx Endocrine Disorders: No - HEMATOLOGICAL/ONCOLOGICAL Hx Blood Disorders: Yes Hx Hepatitis A: Yes - INTEGUMENTARY Hx Dermatological Problems: Yes (tatoos) - MUSCULOSKELETAL/RHEUMATOLOGICAL Hx Musculoskeletal Disorders: No Hx Falls: No - GASTROINTESTINAL Hx Gastrointestinal Disorders: No - GENITOURINARY/GYNECOLOGICAL Hx Genitourinary Disorders: No - PSYCHIATRIC Hx Psychophysiologic Disorder: Yes Hx Bipolar Disorder: Yes Hx Depression: Yes Hx Post Traumatic Stress Disorder: Yes Hx Substance Use: Yes - SURGICAL HISTORY Hx Surgeries: No - ANESTHESIA Hx Anesthesia: No Meds Allergies/Adverse Reactions: Allergies Allergy/AdvReac Type Severity Reaction Status Date / Time pentazocine AdvReac FEVER Verified 10/06/17 10:55 Results - Vital Signs Recent Vital Signs: Last Vital Signs Temp 98 F 10/06/17 10:50 Pulse 92 H 10/06/17 11:07 Resp 20 10/06/17 11:07 BP 108/74 10/06/17 10:50 Pulse Ox 97 10/06/17 11:07 - Labs Result Diagrams: 10/06/17 12:13 10/06/17 12:13 Assessment & Plan - Assessment and Plan (Free Text) Assessment: Assessment and Plan: Patient is a 32 year old female with a past medical history of bipolar disorder , borderline personality disorder, PTSD, ETOH abuse, cocaine abuse, heroin abuse on methadone who presents to the emergency room for evaluation and treatment of alcohol withdrawals. Alcohol Withdrawl - Seizure like activity possibly due 2/2 DTs; patient has not had any signs of seizure activity since being admitted - [facility] protocol - ativan PRN, will convert to scheduled and PRN when patient begins to show signs of withdrawal - Continue thiamine, folate, multivitamin - Continue with seizure/aspiration/fall precautions Abdominal Pain, N/V - zofran prn Hx of bipolar, PTSD, Borderline Personality Disorder - Prozac 20 daily - Patient states once again she does not want to be seen by a psychiatrist, executive secretary social welfare, or manager military during this hospital visit - Visitor restriction due to not Tobacco Abuse - smoking cessation advised, risks of continued tobacco use thoroughly discussed with patient - nicotine patch Polysubstance Abuse - Methadone dosage 200 mg daily resumed as verified with [facility] Prophylaxis - DVT ppx- SCDs - GI ppx- famotidine <Felton Torres - Last Filed: 10/11/17 14:49> Results - Vital Signs Recent Vital Signs: Last Vital Signs Temp 97.5 F L 10/10/17 06:00 Pulse 71 10/10/17 10:00 Resp 18 10/10/17 06:00 BP 98/59 L 10/10/17 06:00 Pulse Ox 100 10/10/17 06:00 - Labs Result Diagrams: 10/10/17 09:00 10/10/17 09:00 Attending/Attestation - Attestation I have personally seen and examined this patient.: Yes I have fully participated in the care of the patient.: Yes I have reviewed all pertinent clinical information: Yes Notes (Text): 10/11/17 14:42 Medical record note made by the resident after discussion with my direction and input after the patient was personally seen and examined by me. I have reviewed the chart and agree that the record accurately reflects by personal performance of the history, physical exam, data review, and medical decision-making, in the course for the patient. I have also personally directed the plan of care. 32 years old female well known to hospitalist service with PMH of Bipolar disorder, alcohol and drug abuse on methadone, she has history of multiple admission to the hospital from alcohol withdrawal and also H/O leaving against medical advice is admitted with alcohol intoxication and impending alcohol withdrawal.We will monitor patient with EASTON adamson. Issue of ongoing alcohol and drug abuse was discussed in detail with patient. Education was provided.
[2017-10-06 17:47] VITALS: BMI 28.3
[2017-10-06] MEDS ORDERED: Pneumococcal 23-Valent Vaccine IM ONE (17:48)
[2017-10-07 06:28] LABS: BASO # 0.03 K/mm3 (0.0-2.0); BASO % 0.4 % (0.0-3.0); EOS # 0.2 (0.0-0.7); EOS % 2.5 % (1.5-5.0); GRAN # 3.31 (1.4-6.5); GRAN % 47.9 % (50.0-68.0); HEMOGLOBIN 10.7 g/dL (12.0-16.0); LYMPH # 2.7 (1.2-3.4); LYMPH % 38.4 % (22.0-35.0); MEAN CELL VOLUME 94.1 fl (80.0-105.0); MEAN CORPUSCULAR HEMOGLOBIN 30.2 pg (25.0-35.0); MEAN CORPUSCULAR HGB CONC 32.1 g/dl (31.0-37.0); MEAN PLATELET VOLUME 9.2 fl (7.0-11.0); MONO # 0.8 (0.1-0.6); MONO % 10.8 % (1.0-6.0); RBC 3.54 10^6/uL (3.5-6.1); RED CELL DISTRIBUTION WIDTH 14.9 % (11.5-14.5); WHITE BLOOD COUNT 6.9 10^3/ul (4.5-11.0)
[2017-10-07 07:04] LABS: ALB/GLOB RATIO 1.1 (1.1-1.8); ALBUMIN 3.3 g/dL (3.0-4.8); ALT/SGPT 29 U/L (7-56); AST/SGOT 20 U/L (14-36); BLOOD UREA NITROGEN 10 mg/dL (7-21); CALCIUM 9.4 mg/dL (8.4-10.5); GFR AFRICAN-AMERICAN > 60; GFR NON-AFRICAN AMERICAN > 60
--- NOTE | 2017-10-07 08:57 | CP.PCM.PN ---
Subjective - Date & Time of Evaluation Date of Evaluation: 10/07/17 Time of Evaluation: 08:57 - Subjective Subjective: Medicine Progress note Patient seen and examined at bedside this AM. continuing to have resting tremors. Recieved 3mg of Ativan since midnight. AAOx3. Denies: fevers, chills, chest pain, shortness of breath, nausea, vomiting, diarrhea Objective - Vital Signs/Intake and Output Vital Signs (last 24 hours): Temp Pulse Resp BP Pulse Ox 97.4 F L 56 L 20 96/56 L 100 10/07/17 07:51 10/07/17 07:51 10/07/17 07:51 10/07/17 07:51 10/07/17 07:51 Intake and Output: 10/07/17 10/07/17 06:59 18:59 Intake Total 800 Balance 800 - Medications Medications: Current Medications Acetaminophen (Tylenol 325mg Tab) 650 mg PO Q6H PRN PRN Reason: Fever >100.4 F Fluoxetine HCl (Prozac) 20 mg PO DAILY [facility] Last Admin: 10/06/17 16:44 Dose: Not Given Folic Acid (Folic Acid) 1 mg PO DAILY [facility] Lorazepam (Ativan) 2 mg IVP Q6H PRN; Protocol PRN Reason: Anxiety Last Admin: 10/07/17 03:39 Dose: 2 mg Lorazepam (Ativan) 1 mg IVP Q2H PRN; Protocol PRN Reason: Anxiety Last Admin: 10/07/17 07:34 Dose: 1 mg Methadone HCl (Methadone) 200 mg PO DAILY [facility] Last Admin: 10/06/17 16:00 Dose: 200 mg Multivitamins/Minerals (Therapeutic-M Tab) 1 tab PO 0800 [facility] Ondansetron HCl (Zofran Inj) 4 mg IVP Q6H PRN PRN Reason: Nausea/Vomiting Thiamine HCl (Vitamin B1 Tab) 100 mg PO DAILY [facility] - Labs Labs: 10/07/17 06:00 10/07/17 06:00 - Constitutional Appears: Non-toxic, No Acute Distress - Head Exam Head Exam: ATRAUMATIC - Eye Exam Eye Exam: EOMI. absent: Scleral icterus - ENT Exam ENT Exam: Mucous Membranes Moist - Respiratory Exam Respiratory Exam: NORMAL BREATHING PATTERN. absent: Accessory Muscle Use, Rales , Rhonchi, Wheezes, Respiratory Distress - Cardiovascular Exam Cardiovascular Exam: +S1, +S2. absent: Bradycardia, Tachycardia - GI/Abdominal Exam GI & Abdominal Exam: Soft. absent: Firm, Guarding, Rigid, Tenderness, Mass - Extremities Exam Extremities Exam: Normal Inspection. absent: Calf Tenderness - Neurological Exam Neurological Exam: Alert, Awake, Oriented x3 - Psychiatric Exam Psychiatric exam: Normal Affect - Skin Skin Exam: Intact, Warm Assessment and Plan - Assessment and Plan (Free Text) Assessment: 32F with a pmhx of bipolar disorder, borderline personality disorder, PTSD, polysubstance abuse (etoh, cocain, heronie) on methadone who presents to the emergency room for evaluation and treatment of alcohol withdrawals. Plan: Alcohol Withdrawl - Seizure like activity possibly due 2/2 DTs; patient has not had any signs of seizure activity since being admitted - [facility] protocol - ativan currently GEORGE and PRN. Received 3mg overnight - Continue thiamine, folate, multivitamin - Continue with seizure/aspiration/fall precautions - regular diet Abdominal Pain, N/V - zofran prn Hx of bipolar, PTSD, Borderline Personality Disorder - Prozac 20 daily - Patient states once again she does not want to be seen by a psychiatrist, transition social worker, or test engineering manager during this hospital visit - Visitor restriction Tobacco Abuse - smoking cessation advised, risks of continued tobacco use thoroughly discussed with patient - nicotine patch Polysubstance Abuse - Methadone dosage 200 mg daily resumed as verified with [facility] clinic Prophylaxis - DVT ppx- SCDs - GI ppx- famotidine discussed with Dr. Anaid Horan PGY1
[2017-10-07] MEDS: Multivitamin With Minerals Tab PO SCH (09:22)
[2017-10-08] MEDS ORDERED: DiphenhydrAMINE 12.5 mg/5 ml LIQ UD (5 ml) PO ONE (02:15)
--- NOTE | 2017-10-08 04:58 | CP.PCM.PN ---
Subjective - Date & Time of Evaluation Date of Evaluation: 10/08/17 Time of Evaluation: 04:58 - Subjective Subjective: # 24 angiocath was inserted in left forearm distal volar surface. Objective - Vital Signs/Intake and Output Vital Signs (last 24 hours): Temp Pulse Resp BP Pulse Ox 98.1 F 79 20 114/73 97 10/07/17 18:00 10/07/17 22:00 10/07/17 18:00 10/07/17 18:00 10/07/17 18:00 Intake and Output: 10/07/17 10/08/17 18:59 06:59 Intake Total 840 420 Balance 840 420 - Medications Medications: Current Medications Acetaminophen (Tylenol 325mg Tab) 650 mg PO Q6H PRN PRN Reason: Fever >100.4 F Last Admin: 10/07/17 21:07 Dose: 650 mg Fluoxetine HCl (Prozac) 20 mg PO DAILY [facility] Last Admin: 10/07/17 09:22 Dose: 20 mg Folic Acid (Folic Acid) 1 mg PO DAILY [facility] Last Admin: 10/07/17 09:20 Dose: 1 mg Lorazepam (Ativan) 2 mg IVP Q6H PRN; Protocol PRN Reason: Anxiety Last Admin: 10/08/17 00:15 Dose: 2 mg Lorazepam (Ativan) 1 mg IVP Q2H PRN; Protocol PRN Reason: Anxiety Last Admin: 10/08/17 04:44 Dose: 1 mg Methadone HCl (Methadone) 200 mg PO DAILY [facility] Last Admin: 10/07/17 09:20 Dose: 200 mg Multivitamins/Minerals (Therapeutic-M Tab) 1 tab PO 0800 [facility] Last Admin: 10/07/17 09:22 Dose: 1 tab Ondansetron HCl (Zofran Inj) 4 mg IVP Q6H PRN PRN Reason: Nausea/Vomiting Last Admin: 10/07/17 21:08 Dose: 4 mg Thiamine HCl (Vitamin B1 Tab) 100 mg PO DAILY [facility] Last Admin: 10/07/17 09:22 Dose: 100 mg - Labs Labs: 10/07/17 06:00 10/07/17 06:00
[2017-10-08 06:22] LABS: BASO # 0.02 K/mm3 (0.0-2.0); BASO % 0.3 % (0.0-3.0); EOS # 0.2 (0.0-0.7); EOS % 2.9 % (1.5-5.0); GRAN # 4.42 (1.4-6.5); GRAN % 58.1 % (50.0-68.0); HEMOGLOBIN 10.9 g/dL (12.0-16.0); LYMPH # 2.4 (1.2-3.4); LYMPH % 31.2 % (22.0-35.0); MEAN CELL VOLUME 93.9 fl (80.0-105.0); MEAN PLATELET VOLUME 9.6 fl (7.0-11.0); MONO # 0.6 (0.1-0.6); MONO % 7.5 % (1.0-6.0); RBC 3.63 10^6/uL (3.5-6.1); RED CELL DISTRIBUTION WIDTH 14.8 % (11.5-14.5); WHITE BLOOD COUNT 7.6 10^3/ul (4.5-11.0)
[2017-10-08 06:54] LABS: ALB/GLOB RATIO 1.3 (1.1-1.8); ALBUMIN 3.7 g/dL (3.0-4.8); ALT/SGPT 24 U/L (7-56); AST/SGOT 24 U/L (14-36); BLOOD UREA NITROGEN 15 mg/dL (7-21); CALCIUM 9.5 mg/dL (8.4-10.5); GFR AFRICAN-AMERICAN > 60; GFR NON-AFRICAN AMERICAN > 60
[2017-10-08] MEDS: Multivitamin With Minerals Tab PO SCH (09:14)
--- NOTE | 2017-10-08 13:07 | CP.PCM.PN ---
Subjective - Date & Time of Evaluation Date of Evaluation: 10/08/17 Time of Evaluation: 09:00 - Subjective Subjective: Patient seen and examined at bedside initially asleep. When awoken tremors began ; however improved since yesterday. Admits to headache and insomnia. Denies shortness of breath, chest pain, palpitations, dizziness, fever, chills, nausea , vomiting, diarrhea, cough. Objective - Vital Signs/Intake and Output Vital Signs (last 24 hours): Temp Pulse Resp BP Pulse Ox 97.6 F 74 20 99/62 L 92 L 10/08/17 06:00 10/08/17 06:00 10/08/17 06:00 10/08/17 06:00 10/08/17 06:00 Intake and Output: 10/08/17 10/08/17 06:59 18:59 Intake Total 840 Balance 840 - Medications Medications: Current Medications Acetaminophen (Tylenol 325mg Tab) 650 mg PO Q6H PRN PRN Reason: Fever >100.4 F Last Admin: 10/07/17 21:07 Dose: 650 mg Fluoxetine HCl (Prozac) 20 mg PO DAILY [facility] Last Admin: 10/08/17 09:14 Dose: 20 mg Folic Acid (Folic Acid) 1 mg PO DAILY [facility] Last Admin: 10/08/17 09:14 Dose: 1 mg Ibuprofen (Motrin Tab) 600 mg PO Q6H PRN PRN Reason: Pain, moderate (4-7) Lorazepam (Ativan) 2 mg IVP Q6H PRN; Protocol PRN Reason: Anxiety Last Admin: 10/08/17 08:08 Dose: 2 mg Lorazepam (Ativan) 1 mg IVP Q2H PRN; Protocol PRN Reason: Anxiety Last Admin: 10/08/17 12:23 Dose: 1 mg Methadone HCl (Methadone) 200 mg PO DAILY [facility] Last Admin: 10/08/17 09:12 Dose: 200 mg Multivitamins/Minerals (Therapeutic-M Tab) 1 tab PO 0800 [facility] Last Admin: 10/08/17 09:14 Dose: 1 tab Ondansetron HCl (Zofran Inj) 4 mg IVP Q6H PRN PRN Reason: Nausea/Vomiting Last Admin: 10/07/17 21:08 Dose: 4 mg Thiamine HCl (Vitamin B1 Tab) 100 mg PO DAILY [facility] Last Admin: 10/08/17 09:14 Dose: 100 mg - Labs Labs: 10/08/17 05:30 10/08/17 05:30 - Head Exam Head Exam: ATRAUMATIC, NORMAL INSPECTION, NORMOCEPHALIC - Eye Exam Eye Exam: EOMI, Normal appearance - ENT Exam ENT Exam: Mucous Membranes Moist - Neck Exam Neck Exam: Full ROM - Respiratory Exam Respiratory Exam: Clear to Ausculation Bilateral, NORMAL BREATHING PATTERN. absent: Rhonchi, Wheezes - Cardiovascular Exam Cardiovascular Exam: REGULAR RHYTHM, +S1, +S2 - GI/Abdominal Exam GI & Abdominal Exam: Soft, Normal Bowel Sounds - Extremities Exam Extremities Exam: Normal Inspection - Back Exam Back Exam: NORMAL INSPECTION - Neurological Exam Neurological Exam: Alert, Awake, Oriented x3 - Psychiatric Exam Psychiatric exam: Normal Affect, Normal Mood - Skin Skin Exam: Normal Color, Warm Assessment and Plan - Assessment and Plan (Free Text) Assessment: 32F with a pmhx of bipolar disorder, borderline personality disorder, PTSD, polysubstance abuse (etoh, cocain, heronie) on methadone who presents to the emergency room for evaluation and treatment of alcohol withdrawals. Plan: Alcohol Withdrawl - Seizure like activity possibly due 2/2 DTs; patient has not had any signs of seizure activity since being admitted - CIWV protocol: 5 - ativan currently [facility]GE and PRN; can change to PRN and PRN tomorrow - Continue thiamine, folate, multivitamin - Continue with seizure/aspiration/fall precautions - regular diet Abdominal Pain, N/V - zofran prn Hx of bipolar, PTSD, Borderline Personality Disorder - Prozac 20 daily - Patient states once again she does not want to be seen by a psychiatrist, social work manager, or intermediate manager during this hospital visit - Visitor restriction - Patient is more willing to be seen by psychiatry; psychiatry consulted Tobacco Abuse - smoking cessation advised, risks of continued tobacco use thoroughly discussed with patient - nicotine patch Polysubstance Abuse - Methadone dosage 200 mg daily resumed as verified with [facility] Prophylaxis - DVT ppx- SCDs - GI ppx- famotidine discussed with Dr. Worrell
--- NOTE | 2017-10-08 23:22 | CP.PCM.PN ---
Subjective - Date & Time of Evaluation Date of Evaluation: 10/08/17 Time of Evaluation: 23:21 - Subjective Subjective: # 22 angiocath was inserted in left hand at base of index finger. Objective - Vital Signs/Intake and Output Vital Signs (last 24 hours): Temp Pulse Resp BP Pulse Ox 98.4 F 76 20 102/64 93 L 10/08/17 18:00 10/08/17 18:00 10/08/17 18:00 10/08/17 18:00 10/08/17 18:00 Intake and Output: 10/08/17 10/09/17 18:59 06:59 Intake Total 1979 Balance 1979 - Medications Medications: Current Medications Acetaminophen (Tylenol 325mg Tab) 650 mg PO Q6H PRN PRN Reason: Fever >100.4 F Last Admin: 10/07/17 21:07 Dose: 650 mg Fluoxetine HCl (Prozac) 20 mg PO DAILY [facility] Last Admin: 10/08/17 09:14 Dose: 20 mg Folic Acid (Folic Acid) 1 mg PO DAILY [facility] Last Admin: 10/08/17 09:14 Dose: 1 mg Ibuprofen (Motrin Tab) 600 mg PO Q6H PRN PRN Reason: Pain, moderate (4-7) Lorazepam (Ativan) 2 mg IVP Q6H PRN; Protocol PRN Reason: Anxiety Last Admin: 10/08/17 18:58 Dose: 2 mg Lorazepam (Ativan) 1 mg IVP Q2H PRN; Protocol PRN Reason: Anxiety Last Admin: 10/08/17 20:30 Dose: 1 mg Methadone HCl (Methadone) 200 mg PO DAILY [facility] Last Admin: 10/08/17 09:12 Dose: 200 mg Multivitamins/Minerals (Therapeutic-M Tab) 1 tab PO 0800 [facility] Last Admin: 10/08/17 09:14 Dose: 1 tab Ondansetron HCl (Zofran Inj) 4 mg IVP Q6H PRN PRN Reason: Nausea/Vomiting Last Admin: 10/07/17 21:08 Dose: 4 mg Thiamine HCl (Vitamin B1 Tab) 100 mg PO DAILY [facility] Last Admin: 10/08/17 09:14 Dose: 100 mg
[2017-10-09 08:21] LABS: BASO # 0.03 K/mm3 (0.0-2.0); BASO % 0.3 % (0.0-3.0); EOS # 0.2 (0.0-0.7); EOS % 2.2 % (1.5-5.0); GRAN % 57.8 % (50.0-68.0); HEMOGLOBIN 10.8 g/dL (12.0-16.0); LYMPH # 2.7 (1.2-3.4); LYMPH % 31.5 % (22.0-35.0); MEAN CELL VOLUME 93.9 fl (80.0-105.0); MEAN CORPUSCULAR HEMOGLOBIN 30.2 pg (25.0-35.0); MEAN CORPUSCULAR HGB CONC 32.1 g/dl (31.0-37.0); MEAN PLATELET VOLUME 9.8 fl (7.0-11.0); MONO # 0.7 (0.1-0.6); MONO % 8.2 % (1.0-6.0); RBC 3.58 10^6/uL (3.5-6.1); RED CELL DISTRIBUTION WIDTH 14.7 % (11.5-14.5); WHITE BLOOD COUNT 8.7 10^3/ul (4.5-11.0)
[2017-10-09 08:37] LABS: ALB/GLOB RATIO 1.3 (1.1-1.8); ALBUMIN 3.7 g/dL (3.0-4.8); ALT/SGPT 27 U/L (7-56); AST/SGOT 25 U/L (14-36); BLOOD UREA NITROGEN 12 mg/dL (7-21); CALCIUM 9.6 mg/dL (8.4-10.5); GFR AFRICAN-AMERICAN > 60; GFR NON-AFRICAN AMERICAN > 60
[2017-10-09] MEDS: Multivitamin With Minerals Tab PO SCH (09:15)
--- NOTE | 2017-10-09 11:46 | CP.PCM.PN ---
<Ena Gómez - Last Filed: 10/09/17 13:43> Subjective - Date & Time of Evaluation Date of Evaluation: 10/09/17 Time of Evaluation: 07:00 - Subjective Subjective: Hospitalist Progress Note, Margarita Gómez PGY2 Patient seen and examined at bedside. There were no acute overnight events as per nursing staff. Patient did have some anxiety overnight and received a total of 5mg of Ativan. This am, patient reports she feels "shaky" and is having some visual hallucinations. She did not have her morning dose of methadone yet. Otherwise, she denies chest pain, shortness of breath, nausea/vomiting/diarrhea , fever/chills, numbness/tingling, dysuria or hematuria. Objective - Vital Signs/Intake and Output Vital Signs (last 24 hours): Temp Pulse Resp BP Pulse Ox 98.0 F 64 20 100/56 L 97 10/09/17 06:00 10/09/17 06:00 10/09/17 06:00 10/09/17 06:00 10/09/17 06:00 Intake and Output: 10/09/17 10/09/17 06:59 18:59 Intake Total 2100 Balance 2100 - Medications Medications: Current Medications Acetaminophen (Tylenol 325mg Tab) 650 mg PO Q6H PRN PRN Reason: Fever >100.4 F Last Admin: 10/07/17 21:07 Dose: 650 mg Fluoxetine HCl (Prozac) 20 mg PO DAILY [facility] Last Admin: 10/09/17 09:15 Dose: 20 mg Folic Acid (Folic Acid) 1 mg PO DAILY [facility] Last Admin: 10/09/17 09:15 Dose: 1 mg Ibuprofen (Motrin Tab) 600 mg PO Q6H PRN PRN Reason: Pain, moderate (4-7) Lorazepam (Ativan) 2 mg IVP Q6H PRN; Protocol PRN Reason: Anxiety Last Admin: 10/09/17 05:41 Dose: 2 mg Lorazepam (Ativan) 1 mg IVP Q2H PRN; Protocol PRN Reason: Anxiety Last Admin: 10/09/17 09:15 Dose: 1 mg Methadone HCl (Methadone) 200 mg PO DAILY [facility] Last Admin: 10/09/17 09:14 Dose: 200 mg Mirtazapine (Remeron) 15 mg PO [facility] Multivitamins/Minerals (Therapeutic-M Tab) 1 tab PO 0800 [facility] Last Admin: 10/09/17 09:15 Dose: 1 tab Ondansetron HCl (Zofran Inj) 4 mg IVP Q6H PRN PRN Reason: Nausea/Vomiting Last Admin: 10/07/17 21:08 Dose: 4 mg Quetiapine Fumarate (Seroquel) 50 mg PO DAILY [facility] PRN Reason: Protocol Quetiapine Fumarate (Seroquel) 100 mg PO HS [facility] PRN Reason: Protocol Thiamine HCl (Vitamin B1 Tab) 100 mg PO DAILY [facility] Last Admin: 10/09/17 09:15 Dose: 100 mg - Labs Labs: 10/09/17 08:00 10/09/17 08:00 - Constitutional Appears: No Acute Distress - Head Exam Head Exam: ATRAUMATIC, NORMAL INSPECTION, NORMOCEPHALIC - Eye Exam Eye Exam: Normal appearance, PERRL Pupil Exam: NORMAL ACCOMODATION, PERRL - ENT Exam ENT Exam: Mucous Membranes Moist - Respiratory Exam Respiratory Exam: Clear to Ausculation Bilateral, NORMAL BREATHING PATTERN. absent: Rhonchi, Wheezes - Cardiovascular Exam Cardiovascular Exam: Tachycardia, REGULAR RHYTHM, +S1, +S2. absent: Gallop, Rubs, Murmur - GI/Abdominal Exam GI & Abdominal Exam: Soft, Normal Bowel Sounds. absent: Rigid, Tenderness, Mass , Rebound - Extremities Exam Extremities Exam: Normal Inspection. absent: Calf Tenderness, Pedal Edema - Neurological Exam Neurological Exam: Alert, Awake, CN II-XII Intact, Normal Gait, Oriented x3 - Psychiatric Exam Psychiatric exam: Normal Affect, Normal Mood - Skin Skin Exam: Dry, Warm Assessment and Plan - Assessment and Plan (Free Text) Assessment: This is a 32yo female with past medical history of polysubstance abuse (EtOH, heroin, Cocaine, Methadone, marijuana), bipolar disorder, PTSD and borderline personality disorder who was admitted for alcohol withdrawal. Plan: 1. Alcohol withdrawal - Continue to monitor CIWA - Seizure, aspiration and fall precautions - Ativan 2q6 prn - Librium 25mg PO scheduled - Thiamine, Folic acid and Multivitamin - Zofran prn 2. Polysubstance abuse - Utox positive for alcohol, Methadone, Benzo, and marijuana - Current methadone user. Continue Methadone 200mg daily - patient counseled on drug and alcohol cessation 3. Tobacco abuse - Patient counseled on smoking cessation 4. Psychiatric Disorder (Bipolar, PTSD, Borderline) - Psych consulted - Medications adjusted - Patient placed on Seroquel 50 PO & 100mg HS, Remeron and Prozac GI ppx: Pepcid DVT ppx: SCDs and patient is ambulating Dispo: Plan for possible d/c home tomorrow morning. Case seen, reviewed and discussed with Dr. Oscar Gómez PGY2 <Paul Moore - Last Filed: 10/09/17 23:10> Objective - Vital Signs/Intake and Output Vital Signs (last 24 hours): Temp Pulse Resp BP Pulse Ox 97.7 F 72 20 111/68 98 10/09/17 17:14 10/09/17 22:00 10/09/17 17:14 10/09/17 17:14 10/09/17 17:14 Intake and Output: 10/09/17 10/10/17 18:59 06:59 Intake Total 840 360 Balance 840 360 - Medications Medications: Current Medications Acetaminophen (Tylenol 325mg Tab) 650 mg PO Q6H PRN PRN Reason: Fever >100.4 F Last Admin: 10/07/17 21:07 Dose: 650 mg Chlordiazepoxide (Librium) 25 mg PO Q12 [facility] PRN Reason: Protocol Last Admin: 10/09/17 22:17 Dose: 25 mg Famotidine (Pepcid) 40 mg PO HS [facility] Last Admin: 10/09/17 22:17 Dose: 40 mg Fluoxetine HCl (Prozac) 20 mg PO DAILY [facility] Last Admin: 10/09/17 09:15 Dose: 20 mg Folic Acid (Folic Acid) 1 mg PO DAILY [facility] Last Admin: 10/09/17 09:15 Dose: 1 mg Ibuprofen (Motrin Tab) 600 mg PO Q6H PRN PRN Reason: Pain, moderate (4-7) Last Admin: 10/09/17 20:30 Dose: 600 mg Lorazepam (Ativan) 2 mg IVP Q6H PRN; Protocol PRN Reason: Anxiety Last Admin: 10/09/17 17:37 Dose: 2 mg Methadone HCl (Methadone) 200 mg PO DAILY [facility] Last Admin: 10/09/17 09:14 Dose: 200 mg Mirtazapine (Remeron) 15 mg PO HS [facility] Last Admin: 10/09/17 22:17 Dose: 15 mg Multivitamins/Minerals (Therapeutic-M Tab) 1 tab PO 0800 [facility] Last Admin: 10/09/17 09:15 Dose: 1 tab Ondansetron HCl (Zofran Inj) 4 mg IVP Q6H PRN PRN Reason: Nausea/Vomiting Last Admin: 10/07/17 21:08 Dose: 4 mg Quetiapine Fumarate (Seroquel) 50 mg PO DAILY [facility] PRN Reason: Protocol Quetiapine Fumarate (Seroquel) 100 mg PO HS [facility] PRN Reason: Protocol Last Admin: 10/09/17 22:17 Dose: 100 mg Thiamine HCl (Vitamin B1 Tab) 100 mg PO DAILY [facility] Last Admin: 10/09/17 09:15 Dose: 100 mg - Labs Labs: 10/09/17 08:00 10/09/17 08:00 Attending/Attestation - Attestation I have personally seen and examined this patient.: Yes I have fully participated in the care of the patient.: Yes I have reviewed all pertinent clinical information, including history, physical exam and plan: Yes
--- NOTE | 2017-10-09 21:31 | CON ---
ORY OF PRESENT ILLNESS: The patient is a single 32-year-old white female with a history of depression and anxiety, opioid dependency, currently on methadone maintenance as well as alcohol dependency. No current outpatient psychiatric treatments or psychiatric medications, though with 1 prior hospitalization on the [place] [facility] in 06/2017 who presented to the ER 3 days ago for evaluation and treatment of seizure-like activity in context of continued alcohol and marijuana use and noncompliance with psychiatric medications. I reviewed the patient's prior hospitalization and I also met with her at bedside this morning. She is alert and oriented to month, year, location, and circumstances. Generally in good control, superficially cooperative with questioning and her responses are consistent and relevant to questioning. She denies any hallucinations. She is not responding to internal stimuli. Delusions were not elicited. She does not appear paranoid or hypervigilant in anyway. The patient does appear tired. She appears to be tremulous and she indicates that she is feeling fatigue, depressed, and anxious and she has low self-esteem because of her continued alcohol use. The patient reports she was not able to follow up with outpatient psychiatric treatment because they refused to enroll her because they wanted her to complete rehab first in which case the patient ran out of her psychiatric medications of Prozac 40 mg, Remeron 45 mg, and Seroquel 300 mg a.m. and at bedtime and has not been functioning optimally. Of note, the patient denies having any suicidal thoughts, but she does feel depressed, but not hopeless. She is not very calm on the unit and we would like to restart on her psychiatric medications as they were beneficial when she was treated on the Psychiatric floor at [place] in 06/2017. Insight and judgement are considered to be fair at this time. Labs and vital signs were reviewed by this provider. PSYCHIATRIC HISTORY: As noted above, the patient was hospitalized at [facility] in 06/2017 and she was stabilized on Prozac 40 mg daily, Remeron 45 mg at bedside, and Seroquel 300 mg a.m. and at bedtime. Of note, she was also on methadone maintenance 200 mg daily, which she is on right now. She does not have any history of suicide attempts. She did not follow with outpatient psychiatric treatments and she has been noncompliant with these medications until discharge of 06/2017. SOCIAL HISTORY: The patient was born and raised in [place]. She is single. She has 3 children who are 8, 10, and 15 years old who are in the custody of father. The patient lives with her friend. The patient is unemployed. The patient has a long history of alcohol use when she was much younger and generally drinks about a liter of vodka a day. She also smokes weed. She reports having a history of withdrawal seizures as well as withdrawal hallucinations and she feels that she had a withdrawal seizure in the a.m. of her presentation to our ER. IMPRESSION: Major depression by history; opioid use disorder, severe, the patient is on methadone maintenance of 200 mg daily; alcohol use disorder, severe; alcohol withdrawal with complications of hallucination. The patient is reporting seeing shadows, likely contribution of substance-induced mood disorder. RECOMMENDATIONS: This provider will restart Prozac at 20 mg daily, Remeron at 15 mg at bedtime, and Seroquel 100 mg a.m. and at bedtime to help with depression as well as mood stabilization. Psychiatry will follow with the patient in a.m. to ensure tolerance to the medications if were titrating up to prior therapeutic doses. Of note, I did recommend further stabilization in the Psychiatric Unit; however, the patient is unsure of wanting to sign involuntarily. Please note that this is a suggestion and the patient would benefit from it because now require it a stability. The patient is medically cleared. She is also psychiatrically cleared and can be discharged. However, the patient does require outpatient referrals for alcohol and psychiatric treatment and I strongly recommend that she resume this. Francisco Henriquez MD
[2017-10-10 06:52] VITALS: BP 98/59; RESP 18; TEMP 97.5; O2SAT 100
[2017-10-10] MEDS: Multivitamin With Minerals Tab PO SCH (09:18)
[2017-10-10 09:41] LABS: BASO # 0.03 K/mm3 (0.0-2.0); BASO % 0.3 % (0.0-3.0); EOS # 0.3 (0.0-0.7); EOS % 2.8 % (1.5-5.0); GRAN # 5.73 (1.4-6.5); GRAN % 62.3 % (50.0-68.0); HEMOGLOBIN 11.7 g/dL (12.0-16.0); LYMPH # 2.4 (1.2-3.4); LYMPH % 26.1 % (22.0-35.0); MEAN CELL VOLUME 94.9 fl (80.0-105.0); MEAN CORPUSCULAR HEMOGLOBIN 29.7 pg (25.0-35.0); MEAN CORPUSCULAR HGB CONC 31.3 g/dl (31.0-37.0); MEAN PLATELET VOLUME 9.5 fl (7.0-11.0); MONO # 0.8 (0.1-0.6); MONO % 8.5 % (1.0-6.0); RBC 3.94 10^6/uL (3.5-6.1); RED CELL DISTRIBUTION WIDTH 14.8 % (11.5-14.5); WHITE BLOOD COUNT 9.2 10^3/ul (4.5-11.0)
[2017-10-10 10:00] LABS: ALB/GLOB RATIO 1.3 (1.1-1.8); ALBUMIN 3.6 g/dL (3.0-4.8); ALT/SGPT 24 U/L (7-56); AST/SGOT 18 U/L (14-36); BLOOD UREA NITROGEN 11 mg/dL (7-21); CALCIUM 9.2 mg/dL (8.4-10.5); GFR AFRICAN-AMERICAN > 60; GFR NON-AFRICAN AMERICAN > 60
[2017-10-10 12:41] VITALS: PULSE 71
--- NOTE | 2017-10-10 16:23 | CP.PCM.DIS ---
Provider - Provider Date of Admission: 10/08/17 16:08 Attending physician: Felton Torres MD Consults: Psych Time Spent in preparation of Discharge (in minutes): 35 Diagnosis - Discharge Diagnosis (1) Alcohol withdrawal Status: Acute Hospital Course - Lab Results Lab Results: Most Recent Lab Values WBC 9.2 10^3/ul (4.5-11.0) 10/10/17 09:00 RBC 3.94 10^6/uL (3.5-6.1) 10/10/17 09:00 Hgb 11.7 g/dL (12.0-16.0) L 10/10/17 09:00 Hct 37.4 % (36.0-48.0) 10/10/17 09:00 MCV 94.9 fl (80.0-105.0) 10/10/17 09:00 MCH 29.7 pg (25.0-35.0) 10/10/17 09:00 MCHC 31.3 g/dl (31.0-37.0) 10/10/17 09:00 RDW 14.8 % (11.5-14.5) H 10/10/17 09:00 Plt Count 307 10^3/uL (120.0-450.0) 10/10/17 09:00 MPV 9.5 fl (7.0-11.0) 10/10/17 09:00 Gran % 62.3 % (50.0-68.0) 10/10/17 09:00 Lymph % (Auto) 26.1 % (22.0-35.0) 10/10/17 09:00 [place] % (Auto) 8.5 % (1.0-6.0) H 10/10/17 09:00 Eos % (Auto) 2.8 % (1.5-5.0) 10/10/17 09:00 Baso % (Auto) 0.3 % (0.0-3.0) 10/10/17 09:00 Gran # 5.73 (1.4-6.5) 10/10/17 09:00 Lymph # (Auto) 2.4 (1.2-3.4) 10/10/17 09:00 [place] # (Auto) 0.8 (0.1-0.6) H 10/10/17 09:00 Eos # (Auto) 0.3 (0.0-0.7) 10/10/17 09:00 Baso # (Auto) 0.03 K/mm3 (0.0-2.0) 10/10/17 09:00 Sodium 143 mmol/L (132-148) 10/10/17 09:00 Potassium 4.3 mmol/L (3.6-5.0) 10/10/17 09:00 Chloride 103 mmol/L (98-107) 10/10/17 09:00 Carbon Dioxide 30 mmol/L (21-33) 10/10/17 09:00 Anion Gap 14 (10-20) 10/10/17 09:00 BUN 11 mg/dL (7-21) 10/10/17 09:00 Creatinine 0.6 mg/dl (0.7-1.2) L 10/10/17 09:00 Est GFR ( Amer) > 60 10/10/17 09:00 Est GFR (Non-Af Amer) > 60 10/10/17 09:00 Random Glucose 110 mg/dL (70-110) 10/10/17 09:00 Calcium 9.2 mg/dL (8.4-10.5) 10/10/17 09:00 Magnesium 1.8 mg/dL (1.7-2.2) 10/06/17 12:13 Total Bilirubin < 0.1 mg/dL (0.2-1.3) L 10/10/17 09:00 AST 18 U/L (14-36) 10/10/17 09:00 ALT 24 U/L (7-56) 10/10/17 09:00 Alkaline Phosphatase 69 U/L (38-126) 10/10/17 09:00 Total Creatine Kinase 68 U/L (35-230) 10/06/17 12:13 Total Protein 6.5 g/dL (5.8-8.3) 10/10/17 09:00 Albumin 3.6 g/dL (3.0-4.8) 10/10/17 09:00 Globulin 2.9 gm/dL 10/10/17 09:00 Albumin/Globulin Ratio 1.3 (1.1-1.8) 10/10/17 09:00 Prolactin 8.7 ng/mL (3.0-18.9) 10/06/17 12:13 Urine Color Yellow (YELLOW) 10/06/17 11:07 Urine Appearance Clear (CLEAR) 10/06/17 11:07 Urine pH 6.0 (4.7-8.0) 10/06/17 11:07 Ur Specific [place] 1.020 (1.005-1.035) 10/06/17 11:07 Urine Protein Negative mg/dL (<30 mg/dL) 10/06/17 11:07 Urine Glucose (UA) Negative mg/dL (NEGATIVE) 10/06/17 11:07 Urine Ketones Negative mg/dL (NEGATIVE) 10/06/17 11:07 Urine Blood Negative (NEGATIVE) 10/06/17 11:07 Urine Nitrate Negative (NEGATIVE) 10/06/17 11:07 Urine Bilirubin Negative (NEGATIVE) 10/06/17 11:07 Urine Urobilinogen 0.2 E.U./dL (<1 E.U./dL) 10/06/17 11:07 Ur Leukocyte Esterase Negative Qi/uL (NEGATIVE) 10/06/17 11:07 Salicylates < 1 mg/dL (2.0-20.0) L 10/06/17 12:13 Urine Opiates Screen Negative (NEGATIVE) 10/06/17 11:07 Urine Methadone Screen Positive (NEGATIVE) H 10/06/17 11:07 Acetaminophen < 10.0 ug/ml (10.0-20.0) L 10/06/17 12:13 Ur Barbiturates Screen Negative (NEGATIVE) 10/06/17 11:07 Ur Phencyclidine Scrn Negative (NEGATIVE) 10/06/17 11:07 Ur Amphetamines Screen Negative (NEGATIVE) 10/06/17 11:07 U Benzodiazepines Scrn Positive (NEGATIVE) H 10/06/17 11:07 U Oth Cocaine Metabols Negative (NEGATIVE) 10/06/17 11:07 U Cannabinoids Screen Positive (NEGATIVE) H 10/06/17 11:07 Alcohol, Quantitative 146 mg/dL (0-10) H 10/06/17 12:13 - Hospital Course Hospital Course: This is a 32yo female with past medical history of polysubstance abuse (EtOH, heroin, Cocaine, Methadone, marijuana), bipolar disorder, PTSD and borderline personality disorder who was admitted for alcohol withdrawal. She was treated with vitamin supplementation and tapering course of benzodiazepines. She was maintained on her methadone dose. She was also seen by psychiatry for her history of bipolar disorder, PTSD, and borderline personality disorder. She was repeatedly counselled and offered admission to the voluntary psych unit, which she declined at first, then expressed desire to be admitted, then ultimately declined again. Patient was requesting to leave the hospital for home, and did not want to wait for me to come speak to her. She insisted that the nurses remove her IV line, then left before being seen. Discharge Exam - Head Exam Head Exam: ATRAUMATIC, NORMAL INSPECTION, NORMOCEPHALIC Discharge Plan - Follow Up Plan Condition: STABLE Disposition: AGAINST MEDICAL ADVICE
--- NOTE | 2017-10-10 22:47 | CON ---
DATE: HISTORY OF PRESENT ILLNESS: The patient is a 32-year-old white female with a history of alcohol dependency as well as depression, who was being treated on the medical floor for alcohol withdrawal symptoms. Psychiatry has been following up with the patient due to the patient's past psychiatric history as well as alcohol use. I reviewed patient's notes including her prior discharge summary from the psychiatric unit as well as met with the patient at bedside his morning. The patient recalls me from my interview with her yesterday and she remains oriented to month, year, location, circumstances. Indicates that she slept well last night and has been tolerating the medications that I have restarted for her, specifically Prozac 20 mg daily, Remeron 15 mg at bedtime and Seroquel 100 mg at bedtime as well as 50 mg daily. The patient reports that she fells calmer and she denies having any distress at this time. The patient indicates that she does have some visual hallucinations of dogs " here and there." Does not appear to be responding to internal stimuli. Her responses are brief, but they are coherent and related to questioning. The patient is not overtly delusional during the course of our discussion . Affect is constricted, and though the patient is still depressed, she denies having any suicidal thoughts, she is not hopeless, and she differs on any further psychiatric management when she is medically cleared in regards to psychiatric inpatient stabilization. She is agreeable to further increase of her psychiatric medications, so that doses are closer to discharge medications from her prior hospitalization to the psychiatric unit. Off note, patient generally has been in good control while she is being medically stabilized. Labs and vital signs were reviewed by this provider, her vital signs were stable. RELEVANT PSYCHIATRIC MEDICATIONS: Include Seroquel 50 mg a.m. and 100 mg at bedtime, Remeron 15 mg at bedtime and Prozac 20 mg daily. IMPRESSION: Alcohol use disorder severe, alcohol withdrawal delirium tremens, substance-induced mood disorder as well as bipolar 1 disorder by history and posttraumatic stress disorder by history. RECOMMENDATIONS: At this time include; 1. We will increase Prozac back to 40 mg daily, her prior dose when she was discharged from the psychiatric unit in 06/2017. I will also increase Remeron to 30 mg at bedtime for insomnia and depression, and increase Seroquel to 50 mg b.i.d. and 100 mg at bedtime for mood stabilization. 2. Medical team should continue followup to treat patient's alcohol withdrawal as the patient does consume a great deal of alcohol and she is at risk for further withdrawal symptoms if she does not . Please note as mentioned above, she declines inpatient psychiatric stabilization and she does not meet criteria for involuntary transfer as she is generally organized and denies any thoughts of harming herself or others. Psychiatry will sign off at this time, please re-consult if there are any acute changes in patient's psychiatric presentation. Francisco Henriquez MD
--- NOTE | 2017-10-11 08:48 | CP.PCM.PCO ---
Physician Communication Note - Physician Communication Note Physician Communication Note: psychiatry signed off
== END 2017-10-10 14:37 | disposition left against medical advice (07) | DRG 743 ==
LOC: ED 10:23 → ERH 13:02 → 3RNO 17:29 → OBSVTOIN 10-08 16:08
PROVIDERS: ADMIT Internal Medicine; ATTEND Internal Medicine
DX: F10.239 Alcohol dependence with withdrawal, unspecified (principal); F11.20 Opioid dependence, uncomplicated; E86.0 Dehydration; N18.9 Chronic kidney disease, unspecified; R56.9 Unspecified convulsions; F12.90 Cannabis use, unspecified, uncomplicated; F17.210 Nicotine dependence, cigarettes, uncomplicated; F19.94 Other psychoactive substance use, unspecified with psychoactive substance-induced mood disorder; F31.9 Bipolar disorder, unspecified; F60.3 Borderline personality disorder; F43.10 Post-traumatic stress disorder, unspecified; G47.00 Insomnia, unspecified; K59.00 Constipation, unspecified; Z79.899 Other long term (current) drug therapy; Z91.19 Patient's noncompliance with other medical treatment and regimen; Z87.442 Personal history of urinary calculi; Z80.49 Family history of malignant neoplasm of other genital organs; Z82.49 Family history of ischemic heart disease and other diseases of the circulatory system; Z83.3 Family history of diabetes mellitus

== ENCOUNTER 2017-10-14 13:33 | Observation (INO) | payer MEDICAID ==
[2017-10-14] MEDS ORDERED: Multivitamin (MVI) 10 ML, Thiamine 100 MG, Folic Acid 1 MG in Sodium Chloride 0.9% 1,00... IV ONE (13:49)
[2017-10-14] MEDS ORDERED: Sodium Chloride 0.9% 500 ML IV STA (13:49)
--- NOTE | 2017-10-14 14:05 | ED PDOC ---
Arrival/HPI - General Chief Complaint: Alcohol Ingestion Time Seen by Provider: 10/14/17 13:42 Historian: Patient, Police - History of Present Illness Narrative History of Present Illness (Text): 10/14/17 13:54 32 year old female smoker, whose past medical history includes ETOH abuse and methadone abuse/depression/polysubstance abuse, who presents to the emergency department under police custody complaining of alcohol and opioid withdrawal x 2 -3 days. Patient notes 2 seizure episodes yesterday, unwitnessed; pt thought it was likely due to alcohol withdrawal. Patient notes she's depressed, has suicidal ideation (pt is thinking about cutting her wrist), NO homicidal ideation. Pt denied hallucinations - Tactile/auditory; pt notes of visual hallucinations (seen spots/lights and shadows - pt thought it might be related to ETOH w/d); Patient notes her last alcoholic drink was 2 days ago. Patient usually drinks 1 Liter of Vodka per day. Patient notes her last methadone use was 4 days ago. Patient usually takes 200 mg per day. Pt notes she was extremely shaky, anxious, and jittery. Patient was given 100 mg of librium by [facility] at ~ 8am this morning, pt states she has no improvement. Patient currently denies any johnston, vision changes, throat pain, chest pain, shortness of breath, nausea, vomiting, diarrhea, abd pain, back pain, neck pain, or any other complaints. pt is here for further eval. PCP: NONE poly substance abuse pt is currently under arrest, accompanied by PD Time/Duration: Prior to Arrival Symptom Onset: Gradual Symptom Course: Unchanged Activities at Onset: Light Context: Home, Other (police custody) Past Medical History - Provider Review Nursing Documentation Reviewed: Yes - Travel History Have you recently traveled outside [place] w/in the past 3 mons?: No - Past History Past History: Non-Contributing - Infectious Disease Hx of Infectious Diseases: None - Reproductive Currently : Unknown - Cardiac Hx Cardiac Disorders: Yes Hx Heart Murmur: Yes - Pulmonary Hx Respiratory Disorders: Yes Hx Asthma: Yes Hx Bronchitis: Yes Hx Pneumonia: Yes - Neurological Hx Neurological Disorder: Yes Hx Seizures: Yes - HEENT Hx HEENT Disorder: No - Renal Hx Renal Disorder: Yes Hx Kidney Stones: Yes - Endocrine/Metabolic Hx Endocrine Disorders: No - Hematological/Oncological Hx Blood Disorders: Yes Hx Hepatitis A: Yes - Integumentary Hx Dermatological Disorder: Yes - Musculoskeletal/Rheumatological Hx Musculoskeletal Disorders: Yes Hx Back Pain: Yes Hx Falls: No Hx Herniated Disk: Yes - Gastrointestinal Hx Gastrointestinal Disorders: Yes Hx Constipation: Yes - Genitourinary/Gynecological Hx Genitourinary Disorders: No - Psychiatric Hx Psychophysiologic Disorder: Yes Hx Anxiety: Yes Hx Bipolar Disorder: Yes Hx Depression: Yes Hx Post Traumatic Stress Disorder: Yes Hx Substance Use: Yes (HEROIN) - Anesthesia Hx Anesthesia: No - Suicidal Assessment Feels Threatened In Home Enviroment: No Family/Social History - Physician Review Nursing Documentation Reviewed: Yes Family/Social History: Unknown Family HX Smoking Status: Heavy Smoker > 10 Cigarettes Daily Hx Alcohol Use: Yes (1 liter vodka a day) Hx Substance Use: Yes (HEROIN) Hx Substance Use Treatment: Yes Allergies/Home Meds Allergies/Adverse Reactions: Allergies pentazocine Adverse Reaction (Verified 10/14/17 13:36) FEVER Home Medications: Home Meds Medication Instructions Recorded Confirmed Unobtainable 10/14/17 10/14/17 Review of Systems - Physician Review All systems were reviewed & negative as marked: Yes - Review of Systems Constitutional: Normal Eyes: Normal ENT: Normal Respiratory: Normal. absent: SOB, Cough Cardiovascular: Normal. absent: Chest Pain Gastrointestinal: Normal. absent: Abdominal Pain, Diarrhea, Nausea, Vomiting Genitourinary Female: Normal. absent: Dysuria, Frequency Musculoskeletal: Normal. absent: Back Pain, Neck Pain Skin: Normal. absent: Rash Neurological: Seizure. absent: Dizziness Endocrine: Normal Hemo/Lymphatic: Normal Psychiatric: Anxiety, Depression, Suicidal Ideation, Other (Homicidal ideation) Physical Exam - Physical Exam Narrative Physical Exam (Text): 10/14/17 14:06 General: alert/awake, GCS = 15, oriented x 3, resting in bed, uncomfortable, cooperative, interactive; NAD Head: NC/AT EYE: PERRLA, EOMI, sclera anicteric, no nystagmus, no photophobia; visual field intact b/l Facial: WNL Oral: uvula/tongue are midline, no exudate/lesions, no drooling/stridor, no dysphonia; fair dentitions; mild dry oral mucosa NECK: intact ROM, no midline tenderness, no nuchal rigidity, no meningeal signs ; no step off Chest: CTA b/l, no w/r/r; no tachypenia, no accessory muscle use noted Chest Wall: no crepitus, no lesions, no gross deformities, no focal tenderness Cardiac: +S1, +S2, no m/r/r, no tachycardia Abdominal: +BS, soft/nd/nt, well nourished patient; no masses/rebound/guarding/ rigidity; no flores's sign, no mcburney's point tenderness Extremities: intact ROM, strength 5/5 grossly intact in all limbs, neurovasc intact b/l; + ambulatory; reflex +2/2 BACK: no step off, no midline tenderness, NO crepitus, no gross deformities noted; Intact ROM SKIN: cap refill < 1 sec, no ulcerations, no petechiae, no rashes; no gross pallor noted; noted left wrist (age indeterminate) vertical skin abrasions across her wrist, no open sores/lesions/lacerations noted NEURO: CNII-XII WNL, no facial asymmetries, no slurr speech, oriented x 3; + mild resting tremors noted b/l NIH stroke scale ~ 0 Psych: normal insight, slightly affect; follows command with ease Vital Signs Reviewed: Yes Vital Signs Temp Pulse Resp BP Pulse Ox 10/14/17 14:57 75 18 107/60 98 10/14/17 14:22 62 108/62 10/14/17 13:45 99.4 F 98 H 19 124/82 100 Temperature: Afebrile Blood Pressure: Normal Pulse: Tachycardic Respiratory Rate: Normal Appearance: Positive for: Well-Appearing, Non-Toxic, Uncomfortable. No: Ill- Appearing, Unkept Pain Distress: None Mental Status: Positive for: Alert and Oriented X 3 - Systems Exam Head: Present: Atraumatic, Normocephalic Medical Decision Making ED Course and Treatment: 10/14/17 14:08 Impression: 32 year old female presents to the emergency department complaining of alcohol and opioid withdrawal. pt with depression; SI/visual hallucinations; seizures Plan: -- EKG -- Labs -- Acetaminophen -- Chest X-ray -- Multivitamin -- Catatpres -- Ativan -- Sodium Chloride -- Urinalysis -- Urine Culture -- Reassess and disposition Progress Notes: pt is currently comfortable pt is not in any distress 220p PES/plant and equipment worker is at bedside, evaluated patient, given that patient might not be medically cleared, will continue to monitor patient as pt is admitted 300pm given pt's complaints and heavy dependence to alcohol/opioids, will recommend patient to medicine for admission/observation and continue psych eval and eventual placement via psych 10/14/17 15:[address] Ngo, the hospitalist radio electronics technician, made aware of pt's EM/medical complaints, ED diagnosis/txt/mgt, agrees with admission/observation. 10/14/17 16:04 Medical team is at bedside, evaluated patient; they are recommending pt for regular floor placement, against my recommendation for remote tele (for w/d) placement pt is made aware of her medical results agrees with admission/observation 10/14/17 17:43 Chest X-ray reviewed, shows: LUNGS: The lungs are clear. PLEURA: No significant pleural effusion identified, no pneumothorax apparent. CARDIOVASCULAR: Normal. OSSEOUS STRUCTURES: No significant abnormalities. VISUALIZED UPPER ABDOMEN: Normal. OTHER FINDINGS: None. IMPRESSION: No acute findings. Re-evaluation Time: 15:07 Reassessment Condition: Improved - Critical Care Critical Care Minutes: 30 minutes Critical Care Time: Excluding Proc Time Narrative Critical Care (Text): 10/14/17 16:54 critical care time: 30min, excluding procedure time, excluding time teaching residents/students/mid-level providers; including initial eval/diagnosis, diagnostic interpretation, re-eval, consultations, final disposition - Lab Interpretations Lab Results: 10/14/17 13:45 10/14/17 13:45 Lab Results 10/14/17 13:45: Alcohol, Quantitative < 10 10/14/17 13:45: Salicylates < 1 L, Acetaminophen < 10.0 L 10/14/17 13:45: Urine Opiates Screen Negative, Urine Methadone Screen Positive H , Ur Barbiturates Screen Negative, Ur Phencyclidine Scrn Negative, Ur Amphetamines Screen Negative, U Benzodiazepines Scrn Positive H, U Oth Cocaine Metabols Positive H, U Cannabinoids Screen Positive H 10/14/17 13:45: Sodium 141, Potassium 4.2, Chloride 105, Carbon Dioxide 26, Anion Gap 14, BUN 9, Creatinine 0.5 L, Est GFR ( Amer) > 60, Est GFR (Non -Af Amer) > 60, Random Glucose 93, Calcium 9.2, Magnesium 1.8, Total Bilirubin < 0.1 L, AST 23, ALT 17, Alkaline Phosphatase 78, Total Protein 6.7, Albumin 3.7 , Globulin 3.0, Albumin/Globulin Ratio 1.2 10/14/17 13:45: Urine Color Yellow, Urine Appearance Clear, Urine pH 7.5, Ur Specific Maybeury 1.020, Urine Protein Negative, Urine Glucose (UA) Negative, Urine Ketones Negative, Urine Blood Small H, Urine Nitrate Negative, Urine Bilirubin Negative, Urine Urobilinogen 0.2, Ur Leukocyte Esterase Trace H, Urine RBC 5 - 10, Urine WBC 2 - 5, Ur Epithelial Cells Many, Urine Bacteria Mod , Urine Other Uyeast 10/14/17 13:45: WBC 9.9, RBC 3.99, Hgb 12.1, Hct 37.0, MCV 92.7, MCH 30.3, MCHC 32.7, RDW 14.5, Plt Count 394, MPV 9.3, Gran % 73.2 H, Lymph % (Auto) 19.0 L, [place] % (Auto) 6.5 H, Eos % (Auto) 1.1 L, Baso % (Auto) 0.2, Gran # 7.22 H, Lymph # (Auto) 1.9, [place] # (Auto) 0.6, Eos # (Auto) 0.1, Baso # (Auto) 0.02 I have reviewed the lab results: Yes Interpretation: Abnormal lab values (poly substance abuse) - RAD Interpretation Narrative RAD Interpretations (Text): 10/14/17 17:52 HISTORY: withdrawal COMPARISON: 10/06/2017. FINDINGS: LUNGS: The lungs are clear. PLEURA: No significant pleural effusion identified, no pneumothorax apparent. CARDIOVASCULAR: Normal. OSSEOUS STRUCTURES: No significant abnormalities. VISUALIZED UPPER ABDOMEN: Normal. OTHER FINDINGS: None. IMPRESSION: No acute findings. Radiology Orders: 10/14/17 13:49 CHEST PORTABLE [RAD] Stat Dry Cleaner Apprentice: Radiologist - EKG Interpretation EKG Interpretation (Text): 10/14/17 16:56 NSR at 90 bpm, normal axis, no ectopy, poor baseline, no st-t changes, BORDERLINE EKG; unchanged compare with old ekg 09/2017 Interpreted by ED Physician: Yes Type: 12 lead EKG Comparison: Similar to previous EKG - Medication Orders Current Medication Orders: Acetaminophen (Tylenol 325mg Tab) 650 mg PO Q6H PRN PRN Reason: Fever >100.4 F Fluoxetine HCl (Prozac) 20 mg PO DAILY GEORGE Folic Acid (Folic Acid) 1 mg PO DAILY GEORGE Multivitamins/Vitamin C 10 ml/Thiamine HCl 100 mg/ Folic Acid 1 mg/ Sodium Chloride 1,011.2 mls @ 100 mls/hr IV ONCE ONE Stop: 10/14/17 23:55 Last Admin: 10/14/17 15:26 Dose: 100 mls/hr eMAR Start Stop Document 10/14/17 15:26 ESHA (Rec: 10/14/17 15:30 [id number] Intravenous Solution Start Date 10/14/17 Start Time 15:30 Lorazepam (Ativan) 2 mg IVP Q6H PRN; Protocol PRN Reason: Anxiety Methadone HCl (Methadone) 200 mg PO DAILY [facility] Ondansetron HCl (Zofran Inj) 4 mg IVP Q6H PRN PRN Reason: Nausea/Vomiting Thiamine HCl (Vitamin B1 Tab) 100 mg PO DAILY GEORGE Discontinued Medications Clonidine HCl (Catapres) 0.2 mg PO STAT STA Stop: 10/14/17 13:55 Last Admin: 10/14/17 14:22 Dose: 0.2 mg MAR Pulse and Blood Pressure Document 10/14/17 14:22 [facility] [place] (Rec: 10/14/17 14:25 [id number] Pulse Pulse Rate (60-90) 62 Blood Pressure Blood Pressure (100/60-150/90) 108/62 Sodium Chloride (Sodium Chloride 0.9%) 500 mls @ 1,000 mls/hr IV .Q30M STA Stop: 10/14/17 14:18 Last Admin: 10/14/17 14:22 Dose: 1,000 mls/hr eMAR Start Stop Document 10/14/17 14:22 [facility] [place] (Rec: 10/14/17 14:22 [id number]) Intravenous Solution Start Date 10/14/17 Start Time 14:22 End Date 10/14/17 End time 14:52 Total Infusion Time 30 Lorazepam (Ativan) 2 mg IVP STAT STA Stop: 10/14/17 13:50 Last Admin: 10/14/17 14:25 Dose: 2 mg IVP Administration Document 10/14/17 14:25 [facility] [place] (Rec: 10/14/17 14:26 [id number] Charges for Administration # of IVP Administrations 1 - Scribe Statement The provider has reviewed the documentation as recorded by the Scribe Izabel Dwyer All medical record entries made by the Scribe were at my direction and personally dictated by me. I have reviewed the chart and agree that the record accurately reflects my personal performance of the history, physical exam, medical decision making, and the department course for this patient. I have also personally directed, reviewed, and agree with the discharge instructions and disposition. Disposition/Present on Arrival - Present on Arrival Any Indicators Present on Arrival: No History of DVT/PE: No History of Uncontrolled Diabetes: No Urinary Catheter: No History of Decub. Ulcer: No History Surgical Site Infection Following: None - Disposition Have Diagnosis and Disposition been Completed?: Yes Diagnosis: Alcohol abuse, Alcohol withdrawal, Polysubstance abuse, Depression, Narcotic dependence, Suicidal ideation Disposition: HOSPITALIZED Disposition Time: 15:30 Patient Plan: Admission, Observation Patient Problems: Current Active Problems Problem Status Onset Depression Acute Polysubstance abuse Acute Alcohol withdrawal Acute Narcotic dependence Chronic Alcohol abuse Acute Suicidal ideation Acute Condition: STABLE
[2017-10-14 14:33] LABS: BASO # 0.02 K/mm3 (0.0-2.0); BASO % 0.2 % (0.0-3.0); EOS # 0.1 (0.0-0.7); EOS % 1.1 % (1.5-5.0); GRAN # 7.22 (1.4-6.5); GRAN % 73.2 % (50.0-68.0); HEMOGLOBIN 12.1 g/dL (12.0-16.0); LYMPH # 1.9 (1.2-3.4); MEAN CELL VOLUME 92.7 fl (80.0-105.0); MEAN CORPUSCULAR HEMOGLOBIN 30.3 pg (25.0-35.0); MEAN CORPUSCULAR HGB CONC 32.7 g/dl (31.0-37.0); MEAN PLATELET VOLUME 9.3 fl (7.0-11.0); MONO # 0.6 (0.1-0.6); MONO % 6.5 % (1.0-6.0); RBC 3.99 10^6/uL (3.5-6.1); RED CELL DISTRIBUTION WIDTH 14.5 % (11.5-14.5); WHITE BLOOD COUNT 9.9 10^3/ul (4.5-11.0)
[2017-10-14 14:34] LABS: PH,URINE 7.5 (4.7-8.0); URINE BILIRUBIN NEGATIVE (NEGATIVE); URINE BLOOD SMALL (NEGATIVE); URINE GLUCOSE (UA) NEGATIVE (NEGATIVE); URINE LEUKOCYTE ESTERASE TRACE Leu/uL (NEGATIVE); URINE PROTEIN NEGATIVE mg/dL (<30 mg/dL); URINE UROBILINOGEN 0.2 E.U./dL (<1 E.U./dL)
[2017-10-14 14:37] LABS: URINE APPEARANCE CLEAR (CLEAR); URINE COLOR YELLOW (YELLOW)
[2017-10-14 14:48] LABS: ACETAMINOPHEN < 10.0 ug/ml (10.0-20.0); SALICYLATE < 1 mg/dL (2.0-20.0)
[2017-10-14 14:51] LABS: ALB/GLOB RATIO 1.2 (1.1-1.8); ALBUMIN 3.7 g/dL (3.0-4.8); ALT/SGPT 17 U/L (7-56); AST/SGOT 23 U/L (14-36); BLOOD UREA NITROGEN 9 mg/dL (7-21); CALCIUM 9.2 mg/dL (8.4-10.5); GFR AFRICAN-AMERICAN > 60; GFR NON-AFRICAN AMERICAN > 60
[2017-10-14 14:56] LABS: PHENCYCLIDINE, UR NEGATIVE (NEGATIVE)
[2017-10-14 15:00] LABS: URINE BACTERIA MOD (NEG)
[2017-10-14 15:01] LABS: URINE EPITHELIAL CELLS MANY /hpf (0-5)
[2017-10-14 15:03] LABS: BARBITURATES, UR NEGATIVE (NEGATIVE); BENZODIAZEPINES, UR POSITIVE (NEGATIVE); OPIATES, UR NEGATIVE (NEGATIVE)
--- NOTE | 2017-10-14 17:10 | CP.PCM.HP ---
<Gene Summers - Last Filed: 10/14/17 17:26> History of Present Illness - History of Present Illness History of Present Illness: Patient is a 32 year old female with a past medical history of bipolar disorder , borderline personality disorder, PTSD, ETOH abuse, cocaine abuse, heroin abuse on methadone who presents to the emergency room for evaluation and treatment of seizure like activity and what patient believes to be are tremors since being under arrest in the past two days; patient endorses consuming 6 beers, 4 pints of vodka, and cocaine prior to being arrested. Denies shortness of breath, chest pain, palpitations, headache, cough, fevers, chills, abdominal pain. 12 point ROS negative except as indicated in HPI PMHx: bipolar disorder, borderline personality disorder, PTSD, ETOH abuse, cocaine abuse, heroin abuse on methadone PSHx: Denies Social Hx: Tobacco: 1ppd for 20 years, ETOH: alcohol abuse- 4 pints of liquor no most days, illicit drug use: history of marijuana, cocaine, PCP and heroin use Family Hx: Mother- uterine cancer and father- Htn, Dm Allergies: Pentazocine Methadone Clinic: [facility] Methadone [facility] Pharmacy: "[facility]" in [place], [place] Primacy care physician: does not recall name Psychiatrist: Dr. John Present on Admission - Present on Admission Any Indicators Present on Admission: No Review of Systems - Constitutional Constitutional: absent: Anorexia, Chills, Headache - EENT Ears: absent: Tinnitus, Abnormal Hearing Nose/Mouth/Throat: absent: Post Nasal Drip - Cardiovascular Cardiovascular: absent: Chest Pain, Dyspnea - Respiratory Respiratory: absent: Cough, Dyspnea - Gastrointestinal Gastrointestinal: absent: Abdominal Pain, Diarrhea, Nausea, Vomiting - Genitourinary Genitourinary: absent: Dysuria - Musculoskeletal Musculoskeletal: absent: Back Pain, Numbness, Tingling - Neurological Neurological: absent: Dizziness, Numbness - Psychiatric Psychiatric: Suicidal Ideation. absent: Anxiety, Auditory Hallucinations - Endocrine Endocrine: absent: Fatigue Past Patient History - Infectious Disease Hx of Infectious Diseases: None - Past Social History Smoking Status: Heavy Smoker > 10 Cigarettes Daily - CARDIAC Hx Cardiac Disorders: Yes Hx Heart Murmur: Yes - PULMONARY Hx Respiratory Disorders: Yes Hx Asthma: Yes Hx Bronchitis: Yes Hx Pneumonia: Yes - NEUROLOGICAL Hx Neurological Disorder: Yes Hx Seizures: Yes - HEENT Hx HEENT Problems: No - RENAL Hx Chronic Kidney Disease: Yes Hx Kidney Stones: Yes - ENDOCRINE/METABOLIC Hx Endocrine Disorders: No - HEMATOLOGICAL/ONCOLOGICAL Hx Blood Disorders: Yes Hx Hepatitis A: Yes - INTEGUMENTARY Hx Dermatological Problems: Yes - MUSCULOSKELETAL/RHEUMATOLOGICAL Hx Musculoskeletal Disorders: Yes Hx Back Pain: Yes Hx Falls: No Hx Herniated Disk: Yes - GASTROINTESTINAL Hx Gastrointestinal Disorders: Yes Hx Constipation: Yes - GENITOURINARY/GYNECOLOGICAL Hx Genitourinary Disorders: No - PSYCHIATRIC Hx Psychophysiologic Disorder: Yes Hx Anxiety: Yes Hx Bipolar Disorder: Yes Hx Depression: Yes Hx Post Traumatic Stress Disorder: Yes Hx Substance Use: Yes (HEROIN) - SURGICAL HISTORY Hx Surgeries: No - ANESTHESIA Hx Anesthesia: No Meds Allergies/Adverse Reactions: Allergies Allergy/AdvReac Type Severity Reaction Status Date / Time pentazocine AdvReac FEVER Verified 10/14/17 18:00 Physical Exam - Head Exam Head Exam: ATRAUMATIC, NORMAL INSPECTION, NORMOCEPHALIC - Eye Exam Eye Exam: EOMI, Normal appearance - ENT Exam ENT Exam: Mucous Membranes Moist, Normal Exam - Neck Exam Neck exam: Positive for: Normal Inspection - Respiratory Exam Respiratory Exam: Clear to Auscultation Bilateral, NORMAL BREATHING PATTERN. absent: Rhonchi, Wheezes - Cardiovascular Exam Cardiovascular Exam: REGULAR RHYTHM, +S1, +S2 - GI/Abdominal Exam GI & Abdominal Exam: Normal Bowel Sounds, Soft - Extremities Exam Extremities exam: Positive for: normal inspection - Back Exam Back exam: NORMAL INSPECTION - Neurological Exam Neurological exam: Alert, CN II-XII Intact, Oriented x3 - Psychiatric Exam Psychiatric exam: Normal Affect, Normal Mood - Skin Skin Exam: Intact, Normal Color, Warm Results - Vital Signs Recent Vital Signs: Last Vital Signs Temp 99.4 F 10/14/17 13:45 Pulse 75 10/14/17 14:57 Resp 18 10/14/17 14:57 BP 107/60 10/14/17 14:57 Pulse Ox 98 10/14/17 14:57 - Labs Result Diagrams: 10/14/17 13:45 10/14/17 13:45 Assessment & Plan - Assessment and Plan (Free Text) Assessment: Assessment and Plan: Patient is a 32 year old female with a past medical history of bipolar disorder , borderline personality disorder, PTSD, ETOH abuse, cocaine abuse, heroin abuse on methadone who presents to the emergency room for evaluation and treatment of alcohol withdrawals. Alcohol Withdrawl - Patient has not had any signs of seizure activity since being admitted - [facility] protocol - Ativan PRN - Continue thiamine, folate, multivitamin - Continue with seizure/aspiration/fall precautions Suicidal Ideation -1:1 sitter -Psych consult Abdominal Pain, N/V - zofran prn Hx of bipolar, PTSD, Borderline Personality Disorder - Prozac 20 daily Tobacco Abuse - smoking cessation advised Polysubstance Abuse - Methadone dosage 200 mg daily resumed as verified with [facility] clinic Prophylaxis - DVT ppx- SCDs - GI ppx- famotidine Dispo: Patient is cleared from a medical standpoint. Pending Psych consult. <Felton Torres - Last Filed: 10/15/17 11:41> Results - Vital Signs Recent Vital Signs: Last Vital Signs Temp 98.5 F 10/15/17 07:28 Pulse 80 10/15/17 07:28 Resp 18 10/15/17 07:28 BP 107/57 L 10/15/17 07:28 Pulse Ox 96 10/15/17 07:28 - Labs Result Diagrams: 10/15/17 07:00 10/15/17 07:00 Labs: Laboratory Results - last 24 hr 10/15/17 10/15/17 07:00 07:00 WBC 9.8 RBC 3.61 Hgb 10.8 L Hct 33.3 L MCV 92.2 MCH 29.9 MCHC 32.4 RDW 14.4 Plt Count 303 MPV 8.8 Gran % 72.2 H Lymph % (Auto) 18.6 L [place] % (Auto) 7.6 H Eos % (Auto) 1.4 L Baso % (Auto) 0.2 Gran # 7.06 H Lymph # (Auto) 1.8 [place] # (Auto) 0.7 H Eos # (Auto) 0.1 Baso # (Auto) 0.02 Sodium 139 Potassium 3.9 Chloride 107 Carbon Dioxide 24 Anion Gap 12 BUN 8 Creatinine 0.5 L Est GFR ( Amer) > 60 Est GFR (Non-Af Amer) > 60 Random Glucose 94 Calcium 8.6 Total Bilirubin 0.1 L AST 18 ALT 14 Alkaline Phosphatase 68 Total Protein 6.0 Albumin 3.2 Globulin 2.8 Albumin/Globulin Ratio 1.1 Attending/Attestation - Attestation I have personally seen and examined this patient.: Yes I have fully participated in the care of the patient.: Yes I have reviewed all pertinent clinical information: Yes Notes (Text): 10/15/17 11:39 Medical record note made by the resident after discussion with my direction and input after the patient was personally seen and examined by me. I have reviewed the chart and agree that the record accurately reflects by personal performance of the history, physical exam, data review, and medical decision-making, in the course for the patient. I have also personally directed the plan of care. 32 years old female well known to hospitalist service with PMH of Bipolar disorder, alcohol and drug abuse on methadone, she has history of multiple admission to the hospital from alcohol withdrawal and also H/O leaving against medical advice is admitted with possible alcohol withdrawal and suicidal ideation.Patient has last alcohol beverage 2 days back.There is no sign of alcohol withdrawal at this time.Patient is on 1.1 for risk of suicide.We will get Psychiatry evaluation. Issue of ongoing alcohol and drug abuse was discussed in detail with patient. Education was provided.
--- NOTE | 2017-10-14 17:38 | RAD ---
HISTORY: withdrawal COMPARISON: 10/06/2017. FINDINGS: LUNGS: The lungs are clear. PLEURA: No significant pleural effusion identified, no pneumothorax apparent. CARDIOVASCULAR: Normal. OSSEOUS STRUCTURES: No significant abnormalities. VISUALIZED UPPER ABDOMEN: Normal. OTHER FINDINGS: None. IMPRESSION: No acute findings.
--- NOTE | 2017-10-14 22:04 | CARD ---
APPROVED REPORT EKG Measurement Heart [id number] <Conclusion> Normal sinus rhythm Normal ECG
[2017-10-14 22:32] VITALS: BMI 32.1
[2017-10-14] MEDS ORDERED: Pneumococcal 23-Valent Vaccine IM ONE (22:32)
[2017-10-15] MEDS ORDERED: Pantoprazole 40 mg EC Tab PO SCH (06:00)
[2017-10-15 07:13] LABS: BASO # 0.02 K/mm3 (0.0-2.0); BASO % 0.2 % (0.0-3.0); EOS # 0.1 (0.0-0.7); EOS % 1.4 % (1.5-5.0); GRAN # 7.06 (1.4-6.5); GRAN % 72.2 % (50.0-68.0); HEMOGLOBIN 10.8 g/dL (12.0-16.0); LYMPH # 1.8 (1.2-3.4); LYMPH % 18.6 % (22.0-35.0); MEAN CELL VOLUME 92.2 fl (80.0-105.0); MEAN CORPUSCULAR HEMOGLOBIN 29.9 pg (25.0-35.0); MEAN CORPUSCULAR HGB CONC 32.4 g/dl (31.0-37.0); MEAN PLATELET VOLUME 8.8 fl (7.0-11.0); MONO # 0.7 (0.1-0.6); MONO % 7.6 % (1.0-6.0); RBC 3.61 10^6/uL (3.5-6.1); RED CELL DISTRIBUTION WIDTH 14.4 % (11.5-14.5); WHITE BLOOD COUNT 9.8 10^3/ul (4.5-11.0)
[2017-10-15 07:31] VITALS: BP 107/57; PULSE 80; RESP 18; TEMP 98.5; O2SAT 96
[2017-10-15 07:41] LABS: ALB/GLOB RATIO 1.1 (1.1-1.8); ALBUMIN 3.2 g/dL (3.0-4.8); ALT/SGPT 14 U/L (7-56); AST/SGOT 18 U/L (14-36); BLOOD UREA NITROGEN 8 mg/dL (7-21); CALCIUM 8.6 mg/dL (8.4-10.5); GFR AFRICAN-AMERICAN > 60; GFR NON-AFRICAN AMERICAN > 60
--- NOTE | 2017-10-15 15:26 | CP.PCM.DIS ---
<Gene Summers - Last Filed: 10/15/17 15:27> Provider - Provider Date of Admission: 10/14/17 15:34 Attending physician: Felton Torres MD Consults: Psychiatry: Dr. Kenney Time Spent in preparation of Discharge (in minutes): 40 Diagnosis - Discharge Diagnosis (1) Polysubstance abuse Status: Chronic Priority: High (2) Suicidal ideation Status: Acute Priority: High (3) Opiate dependence Status: Chronic Priority: High Hospital Course - Lab Results Lab Results: Micro Results 10/14/17 15:39 Urine,Clean Catch Urine Culture - Final 10-50,000 CFU/ML. MULTIPLE SPECIES. PROBABLE CONTAMINATION. Most Recent Lab Values WBC 9.8 10^3/ul (4.5-11.0) 10/15/17 07:00 RBC 3.61 10^6/uL (3.5-6.1) 10/15/17 07:00 Hgb 10.8 g/dL (12.0-16.0) L 10/15/17 07:00 Hct 33.3 % (36.0-48.0) L 10/15/17 07:00 MCV 92.2 fl (80.0-105.0) 10/15/17 07:00 MCH 29.9 pg (25.0-35.0) 10/15/17 07:00 MCHC 32.4 g/dl (31.0-37.0) 10/15/17 07:00 RDW 14.4 % (11.5-14.5) 10/15/17 07:00 Plt Count 303 10^3/uL (120.0-450.0) 10/15/17 07:00 MPV 8.8 fl (7.0-11.0) 10/15/17 07:00 Gran % 72.2 % (50.0-68.0) H 10/15/17 07:00 Lymph % (Auto) 18.6 % (22.0-35.0) L 10/15/17 07:00 [place] % (Auto) 7.6 % (1.0-6.0) H 10/15/17 07:00 Eos % (Auto) 1.4 % (1.5-5.0) L 10/15/17 07:00 Baso % (Auto) 0.2 % (0.0-3.0) 10/15/17 07:00 Gran # 7.06 (1.4-6.5) H 10/15/17 07:00 Lymph # (Auto) 1.8 (1.2-3.4) 10/15/17 07:00 [place] # (Auto) 0.7 (0.1-0.6) H 10/15/17 07:00 Eos # (Auto) 0.1 (0.0-0.7) 10/15/17 07:00 Baso # (Auto) 0.02 K/mm3 (0.0-2.0) 10/15/17 07:00 Sodium 139 mmol/L (132-148) 10/15/17 07:00 Potassium 3.9 mmol/L (3.6-5.0) 10/15/17 07:00 Chloride 107 mmol/L (98-107) 10/15/17 07:00 Carbon Dioxide 24 mmol/L (21-33) 10/15/17 07:00 Anion Gap 12 (10-20) 10/15/17 07:00 BUN 8 mg/dL (7-21) 10/15/17 07:00 Creatinine 0.5 mg/dl (0.7-1.2) L 10/15/17 07:00 Est GFR ( Amer) > 60 10/15/17 07:00 Est GFR (Non-Af Amer) > 60 10/15/17 07:00 Random Glucose 94 mg/dL (70-110) 10/15/17 07:00 Calcium 8.6 mg/dL (8.4-10.5) 10/15/17 07:00 Magnesium 1.8 mg/dL (1.7-2.2) 10/14/17 13:45 Total Bilirubin 0.1 mg/dL (0.2-1.3) L 10/15/17 07:00 AST 18 U/L (14-36) 10/15/17 07:00 ALT 14 U/L (7-56) 10/15/17 07:00 Alkaline Phosphatase 68 U/L (38-126) 10/15/17 07:00 Total Protein 6.0 g/dL (5.8-8.3) 10/15/17 07:00 Albumin 3.2 g/dL (3.0-4.8) 10/15/17 07:00 Globulin 2.8 gm/dL 10/15/17 07:00 Albumin/Globulin Ratio 1.1 (1.1-1.8) 10/15/17 07:00 Urine Color Yellow (YELLOW) 10/14/17 13:45 Urine Appearance Clear (CLEAR) 10/14/17 13:45 Urine pH 7.5 (4.7-8.0) 10/14/17 13:45 Ur Specific [place] 1.020 (1.005-1.035) 10/14/17 13:45 Urine Protein Negative mg/dL (<30 mg/dL) 10/14/17 13:45 Urine Glucose (UA) Negative mg/dL (NEGATIVE) 10/14/17 13:45 Urine Ketones Negative mg/dL (NEGATIVE) 10/14/17 13:45 Urine Blood Small (NEGATIVE) H 10/14/17 13:45 Urine Nitrate Negative (NEGATIVE) 10/14/17 13:45 Urine Bilirubin Negative (NEGATIVE) 10/14/17 13:45 Urine Urobilinogen 0.2 E.U./dL (<1 E.U./dL) 10/14/17 13:45 Ur Leukocyte Esterase Trace Qi/uL (NEGATIVE) H 10/14/17 13:45 Urine RBC 5 - 10 /hpf (0-2) 10/14/17 13:45 Urine WBC 2 - 5 /hpf (0-6) 10/14/17 13:45 Ur Epithelial Cells Many /hpf (0-5) 10/14/17 13:45 Urine Bacteria Mod (NEG) 10/14/17 13:45 Urine Other Uyeast 10/14/17 13:45 Salicylates < 1 mg/dL (2.0-20.0) L 10/14/17 13:45 Urine Opiates Screen Negative (NEGATIVE) 10/14/17 13:45 Urine Methadone Screen Positive (NEGATIVE) H 10/14/17 13:45 Acetaminophen < 10.0 ug/ml (10.0-20.0) L 10/14/17 13:45 Ur Barbiturates Screen Negative (NEGATIVE) 10/14/17 13:45 Ur Phencyclidine Scrn Negative (NEGATIVE) 10/14/17 13:45 Ur Amphetamines Screen Negative (NEGATIVE) 10/14/17 13:45 U Benzodiazepines Scrn Positive (NEGATIVE) H 10/14/17 13:45 U Oth Cocaine Metabols Positive (NEGATIVE) H 10/14/17 13:45 U Cannabinoids Screen Positive (NEGATIVE) H 10/14/17 13:45 Alcohol, Quantitative < 10 mg/dL (0-10) 10/14/17 13:45 - Hospital Course Hospital Course: Patient is a 32 year old female with a past medical history of bipolar disorder , borderline personality disorder, PTSD, ETOH abuse, cocaine abuse, heroin abuse on methadone who presented to the emergency room for evaluation and treatment of seizure like activity and what patient believed were to be are tremors since being under arrest in the past two days; patient endorses consuming 6 beers, 4 pints of vodka, and cocaine prior to being arrested. Denied shortness of breath, chest pain, palpitations, headache, cough, fevers, chills, abdominal pain. Patient was medically cleared, and seen by psychiatry who cleared patient for discharge with proper medications and instructions for patient to receive her medications while in residential. Case discussed and reviewed with Dr. Brian Summers PGY1 Discharge Exam - Head Exam Head Exam: ATRAUMATIC, NORMAL INSPECTION, NORMOCEPHALIC - Eye Exam Eye Exam: EOMI, Normal appearance - Respiratory Exam Respiratory Exam: Clear to PA & Lateral, UNREMARKABLE. absent: Rhonchi, Wheezes - Cardiovascular Exam Cardiovascular Exam: REGULAR RHYTHM, +S1, +S2 - GI/Abdominal Exam GI & Abdominal Exam: Normal Bowel Sounds - Extremities Exam Extremities exam: normal inspection - Back Exam Back exam: NORMAL INSPECTION. absent: CVA tenderness (L) - Neurological Exam Neurological exam: Alert, CN II-XII Intact, Oriented x3 - Psychiatric Exam Psychiatric exam: Normal Affect, Normal Mood - Skin Skin Exam: Intact, Normal Color, Warm Discharge Plan - Discharge Medications Prescriptions: FLUoxetine [Prozac] 20 mg PO DAILY #14 cap QUEtiapine [SEROquel] 100 mg PO HS #14 tab - Follow Up Plan Condition: STABLE Disposition: OTHER INSTITUTION Instructions: Drug Abuse and Drug Addiction (DC), Alcohol Withdrawal (DC), Polysubstance Abuse (DC) Additional Instructions: 1.Please follow up with your PMD regarding this admission 2.Patient should be able to receive her methadone and other medications prescribed from Psychiatry while in residential. 3.Smoking, alcohol, and drug cessation is to be enforced as discussed. <Felton Torres - Last Filed: 10/15/17 18:14> Provider - Provider Date of Admission: 10/14/17 15:34 Attending physician: Felton Torres MD Hospital Course - Lab Results Lab Results: Micro Results 10/14/17 15:39 Urine,Clean Catch Urine Culture - Final 10-50,000 CFU/ML. MULTIPLE SPECIES. PROBABLE CONTAMINATION. Most Recent Lab Values WBC 9.8 10^3/ul (4.5-11.0) 10/15/17 07:00 RBC 3.61 10^6/uL (3.5-6.1) 10/15/17 07:00 Hgb 10.8 g/dL (12.0-16.0) L 10/15/17 07:00 Hct 33.3 % (36.0-48.0) L 10/15/17 07:00 MCV 92.2 fl (80.0-105.0) 10/15/17 07:00 MCH 29.9 pg (25.0-35.0) 10/15/17 07:00 MCHC 32.4 g/dl (31.0-37.0) 10/15/17 07:00 RDW 14.4 % (11.5-14.5) 10/15/17 07:00 Plt Count 303 10^3/uL (120.0-450.0) 10/15/17 07:00 MPV 8.8 fl (7.0-11.0) 10/15/17 07:00 Gran % 72.2 % (50.0-68.0) H 10/15/17 07:00 Lymph % (Auto) 18.6 % (22.0-35.0) L 10/15/17 07:00 [place] % (Auto) 7.6 % (1.0-6.0) H 10/15/17 07:00 Eos % (Auto) 1.4 % (1.5-5.0) L 10/15/17 07:00 Baso % (Auto) 0.2 % (0.0-3.0) 10/15/17 07:00 Gran # 7.06 (1.4-6.5) H 10/15/17 07:00 Lymph # (Auto) 1.8 (1.2-3.4) 10/15/17 07:00 [place] # (Auto) 0.7 (0.1-0.6) H 10/15/17 07:00 Eos # (Auto) 0.1 (0.0-0.7) 10/15/17 07:00 Baso # (Auto) 0.02 K/mm3 (0.0-2.0) 10/15/17 07:00 Sodium 139 mmol/L (132-148) 10/15/17 07:00 Potassium 3.9 mmol/L (3.6-5.0) 10/15/17 07:00 Chloride 107 mmol/L (98-107) 10/15/17 07:00 Carbon Dioxide 24 mmol/L (21-33) 10/15/17 07:00 Anion Gap 12 (10-20) 10/15/17 07:00 BUN 8 mg/dL (7-21) 10/15/17 07:00 Creatinine 0.5 mg/dl (0.7-1.2) L 10/15/17 07:00 Est GFR ( Amer) > 60 10/15/17 07:00 Est GFR (Non-Af Amer) > 60 10/15/17 07:00 Random Glucose 94 mg/dL (70-110) 10/15/17 07:00 Calcium 8.6 mg/dL (8.4-10.5) 10/15/17 07:00 Magnesium 1.8 mg/dL (1.7-2.2) 10/14/17 13:45 Total Bilirubin 0.1 mg/dL (0.2-1.3) L 10/15/17 07:00 AST 18 U/L (14-36) 10/15/17 07:00 ALT 14 U/L (7-56) 10/15/17 07:00 Alkaline Phosphatase 68 U/L (38-126) 10/15/17 07:00 Total Protein 6.0 g/dL (5.8-8.3) 10/15/17 07:00 Albumin 3.2 g/dL (3.0-4.8) 10/15/17 07:00 Globulin 2.8 gm/dL 10/15/17 07:00 Albumin/Globulin Ratio 1.1 (1.1-1.8) 10/15/17 07:00 Urine Color Yellow (YELLOW) 10/14/17 13:45 Urine Appearance Clear (CLEAR) 10/14/17 13:45 Urine pH 7.5 (4.7-8.0) 10/14/17 13:45 Ur Specific [place] 1.020 (1.005-1.035) 10/14/17 13:45 Urine Protein Negative mg/dL (<30 mg/dL) 10/14/17 13:45 Urine Glucose (UA) Negative mg/dL (NEGATIVE) 10/14/17 13:45 Urine Ketones Negative mg/dL (NEGATIVE) 10/14/17 13:45 Urine Blood Small (NEGATIVE) H 10/14/17 13:45 Urine Nitrate Negative (NEGATIVE) 10/14/17 13:45 Urine Bilirubin Negative (NEGATIVE) 10/14/17 13:45 Urine Urobilinogen 0.2 E.U./dL (<1 E.U./dL) 10/14/17 13:45 Ur Leukocyte Esterase Trace Qi/uL (NEGATIVE) H 10/14/17 13:45 Urine RBC 5 - 10 /hpf (0-2) 10/14/17 13:45 Urine WBC 2 - 5 /hpf (0-6) 10/14/17 13:45 Ur Epithelial Cells Many /hpf (0-5) 10/14/17 13:45 Urine Bacteria Mod (NEG) 10/14/17 13:45 Urine Other Uyeast 10/14/17 13:45 Salicylates < 1 mg/dL (2.0-20.0) L 10/14/17 13:45 Urine Opiates Screen Negative (NEGATIVE) 10/14/17 13:45 Urine Methadone Screen Positive (NEGATIVE) H 10/14/17 13:45 Acetaminophen < 10.0 ug/ml (10.0-20.0) L 10/14/17 13:45 Ur Barbiturates Screen Negative (NEGATIVE) 10/14/17 13:45 Ur Phencyclidine Scrn Negative (NEGATIVE) 10/14/17 13:45 Ur Amphetamines Screen Negative (NEGATIVE) 10/14/17 13:45 U Benzodiazepines Scrn Positive (NEGATIVE) H 10/14/17 13:45 U Oth Cocaine Metabols Positive (NEGATIVE) H 10/14/17 13:45 U Cannabinoids Screen Positive (NEGATIVE) H 10/14/17 13:45 Alcohol, Quantitative < 10 mg/dL (0-10) 10/14/17 13:45 Attending/Attestation - Attestation I have personally seen and examined this patient.: Yes I have fully participated in the care of the patient.: Yes I have reviewed all pertinent clinical information, including history, physical exam and plan: Yes Notes (Text): 10/15/17 18:13 Medical record note made by the resident after discussion with my direction and input after the patient was personally seen and examined by me. I have reviewed the chart and agree that the record accurately reflects by personal performance of the history, physical exam, data review, and medical decision-making, in the course for the patient. I have also personally directed the plan of care. 32 years old female well known to hospitalist service with PMH of Bipolar disorder, alcohol and drug abuse on methadone, she has history of multiple admission to the hospital from alcohol withdrawal and also H/O leaving against medical advice was admitted with possible alcohol withdrawal and suicidal ideation.Patient has last alcohol beverage 3 days back.There is no sign of alcohol withdrawal at this time.Patient was evaluated by Psychiatry and was cleared for discharge.. Issue of ongoing alcohol and drug abuse was discussed in detail with patient. Education was provided.
--- NOTE | 2017-10-16 01:13 | CON ---
DATE: 10/15/2017 HISTORY OF PRESENT ILLNESS: In short, patient is a 32-year-old female with multiple medical issues as well as history of polysubstance abuse and dependence. Patient has alcohol use disorder. Patient is opioid addicted. Patient is on methadone clinic. Patient was brought in by police because patient has episodes of withdrawals. Patient was admitted on the medical site. Patient has history of mood spectrum disorder, that is why this chart writer consult was initiated. Patient is very familiar to this chart writer from the multiple admissions to the medical site as well as one previous hospitalization into the psychiatric inpatient unit here in [place], which took place in 06/2017. Patient has history of being noncompliant with treatment and discharge plan. Patient reported that she was noncompliant with the medications including Seroquel as well as Prozac. Patient reported that she was drinking on a daily basis. Patient reported that she is taking methadone. In the emergency room, patient said that she had some thoughts of killing herself with a cut. Today, patient said that she is a cutter and if she would have any thing, she would cut herself, but patient made it clear that she does not want to kill herself but relieve her emotional pain. Patient reported some spots seeing and some hallucinations, but thought process seems to be well organized and goal directed. Patient has history of lying as well as fabricating the symptoms in order to get admitted to the psychiatric inpatient unit, but this time, patient presented well, had reactive affect, was asking questions about her methadone, and patient wants to be on Seroquel and Prozac. This chart writer reviewed vital signs and had prolonged discussion with medical team, residents as well as Dr. Torres. Patient was under police custody for past 3 days and patient does not have any physical signs of withdrawals. Medical team does not have any concerns about alcohol withdrawals at this point. I agree with that statement. Patient also got methadone and was able to tolerate food and expressed no thoughts of harming herself or others. Patient wants to be comfortable and does not look like to be depressed or suicidal or psychotic. Medications reviewed. Patient is on Tylenol, Colace, Prozac 20 mg which was started by medical team, we will continue that, folic acid, Ativan 2 mg IV push every 6 hours as needed, Zofran, Protonix, vitamin B1. Patient got 200 mg of methadone. This chart writer will implement Seroquel 100 mg twice a day for mood stabilization and possible visual hallucinations which is related to opioid withdrawals. Labs reviewed. Urine drug screen was positive for methadone, benzodiazepines, cocaine, and cannabis. This chart writer asked why opioid is positive in her urine. Patient reported that it is positive because patient was on the medical site for alcohol withdrawals and it took place on 10/10/2017, patient was discharged. So, at present moment, patient highly unlikely will have any alcohol withdrawal symptoms. MENTAL STATUS EXAMINATION: Patient has good eye contact, good personal hygiene. Speech was normal rate, tone, quality and quantity. Mood described, "I do not know how to deal with stress in custodial." Affect was reactive, mood congruent. Patient was making appropriate jokes. Thought process seems to be coherent and goal directed. Thought content, she denied visual, auditory, tactile hallucinations; denied paranoid ideation. Patient has some self-reported visual hallucinations or shadows or spots, but it is questionable. Insight and judgment seems to be limited, but improving into her addiction problem but good insight into her big mental illness. Judgment seems to be fair and impulses are well controlled. IMPRESSION: Alcohol use disorder, opioid use disorder. Patient is on methadone maintenance program. Patient has polysubstance abuse and dependence. Patient has mood disorder. PLAN: Continue current management. Continue current medications. Patient will be released to police custody. Patient needs to be seen by psychiatrist in custodial. Patient contracted for safety. Denied any thoughts of killing herself or others, but has urged to cut herself not because she wants to kill herself but she is a cutter. Seroquel and Prozac should be continued. Thank you very much for letting me participate in the care of your patient. Should you have any questions, give me a call back. Patient pose no imminent danger to self or others. Dora Kenney MD
== END 2017-10-15 17:00 | disposition home or self-care (01) ==
LOC: ED 13:33 → ERH 15:34 → 3RNO 17:11
PROVIDERS: ADMIT Internal Medicine; ATTEND Internal Medicine
DX: F11.20 Opioid dependence, uncomplicated (principal); F10.10 Alcohol abuse, uncomplicated; R56.9 Unspecified convulsions; R45.851 Suicidal ideations; F60.3 Borderline personality disorder; F43.10 Post-traumatic stress disorder, unspecified; F31.9 Bipolar disorder, unspecified; F17.210 Nicotine dependence, cigarettes, uncomplicated; Y90.0 Blood alcohol level of less than 20 mg/100 ml; Z91.19 Patient's noncompliance with other medical treatment and regimen; Z91.14 Patient's other noncompliance with medication regimen
CPT/HCPCS: 36415; 71045; 80053; 80320; 80324; 80329; 80345; 80346; 80349; 80353; 80358; 80361; 81001; 83735; 83992; 85025; 87086; 90791; 93005; 96374; 96375; 96376; 99285; G0378; J2060; J3411; J7030; J7040

== ENCOUNTER 2017-10-31 08:59 | Emergency (ER) | payer MEDICAID ==
[2017-10-31 09:00] VITALS: BMI 32.1
--- NOTE | 2017-10-31 09:50 | ED PDOC ---
Arrival/HPI - General Chief Complaint: Alcohol Ingestion Time Seen by Provider: 10/31/17 09:29 Historian: Patient - History of Present Illness Narrative History of Present Illness (Text): 10/31/17 09:47 32-year-old female presents today brought in by ambulance after being found sleeping on the steps of the bar. Patient states that she woke up today got her dose of methadone and had one beer and was sitting on the steps of the bar waiting for the bar to open. Patient states she nodded off and had her head leaning on the wall and police and ambulance were called and patient was brought to the hospital. Patient denies headaches dizziness or weakness. She denies any trauma or injury. Patient states on a side note she did wake up this morning with numbness in her left hand and the inability to extend her left wrist. Symptom Course: Unchanged Quality: Other (numbness) Past Medical History - Provider Review Nursing Documentation Reviewed: Yes - Travel History Have you recently traveled outside [place] w/in the past 3 mons?: No - Past History Past History: Non-Contributing - Infectious Disease Hx of Infectious Diseases: None - Tetanus Immunization Tetanus Immunization: Unknown - Cardiac Hx Cardiac Disorders: Yes Hx Heart Murmur: Yes - Pulmonary Hx Respiratory Disorders: Yes (SMOKES CIGARETTES) Hx Asthma: Yes Hx Bronchitis: Yes Hx Pneumonia: Yes - Neurological Hx Neurological Disorder: Yes Hx Seizures: Yes - HEENT Hx HEENT Disorder: No - Renal Hx Renal Disorder: Yes Hx Kidney Stones: Yes - Endocrine/Metabolic Hx Endocrine Disorders: No - Hematological/Oncological Hx Blood Disorders: Yes Hx Hepatitis A: Yes - Integumentary Hx Dermatological Disorder: Yes (TATTOOS) - Musculoskeletal/Rheumatological Hx Musculoskeletal Disorders: Yes Hx Back Pain: Yes Hx Falls: Yes Hx Herniated Disk: Yes - Gastrointestinal Hx Gastrointestinal Disorders: Yes - Genitourinary/Gynecological Hx Genitourinary Disorders: No - Psychiatric Hx Psychophysiologic Disorder: Yes Hx Anxiety: Yes Hx Bipolar Disorder: Yes Hx Depression: Yes Hx Post Traumatic Stress Disorder: Yes Hx Substance Use: Yes (HEROINE AND COCAINE ABUSE.LAST USED COCAINE A WEEK AGO.) - Anesthesia Hx Anesthesia: No - Suicidal Assessment Feels Threatened In Home Enviroment: No Family/Social History - Physician Review Nursing Documentation Reviewed: Yes Family/Social History: Unknown Family HX Smoking Status: Current Some Days Smoker Hx Alcohol Use: Yes (ETOH ABUSE LAST DRANK 2 D AGO 4 PINTS OF VODKA,5 25 OZ OF BEER.) Hx Substance Use: Yes (HEROINE AND COCAINE ABUSE.LAST USED COCAINE A WEEK AGO.) Hx Substance Use Treatment: Yes Allergies/Home Meds Allergies/Adverse Reactions: Allergies pentazocine Adverse Reaction (Verified 10/31/17 09:05) FEVER Review of Systems - Review of Systems Constitutional: absent: Fatigue, Fevers Eyes: absent: Vision Changes, Photophobia, Eye Pain Respiratory: absent: SOB, Cough Cardiovascular: absent: Chest Pain, Palpitations Gastrointestinal: absent: Abdominal Pain, Nausea, Vomiting Musculoskeletal: Arthralgias. absent: Back Pain, Neck Pain Skin: absent: Rash, Pruritis Neurological: absent: Headache, Dizziness Psychiatric: absent: Anxiety, Depression, Suicidal Ideation Physical Exam Vital Signs Reviewed: Yes Vital Signs Temp Pulse Resp BP Pulse Ox 10/31/17 13:15 98 F 62 16 108/70 97 10/31/17 11:30 62 16 108/70 97 10/31/17 09:11 98.1 F 73 17 105/64 96 Temperature: Afebrile Blood Pressure: Normal Pulse: Regular Respiratory Rate: Normal Appearance: Positive for: Well-Appearing, Non-Toxic, Comfortable Pain Distress: None Mental Status: Positive for: Alert and Oriented X 3 - Systems Exam Head: Present: Atraumatic Pupils: Present: PERRL Extroacular Muscles: Present: EOMI Conjunctiva: Present: Normal Mouth: Present: Moist Mucous Membranes Neck: Present: Normal Range of Motion Respiratory/Chest: Present: Clear to Auscultation, Good Air Exchange. No: Respiratory Distress, Accessory Muscle Use Cardiovascular: Present: Regular Rate and Rhythm, Normal S1, S2. No: Murmurs Abdomen: No: Tenderness, Distention, Rebound, Guarding Back: Present: Normal Inspection. No: CVA Tenderness, Midline Tenderness, Paraspinal Tenderness Upper Extremity: Present: NORMAL PULSES, Tenderness (left arm; + ttp over mid shaft of humerus; no edema, no erythema no ecchymosis; full rom of elbow; no forearm tenderness. drop wrist noted. decreased sensation in thumb. decreased strength in hand. no erythema. no lacerations, no abrasions), Swelling, Capillary Refill < 2s. No: Normal ROM, Neurovascularly Intact, Temperature Abnormalties Neurological: Present: GCS=15, Speech Normal Skin: Present: Warm, Dry, Normal Color Psychiatric: Present: Alert, Oriented x 3 Medical Decision Making ED Course and Treatment: 10/31/17 09:59 32-year-old female presents today brought in for substance abuse. alert and oriented in no distress. Also notes a left drop wrist upon awakening today approximately 5 hours ago H[address] negative CT head: FINDINGS: HEMORRHAGE: No intracranial hemorrhage. BRAIN: No mass effect or edema. No atrophy or chronic microvascular ischemic changes. VENTRICLES: Unremarkable. No hydrocephalus. CALVARIUM: There is posterior scalp edema. No evidence of fracture PARANASAL SINUSES: Unremarkable as visualized. No significant inflammatory changes. MASTOID AIR CELLS: Unremarkable as visualized. No inflammatory changes. OTHER FINDINGS: None. IMPRESSION: No acute intracranial findings CT cervical spine:FINDINGS: VERTEBRAE: No fracture. Normal alignment. No destructive bony lesion. DISCS/SPINAL CANAL/NEURAL FORAMINA: No significant central canal or neural foraminal stenosis. Discs heights are grossly preserved. PARASPINAL SOFT TISSUES: Unremarkable. OTHER FINDINGS: C1-2 was not included on the cervical spine but was seen on the head CT. No abnormality seen IMPRESSION: No acute findings X-ray left wrist:FINDINGS: BONES: Normal. No fracture. JOINTS: Normal. No dislocation. SOFT TISSUES: Normal. OTHER FINDINGS: None. IMPRESSION: Normal left wrist radiographs X-ray left humerus: FINDINGS: BONES: Normal. No fracture or focal lesion. SOFT TISSUES: Normal. OTHER FINDINGS: None. IMPRESSION: Normal radiographs of left humerus. pt alert and oriented in no distress; stable vitals. ambulating with steady gait. i discussed all results in depth with patient; advised need for follow up with orthopedist for Wrist drop. advised patient of nerve injury causing wrist drop and stressed importance of f/u. pt eloped from ER without cock up wrist splint for wrist drop. 10/31/17 13:04 i called patient on cell phone and left message to return to ER for wrist brace. impression; wrist drop pt ELOPED. - RAD Interpretation Radiology Orders: 10/31/17 09:30 CERVICAL SPINE W/O CONTRAST [CT] Stat HEAD W/O CONTRAST [CT] Stat 10/31/17 09:31 WRIST, LEFT 3 VIEWS [RAD] Stat 10/31/17 09:39 HUMERUS LEFT [RAD] Stat Disposition/Present on Arrival - Present on Arrival Any Indicators Present on Arrival: No History of DVT/PE: No History of Uncontrolled Diabetes: No Urinary Catheter: No History of Decub. Ulcer: No History Surgical Site Infection Following: None - Disposition Have Diagnosis and Disposition been Completed?: Yes Diagnosis: Wrist drop, left Disposition: LEFT W/O TREATMENT - ER ONLY Disposition Time: 13:00 Patient Plan: Other Condition: UNKNOWN Forms: [employer] (Gh[place]ian)
--- NOTE | 2017-10-31 10:18 | CT ---
Date of service: 10/31/2017 PROCEDURE: CT HEAD WITHOUT CONTRAST. HISTORY: etoh/substance abuse COMPARISON: 10/06/2017 TECHNIQUE: Axial computed tomography images were obtained through the head/brain without intravenous contrast. Radiation dose: Total exam DLP = 917 mGy-cm. This CT exam was performed using one or more of the following dose reduction techniques: Automated exposure control, adjustment of the mA and/or kV according to patient size, and/or use of iterative reconstruction technique. FINDINGS: HEMORRHAGE: No intracranial hemorrhage. BRAIN: No mass effect or edema. No atrophy or chronic microvascular ischemic changes. VENTRICLES: Unremarkable. No hydrocephalus. CALVARIUM: There is posterior scalp edema. No evidence of fracture PARANASAL SINUSES: Unremarkable as visualized. No significant inflammatory changes. MASTOID AIR CELLS: Unremarkable as visualized. No inflammatory changes. OTHER FINDINGS: None. IMPRESSION: No acute intracranial findings
--- NOTE | 2017-10-31 10:41 | CT ---
Date of service: 10/31/2017 PROCEDURE: CT Cervical Spine without contrast HISTORY: left arm pain/left hand weakness COMPARISON: Head CT same day TECHNIQUE: Axial computed tomography images were obtained of the cervical spine without the use of intravenous contrast. Coronal and sagittal reformatted images were created and reviewed. Radiation dose: Total exam DLP = 864 mGy-cm. This CT exam was performed using one or more of the following dose reduction techniques: Automated exposure control, adjustment of the mA and/or kV according to patient size, and/or use of iterative reconstruction technique. FINDINGS: VERTEBRAE: No fracture. Normal alignment. No destructive bony lesion. DISCS/SPINAL CANAL/NEURAL FORAMINA: No significant central canal or neural foraminal stenosis. Discs heights are grossly preserved. PARASPINAL SOFT TISSUES: Unremarkable. OTHER FINDINGS: C1-2 was not included on the cervical spine but was seen on the head CT. No abnormality seen IMPRESSION: No acute findings
[2017-10-31 12:17] VITALS: BP 108/70; PULSE 62; RESP 16; O2SAT 97
--- NOTE | 2017-10-31 12:37 | RAD ---
Date of service: 10/31/2017 PROCEDURE: Left Wrist Radiographs. HISTORY: wrist pain/wrist drop COMPARISON: None. FINDINGS: BONES: Normal. No fracture. JOINTS: Normal. No dislocation. SOFT TISSUES: Normal. OTHER FINDINGS: None. IMPRESSION: Normal left wrist radiographs.
--- NOTE | 2017-10-31 12:38 | RAD ---
PROCEDURE: Radiographs of the left humerus. HISTORY: left upper arm pain COMPARISON: None. FINDINGS: BONES: Normal. No fracture or focal lesion. SOFT TISSUES: Normal. OTHER FINDINGS: None. IMPRESSION: Normal radiographs of left humerus.
[2017-10-31 13:17] VITALS: TEMP 98
== END 2017-10-31 12:45 | disposition left against medical advice (07) ==
LOC: ED 08:59
DX: M21.332 Wrist drop, left wrist (principal); R01.1 Cardiac murmur, unspecified

== ENCOUNTER 2017-11-02 11:20 | Emergency (ER) | payer MEDICAID ==
[2017-11-02 11:21] VITALS: BMI 32.1
[2017-11-02 11:43] VITALS: RESP 16; TEMP 99
--- NOTE | 2017-11-02 12:03 | ED PDOC ---
Arrival/HPI <Robles Casillas - Last Filed: 11/02/17 14:57> - General Historian: Patient <Cathy Helton - Last Filed: 11/02/17 17:03> - General Chief Complaint: Finger,Hand,&Wrist Time Seen by Provider: 11/02/17 11:40 - History of Present Illness Narrative History of Present Illness (Text): 11/02/17 12:02 Patient is a 32 year old female with past medical history of polysubstance abuse presents to the ED today for left hand swelling, weakness and numbness for past 3 days. Patient states that the swelling and weakness has gotten worse. Patient was recently seen in the ED with similar complaints on 10/31. Prior to her arrival to the ED she was found laying outside of a bar with head leaning on the wall, waiting for it to open up. At that time, CT head, Cervical CT and wrist/humerus x rays were normal. Patient was to be given a wrist brace at that time however patient eloped. Denies headaches, dizziness, cp, palpitations, sob, abdominal pain, urinary symptoms, changes in bowel habits. (Cathy Helton) Past Medical History - Provider Review Nursing Documentation Reviewed: Yes - Travel History Have you recently traveled outside [place] w/in the past 3 mons?: No - Past History Past History: Non-Contributing - Infectious Disease Hx of Infectious Diseases: None - Tetanus Immunization Tetanus Immunization: Unknown - Cardiac Hx Cardiac Disorders: Yes Hx Heart Murmur: Yes - Pulmonary Hx Respiratory Disorders: Yes (SMOKES CIGARETTES) Hx Asthma: Yes Hx Bronchitis: Yes Hx Pneumonia: Yes - Neurological Hx Neurological Disorder: Yes Hx Seizures: Yes - HEENT Hx HEENT Disorder: No - Renal Hx Renal Disorder: Yes Hx Kidney Stones: Yes - Endocrine/Metabolic Hx Endocrine Disorders: No - Hematological/Oncological Hx Blood Disorders: Yes Hx Hepatitis A: Yes - Integumentary Hx Dermatological Disorder: Yes (TATTOOS) - Musculoskeletal/Rheumatological Hx Musculoskeletal Disorders: Yes Hx Back Pain: Yes Hx Falls: Yes Hx Herniated Disk: Yes - Gastrointestinal Hx Gastrointestinal Disorders: Yes - Genitourinary/Gynecological Hx Genitourinary Disorders: No - Psychiatric Hx Psychophysiologic Disorder: Yes Hx Anxiety: Yes Hx Bipolar Disorder: Yes Hx Depression: Yes Hx Post Traumatic Stress Disorder: Yes Hx Substance Use: Yes (HEROINE AND COCAINE ABUSE) - Anesthesia Hx Anesthesia: No - Suicidal Assessment Feels Threatened In Home Enviroment: No <Cathy Helton - Last Filed: 11/02/17 17:03> Family/Social History - Physician Review Nursing Documentation Reviewed: Yes Family/Social History: No Known Family HX Smoking Status: Current Some Days Smoker Hx Alcohol Use: Yes Frequency of alcohol use: Daily Hx Substance Use: Yes (HEROINE AND COCAINE ABUSE) Hx Substance Use Treatment: Yes <Cathy Helton - Last Filed: 11/02/17 17:03> Allergies/Home Meds <Robles Casillas - Last Filed: 11/02/17 14:57> <Cathy Helton - Last Filed: 11/02/17 17:03> Allergies/Adverse Reactions: Allergies pentazocine Adverse Reaction (Verified 10/31/17 09:05) FEVER Home Medications: Home Meds Medication Instructions Recorded Confirmed Methadone 150 mg PO DAILY 11/02/17 11/02/17 Review of Systems - Review of Systems Constitutional: Normal. absent: Fatigue, Weight Change Eyes: Normal. absent: Vision Changes, Photophobia ENT: Normal. absent: Hearing Changes Respiratory: Normal. absent: SOB, Cough, Wheezing Cardiovascular: Normal. absent: Chest Pain, Palpitations, Calf Pain Gastrointestinal: Normal. absent: Abdominal Pain, Constipation, Diarrhea, Nausea, Vomiting Musculoskeletal: Normal, Back Pain (Low back pain ). absent: Neck Pain Skin: absent: Rash, Pruritis, Skin Lesions Neurological: Normal. absent: Headache, Dizziness, Speech Changes <Cathy Helton - Last Filed: 11/02/17 17:03> Physical Exam Vital Signs Reviewed: Yes Appearance: Positive for: Well-Appearing, Non-Toxic Pain Distress: None Mental Status: Positive for: Alert and Oriented X 3 - Systems Exam Head: Present: Atraumatic, Normocephalic Pupils: Present: PERRL Extroacular Muscles: Present: EOMI Conjunctiva: Present: Normal Mouth: Present: Moist Mucous Membranes Neck: Present: Normal Range of Motion, Other (Spurling negative) Respiratory/Chest: Present: Clear to Auscultation, Good Air Exchange. No: Respiratory Distress, Accessory Muscle Use Cardiovascular: Present: Regular Rate and Rhythm, Normal S1, S2. No: Murmurs Abdomen: Present: Normal Bowel Sounds. No: Tenderness, Distention Upper Extremity: Present: Other (Left Upper Extremity: Hand swelling, decreased sensation on dorsal aspect of hand bilaterally and thumb, decrease muscle strenght in hand, no skin changes ) Lower Extremity: Present: Normal Inspection, NORMAL PULSES. No: Edema, CALF TENDERNESS Neurological: Present: GCS=15, CN II-XII Intact, Speech Normal, Gait Normal Skin: Present: Warm, Dry, Normal Color Psychiatric: Present: Alert, Oriented x 3 <Cathy Helton - Last Filed: 11/02/17 17:03> Vital Signs Temp Pulse Resp BP Pulse Ox 11/02/17 15:23 68 16 100/50 L 98 11/02/17 11:37 99.0 F 85 16 117/82 96 - RAD Interpretation Radiology Orders: 11/02/17 12:35 DUPLEX UPPER EXTRM VEIN LEFT [US] Stat Disposition/Present on Arrival - Present on Arrival Any Indicators Present on Arrival: No - Disposition Have Diagnosis and Disposition been Completed?: Yes Disposition Time: 14:58 Patient Plan: Discharge <Robles Casillas - Last Filed: 11/02/17 14:57> - Present on Arrival History of DVT/PE: No History of Uncontrolled Diabetes: No Urinary Catheter: No History of Decub. Ulcer: No History Surgical Site Infection Following: None <Cathy Helton - Last Filed: 11/02/17 17:03> - Disposition Diagnosis: Wrist drop, left wrist, Alcohol abuse Disposition: HOME/ ROUTINE Condition: STABLE Discharge Instructions (ExitCare): Radial Nerve Entrapment (DC) Print Language: ESTONIAN Additional Instructions: you must follow up with an orthopedic surgeon for further management of the wrist drop. you should seek help for your alcohol abuse. Referrals: Burton Oviedo DO [Staff Provider] - Follow up with primary Forms: [employer] (Icelandic)
[2017-11-02 15:24] VITALS: BP 100/50; PULSE 68; O2SAT 98
--- NOTE | 2017-11-02 20:07 | US ---
PROCEDURE: Left upper extremity venous ultrasound HISTORY: Arm pain and swelling. Evaluate for deep venous thrombosis. PHYSICIAN(S): Kushal Reynolds MD. FINDINGS: The visualized leftinternal jugular vein is sonographically normal and compressible. No evidence of obstruction or thrombus is seen. The visualized segments of the left subclavian vein are patent with normal waveforms. No sonographic evidence of obstruction or thrombosis is seen. The visualized deep venous system of the proximal leftupper extremity is sonographically normal and compressible. IMPRESSION: 1. No sonographic evidence for deep venous thrombosis in the visualized segments of the left upper extremity.
== END 2017-11-02 15:23 | disposition home or self-care (01) ==
LOC: ED 11:20
DX: M21.332 Wrist drop, left wrist (principal); F10.10 Alcohol abuse, uncomplicated

== ENCOUNTER 2017-11-06 16:28 | Emergency (ER) | payer MEDICAID ==
[2017-11-06 16:28] VITALS: BMI 32.1
--- NOTE | 2017-11-06 16:47 | ED PDOC ---
Arrival/HPI - General Chief Complaint: Alcohol Ingestion Time Seen by Provider: 11/06/17 16:46 Historian: Patient - History of Present Illness Narrative History of Present Illness (Text): 11/06/17 16:52 A 32 year old female, whose past medical history includes polysubstance and alcohol abuse, presents to the emergency department complaining of withdrawal. Patient reports last drink was a beer and shot 06:00 today. States last night while in [facility], patient had experienced a seizure episode and was not given anything for it. Notes also experiencing left wrist pain from last visit. Patient has no other complaints at this time. Also, patient mentions having an allergic reaction (facial swelling) to food given to her in the [facility] and was not treated for it, however at this time swelling has gone down. No PMD Past Medical History - Provider Review Nursing Documentation Reviewed: Yes - Past History Past History: Non-Contributing - Infectious Disease Hx of Infectious Diseases: None - Tetanus Immunization Tetanus Immunization: Unknown - Cardiac Hx Cardiac Disorders: Yes Hx Heart Murmur: Yes - Pulmonary Hx Respiratory Disorders: Yes (SMOKES CIGARETTES) Hx Asthma: Yes Hx Bronchitis: Yes Hx Pneumonia: Yes - Neurological Hx Neurological Disorder: Yes Hx Seizures: Yes - HEENT Hx HEENT Disorder: No - Renal Hx Renal Disorder: Yes Hx Kidney Stones: Yes - Endocrine/Metabolic Hx Endocrine Disorders: No - Hematological/Oncological Hx Blood Disorders: Yes Hx Hepatitis A: Yes - Integumentary Hx Dermatological Disorder: Yes (TATTOOS) - Musculoskeletal/Rheumatological Hx Musculoskeletal Disorders: Yes Hx Back Pain: Yes Hx Falls: Yes Hx Herniated Disk: Yes - Gastrointestinal Hx Gastrointestinal Disorders: Yes - Genitourinary/Gynecological Hx Genitourinary Disorders: No - Psychiatric Hx Psychophysiologic Disorder: Yes Hx Anxiety: Yes Hx Bipolar Disorder: Yes Hx Depression: Yes Hx Post Traumatic Stress Disorder: Yes Hx Substance Use: Yes (HEROINE AND COCAINE ABUSE) - Anesthesia Hx Anesthesia: No - Suicidal Assessment Feels Threatened In Home Enviroment: No Family/Social History - Physician Review Nursing Documentation Reviewed: Yes Family/Social History: No Known Family HX Smoking Status: Current Some Days Smoker Hx Alcohol Use: Yes Hx Substance Use: Yes (HEROINE AND COCAINE ABUSE) Hx Substance Use Treatment: Yes Allergies/Home Meds Allergies/Adverse Reactions: Allergies pentazocine Adverse Reaction (Verified 11/06/17 16:31) FEVER Home Medications: Home Meds Medication Instructions Recorded Confirmed Methadone 150 mg PO DAILY 11/02/17 11/06/17 Review of Systems - Physician Review All systems were reviewed & negative as marked: Yes - Review of Systems Constitutional: Other (patient experiencing withdrawal) Musculoskeletal: Other (left wrist pain (since last visit here in the ER).) Physical Exam - Physical Exam Narrative Physical Exam (Text): Gen: VS reviewed, alert, well developed, well nourished, nontoxic, mild distress ENT: normal pharynx Eye: EOMI, PERRL Neck: no JVD, supple, no adenopathy CV: regular rate, regular rhythm, no rubs, no murmur, no gallops, S1, S2, pulses , equal and strong Pulm: no distress, clear to auscultation, no wheeze, no rhonchi, breath sounds equal, no rales Abd: soft, nontender, no guarding, no rebound, no rigidity, normal bowel sounds Ext: no edema, left wrist distraught, mild tremor to right hand Skin: good color, no rash, no cyanosis Psych: responds appropriately to questions, normal affect Neuro: oriented x 3, CN2-12 intact grossly, motor intact, sensation intact Vital Signs Reviewed: Yes Vital Signs Temp Pulse Resp BP Pulse Ox 11/06/17 19:01 98 F 85 19 124/62 99 11/06/17 16:35 98.5 F 103 H 20 132/85 96 Temperature: Afebrile Blood Pressure: Normal Pulse: Regular Respiratory Rate: Normal Appearance: Positive for: Well-Appearing, Non-Toxic, Comfortable Pain Distress: None Mental Status: Positive for: Alert and Oriented X 3 Medical Decision Making ED Course and Treatment: 11/06/17 16:55 Impression: 32 year old female with withdrawal and left wrist pain. Plan: -- EKG -- POC Urine Test -- Labs -- Reassess and disposition Prior Visits: Notes and results from previous visits were reviewed. Patient was last seen in the emergency department on 11/02/2017 for left hand swelling, weakness, and numbness. Patient was discharged home with wrist splint. Progress Notes: 11/06/17 17:31 EKG: Ordered, reviewed, and independently interpreted the EKG. Rate : 92 BPM Rhythm : NSR Interpretation : No ST-segment elevations or depressions, no T-wave inversions, normal intervals. Comparison : No previous EKG for comparison. 11/06/17 19:06 Patient resting comfortably at this time. 11/06/17 20:34 patient is awake and alert, has been observed for several hours in the ED and does not exhibit acute signs or symptoms of withdrawal. patient remained stable throughout Ed course and appears stable for dc. Patient understands to follow up with ortho for the wrist drop. - Lab Interpretations Lab Results: 11/06/17 18:00 11/06/17 19:30 Lab Results 11/06/17 19:30: Sodium 145, Potassium 4.0, Chloride 106, Carbon Dioxide 25, Anion Gap 18, BUN 11, Creatinine 0.5 L, Est GFR ( Amer) > 60, Est GFR ( Non-Af Amer) > 60, Random Glucose 82, Calcium 8.7, Magnesium 1.9, Total Bilirubin < 0.1 L, AST 29, ALT 20, Alkaline Phosphatase 90, Total Protein 6.3, Albumin 3.4, Globulin 2.9, Albumin/Globulin Ratio 1.2 11/06/17 18:00: Alcohol, Quantitative 186 H 11/06/17 18:00: WBC 7.6 D, RBC 3.95, Hgb 11.6 L, Hct 35.2 L, MCV 89.1 D, MCH 29.4, MCHC 33.0, RDW 14.1, Plt Count 286, MPV 9.4, Gran % 54.2, Lymph % (Auto) 35.8 H, [place] % (Auto) 6.8 H, Eos % (Auto) 2.9, Baso % (Auto) 0.3, Gran # 4.10, Lymph # (Auto) 2.7, [place] # (Auto) 0.5, Eos # (Auto) 0.2, Baso # (Auto) 0.02 - Scribe Statement The provider has reviewed the documentation as recorded by the Pacheco Boudreaux Provider Scribe Attestation: All medical record entries made by the Scribe were at my direction and personally dictated by me. I have reviewed the chart and agree that the record accurately reflects my personal performance of the history, physical exam, medical decision making, and the department course for this patient. I have also personally directed, reviewed, and agree with the discharge instructions and disposition. Disposition/Present on Arrival - Present on Arrival Any Indicators Present on Arrival: No History of DVT/PE: No History of Uncontrolled Diabetes: No Urinary Catheter: No History of Decub. Ulcer: No History Surgical Site Infection Following: None - Disposition Have Diagnosis and Disposition been Completed?: Yes Diagnosis: Wrist drop, Alcohol abuse Disposition: HOME/ ROUTINE Disposition Time: 20:36 Patient Plan: Discharge Patient Problems: Current Active Problems Problem Status Onset Alcohol abuse Acute Wrist drop Acute Condition: STABLE Discharge Instructions (ExitCare): Alcohol Abuse and Alcoholism (DC) Print Language: BULGARIAN Additional Instructions: You must follow up with the orthopedic surgeon for the wrist drop. REVA DAMON, thank you for letting us take care of you today. Your provider was Dr. Robles Casillas and you were treated for wrist drop and alcohol abuse. The emergency medical care you received today was directed at your acute symptoms. If you were prescribed any medication, please fill it and take as directed. It may take several days for your symptoms to resolve. Return to the Emergency Department if your symptoms worsen, do not improve, or if you have any other problems. Please contact your doctor or call one of the physicians/clinics you have been referred to that are listed on the Patient Visit Information form that is included in your discharge packet. Bring any paperwork you were given at discharge with you along with any medications you are taking to your follow up visit. Our treatment cannot replace ongoing medical care by a primary care provider outside of the emergency department. Thank you for allowing the [facility] team to be part of your care today. If you had an X-Ray or CT scan: A Radiologist will review the ED reading if any change in treatment is needed we will contact you. If you had a blood, urine, or wound culture: It will take several days for the results, if any change in treatment is needed we will contact you. If you had an STI test: It will take 48 hours for the results. Please call after 1 week if you have not heard back. Referrals: Burton Oviedo DO [Staff Provider] - Follow up with primary Forms: [employer] (Azeri)
[2017-11-06 18:37] LABS: BASO # 0.02 K/mm3 (0.0-2.0); BASO % 0.3 % (0.0-3.0); EOS # 0.2 (0.0-0.7); EOS % 2.9 % (1.5-5.0); GRAN # 4.1 (1.4-6.5); GRAN % 54.2 % (50.0-68.0); HEMOGLOBIN 11.6 g/dL (12.0-16.0); LYMPH # 2.7 (1.2-3.4); LYMPH % 35.8 % (22.0-35.0); MEAN CELL VOLUME 89.1 fl (80.0-105.0); MEAN CORPUSCULAR HEMOGLOBIN 29.4 pg (25.0-35.0); MEAN PLATELET VOLUME 9.4 fl (7.0-11.0); MONO # 0.5 (0.1-0.6); MONO % 6.8 % (1.0-6.0); RBC 3.95 10^6/uL (3.5-6.1); RED CELL DISTRIBUTION WIDTH 14.1 % (11.5-14.5); WHITE BLOOD COUNT 7.6 10^3/ul (4.5-11.0)
[2017-11-06 19:02] VITALS: TEMP 98
[2017-11-06 19:54] LABS: ALB/GLOB RATIO 1.2 (1.1-1.8); ALBUMIN 3.4 g/dL (3.0-4.8); ALT/SGPT 20 U/L (7-56); AST/SGOT 29 U/L (14-36); BLOOD UREA NITROGEN 11 mg/dL (7-21); CALCIUM 8.7 mg/dL (8.4-10.5); GFR AFRICAN-AMERICAN > 60; GFR NON-AFRICAN AMERICAN > 60
[2017-11-06 21:22] VITALS: BP 121/72; PULSE 80; RESP 18; O2SAT 100
--- NOTE | 2017-11-07 12:25 | CARD ---
APPROVED REPORT Date of service: 11/06/2017 EKG Measurement Heart [id number] <Conclusion> Normal sinus rhythm Normal ECG
== END 2017-11-06 21:00 | disposition home or self-care (01) ==
LOC: ED 16:28
DX: F10.10 Alcohol abuse, uncomplicated (principal); M21.332 Wrist drop, left wrist

== ENCOUNTER 2017-11-07 15:45 | Emergency (ER) | payer MEDICAID ==
[2017-11-07 15:46] VITALS: BMI 32.1
--- NOTE | 2017-11-07 16:52 | ED PDOC ---
Arrival/HPI - General Historian: Patient - History of Present Illness Time/Duration: 4-6 hours Symptom Onset: Gradual Activities at Onset: Light Context: Home <RikkiKrysta cornejosharmaine - Last Filed: 11/07/17 16:46> <Amando Holt DO - Last Filed: 11/07/17 21:19> - General Chief Complaint: Alcohol Ingestion Time Seen by Provider: 11/07/17 15:47 - History of Present Illness Narrative History of Present Illness (Text): 11/07/17 16:47 This is a 32 year old female with PMH of anxiety, depression, polysubstance abuse including alcohol, heroin and cocain, bipolar 1 disorder and asthma presenting to the ED today seeking alocohol detox. Patient states her last drink was today morning at 8am and she drink half a pint. She states she normally drinks 1 liter of vodka daily. She currently admits to abdominal cramps and nausea but is otherwise asymptomatic. Patient has sought alcohol detox in the past at [facility] but has failed to followup with outpatient detox. She takes daily methadone at [facility]. She denies CP, SOB , abdominal pain, dizziness, hematemesis, hematochezia, urinary complaints, recent travel and recent sickness. No PMD. (Patrick Babin) Past Medical History - Provider Review Nursing Documentation Reviewed: Yes - Past History Past History: Non-Contributing - Infectious Disease Hx of Infectious Diseases: None - Tetanus Immunization Tetanus Immunization: Unknown - Cardiac Hx Cardiac Disorders: Yes Hx Heart Murmur: Yes - Pulmonary Hx Respiratory Disorders: Yes (SMOKES CIGARETTES) Hx Asthma: Yes Hx Bronchitis: Yes Hx Pneumonia: Yes - Neurological Hx Neurological Disorder: Yes Hx Seizures: Yes - HEENT Hx HEENT Disorder: No - Renal Hx Renal Disorder: Yes Hx Kidney Stones: Yes - Endocrine/Metabolic Hx Endocrine Disorders: No - Hematological/Oncological Hx Blood Disorders: Yes Hx Hepatitis A: Yes - Integumentary Hx Dermatological Disorder: Yes - Musculoskeletal/Rheumatological Hx Musculoskeletal Disorders: Yes Hx Back Pain: Yes Hx Falls: Yes Hx Herniated Disk: Yes - Gastrointestinal Hx Gastrointestinal Disorders: Yes - Genitourinary/Gynecological Hx Genitourinary Disorders: No - Psychiatric Hx Psychophysiologic Disorder: Yes Hx Anxiety: Yes Hx Bipolar Disorder: Yes Hx Depression: Yes Hx Post Traumatic Stress Disorder: Yes Hx Substance Use: Yes (HEROINE AND COCAINE ABUSE) - Anesthesia Hx Anesthesia: No - Suicidal Assessment Feels Threatened In Home Enviroment: No <Patrick Babin - Last Filed: 11/07/17 16:46> Family/Social History - Physician Review Nursing Documentation Reviewed: Yes Family/Social History: Unknown Family HX Smoking Status: Current Some Days Smoker Hx Alcohol Use: Yes Hx Substance Use: Yes (HEROINE AND COCAINE ABUSE) Hx Substance Use Treatment: Yes <Patrick Babin - Last Filed: 11/07/17 16:46> Allergies/Home Meds <Patrick Babin - Last Filed: 11/07/17 16:46> <Amando Holt DO - Last Filed: 11/07/17 21:19> Allergies/Adverse Reactions: Allergies pentazocine Adverse Reaction (Verified 11/07/17 16:03) FEVER Home Medications: Home Meds Medication Instructions Recorded Confirmed Methadone 150 mg PO DAILY 11/02/17 11/07/17 Review of Systems - Physician Review All systems were reviewed & negative as marked: Yes - Review of Systems Constitutional: Normal. absent: Fevers Eyes: Normal. absent: Vision Changes, Photophobia, Eye Pain, Other ENT: Normal. absent: Hearing Changes Respiratory: Normal. absent: SOB Cardiovascular: Normal. absent: Chest Pain Gastrointestinal: Nausea, Other (abdominal cramps). absent: Vomiting, Hematochezia, Hematemesis Genitourinary Female: Normal. absent: Dysuria, Frequency Musculoskeletal: Normal Skin: Normal Neurological: Normal. absent: Headache, Dizziness, Focal Weakness Endocrine: Normal <Patrick Babin - Last Filed: 11/07/17 16:46> Physical Exam Vital Signs Reviewed: Yes Temperature: Afebrile Blood Pressure: Normal Pulse: Regular Respiratory Rate: Normal Appearance: Positive for: Well-Appearing, Non-Toxic, Comfortable Pain Distress: None Mental Status: Positive for: Alert and Oriented X 3 - Systems Exam Head: Present: Atraumatic, Normocephalic Pupils: Present: PERRL Extroacular Muscles: Present: EOMI Conjunctiva: Present: Normal Mouth: Present: Moist Mucous Membranes, Other (no tongue fasciculations) Neck: Present: Normal Range of Motion Respiratory/Chest: Present: Clear to Auscultation, Good Air Exchange. No: Respiratory Distress, Accessory Muscle Use Cardiovascular: Present: Regular Rate and Rhythm, Normal S1, S2. No: Murmurs Abdomen: Present: Normal Bowel Sounds. No: Tenderness, Distention, Peritoneal Signs, Rebound, Guarding Back: Present: Normal Inspection Upper Extremity: Present: Normal Inspection. No: Cyanosis, Edema Lower Extremity: Present: Normal Inspection. No: Edema Neurological: Present: Speech Normal, Motor Func Grossly Intact, Normal Sensory Function, Gait Normal Skin: Present: Warm, Dry, Normal Color. No: Rashes Psychiatric: Present: Alert, Oriented x 3, Normal Insight, Normal Concentration <Patrick Babin - Last Filed: 11/07/17 16:46> Vital Signs Temp Pulse Resp BP Pulse Ox 11/07/17 16:51 98.5 F 85 18 137/72 100 11/07/17 16:03 98.7 F 88 17 119/70 97 Medical Decision Making <Patrick Babin - Last Filed: 11/07/17 16:46> <Amando Holt DO - Last Filed: 11/07/17 21:19> ED Course and Treatment: 11/07/17 16:56 Impression: This is a 32 year old female with PMH of anxiety, depression, polysubstance abuse including alcohol, heroin and cocain, bipolar 1 disorder and asthma presenting to the ED today seeking alocohol detox. Differential not limited to: alcohol dependance Plan: Alcohol counseling given to patient and [facility] referral given for alcohol detox program. Information given for followup at Hospital clinic. Progress: 11/07/17 16:58 Patient is resting comfortably, vital signs are stable and afebrile. Patient has no complaints at this time. (Patrick Babin) - PA / EDITORIAL CLERK / Resident Statement VICTORINO has reviewed & agrees with the documentation as recorded. VICTORINO has examined the patient and agrees with the treatment plan. <Patrick Babin - Last Filed: 11/07/17 16:46> Disposition/Present on Arrival - Present on Arrival History of DVT/PE: No History of Uncontrolled Diabetes: No Urinary Catheter: No History of Decub. Ulcer: No History Surgical Site Infection Following: None <Patrick Babin - Last Filed: 11/07/17 16:46> - Present on Arrival Any Indicators Present on Arrival: No - Disposition Have Diagnosis and Disposition been Completed?: Yes Disposition Time: 16:15 <Amando Holt DO - Last Filed: 11/07/17 21:19> - Disposition Diagnosis: Alcohol use disorder Disposition: HOME/ ROUTINE Condition: GOOD Discharge Instructions (ExitCare): Alcohol Abuse and Alcoholism (DC) Additional Instructions: REVA DAMON, thank you for letting us take care of you today. The emergency medical care you received today was directed at your acute symptoms. If you were prescribed any medication, please fill it and take as directed. It may take several days for your symptoms to resolve. Return to the Emergency Department if your symptoms worsen, do not improve, or if you have any other problems. Please contact your doctor or call one of the physicians/clinics you have been referred to that are listed on the Patient Visit Information form that is included in your discharge packet. Bring any paperwork you were given at discharge with you along with any medications you are taking to your follow up visit. Our treatment cannot replace ongoing medical care by a primary care provider outside of the emergency department. Thank you for allowing the [facility] team to be part of your care today. Follow up with our sister hospital, [facility], at . You can call and find out when a detox bed is available. Please follow up with our clinic this week for outpatient medical care and referrals to other detox programs. Referrals: Alcoholics Anonymous [Outside] - Follow up with primary [employer] [facility] [employer] [Outside] - Follow up with primary Vaishali Gillespie MD [Staff Provider] - Follow up with primary Forms: [employer] (Japanese)
[2017-11-07 16:53] VITALS: BP 137/72; PULSE 85; RESP 18; TEMP 98.5; O2SAT 100
== END 2017-11-07 16:51 | disposition home or self-care (01) ==
LOC: ED 15:45
DX: Z72.89 Other problems related to lifestyle (principal)

== ENCOUNTER 2017-11-12 00:45 | Emergency (ER) | payer MEDICAID ==
[2017-11-12 01:00] VITALS: BMI 27.4
[2017-11-12 01:25] VITALS: RESP 18
--- NOTE | 2017-11-12 01:50 | ED PDOC ---
Arrival/HPI - General Chief Complaint: Alcohol Ingestion Time Seen by Provider: 11/12/17 00:48 Historian: Patient EM Caveat: Intoxicated - History of Present Illness Narrative History of Present Illness (Text): 11/12/17 01:02 This is a 32 year old female whose past medical history includes anxiety, depression, polysubstance abuse including alcohol, heroin and cocain, bipolar 1 disorder and asthma, presents to the emergency department presents for alcohol intoxication. Patient admits to drinking tonight, but denies any drug use. HPI and ROS limited due to patient state of intoxication. No PMD Past Medical History - Provider Review Nursing Documentation Reviewed: Yes - Past History Past History: Non-Contributing - Infectious Disease Hx of Infectious Diseases: None - Tetanus Immunization Tetanus Immunization: Unknown - Cardiac Hx Cardiac Disorders: Yes Hx Heart Murmur: Yes - Pulmonary Hx Respiratory Disorders: Yes (SMOKES CIGARETTES) Hx Asthma: Yes Hx Bronchitis: Yes Hx Pneumonia: Yes - Neurological Hx Neurological Disorder: Yes Hx Seizures: Yes - HEENT Hx HEENT Disorder: No - Renal Hx Renal Disorder: Yes Hx Kidney Stones: Yes - Endocrine/Metabolic Hx Endocrine Disorders: No - Hematological/Oncological Hx Blood Disorders: Yes Hx Hepatitis A: Yes - Integumentary Hx Dermatological Disorder: Yes - Musculoskeletal/Rheumatological Hx Musculoskeletal Disorders: Yes Hx Back Pain: Yes Hx Falls: Yes Hx Herniated Disk: Yes - Gastrointestinal Hx Gastrointestinal Disorders: Yes - Genitourinary/Gynecological Hx Genitourinary Disorders: No - Psychiatric Hx Psychophysiologic Disorder: Yes Hx Anxiety: Yes Hx Bipolar Disorder: Yes Hx Depression: Yes Hx Post Traumatic Stress Disorder: Yes Hx Substance Use: Yes (HEROINE AND COCAINE ABUSE) - Anesthesia Hx Anesthesia: No - Suicidal Assessment Feels Threatened In Home Enviroment: No Family/Social History - Physician Review Nursing Documentation Reviewed: Yes Family/Social History: No Known Family HX Smoking Status: Current Some Days Smoker Hx Alcohol Use: Yes Frequency of alcohol use: Daily Hx Substance Use: Yes (HEROINE AND COCAINE ABUSE) Hx Substance Use Treatment: Yes Allergies/Home Meds Allergies/Adverse Reactions: Allergies pentazocine Adverse Reaction (Verified 11/07/17 16:03) FEVER Home Medications: Home Meds Medication Instructions Recorded Confirmed Methadone 150 mg PO DAILY 11/02/17 11/07/17 Review of Systems - Physician Review All systems were reviewed & negative as marked: Yes - Review of Systems Systems not reviewed;Unavailable: Intoxicated Physical Exam Vital Signs Reviewed: Yes Vital Signs Temp Pulse Resp BP Pulse Ox 11/12/17 01:25 98.3 F 99 H 18 108/66 99 Blood Pressure: Normal Pulse: Tachycardic Respiratory Rate: Normal Appearance: Positive for: Well-Appearing, Non-Toxic, Comfortable Pain Distress: None Mental Status: Positive for: other (Alert and Inotxicated) Finger Stick Blood Glucose: 70 - Systems Exam Head: Present: Atraumatic, Normocephalic Pupils: Present: PERRL Extroacular Muscles: Present: EOMI Conjunctiva: Present: Normal Mouth: Present: Moist Mucous Membranes, Other (Alcohol on breath) Neck: Present: Normal Range of Motion Respiratory/Chest: Present: Clear to Auscultation, Good Air Exchange. No: Respiratory Distress, Accessory Muscle Use Cardiovascular: Present: Regular Rate and Rhythm, Normal S1, S2. No: Murmurs Abdomen: No: Tenderness, Distention, Peritoneal Signs Back: Present: Normal Inspection Upper Extremity: Present: Normal Inspection. No: Cyanosis, Edema Lower Extremity: Present: Normal Inspection. No: Edema Neurological: Present: GCS=15, CN II-XII Intact Skin: Present: Warm, Dry, Normal Color. No: Rashes Psychiatric: Present: Alert, Intoxicated Medical Decision Making ED Course and Treatment: 11/12/17 01:05 Impression: 32 year old female presents for alcohol intoxication. Plan: -- Reassess and disposition Prior Visits: Notes and results from previous visits were reviewed. Patient was last seen in the emergency department on 11/07/17 presents seeking alcohol detox. Patient was discharged with details of detox programs. Progress Notes: Patient is awake and alert ambulating with a steady gait. Patient is in no acute distress and is stable for discharge. Patient in agreement with plan to be discharged home. Patient is stable for discharge. Patient was instructed to follow up with physician or return if symptoms worsen or new concerning symptoms arise. - Scribe Statement The provider has reviewed the documentation as recorded by the Pacheco Oseguera Provider Scribe Attestation: All medical record entries made by the Scribcyndee were at my direction and personally dictated by me. I have reviewed the chart and agree that the record accurately reflects my personal performance of the history, physical exam, medical decision making, and the department course for this patient. I have also personally directed, reviewed, and agree with the discharge instructions and disposition. Disposition/Present on Arrival - Present on Arrival Any Indicators Present on Arrival: No History of DVT/PE: No History of Uncontrolled Diabetes: No Urinary Catheter: No History of Decub. Ulcer: No History Surgical Site Infection Following: None - Disposition Have Diagnosis and Disposition been Completed?: Yes Diagnosis: Alcohol intoxication Disposition: HOME/ ROUTINE Disposition Time: 02:30 Condition: IMPROVED Discharge Instructions (ExitCare): Alcohol Abuse and Alcoholism (DC) Additional Instructions: REVA DAMON, thank you for letting us take care of you today. The emergency medical care you received today was directed at your acute symptoms. If you were prescribed any medication, please fill it and take as directed. It may take several days for your symptoms to resolve. Return to the Emergency Department if your symptoms worsen, do not improve, or if you have any other problems. Please contact your doctor or call one of the physicians/clinics you have been referred to that are listed on the Patient Visit Information form that is included in your discharge packet. Bring any paperwork you were given at discharge with you along with any medications you are taking to your follow up visit. Our treatment cannot replace ongoing medical care by a primary care provider outside of the emergency department. Thank you for allowing the [facility] team to be part of your care today. Do not drink too much alcohol at one time. Follow up with your primary care doctor in 3-5 days for re-evaluation and further management. Referrals: [facility], [Non-Staff] - Follow up with primary Forms: [employer] (Slovenian)
[2017-11-12 01:56] VITALS: TEMP 98.3
[2017-11-12 06:46] VITALS: BP 110/72; PULSE 85; O2SAT 100
== END 2017-11-12 06:00 | disposition home or self-care (01) ==
LOC: ED 00:45
DX: F10.129 Alcohol abuse with intoxication, unspecified (principal)

== ENCOUNTER 2017-11-23 12:28 | Emergency (ER) | payer MEDICAID ==
[2017-11-23 12:28] VITALS: BMI 27.4
[2017-11-23 12:42] VITALS: RESP 18; TEMP 98.2; O2SAT 98
[2017-11-23] MEDS ORDERED: Sodium Chloride 0.9% 1,000 ML IV STA (13:07)
--- NOTE | 2017-11-23 13:07 | ED PDOC ---
Arrival/HPI - General Historian: Patient - History of Present Illness Time/Duration: 24 hours Symptom Onset: Gradual Symptom Course: Unchanged, Intermittent Quality: Cramping, Gas Like Activities at Onset: Emotional Upset Context: Other (drinking, substance abuse) <Marlon Tate - Last Filed: 11/23/17 13:20> <Chuck Carrizales - Last Filed: 11/23/17 13:29> - General Chief Complaint: GI Problem Time Seen by Provider: 11/23/17 12:46 - History of Present Illness Narrative History of Present Illness (Text): 11/23/17 13:02 Patient is a 32 year-old female with PMH of anxiety, poly-substance abuse currently on Methadone presents to the ED complaining of worsening vomiting for the past 2 days. Patient states she vomited 3X this morning. Patient states there is a chance she could be and she has missed her period the past 3 months. Patient admitted to nausea, vomiting, fevers, chills, and headache. Patient denied hematemesis. Patient also informed us that she drinks 1 liter of vodka every day and that her last drink was at 5:00 am this morning. Patient was supposed to go to her methadone clinic today but came to the ED instead due to her vomiting. (Marlon Tate) Past Medical History - Provider Review Nursing Documentation Reviewed: Yes - Travel History Have you recently traveled outside [place] w/in the past 3 mons?: No - Past History Past History: Non-Contributing - Infectious Disease Hx of Infectious Diseases: None - Tetanus Immunization Tetanus Immunization: Unknown - Cardiac Hx Cardiac Disorders: Yes Hx Heart Murmur: Yes - Pulmonary Hx Respiratory Disorders: Yes (SMOKES CIGARETTES) Hx Asthma: Yes Hx Bronchitis: Yes Hx Pneumonia: Yes - Neurological Hx Neurological Disorder: Yes Hx Seizures: Yes - HEENT Hx HEENT Disorder: No - Renal Hx Renal Disorder: Yes Hx Kidney Stones: Yes - Endocrine/Metabolic Hx Endocrine Disorders: No - Hematological/Oncological Hx Blood Disorders: Yes Hx Hepatitis A: Yes - Integumentary Hx Dermatological Disorder: Yes - Musculoskeletal/Rheumatological Hx Musculoskeletal Disorders: Yes Hx Back Pain: Yes Hx Falls: Yes Hx Herniated Disk: Yes - Gastrointestinal Hx Gastrointestinal Disorders: Yes - Genitourinary/Gynecological Hx Genitourinary Disorders: No - Psychiatric Hx Psychophysiologic Disorder: Yes Hx Anxiety: Yes Hx Bipolar Disorder: Yes Hx Depression: Yes Hx Post Traumatic Stress Disorder: Yes Hx Substance Use: Yes - Anesthesia Hx Anesthesia: No Hx Anesthesia Reactions: No Hx Malignant Hyperthermia: No - Suicidal Assessment Feels Threatened In Home Enviroment: No <Marlon Tate - Last Filed: 11/23/17 13:20> Family/Social History - Physician Review Nursing Documentation Reviewed: Yes Family/Social History: Neoplasm/Cancer Smoking Status: Heavy Smoker > 10 Cigarettes Daily Hx Alcohol Use: Yes Frequency of alcohol use: Daily Hx Substance Use: Yes Substance used: cocaine, heroin, crack and marijuana Hx Substance Use Treatment: Yes <TateMarlon - Last Filed: 11/23/17 13:20> Allergies/Home Meds <TateMarlon - Last Filed: 11/23/17 13:20> <Chuck Carrizales - Last Filed: 11/23/17 13:29> Allergies/Adverse Reactions: Allergies pentazocine Adverse Reaction (Verified 11/07/17 16:03) FEVER Home Medications: Home Meds Medication Instructions Recorded Confirmed Methadone 150 mg PO DAILY 11/02/17 11/07/17 Review of Systems - Physician Review All systems were reviewed & negative as marked: Yes - Review of Systems Constitutional: absent: Fatigue, Fevers Eyes: absent: Vision Changes ENT: absent: Sore Throat Respiratory: SOB. absent: Cough Cardiovascular: absent: Chest Pain, WATTS Gastrointestinal: Abdominal Pain, Nausea, Vomiting Genitourinary Female: Vaginal Bleeding. absent: Hematuria Skin: absent: Rash, Pruritis Neurological: Headache. absent: Gait Changes, Speech Changes Endocrine: absent: Diaphoresis Hemo/Lymphatic: absent: Adenopathy Psychiatric: Anxiety, Depression. absent: Suicidal Ideation <TateMarlon - Last Filed: 11/23/17 13:20> Physical Exam Temperature: Afebrile Blood Pressure: Normal Pulse: Regular Respiratory Rate: Normal Appearance: Positive for: Non-Toxic Pain Distress: None Mental Status: Positive for: Alert and Oriented X 3 - Systems Exam Head: Present: Atraumatic, Normocephalic Pupils: Present: PERRL Extroacular Muscles: Present: EOMI Conjunctiva: Present: Normal Mouth: Present: Moist Mucous Membranes Pharnyx: Present: Normal. No: ERYTHEMA, EXUDATE Nose (External): Present: Atraumatic Neck: Present: Normal Range of Motion. No: JVD Respiratory/Chest: Present: Clear to Auscultation. No: Wheezes, Rales, Rhonchi Cardiovascular: Present: Regular Rate and Rhythm, Normal S1, S2. No: Murmurs, Rub, Gallop Abdomen: Present: Tenderness (mild tenderness to palpation diffusely). No: Rebound, Guarding Upper Extremity: Present: Normal Inspection. No: Cyanosis, Edema Lower Extremity: Present: Normal Inspection. No: Edema Skin: Present: Warm, Dry Psychiatric: Present: Alert, Oriented x 3 <Marlon Tate - Last Filed: 11/23/17 13:20> Vital Signs Temp Pulse Resp BP Pulse Ox 11/23/17 12:28 98.2 F 95 H 18 118/71 98 Medical Decision Making <Marlon Tate - Last Filed: 11/23/17 13:20> <Chuck Carrizales - Last Filed: 11/23/17 13:29> ED Course and Treatment: 11/23/17 13:12 -Plan on giving 1L NS bolus, check CBC, CMP -Patient states that at this point she would rather leave AMA (Marlon Tate) 11/23/17 13:18 Seen and examined with the resident. Our history and physical exam reveals a young woman complaining of a 2 day history of multiple episodes of vomiting. Polysubstance abuse including heroine and cocaine marijuana and alcohol. She is also on methadone. She last drank at approximately 5 AM today. She complains that her LMP was several months ago when she may be . Once she found out her urine test was negative she decided to sign out AMA. Patient Seen With Resident: In agreement with resident note. Patient was seen and evaluated with resident, came up with plan and treatment together. (Chuck Carrizales) - Medication Orders Current Medication Orders: Sodium Chloride (Sodium Chloride 0.9%) 1,000 mls @ 999 mls/hr IV .Q1H1M STA Stop: 11/23/17 14:07 Discontinued Medications Ondansetron HCl (Zofran Inj) 4 mg IVP ONCE ONE Stop: 11/23/17 13:08 Disposition/Present on Arrival - Present on Arrival Any Indicators Present on Arrival: No History of DVT/PE: No History of Uncontrolled Diabetes: No Urinary Catheter: No History of Decub. Ulcer: No History Surgical Site Infection Following: None - Disposition Have Diagnosis and Disposition been Completed?: Yes Disposition Time: 13:14 <Marlon Tate - Last Filed: 11/23/17 13:20> - Present on Arrival Any Indicators Present on Arrival: No History of DVT/PE: No History of Uncontrolled Diabetes: No Urinary Catheter: No History of Decub. Ulcer: No - Disposition Have Diagnosis and Disposition been Completed?: Yes Patient Plan: Other (AMA) <Chuck Carrizales - Last Filed: 11/23/17 13:29> - Disposition Diagnosis: Substance abuse, Polysubstance abuse, Opiate dependence Disposition: AGAINST MEDICAL ADVICE Patient Problems: Current Active Problems Problem Status Onset Substance abuse Acute Opiate dependence Chronic Polysubstance abuse Chronic Condition: FAIR Discharge Instructions (ExitCare): Drug Abuse and Drug Addiction (DC), Polysubstance Abuse Referrals: PCP,NO [Primary Care Provider] - Follow up with primary Forms: [employer] ([place]i)
[2017-11-23 13:32] VITALS: BP 122/76; PULSE 88
== END 2017-11-23 13:33 | disposition left against medical advice (07) ==
LOC: ED 12:28
DX: F11.20 Opioid dependence, uncomplicated (principal); F19.10 Other psychoactive substance abuse, uncomplicated; F17.210 Nicotine dependence, cigarettes, uncomplicated